=== PATIENT | female | born 1950 | race Caucasian/White ===

== ENCOUNTER → 2016-06-19 | Outpatient (CLI) | payer OTHER ==
[~2016-06-19] MED LIST: ATV5 PO; CIPR-255 PO; DXY100 PO; FLUT0.15 NAE; GLIP1TAB61 PO; INSU1INJ33 SC; LVMI SC; LXP10 PO; NITR-5 PO; OMEP40CA41 PO; PARO30TA PO; REPA2TAB13 PO; SITA50TA PO; SULF800T23 PO
--- NOTE | 2016-06-19 14:17 | MAMMOGRAPHY REPORT ---
BILATERAL DIGITAL SCREENING MAMMOGRAM WITH CAD: 06/19/2016 CLINICAL HISTORY: Routine screening. Patient has no complaints. TECHNIQUE: Current study was also evaluated with a Computer Aided Detection (CAD) system. Bilatera l CC and MLO views were obtained. COMPARISON: Comparison is made to exams dated: 03/16/2008 and 03/16/2008. BREAST COMPOSITION: The tissue of both breasts is almost entirely fatty. FINDINGS: No suspicious masses, calcifications, or areas of architectural distortion are noted in e ither breast. There has been no significant interval change compared to prior exams. A few scattere d bilateral benign-appearing calcifications are again noted. IMPRESSION: ACR BI-RADS CATEGORY 2: BENIGN There is no mammographic evidence of malignancy. A 1 year screening mammogram is recommended. The p atient will receive written notification of the results. Approximately 10% of breast cancers are not detected with mammography. A negative mammographic repor t should not delay biopsy if a clinically suggestive mass is present. Iman Chen M.D. ah/:06/19/2016 12:06:43 Portable Router Operator: Erica GODINEZ(Jovan)(Adonis)(BD), [facility] letter sent: Normal 1/2 BI-RADS Code: ACR BI-RADS Category 2: Benign
== END | disposition home or self-care (01) ==
LOC: C.MAMM 11:00
PROVIDERS: ATTEND Nurse Practitioner Family
DX: Z12.31 Encounter for screening mammogram for malignant neoplasm of breast (principal); Z13.820 Encounter for screening for osteoporosis; Z78.0 Asymptomatic menopausal state; Z87.828 Personal history of other (healed) physical injury and trauma

== ENCOUNTER 2016-08-29 11:02 | Emergency (ER) | payer OTHER ==
[~2016-08-29] VITALS: Ht 172.7 cm; Wt 104.6 kg
[~2016-08-29 11:02] MED LIST changes: -CIPR-255 PO; -INSU1INJ33 SC; -NITR-5 PO; -OMEP40CA41 PO; -PARO30TA PO; +REPA2TAB12 PO; -REPA2TAB13 PO
[2016-08-29 11:06] VITALS: TEMP 37.1; Ht 172.7 cm; Wt 104.6 kg
[2016-08-29 12:05] LABS: HEMATOCRIT 45.6 % (37-47); MEAN CELL VOLUME 89.1 fL (80-100); MEAN CORPUSCULAR HEMOGLOBIN 31.6 pg (25-34); MEAN CORPUSCULAR HGB CONC 35.5 g/dl (32-36); MEAN PLATELET VOLUME 12.6 fL (7.4-10.4); PLATELET COUNT 120 K/uL (130-400); RED BLOOD COUNT 5.12 M/uL (4.2-5.4); WHITE BLOOD COUNT 7.94 K/uL (4.8-10.8)
--- NOTE | 2016-08-29 12:06 | EMERGENCY ROOM VISIT NOTE ---
History Report prepared by Kaci: Milly Brown Under the Supervision of: Dr. Andrew Ho D.O. First contact with patient: 11:12 Chief Complaint: MENTAL HEALTH EVALUATION Stated Complaint: MENTAL HEALTH EVALUATION History of Present Illness The patient is a 66 year old female who presents to the Emergency Room with complaints of worsening depression starting a few days ago. She was evaluated by Dr. Cadena, recharger, today who referred her to the Emergency Room for concerns about depression. She has a history of depression. For the past few days, she has been increasingly concerned about her medical problems. She has a history of diabetes. Her diabetes has been out of control for the past few weeks. Her blood sugar level has been ranging from 200 to 500. She started taking Invokana about a month ago. Since she started taking Invokana, she has been having a headache and trouble sleeping. She has been trying to seek emotional support from her family but has been unsuccessful. She normally talks to one of her sisters about her depression but has been unable to do so lately due to some personal problems that her sister is having. She states that her other siblings have been unhelpful in this matter. The patient currently reports a headache. She currently denies any suicidal ideation. She states that she sometimes thinks that she would be better off if she was not here, because then she would not have to worry about her commitments or her medical problems. She denies any suicide plan. She denies any specific homicidal ideation but states that "there are a lot of people she would like to kill right now." She has been trying to be evaluated by a therapist for the past month but has been unable to obtain an appointment. The patient wants to be tested for Hepatitis. She currently denies any chest pain, abdominal pain, or any other complaints. She denies any drug or alcohol use. Source of History: patient Onset: a few days ago Position: other (global) Quality: other (depression) Timing: worsening Associated Symptoms: + headache, No abdominal pain, No chest pain Review of Systems See HPI for pertinent positives & negatives. A total of 10 systems reviewed and were otherwise negative. Past Medical & Surgical Medical Problems: (1) Asthma, Unspecified (2) COPD (chronic obstructive pulmonary disease) (3) Depression (4) Diab Sondra Wo Compl, Type Ii Or Unspec Type, Uncontrolled (5) Diabetes (6) Headache (7) Mixed Hyperlipidemia Surgical Problems: (1) History of hysterectomy Family History Cancer Gallbladder disease Kidney disease Kidney stones Rosacea Viral meningitis Social History Smoking Status: Former Smoker Alcohol Use: none Drug Use: none Marital Status: Housing Status: lives alone Occupation Status: employed Current/Historical Medications Scheduled Doxycycline Hyclate (Doxycycline Hyclate), 200 MG PO BID Escitalopram Oxalate (Escitalopram Oxalate), 10 MG PO QAM Fluticasone Propionate (Nasal) (Flonase Allergy Relief), 1 SPRAY GRANT DAILY Glipizide Xl (Glucotrol Xl), 10 MG PO BID Insulin Detemir (Levemir), 18 UNITS SC BID Nitrofurantoin Monohyd Macrocr (Macrobid), 100 MG PO BID Repaglinide (Prandin), 2 MG PO AC Sitagliptin Phosphate (Januvia), 50 MG PO DAILY Sulfa/Trimethoprim (Bactrim Ds 800MG/160MG), 1 TAB PO BID Scheduled PRN Lorazepam (Lorazepam), 0.5 MG PO BID PRN for Anxiety Allergies Coded Allergies: Penicillins (Verified Allergy, Intermediate, RASH, 08/10/15) Metformin (Verified Allergy, Unknown, Unknown, 08/10/15) Uncoded Allergies: NICKELSULFATE (Allergy, Unknown, ALLERGIC TO "METAL"??, 07/06/09) Physical Exam Vital Signs Date Time Temp Pulse Resp B/P Pulse Ox O2 Delivery O2 Flow Rate FiO2 08/29/16 13:14 75 20 131/59 95 Room Air 08/29/16 11:06 37.1 81 20 127/85 95 Physical Exam GENERAL: Patient is awake, alert, somewhat anxious appearing and guarded. EYES: The conjunctivae are clear. The pupils are round and reactive. EARS, NOSE, MOUTH AND THROAT: The nose is without any evidence of any deformity. Mucous membranes are moist tongue is midline NECK: The neck is nontender and supple. RESPIRATORY: Normal respiratory effort is noted there is no evidence of wheezing rhonchi or rales CARDIOVASCULAR: Regular rate and rhythm noted there no murmurs rubs or gallops normal S1 normal S2 GASTROINTESTINAL: The abdomen is soft. Bowel sounds are present in all quadrants. Abdomen is nontender MUSCULOSKELETAL/EXTREMITIES: There is no evidence of gross deformity full range of motion is noted in the hips and shoulders SKIN: There is no obvious evidence of any rash. There are no petechiae, pallor or cyanosis noted. NEUROLOGIC: Patient is awake alert and oriented x3 strength is symmetric patellar reflexes are 2+ bilaterally PSYCHIATRIC: Patient is very guarded and aggressive appearing, currently admits to depression symptoms, currently admits to vague suicidal ideation but no plan. Medical Decision & Procedures ER Provider Diagnostic Interpretation: CT results as stated below per my review and radiologist interpretation. CT SCAN OF THE BRAIN WITHOUT IV CONTRAST CLINICAL HISTORY: Headache. COMPARISON STUDY: CT of the brain dated 08/10/2015. TECHNIQUE: Unenhanced axial CT scan of the brain is performed from the vertex to the skull base. CT DOSE: 537.48 mGy.cm FINDINGS: Brain parenchyma: There are age-related involutional changes noting minimal subcortical and periventricular microangiopathic change. There is no hemorrhage, mass effect, or evidence of acute territorial ischemia by CT criteria. Cuevas-white matter is preserved. No extra-axial fluid collection is seen. Ventricles, sulci, cisterns: Prominent secondary to involutional change. Intracranial vasculature: There is atherosclerotic calcification of the cavernous carotid and vertebral arteries. Calvarium: Unremarkable. Sinuses and mastoids: Trace mucosal thickening is seen in the right maxillary antra. The remaining visualized paranasal sinuses are clear. The mastoid air cells are well pneumatized. Orbits: The bony orbits are grossly intact. IMPRESSION: There is no hemorrhage, mass effect, or evidence of acute territorial ischemia by CT criteria. Electronically signed by: Enio Ayala M.D. 08/29/2016 12:11 PM Dictated Date/Time: 08/29/2016 12:10 PM Laboratory Results 08/29/16 11:50 Red Blood Count 5.12, Mean Corpuscular Volume 89.1, Mean Corpuscular Hemoglobin 31.6, Mean Corpuscular Hemoglobin Concent 35.5, Mean Platelet Volume 12.6, Neutrophils (%) (Auto) 68.6, Lymphocytes (%) (Auto) 22.8, Monocytes (%) (Auto) 6.5, Eosinophils (%) (Auto) 1.3, Basophils (%) (Auto) 0.5, Neutrophils # (Auto) 5.45, Lymphocytes # (Auto) 1.81, Monocytes # (Auto) 0.52, Eosinophils # (Auto) 0.10, Basophils # (Auto) 0.04 08/29/16 11:50 Test 08/29/16 11:45 08/29/16 11:50 Urine Color DK YELLOW Urine Appearance CLOUDY (CLEAR) Urine pH 5.0 (4.5-7.5) Urine Specific [place] 1.022 (1.000-1.030) Urine Protein NEG (NEG) Urine Glucose (UA) TRACE (NEG) Urine Ketones NEG (NEG) Urine Occult Blood 1+ (NEG) Urine Nitrite NEG (NEG) Urine Bilirubin NEG (NEG) Urine Urobilinogen NEG (NEG) Urine Leukocyte Esterase LARGE (NEG) Urine WBC (Auto) >30 /hpf (0-5) Urine RBC (Auto) 0-4 /hpf (0-4) Urine Hyaline Casts (Auto) 1-5 /lpf (0-5) Urine Epithelial Cells (Auto) >30 /lpf (0-5) Urine Bacteria (Auto) 4+ (NEG) Urine Opiates Screen NEG (NEG) Urine Methadone, Qualitative NEG (NEG) Urine Barbiturates NEG (NEG) Urine Phencyclidine (PCP) Level NEG (NEG) Ur Amphetamine/Methamphetamine NEG (NEG) MDMA (Ecstasy) Screen NEG (NEG) Urine Benzodiazepines Screen NEG (NEG) Urine Cocaine Metabolite NEG (NEG) Urine Marijuana (THC) NEG (NEG) White Blood Count 7.94 K/uL (4.8-10.8) Red Blood Count 5.12 M/uL (4.2-5.4) Hemoglobin 16.2 g/dL (12.0-16.0) Hematocrit 45.6 % (37-47) Mean Corpuscular Volume 89.1 fL (80-100) Mean Corpuscular Hemoglobin 31.6 pg (25-34) Mean Corpuscular Hemoglobin Concent 35.5 g/dl (32-36) Platelet Count 120 K/uL (130-400) Mean Platelet Volume 12.6 fL (7.4-10.4) Neutrophils (%) (Auto) 68.6 % Lymphocytes (%) (Auto) 22.8 % Monocytes (%) (Auto) 6.5 % Eosinophils (%) (Auto) 1.3 % Basophils (%) (Auto) 0.5 % Neutrophils # (Auto) 5.45 K/uL (1.4-6.5) Lymphocytes # (Auto) 1.81 K/uL (1.2-3.4) Monocytes # (Auto) 0.52 K/uL (0.11-0.59) Eosinophils # (Auto) 0.10 K/uL (0-0.5) Basophils # (Auto) 0.04 K/uL (0-0.2) RDW Standard Deviation 39.1 fL (36.4-46.3) RDW Coefficient of Variation 12.3 % (11.5-14.5) Immature Granulocyte % (Auto) 0.3 % Immature Granulocyte # (Auto) 0.02 K/uL (0.00-0.02) Large Platelets 1+ Anion Gap 5.0 mmol/L (3-11) Est Creatinine Clear Calc Drug Dose 85.3 ml/min Estimated GFR () 87.1 Estimated GFR (Non- 75.2 BUN/Creatinine Ratio 16.6 (10-20) Calcium Level 9.5 mg/dl (8.5-10.1) Total Bilirubin 1.6 mg/dl (0.2-1) Direct Bilirubin 0.3 mg/dl (0-0.2) Aspartate Amino Transf (AST/SGOT) 26 U/L (15-37) Alanine Aminotransferase (ALT/SGPT) 45 U/L (12-78) Alkaline Phosphatase 127 U/L (45-117) Total Protein 7.8 gm/dl (6.4-8.2) Albumin 3.9 gm/dl (3.4-5.0) Thyroid Stimulating Hormone (TSH) 0.971 uIu/ml (0.300-4.500) Hepatitis A IgM Antibody NON-REACTIVE (NON-REACTIVE) Hepatitis B Surface Antigen NEG (NEG) Hepatitis B Core IgM Antibody NON-REACTIVE (NON-REACTIVE) Hepatitis C Antibody NEG (NEG) Laboratory results per my review. Medications Administered Medications (Trade) Dose Ordered Sig/Nakul Route Start Time Stop Time Status Last Admin Dose Admin Ondansetron HCl (Zofran Odt) 4 mg ONE ONCE PO 08/29/16 12:15 08/29/16 12:16 DC 08/29/16 12:22 4 MG Nitrofurantoin Macrocrystals (Macrobid Cap) 100 mg NOW STAT PO 08/29/16 12:43 08/29/16 12:44 DC 08/29/16 13:00 100 MG ED Course 1112: The patient was evaluated in room A07. A complete history and physical examination were performed. 1243: Macrobid Cap 100 mg PO 1310: Upon reevaluation, the patient is feeling better. I discussed the results and treatment plan with her. She verbalized agreement of the treatment plan. The patient was discharged home. Medical Decision Prior records/ancillary studies reviewed. Triage Nursing notes reviewed. The patient's history was concerning for possible psychiatric disturbance. Differential diagnosis: Etiologies such as mood disorder, infection, hypoglycemia, electrolyte abnormalities, cardiac sources, intracerebral event, toxicologic, neurologic, as well as others were entertained. The patient is a 66-year-old female who presented to the emergency department at the request of her recharger. The patient has had problems with ongoing depression symptoms for quite some time. She is very concerned over multiple things including family as well as financial issues. She has also been trying to get in with a paleobotanist but she is been unable to do this. The patient told her recharger that she was having suicidal ideation. He tried to get the patient in with her primary care physician but was unable to. He called here and talk to me and was concerned that the patient may be a threat to herself and he was advised to send her to the emergency department. The patient has ongoing depression and suicidal ideation. This does not appear to be in acute change from her previous suicidal ideation. It sounds as she has very significant depression. She has been admitted for this before and has had medications as well as a therapist but it sounds as though she stopped using her medications and stop seeing her therapist. The patient does not meet criteria to be involuntarily committed at this time. She was evaluated by the emergency Department mental health case fitter as well. I do feel the patient requires very prompt follow-up and if she was agreeable to inpatient management that would also be advisable but at this time she wishes to follow-up with her outpatient therapist. She was also found have signs of urinary tract infection on her medical workup. I discussed the patient's laboratory and radiographic studies with her. She was encouraged to continue all medications as prescribed. She was also encouraged to call crisis or return to the emergency department immediately if symptoms change worsen or the need arises. Otherwise she was encouraged to follow-up with her doctor as well since possible. Impression Primary Impression: Anxiety Additional Impressions: Depression Suicidal ideation UTI (urinary tract infection) Scribe Attestation The scribe's documentation has been prepared under my direction and personally reviewed by me in its entirety. I confirm that the note above accurately reflects all work, treatment, procedures, and medical decision making performed by me. Departure Information Dispostion Home / Self-Care Prescriptions Nitrofurantoin Monohyd Macrocr (Macrobid) 100 Mg Cap 100 MG PO BID, #14 CAP Prov: Andrew Ho, 08/29/16 Referrals Matilda Mitchell (PCP) Forms HOME CARE DOCUMENTATION FORM, IMPORTANT VISIT INFORMATION Patient Instructions Depression Counseling, [facility], Urinary Tract Infecs Women Additional Instructions Follow-up with your family doctor soon as possible. Return to the emergency department or call crisis if symptoms change worsen or the need arises. Follow- up with your therapist as soon as possible. Problem Qualifiers Additional Impressions: Depression Depression Type: unspecified Qualified Codes: F32.9 - Major depressive disorder, single episode, unspecified UTI (urinary tract infection) Urinary tract infection type: acute cystitis Hematuria presence: without hematuria Qualified Codes: N30.00 - Acute cystitis without hematuria
--- NOTE | 2016-08-29 12:12 | DIAGNOSTIC IMAGING REPORT ---
CT SCAN OF THE BRAIN WITHOUT IV CONTRAST CLINICAL HISTORY: Headache. COMPARISON STUDY: CT of the brain dated 08/10/2015. TECHNIQUE: Unenhanced axial CT scan of the brain is performed from the vertex to the skull base. CT DOSE: 537.48 mGy.cm FINDINGS: Brain parenchyma: There are age-related involutional changes noting minimal subcortical and periventricular microangiopathic change. There is no hemorrhage, mass effect, or evidence of acute territorial ischemia by CT criteria. Cuevas-white matter is preserved. No extra-axial fluid collection is seen. Ventricles, sulci, cisterns: Prominent secondary to involutional change. Intracranial vasculature: There is atherosclerotic calcification of the cavernous carotid and vertebral arteries. Calvarium: Unremarkable. Sinuses and mastoids: Trace mucosal thickening is seen in the right maxillary antra. The remaining visualized paranasal sinuses are clear. The mastoid air cells are well pneumatized. Orbits: The bony orbits are grossly intact. IMPRESSION: There is no hemorrhage, mass effect, or evidence of acute territorial ischemia by CT criteria. Electronically signed by: Enio Ayala M.D. 08/29/2016 12:11 PM Dictated Date/Time: 08/29/2016 12:10 PM
[2016-08-29] MEDS ORDERED: ONDANSETRON 4MG OD TAB PO ONE (12:15)
[2016-08-29 12:21] LABS: URINE APPEARANCE CLOUDY (CLEAR); URINE BILIRUBIN NEG (NEG); URINE COLOR DK YELLOW; URINE EPITHELIAL CELL AUTO >30 /lpf (0-5); URINE NITRITE NEG (NEG); URINE SPECIFIC GRAVITY 1.022 (1.000-1.030); UROBILINOGEN NEG (NEG)
[2016-08-29 12:24] LABS: BASO % 0.5 %; BASO ABS # 0.04 K/uL (0-0.2); BUN/CREATININE RATIO 16.6 (10-20); CALCIUM 9.5 mg/dl (8.5-10.1); COMPLETE YES; CREATININE 0.81 mg/dl (0.60-1.20); EOS % 1.3 %; IG% 0.3 %; LARGE PLATELETS 1+; LYMPH % 22.8 %; LYMPH ABS # 1.81 K/uL (1.2-3.4); MONO % 6.5 %; NEUT % 68.6 %
[2016-08-29 12:27] LABS: MANUAL MICROSCOPIC REQUIRED? NO; REVIEW REQ? NO
[2016-08-29 12:34] LABS: BENZODIAZEPINE, URINE NEG (NEG); COCAINE,URINE NEG (NEG); PHENCYCLIDINE, URINE NEG (NEG)
[2016-08-29 12:35] LABS: THYROID STIMULATING HORMONE 0.971 uIu/ml (0.300-4.500)
[2016-08-29] MEDS ORDERED: NITROFURANTOIN MONOHYDRATE 100 MG CAP PO STA (12:43)
[2016-08-29 13:14] VITALS: BP 131/59; PULSE 75; O2SAT 95
[2016-08-29] MEDS ORDERED: NITR-5 PO (13:59)
[2016-10-20] MEDS ORDERED: INSU1INJ33 SC (13:22)
[2016-10-20] MEDS ORDERED: CIPR-255 PO (13:22)
[2016-10-20] MEDS ORDERED: OMEP40CA41 PO (13:22)
[2016-10-20] MEDS ORDERED: PARO30TA PO (13:22)
== END 2016-08-29 14:12 | disposition home or self-care (01) ==
LOC: C.EDB 11:04 → C.EDA 14:12
DX: F41.9 Anxiety disorder, unspecified (principal); F32.9 Major depressive disorder, single episode, unspecified; R45.851 Suicidal ideations; N30.00 Acute cystitis without hematuria; J45.909 Unspecified asthma, uncomplicated; J44.9 Chronic obstructive pulmonary disease, unspecified; E11.9 Type 2 diabetes mellitus without complications; E78.2 Mixed hyperlipidemia; Z80.9 Family history of malignant neoplasm, unspecified; Z83.79 Family history of other diseases of the digestive system; Z84.1 Family history of disorders of kidney and ureter; Z87.891 Personal history of nicotine dependence; Z79.4 Long term (current) use of insulin; Z79.899 Other long term (current) drug therapy

== ENCOUNTER → 2016-10-29 | Day surgery (SDC) | payer OTHER ==
[2016-10-20 13:23] VITALS: Ht 172.7 cm; Wt 100.0 kg
[~2016-10-29] VITALS: Ht 172.7 cm; Wt 100.0 kg
[~2016-10-29] MED LIST changes: -ATV5 PO; +CIPR-255 PO; -DXY100 PO; -FLUT0.15 NAE; -GLIP1TAB61 PO; +INSU1INJ33 SC; +LIDOCAINE HCL 2% 2 ML VIAL (20MG/ML) ONE; -LVMI SC; -LXP10 PO; +OMEP40CA41 PO; +PARO30TA PO; +PROPOFOL IV EMULSION 10 MG/ML 20 ML VIAL IV ONE; -REPA2TAB12 PO; -SITA50TA PO; +SODIUM CHLORIDE 0.9% 500ML 500 ML IV ONE; -SULF800T23 PO
--- NOTE | 2016-10-29 14:13 | Endo History and Physical ---
History & Physical Date of Service: October 29, 2016. Chief Complaint: change in bowel habits Referring Physician: Matilda OTTO History of Present Illness cirrhosis; change in BM for EGD variceal screening and colon Past Medical History Diabetes, Asthma, Anxiety, Blood Dyscrasias, High Cholesterol, COPD, Depression Past Surgical History Hx Cardiac Surgery: No Hx Internal Defibrillator: No Hx Pacemaker: No Hx Abdominal Surgery: Yes (PANNICULECTOMY X 2, ALON, PARTIAL HYSETERECTOMY, OOPHERECTOMY) Hx of Implantable Prosthesis: No Hx Post-Op Nausea and Vomiting: No Hx Cancer Surgery: No Hx Thoracic Surgery: No Hx Orthopedic: Yes (RT/LEFT CATARACT, RT RCR) Hx Urinary Tract Surgery: Yes (BLADDER TACK X 3) Family History IBD Social History Smoking Status: Former Smoker Hx Substance Use: No Hx Alcohol Use: Yes (RARELY) Allergies Coded Allergies: Penicillins (Verified Allergy, Intermediate, RASH, 10/29/16) Metformin (Verified Allergy, Unknown, GI SICKNESS, 10/29/16) Nickel (Verified Allergy, Unknown, HIVES/RASH ON SKIN, 10/29/16) Oxycodone (Verified Allergy, Unknown, HEADACHE AND NAUSEA, 10/29/16) Current Medications Reported Home Medications Medications Dose Route/Sig Max Daily Dose Days Date Category Paxil (Paroxetine Hcl) 30 Mg Tab 30 Mg PO QAM 10/20/16 Reported Prilosec (Omeprazole) 40 Mg Cap 40 Mg PO QAM 10/20/16 Reported Tresiba Flextouch (Insulin Degludec) 100 Unit/Ml Inj 100 Units SC QAM 10/20/16 Reported Vital Signs Weight (Kilograms): 100 Height (Feet): 5 Height (Inches): 8 Date Time Temp Pulse Resp B/P Pulse Ox O2 Delivery O2 Flow Rate FiO2 10/29/16 12:39 37 63 96 163/67 96 Room Air Physical Exam AAO x3 Nl s1s2 Lungs CTA Abd soft NT/ND + BS - CCE Assessment and Plan EGD/Colon
--- NOTE | 2016-10-29 15:13 | GI REPORT ---
Procedure Date: 10/29/2016 1:55 PM Procedure: Upper GI endoscopy Indications: Epigastric abdominal pain, Dyspepsia Medicines: Propofol per Anesthesia Complications: No immediate complications. Estimated blood loss: Minimal. Estimated Blood Loss: Estimated blood loss was minimal. Procedure: Pre-Anesthesia Assessment: - Prior to the procedure, a History and Physical was performed, and patient medications and allergies were reviewed. The patient's tolerance of previous anesthesia was also reviewed. The risks and benefits of the procedure and the sedation options and risks were discussed with the patient. All questions were answered, and informed consent was obtained. Prior Anticoagulants: The patient has taken no previous anticoagulant or antiplatelet agents. ASA Grade Assessment: III - A patient with severe systemic disease. After reviewing the risks and benefits, the patient was deemed in satisfactory condition to undergo the procedure. After obtaining informed consent, the endoscope was passed under direct vision. Throughout the procedure, the patient's blood pressure, pulse, and oxygen saturations were monitored continuously. The scope was introduced through the mouth, and advanced to the second part of duodenum. The upper GI endoscopy was accomplished without difficulty. The patient tolerated the procedure well. Findings: The examined esophagus was normal. A small hiatus hernia was found. The proximal extent of the gastric folds (end of tubular esophagus) was 38 cm from the incisors. The hiatal narrowing was 40 cm from the incisors. The Z-line was 38 cm from the incisors. Patchy mildly erythematous mucosa without bleeding was found in the gastric body and in the gastric antrum. Biopsies were taken with a cold forceps for Helicobacter pylori testing. Verification of patient identification for the specimen was done by the physician and nurse using the patient's name and medical record number. The examined duodenum was normal. Retained gastric contents are not identified on this exam. The cardia and gastric fundus were normal on retroflexion. Impression: - Normal esophagus. - Small hiatus hernia. - Erythematous mucosa in the gastric body and antrum. Biopsied. - Normal examined duodenum. Recommendation: - Discharge patient to home (ambulatory). - Patient has a contact number available for emergencies. The signs and symptoms of potential delayed complications were discussed with the patient. Return to normal activities tomorrow. Written discharge instructions were provided to the patient. - Resume regular diet. - Await pathology results. - Perform a colonoscopy today. MD Clifford Mullins MD 10/29/2016 3:12:47 PM This report has been signed electronically. Note Initiated On: 10/29/2016 1:55 PM I attest to the content of the Intraoperative Record and orders documented therein, exceptions below
--- NOTE | 2016-10-29 15:24 | Discharge Instructions ---
Endoscopy Patient Instructions Date / Procedure(s) Performed October 29, 2016. Colonoscopy, EGD Allergy Information Coded Allergies: Penicillins (Verified Allergy, Intermediate, RASH, 10/29/16) Metformin (Verified Allergy, Unknown, GI SICKNESS, 10/29/16) Nickel (Verified Allergy, Unknown, HIVES/RASH ON SKIN, 10/29/16) Oxycodone (Verified Allergy, Unknown, HEADACHE AND NAUSEA, 10/29/16) Discharge Date / Findings October 29, 2016. gastritis; colon polyps; cecal AVM; diverticulosis Medication Instructions Restart Stopped Medication(s): Reported Home Medications Medications Dose Route/Sig Max Daily Dose Days Date Category Paxil (Paroxetine Hcl) 30 Mg Tab 30 Mg PO QAM 10/20/16 Reported Prilosec (Omeprazole) 40 Mg Cap 40 Mg PO QAM 10/20/16 Reported Tresiba Flextouch (Insulin Degludec) 100 Unit/Ml Inj 100 Units SC QAM 10/20/16 Reported Reported Home Medications Medications Dose Route/Sig Max Daily Dose Days Date Category Paxil (Paroxetine Hcl) 30 Mg Tab 30 Mg PO QAM 10/20/16 Reported Prilosec (Omeprazole) 40 Mg Cap 40 Mg PO QAM 10/20/16 Reported Tresiba Flextouch (Insulin Degludec) 100 Unit/Ml Inj 100 Units SC QAM 10/20/16 Reported Provider Instructions Activity Restrictions - No exercising or heavy lifting for 24 hours. - Do not drink alcohol the day of the procedure. - Do not drive a car or operate machinery until the day after the procedure. - Do not make any important decisions or sign important papers in 24 hours after the procedure. Following Day: - Return to full activity which may include returning to work/school. Diet Start your diet with liquids and light foods (jello, soup, juice, toast). Then eat your usual diet if not nauseated. Treatment For Common After Affects For mild abdominal pain, bloating, or excessive gas: - Rest - Eat lightly - Lie on right side Follow-Up Information Follow-up with Matilda OTTO as scheduled Anesthesia Information What You Should Know You have had a procedure that required some medicine to reduce anxiety and discomfort. This treatment is called moderate sedation. After receiving the treatment, you may be sleepy, but you will be able to breathe on your own. The effects of the treatment may last for several hours. Follow these instructions along with Activity/Diet recommendations noted above: * Do NOT do anything where dizziness or clumsiness would be dangerous. * Rest quietly at home today, then you can be up and about tomorrow. * Have a responsible person stay with you the rest of today. * You may have had an I.V. today. If so, you may take the dressing off later today. Recommendations Call your doctor if: * Trouble breathing * Continuous vomiting for more than 24 hours * Temperature above 101 degrees * Severe abdominal pain or bloating * Pain not relieved by pain medicine ordered * There is increased drainage or redness from any incision * A large amount of rectal bleeding greater than 2-3 tablespoons. (If you had a polyp/s removed or have hemorrhoids, a small amount of blood - from the rectum is to be expected.) * You have any unanswered questions or concerns. IN THE EVENT OF A SERIOUS EMERGENCY, GO TO THE NEAREST EMERGENCY ROOM Your discharge instructions were prepared by provider Clifford Moscoso. Patient Instructions Signature Page Jing Dela Cruz Patient (or Guardian) Signature/Date: I have read and understand the instructions given to me by my caregivers. Caregiver/RN/Doctor Signature/Date: The above-named patient and/or guardian has received patient instructions on this date. + Original Patient Signature Page (only) stays with chart. Please make copy for patient.
--- NOTE | 2016-10-29 15:26 | Anesthesiology Progress Note ---
Anesthesia Post Op Note Date & Time October 29, 2016 at 15:26 Vital Signs Pain Intensity: 0 Vital Signs Past 12 Hours Date Time Temp Pulse Resp B/P Pulse Ox O2 Delivery O2 Flow Rate FiO2 10/29/16 15:17 73 18 121/87 96 Room Air 10/29/16 12:39 37 63 96 163/67 96 Room Air Notes Mental Status: alert / awake / arousable, participated in evaluation Pt Amnestic to Procedure: Yes Nausea / Vomiting: adequately controlled Pain: adequately controlled Airway Patency, RR, SpO2: stable & adequate BP & HR: stable & adequate Hydration State: stable & adequate Anesthetic Complications: no major complications apparent
--- NOTE | 2016-10-29 15:29 | GI REPORT ---
Procedure Date: 10/29/2016 1:55 PM Procedure: Colonoscopy Indications: Change in bowel habits Medicines: Propofol per Anesthesia Complications: No immediate complications. Estimated blood loss: Minimal. Estimated Blood Loss: Estimated blood loss was minimal. Procedure: Pre-Anesthesia Assessment: - Prior to the procedure, a History and Physical was performed, and patient medications and allergies were reviewed. The patient's tolerance of previous anesthesia was also reviewed. The risks and benefits of the procedure and the sedation options and risks were discussed with the patient. All questions were answered, and informed consent was obtained. Prior Anticoagulants: The patient has taken no previous anticoagulant or antiplatelet agents. ASA Grade Assessment: III - A patient with severe systemic disease. After reviewing the risks and benefits, the patient was deemed in satisfactory condition to undergo the procedure. After I obtained informed consent, the scope was passed under direct vision. Throughout the procedure, the patient's blood pressure, pulse, and oxygen saturations were monitored continuously. The scope was introduced through the anus and advanced to the cecum, identified by appendiceal orifice and ileocecal valve. The colonoscopy was performed without difficulty. The patient tolerated the procedure well. The quality of the bowel preparation was good. Findings: The perianal and digital rectal examinations were normal. Pertinent negatives include normal sphincter tone, no palpable rectal lesions and no anal lesion or abnormality was detected. A single small localized angiodysplastic lesion without bleeding was found in the cecum. Fulguration to ablate the lesion to prevent bleeding by bipolar probe was successful. A 7 mm polyp was found in the ascending colon. The polyp was sessile. The polyp was removed with a cold snare. Resection and retrieval were complete. Estimated blood loss was minimal. Verification of patient identification for the specimen was done by the physician and computer systems technician using the patient's name and medical record number. A 5 mm polyp was found at 20 cm proximal to the anus. The polyp was sessile. The polyp was removed with a cold snare. Resection and retrieval were complete. Estimated blood loss was minimal. Verification of patient identification for the specimen was done by the physician and computer systems technician using the patient's name and medical record number. Many small-mouthed diverticula were found in the sigmoid colon. The descending colon and ascending colon appeared normal. Biopsies were taken with a cold forceps for histology. Estimated blood loss was minimal. Verification of patient identification for the specimen was done by the physician and computer systems technician using the patient's name and medical record number. The exam was otherwise without abnormality. The retroflexed view of the distal rectum and anal verge was normal and showed no anal or rectal abnormalities. Impression: - A single non-bleeding colonic angiodysplastic lesion. Treated with bipolar cautery. - One 7 mm polyp in the ascending colon, removed with a cold snare. Resected and retrieved. - One 5 mm polyp at 20 cm proximal to the anus, removed with a cold snare. Resected and retrieved. - Diverticulosis in the sigmoid colon. - The descending colon and ascending colon are normal. Biopsied. - The examination was otherwise normal. - The distal rectum and anal verge are normal on retroflexion view. Recommendation: - Discharge patient to home (ambulatory). - Resume regular diet. - Continue present medications. - Await pathology results. - Repeat colonoscopy for surveillance based on pathology results. - Return to referring physician as previously scheduled. MD Clifford Mullins MD 10/29/2016 3:28:49 PM This report has been signed electronically. Note Initiated On: 10/29/2016 1:55 PM I attest to the content of the Intraoperative Record and orders documented therein, exceptions below
[2016-10-29 15:47] VITALS: BP 139/71; PULSE 83; O2SAT 96
== END | disposition home or self-care (01) ==
LOC: C.GI 12:02
PROVIDERS: ATTEND Internal Medicine Gastroenterology
DX: K55.20 Angiodysplasia of colon without hemorrhage (principal); D12.2 Benign neoplasm of ascending colon; K62.0 Anal polyp; K57.30 Diverticulosis of large intestine without perforation or abscess without bleeding; R19.4 Change in bowel habit; K29.50 Unspecified chronic gastritis without bleeding; K44.9 Diaphragmatic hernia without obstruction or gangrene; E11.9 Type 2 diabetes mellitus without complications; E78.00 Pure hypercholesterolemia, unspecified; J44.9 Chronic obstructive pulmonary disease, unspecified; D75.9 Disease of blood and blood-forming organs, unspecified; F32.9 Major depressive disorder, single episode, unspecified; F41.9 Anxiety disorder, unspecified; Z87.891 Personal history of nicotine dependence; Z83.79 Family history of other diseases of the digestive system; Z79.4 Long term (current) use of insulin; Z79.899 Other long term (current) drug therapy

== ENCOUNTER → 2016-11-10 | Outpatient (CLI) | payer OTHER ==
[~2016-11-10] MED LIST changes: -CIPR-255 PO; -LIDOCAINE HCL 2% 2 ML VIAL (20MG/ML) ONE; -PROPOFOL IV EMULSION 10 MG/ML 20 ML VIAL IV ONE; -SODIUM CHLORIDE 0.9% 500ML 500 ML IV ONE
== END ==
LOC: C.LABSPEC 11:27
PROVIDERS: ATTEND Nurse Practitioner Family
DX: N39.0 Urinary tract infection, site not specified (principal)

== ENCOUNTER → 2016-12-16 | Outpatient (CLI) | payer OTHER | END | disposition home or self-care (01) | LOC: C.LABSPEC 11:05 | PROVIDERS: ATTEND Nurse Practitioner Family | DX: N39.0 Urinary tract infection, site not specified (principal); N76.0 Acute vaginitis; N94.9 Unspecified condition associated with female genital organs and menstrual cycle ==

== ENCOUNTER → 2017-01-05 | Outpatient (CLI) | payer OTHER | END | disposition home or self-care (01) | LOC: C.PATHSPEC 17:13 → C.LABSPEC 17:50 | PROVIDERS: ATTEND Urology | DX: R31.29 Other microscopic hematuria (principal) ==

== ENCOUNTER → 2017-01-05 | Outpatient (CLI) | payer OTHER ==
[~2017-01-05] MED LIST changes: +OPTIRAY 320 IV PRN
--- NOTE | 2017-01-05 14:47 | DIAGNOSTIC IMAGING REPORT ---
ABD/PELVIS COMBO HISTORY: 66 years-old Female N39.0 UTI (urinary tract infection)R31.29 Microscopic hematuriad COMPARISON: CT abdomen and pelvis 11/20/2013 TECHNIQUE: Multiple axial CT images of the abdomen and pelvis were obtained both with and without the use of 118 mL Optiray 320. A dose lowering technique was used consistent with the principals of RODRIGO. FINDINGS: There is mild bibasilar atelectasis and/or pleural parenchymal scarring. There is no pneumoperitoneum. Coronary arterial calcifications are seen within a three-vessel distribution. Prior cholecystectomy. Marginal nodularity of the liver is again seen compatible with cirrhotic liver disease. Spleen is again enlarged, 15 cm in length. There is recanalization of the umbilical vein. No significant upper abdominal varices or ascites identified. There is mild pancreatic atrophy. There is nodularity of the left adrenal gland. The right adrenal gland appears normal. There are several nonobstructing renal calculi on the right with areas of parenchymal scarring of the superior pole right kidney. Calculi are seen measuring up to 4 mm. No ureteral calculi or hydronephrosis. No filling defects are seen within either ureter or renal collecting system. Probable cyst of the superior pole left kidney is seen, 8 mm. Urinary bladder is unremarkable. Prior hysterectomy. 2.7 x 2.5 cm cystic lesion of the right adnexum is again seen, previously 3.5 x 2.6 cm. There is moderate atherosclerosis of the abdominal aorta. No pathologic adenopathy identified. Mildly prominent loops of small bowel are seen within the mid abdomen measuring up to 2.7 cm without evidence of bowel obstruction. Scattered colonic and jejunal diverticuli are again seen. Noted subacute diverticulitis. The appendix appears normal. Fat filled periumbilical hernia is noted with diastases of 1.7 cm. Spinal stimulator pack is seen over the left buttock region with electrode in the region of the left mid sacrum. Moderate to severe degenerative changes involve the pubic symphysis. The bones appear intact. IMPRESSION: 1. Multiple nonobstructing renal calculi are seen on the right with areas of parenchymal scarring of the superior pole right kidney. No ureteral calculi or hydronephrosis. 2. Prior hysterectomy and cholecystectomy. 3. Cirrhotic liver disease with splenomegaly. 4. Colonic diverticulosis without diverticulitis. 5. Small fat filled periumbilical hernia. 6. Small cystic lesion of the right adnexum has slightly decreased in size from comparison study, none measuring 2.7 cm. The above report was generated using voice recognition software. It may contain grammatical, syntax or spelling errors. Electronically signed by: Curtis Ramirez M.D. 01/05/2017 2:46 PM Dictated Date/Time: 01/05/2017 2:36 PM
== END | disposition home or self-care (01) ==
LOC: C.CTS 13:41
PROVIDERS: ATTEND Nurse Practitioner Adult Health
DX: N39.0 Urinary tract infection, site not specified (principal); R31.29 Other microscopic hematuria; N20.0 Calculus of kidney; K74.60 Unspecified cirrhosis of liver; R16.1 Splenomegaly, not elsewhere classified; K57.30 Diverticulosis of large intestine without perforation or abscess without bleeding; Z90.710 Acquired absence of both cervix and uterus; Z90.49 Acquired absence of other specified parts of digestive tract

== ENCOUNTER 2017-06-01 12:55 | Emergency (ER) | payer OTHER ==
[~2017-06-01] VITALS: Ht 172.7 cm; Wt 97.2 kg
[~2017-06-01 12:55] MED LIST changes: -OPTIRAY 320 IV PRN
[2017-06-01 12:58] VITALS: TEMP 37.2; Ht 172.7 cm; Wt 97.2 kg
[2017-06-01] MEDS ORDERED: IBUPROFEN 600 MG TAB PO STA (13:17)
[2017-06-01] MEDS ORDERED: ACETAMINOPHEN 500 MG TAB PO STA (13:17)
--- NOTE | 2017-06-01 13:36 | EMERGENCY ROOM VISIT NOTE ---
History Report prepared by Kaci: Trinity Brantley Under the Supervision of: Dr. Enio Oliva M.D. First contact with patient: 13:09 Chief Complaint: CHEST PAIN Stated Complaint: PAIN IN LEFT CHEST Nursing Triage Summary: pt reports she fell 1 week ago has pain under left breast when sits cannot get up hurts to breath, cannot take deep breath, or cough History of Present Illness The patient is a 67 year old female who presents to the Emergency Room with complaints of persistent left sided chest pain starting 1 week ago. The pain is located under her left breast and started after she fell 1 week ago. She thought that she might have just bruised a rib and did not go to see a doctor. The pain worsens with breathing, coughing, and lifting her left arm. The pain is going up into the back of her neck. She denies any head injury or any other injury with the fall. She denies any abdominal pain. Source of History: patient Onset: 1 week ago Position: chest (left) Quality: other (pain) Timing: other (persistent) Modifying Factors (Worsening): breathing, movement, other (coughing) Associated Symptoms: + neck pain, No abdominal pain Review of Systems See HPI for pertinent positives & negatives. A total of 10 systems reviewed and were otherwise negative. Past Medical & Surgical Medical Problems: (1) Asthma, Unspecified (2) COPD (chronic obstructive pulmonary disease) (3) Depression (4) Diab Sondra Wo Compl, Type Ii Or Unspec Type, Uncontrolled (5) Diabetes (6) Headache (7) Mixed Hyperlipidemia Surgical Problems: (1) History of hysterectomy Family History Cancer Gallbladder disease Kidney disease Kidney stones Rosacea Viral meningitis Social History Smoking Status: Never Smoker Alcohol Use: none Drug Use: none Marital Status: Housing Status: lives alone Occupation Status: employed Current/Historical Medications Scheduled Insulin Degludec (Tresiba Flextouch), 100 UNITS SC QAM Loperamide Hcl (Imodium), 2 MG PO 1-2XD Omeprazole (Prilosec), 40 MG PO QAM Paroxetine Hcl (Paxil), 30 MG PO QAM Solifenacin (Vesicare), 10 MG PO DAILY Allergies Coded Allergies: Penicillins (Verified Allergy, Intermediate, RASH, 06/01/17) Metformin (Verified Allergy, Unknown, GI SICKNESS, 06/01/17) Nickel (Verified Allergy, Unknown, HIVES/RASH ON SKIN, 06/01/17) Oxycodone (Verified Allergy, Unknown, HEADACHE AND NAUSEA, 06/01/17) Physical Exam Vital Signs Date Time Temp Pulse Resp B/P (MAP) Pulse Ox O2 Delivery O2 Flow Rate FiO2 06/01/17 13:16 79 06/01/17 12:58 37.2 79 18 145/85 94 Room Air Physical Exam GENERAL: Patient is in no acute distress. HEENT: No acute trauma, normocephalic atraumatic, mucous membranes moist, no nasal congestion, no scleral icterus. NECK: No stridor, no adenopathy, no meningismus, trachea is midline. CHEST: Tender along the left lateral and anterior chest wall. No contusion. LUNGS: Clear to auscultation bilaterally, no wheeze, no rhonchi, breath sounds equal. HEART: Without murmurs gallops or rubs, regular rate and rhythm. ABDOMEN: Soft, nontender, bowel sounds positive, no hernias, no peritonitis. EXTREMITIES: No cyanosis or edema, full range of motion of all the joints without pain or difficulty, no signs for acute trauma. NEUROLOGIC: Oriented x 3, no acute motor or sensory deficits, no focal weakness. SKIN: No rash, no jaundice, no diaphoresis. Medical Decision & Procedures ER Provider Diagnostic Interpretation: X-ray results as stated below per interpretation by me and the radiologist: SINGLE VIEW CHEST WITH LEFT-SIDED RIB SERIES CLINICAL HISTORY: Fall with left-sided chest wall pain. FINDINGS: A supine frontal chest radiograph with 4 additional views from a left-sided rib series are compared to study dated 07/03/15. The heart is top normal for projection and there is atherosclerotic calcification of the thoracic aorta. There is elevation of right hemidiaphragm and bibasilar atelectasis. Chronic interstitial thickening is similar to previous. No airspace consolidation or large pleural effusion is identified. No pneumothorax is seen. The skeletal structures are osteopenic. There is no radiographic evidence of acute/distracted left-sided rib fracture. There is a chronic/healed right clavicular fracture. The remainder the bony thorax appears intact. Cholecystectomy clips are noted. IMPRESSION: 1. No acute cardiopulmonary abnormality. 2. There is no radiographic evidence of acute/distracted left-sided rib fracture on the rib series. Electronically signed by: Enio Ayala M.D. 06/01/2017 2:05 PM Dictated Date/Time: 06/01/2017 2:02 PM Medications Administered Medications (Trade) Dose Ordered Sig/Nakul Route Start Time Stop Time Status Last Admin Dose Admin Acetaminophen (Tylenol Tab) 1,000 mg NOW STAT PO 06/01/17 13:17 06/01/17 13:19 DC 06/01/17 13:31 1,000 MG Ibuprofen (Motrin Tab) 600 mg NOW STAT PO 06/01/17 13:17 06/01/17 13:19 DC 06/01/17 13:31 600 MG ECG Indication: chest pain Rate (beats per minute): 72 Rhythm: sinus rhythm Findings: PAC, no acute ischemic change, other (no dysrhythmia) ED Course 1313: The patient was evaluated in room A10. A complete history and physical exam was performed. 1317: Ibuprofen 600 mg PO, Acetaminophen 1000 mg PO. 1418: I reevaluated the patient. I discussed results and discharge instructions : she verbalized understanding and agreement. The patient is ready for discharge. 1430: [place] 5/325 mg 1 homepack PO. Medical Decision Differential diagnoses considered include rib fracture, chest wall contusion, pneumothorax, pulmonary contusion, CA, abdominal trauma, PE, aortic dissection. The patient presents with left chest pain since falling a week ago. On exam, the left chest wall was tender. No contusion. There was no evidence for injury to the head or neck or abdomen. She was neurovascularly intact distally in the left upper extremity. Films of the left ribs show a healthy left lung. No pneumothorax. No rib fracture seen. The patient was given oral Motrin and oral Tylenol. She was reassured by her films. She is being discharged with heat, Motrin, Tylenol. She received a [place] home pack to use for severe pain. Medication Reconcilliation Current Medication List: was personally reviewed by me Blood Pressure Screening Patient's blood pressure: Elevated blood pressure Blood pressure disposition: Elevated BP felt to be situational Impression Primary Impression: Contusion of left chest wall Additional Impression: Fall Scribe Attestation The scribe's documentation has been prepared under my direction and personally reviewed by me in its entirety. I confirm that the note above accurately reflects all work, treatment, procedures, and medical decision making performed by me. Departure Information Dispostion Home / Self-Care Referrals Matilda Mitchell (PCP) Forms Call Back Authorization, HOME CARE DOCUMENTATION FORM, IMPORTANT VISIT INFORMATION Patient Instructions My [facility] Additional Instructions motrin and or tylenol for pain heat to the chest wall may help rest no heavy lifting use norco 1 tab every 6 hours for the severe pain return if worsening no rib fracture seen today on chest film Problem Qualifiers
--- NOTE | 2017-06-01 14:06 | DIAGNOSTIC IMAGING REPORT ---
SINGLE VIEW CHEST WITH LEFT-SIDED RIB SERIES CLINICAL HISTORY: Fall with left-sided chest wall pain. FINDINGS: A supine frontal chest radiograph with 4 additional views from a left-sided rib series are compared to study dated 07/03/15. The heart is top normal for projection and there is atherosclerotic calcification of the thoracic aorta. There is elevation of right hemidiaphragm and bibasilar atelectasis. Chronic interstitial thickening is similar to previous. No airspace consolidation or large pleural effusion is identified. No pneumothorax is seen. The skeletal structures are osteopenic. There is no radiographic evidence of acute/distracted left-sided rib fracture. There is a chronic/healed right clavicular fracture. The remainder the bony thorax appears intact. Cholecystectomy clips are noted. IMPRESSION: 1. No acute cardiopulmonary abnormality. 2. There is no radiographic evidence of acute/distracted left-sided rib fracture on the rib series. Electronically signed by: Enio Ayala M.D. 06/01/2017 2:05 PM Dictated Date/Time: 06/01/2017 2:02 PM
[2017-06-01] MEDS ORDERED: IMD/2 PO (14:24)
[2017-06-01] MEDS ORDERED: SOLI10TA2 PO (14:24)
[2017-06-01] MEDS ORDERED: NORCO 5/325MG HOME PACK PO ONE (14:30)
[2017-06-01 14:33] VITALS: BP 133/84; PULSE 74; O2SAT 99
== END 2017-06-01 14:33 | disposition home or self-care (01) ==
LOC: C.EDB 12:57 → C.EDA 14:33
DX: S20.20XA Contusion of thorax, unspecified, initial encounter (principal); W19.XXXA Unspecified fall, initial encounter; J44.9 Chronic obstructive pulmonary disease, unspecified; J45.909 Unspecified asthma, uncomplicated; E11.9 Type 2 diabetes mellitus without complications; E78.5 Hyperlipidemia, unspecified; R03.0 Elevated blood-pressure reading, without diagnosis of hypertension; Z79.4 Long term (current) use of insulin; Z84.1 Family history of disorders of kidney and ureter; Z83.79 Family history of other diseases of the digestive system; Z84.0 Family history of diseases of the skin and subcutaneous tissue; Z83.1 Family history of other infectious and parasitic diseases

== ENCOUNTER → 2017-10-20 | Outpatient (CLI) | payer OTHER ==
[~2017-10-20] MED LIST changes: +IMD/2 PO; +SOLI10TA2 PO
--- NOTE | 2017-10-20 19:30 | DIAGNOSTIC IMAGING REPORT ---
CHEST 2 VIEWS ROUTINE CLINICAL HISTORY: 67 years-old Female presenting with J44.1 COPD exacerbation, chest pain. TECHNIQUE: PA and lateral views of the chest were obtained. COMPARISON: 07/03/2015. FINDINGS: Atherosclerosis of the aortic arch. Cardiac silhouette normal in size. Elevation of the hemidiaphragms, chronic. Minimal basilar opacities. No pleural effusion or pneumothorax. Degenerative changes of the thoracic spine. Cholecystectomy clips noted. IMPRESSION: 1. Minimal basilar opacities likely atelectasis or scarring. No convincing evidence of acute cardiopulmonary disease. Electronically signed by: Renard Vyas M.D. 10/20/2017 7:29 PM Dictated Date/Time: 10/20/2017 7:27 PM
== END | disposition home or self-care (01) ==
LOC: C.RAD 18:58
PROVIDERS: ATTEND Family Medicine
DX: J44.1 Chronic obstructive pulmonary disease with (acute) exacerbation (principal)

== ENCOUNTER 2018-12-27 19:45 | Inpatient (IN) ==
[2018-12-27] MEDS ORDERED: SODIUM CHLORIDE 0.9% 1000ML 1,000 ML IV ONE (20:22)
[2018-12-27] MEDS ORDERED: KETOROLAC TROMETHAMINE 15 MG/ML VIAL IV STA (20:22)
[2018-12-27] MEDS ORDERED: ONDANSETRON INJ 2 MG/ML 2 ML VIAL IV STA (20:22)
[2018-12-27] MEDS ORDERED: MECLIZINE HCL 25 MG TAB PO STA (20:23)
[2018-12-27 20:49] LABS: Hematocrit (blood only) 42.3 % (37-47); Hemoglobin 14.6 g/dL (12.0-16.0); Mean Corpuscular Hgb Conc 34.5 g/dL (32-36); Mean Corpuscular Volume 92.2 fL (80-100); RDW Coefficient of Variation 12.5 % (11.5-14.5); RDW Standard Deviation 42.1 fL (36.4-46.3); Red Blood Count 4.59 M/uL (4.2-5.4); White Blood Count 6.72 K/uL (4.8-10.8)
--- NOTE | 2018-12-27 20:49 | XRay Report ---
XR chest 1V portable CLINICAL HISTORY: Sepsis COMPARISON STUDY: 06/01/2017 FINDINGS: The heart is normal in size. There are low lung volumes with interstitial thickening possib ly hypoventilatory basis. There is no lobar consolidation. There are no pleural effusions.[ IMPRESSION: Low lung volumes with interstitial thickening possibly on a hypoventilatory basis. No yamini dence of lobar consolidation Electronically signed by: Rony Whatley M.D. 12/27/2018 8:48 PM
[2018-12-27 20:52] LABS: iSTAT Creatinine 0.7 mg/dl (0.6-1.3); iSTAT Hemoglobin 14.3 g/dl (12.0-16.0); iSTAT Ionized Calcium 1.19 mmol/l (1.12-1.32); iSTAT Potassium 3.8 mEq/L (3.3-5.0)
[2018-12-27 21:00] LABS: INR 1.1 (0.9-1.1); Partial Thromboplastin Time 26.5 Seconds (21.0-31.0); Prothrombin Time 11.1 Seconds (9.0-12.0)
[2018-12-27 21:07] LABS: Basophils # (auto) 0.02 K/uL (0-0.2); Basophils % (auto) 0.3 %; Eosinophils # (auto) 0.02 K/uL (0-0.5); Eosinophils % (auto) 0.3 %; Immature Granulocytes # (auto) 0.03 K/uL (0.00-0.02); Immature Granulocytes % (auto) 0.4 %; Lymphocytes # (auto) 0.53 K/uL (1.2-3.4); Lymphocytes % (auto) 7.9 %; Mean Platelet Volume 11.9 fL (7.4-10.4); Monocytes # (auto) 0.65 K/uL (0.11-0.59); Monocytes % (auto) 9.7 %; Neutrophils # (auto) 5.47 K/uL (1.4-6.5); Neutrophils % (auto) 81.4 %; Platelet Count 72 K/uL (130-400); Platelet Estimate Decreased (Normal)
[2018-12-27 21:10] LABS: Alanine Aminotransferase 45 U/L (12-78); Albumin Level 3.7 gm/dl (3.4-5.0); Aspartate Aminotransferase 36 U/L (15-37); BUN Creatinine Ratio 20.8 (10-20); Blood Urea Nitrogen 18 mg/dl (7-18); Calcium 9.3 mg/dl (8.5-10.1); Carbon Dioxide 24 mmol/L (21-32); Chloride 104 mmol/L (98-107); Creatinine Clr Calc Pharmacy 77.8 ml/min; Est GFR (African American) 79.9; Est GFR (Non-African American) 68.9; Glucose 176 mg/dl (70-99); Potassium 3.8 mmol/L (3.5-5.1); Sodium 137 mmol/L (136-145)
[2018-12-27 21:13] LABS: Alkaline Phosphatase 135 U/L (45-117); Bilirubin,Total 1.8 mg/dl (0.2-1); Globulin 3.9 gm/dl (2.5-4.0); Total Protein 7.6 gm/dl (6.4-8.2)
[2018-12-27] MEDS ORDERED: cefTRIAXone SODIUM 2,000 MG/70 ML BAG IV STA (21:18)
[2018-12-27] MEDS ORDERED: DOXYCYCLINE HYCLATE 100 MG CAP PO STA (21:19)
[2018-12-27] MEDS ORDERED: ACETAMINOPHEN 500 MG TAB PO STA (21:20)
[2018-12-27 21:35] LABS: Creatine Kinase 63 U/L (26-192)
[2018-12-27 21:39] LABS: Creatine Kinase MB < 1.0 ng/ml (0.5-3.6); Lyme Ab IgG w/WB Rflx Negative (Negative); Troponin I < 0.015 ng/ml (0-0.045)
[2018-12-27 21:48] LABS: Lyme Ab IgM w/WB Rflx Equivocal (Negative)
[2018-12-27] MEDS ORDERED: IOVERSOL 100ml IV PRN (21:50)
[2018-12-27 21:52] LABS: Influenza A virus by PCR Neg for Influ A (Neg); Influenza B virus by PCR Neg for Influ B (Neg)
--- NOTE | 2018-12-27 21:55 | CT Scan Report ---
CT head/brain wo con CLINICAL HISTORY: Vomiting. EVALUATE FOR INTRACRANIAL ETIOLOGY. COMPARISON STUDY: October 02, 2018 TECHNIQUE: Axial CT of the brain is performed from the vertex to the skull base. IV contrast was not administered for this examination. A dose lowering technique was utilized adhering to the principles of ALARA. CT DOSE: 773.57 mGy.cm FINDINGS: No intra or extra-axial mass lesions are visualized. There is no CT evidence of acute cortical infarc tion. There is no evidence of midline shift. There is no acute hemorrhage. No calvarial fractures ar e visualized. There is no evidence of pathologic ventricular dilatation. There is no evidence of acute sinusitis IMPRESSION: No acute intracranial findings Electronically signed by: Rony Whatley M.D. 12/27/2018 9:54 PM
--- NOTE | 2018-12-27 22:07 | CT Scan Report ---
CT abd pelvis IV con only CLINICAL HISTORY: Right upper quadrant abdominal pain and vomiting COMPARISON STUDY: August 31, 2018 TECHNIQUE: The patient was scanned in a dynamic helical fashion during intravenous administration of 93 cc of Optiray 320. A dose lowering technique was utilized adhering to the principles of ALARA. CT DOSE: 1542.21 mGy.cm FINDINGS: Lower chest: There are basilar atelectatic changes. There are no significant pleural effusions. Liver: There is mild hepatic steatosis. The liver has a cirrhotic morphology. Gallbladder: Surgically absent Spleen: The spleen is enlarged measuring 18 cm. There is a nonspecific 12 mm splenic hypodensity not significantly changed from the preceding study Pancreas: Unremarkable. Adrenal glands: There is mild adrenal gland thickening, likely secondary to adenomatous hyperplasia. Kidneys: There is right-sided nephrolithiasis. There is no hydroureter necrosis. No ureteral or bladd er calculi are visualized. Subcentimeter renal hypodensities likely represent cysts Bowel: There are no transition zones indicate bowel obstruction. There is no acute diverticulitis. Th e appendix appears normal Peritoneum: There is no intraperitoneal free air or abdominal ascites. There is a small fat-containin g umbilical hernia. There is a small fat-containing supraumbilical ventral hernia. Vasculature: The abdominal aorta is normal in course and caliber. Adenopathy: None. Pelvic viscera: The patient is status post a prior hysterectomy. There is a 42 mm cystic right adnexa l lesion, likely ovarian this measured 35 mm in October 2013. There is air within the bladder presumably iatrogenic. Skeletal structures: No destructive osseous lesions are seen. There is a presacral stimulator. IMPRESSION: 1. Hepatic cirrhosis and splenomegaly 2. No evidence of bowel obstruction. No evidence of free air 3. Normal appendix. No evidence of acute diverticulitis 4. Right-sided nephrolithiasis. No ureteral calculi identified 5. Fat-containing umbilical hernia fat-containing supraumbilical ventral hernia 6. Air within the bladder, likely iatrogenic 7. Slowly enlarging 42 mm cystic right adnexal lesion, likely ovarian. This measured 35 mm in November 18 14. Electronically signed by: Rony Whatley M.D. 12/27/2018 10:05 PM
[2018-12-27 22:38] LABS: Appearance Urine Clear (Clear); Bacteria Urine Automated 4+ (Negative); Bilirubin Urine Negative (Negative); Blood Urine Trace (Negative); Color Urine Yellow; Epithelial Cell Urine Auto >30 /lpf (0-5); Glucose Urine UA Negative (Negative); Ketones Urine Negative (Negative); Leukocyte Esterase Urine 1+ (Negative); Nitrite Urine Positive (Negative); Protein Urine Trace (Negative); RBC Urine Automated 0-4 /hpf (0-4); Specific Gravity Urine > 1.045 (1.000-1.030); Urobilinogen Urine Negative (Negative); WBC Urine Automated >30 /hpf (0-5); pH Urine 5.5 (4.5-7.5)
[2018-12-27 22:54] LABS: Cast Urine Automated 0 /lpf (0-5)
--- NOTE | 2018-12-27 23:53 | Emergency Department Note ---
Entered by Reena Jin acting as a scribe for History of Present Illness General Chief complaint: Illness Stated complaint: FEVER 102, VOMITING Time Seen by Provider: 12/27/18 20:11 Source: patient Limitations: no limitations History of Present Illness Onset (ago): hour(s) (a few) Location: head Pain Consistency: + constant Maximum Pain Intensity: 8 Quality: + constant and + other (fever) Relieved By: + other (sitting up) Associated symptoms: + denies other symptoms (abdominal pain), + nausea/vomiting and + other (body aches and dizziness) Treatments prior to arrival: other (Tylenol and antihistamine) The patient is a 68 year old female who presents to the Emergency Room with complaints of a constant fever that began a few hours ago. 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 The patient complains of nausea/vomiting, body aches, and dizziness. She denies any abdominal pain. The patient's sister notes that the patient had Tylenol at 18:30, but she vomited 5 minutes after. 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 The patient notes that sitting up provides some relief. The patient denies wearing oxygen at home, having breathing treatments at home, and smoking cigarettes. She notes that she was diagnosed with Lyme disease about 3 months ago. Home Medications Home Medications Medication Instructions Recorded Confirmed Type cranberry-B.bkzjuieg-M-Mh phos 1 tab PO BID 10/02/18 12/27/18 History [Cranberry-Probiotic] insulin degludec [Tresiba 106 units SUBCUT QAM 10/02/18 12/27/18 History FlexTouch U-200] liraglutide [Victoza 3-Júnior] 1.8 units SUBCUT QAM 10/02/18 12/27/18 History loperamide [Imodium A-D] 2 mg PO Q3H PRN 10/02/18 12/27/18 History omeprazole 40 mg PO QAM 10/02/18 12/27/18 History paroxetine HCl [Paxil] 30 mg PO QAM 10/02/18 12/27/18 History solifenacin [Vesicare] 10 mg PO QAM 10/02/18 12/27/18 History conjugated estrogens [Premarin] 1 applic VAGINAL UD 12/27/18 12/27/18 History mirabegron [Myrbetriq] 50 mg PO DAILY 12/27/18 12/27/18 History Allergies Allergy/AdvReac Type Severity Reaction Status Date / Time Penicillins Allergy Intermediate RASH Verified 12/27/18 21:20 metformin Allergy Unknown GI SICKNESS Verified 12/27/18 21:20 nickel Allergy Unknown HIVES/RASH Verified 12/27/18 21:20 ON SKIN oxycodone Allergy Unknown HEADACHE Verified 12/27/18 21:20 AND NAUSEA Past Med/Surg History Medical History COPD (chronic obstructive pulmonary disease) (Acute) Diabetes mellitus (Acute) Depression (Chronic) Diabetes (Chronic) UTI (urinary tract infection) (Acute) COPD (chronic obstructive pulmonary disease) (Chronic) Febrile illness, acute (Acute 11/20/13) Headache Muscle pain (Acute) Surgical History History of hysterectomy (Chronic) Social History Preferred Language: Tajik Communication Ability: Effective Beliefs That Will Affect Care: None Current Living Situation: Alone Feels Safe at Home: Yes Smoking Status: Former smoker Hx Alcohol Use: Yes Hx Substance Use: No Review of Systems See HPI for pertinent positives & negatives. and A total of 10 systems reviewed and were otherwise negative Physical Exam Vital Signs Vital Signs - 24 hr 12/27/18 19:47 12/27/18 20:13 12/27/18 20:16 Temperature 39.3 C H Temperature Source Oral Sepsis Recent Fever Within 48 Hours No Sepsis Action Taken by Nursing No Action Required Pulse Rate 101 H 94 H 97 H Pulse Rate [Right Finger] Pulse Rate from SpO2 Sensor 95 H 96 H Pulse Rhythm [Right Finger] Pulse Strength [Right Finger] Respiratory Rate 18 26 H 22 Respiratory Effort / Characteristics Non-Labored Respiratory Depth Normal Respiratory Pattern Blood Pressure 135/77 140/72 Blood Pressure [Right Arm] Blood Pressure Mean 96 94 Blood Pressure Mean [Right Arm] Blood Pressure Position [Right Arm] Pulse Oximetry 93 90 91 Oxygen Delivery Method Room Air Room Air Room Air 12/27/18 20:18 12/27/18 20:30 12/27/18 21:00 Temperature Temperature Source Sepsis Recent Fever Within 48 Hours Sepsis Action Taken by Nursing Pulse Rate 96 H Pulse Rate [Right Finger] Pulse Rate from SpO2 Sensor Pulse Rhythm [Right Finger] Pulse Strength [Right Finger] Respiratory Rate 17 Respiratory Effort / Characteristics Respiratory Depth Respiratory Pattern Blood Pressure 135/67 105/72 Blood Pressure [Right Arm] Blood Pressure Mean 89 83 Blood Pressure Mean [Right Arm] Blood Pressure Position [Right Arm] Pulse Oximetry 91 94 93 Oxygen Delivery Method Room Air Room Air Room Air 12/27/18 21:30 12/27/18 22:32 12/27/18 22:33 Temperature Temperature Source Sepsis Recent Fever Within 48 Hours Sepsis Action Taken by Nursing Pulse Rate 81 82 Pulse Rate [Right Finger] Pulse Rate from SpO2 Sensor 82 Pulse Rhythm [Right Finger] Pulse Strength [Right Finger] Respiratory Rate 17 19 Respiratory Effort / Characteristics Respiratory Depth Respiratory Pattern Blood Pressure 120/66 126/73 Blood Pressure [Right Arm] Blood Pressure Mean 84 90 Blood Pressure Mean [Right Arm] Blood Pressure Position [Right Arm] Pulse Oximetry 92 93 Oxygen Delivery Method Room Air 12/27/18 23:58 Temperature 37.0 C Temperature Source Oral Sepsis Recent Fever Within 48 Hours Sepsis Action Taken by Nursing Pulse Rate Pulse Rate [Right Finger] 75 Pulse Rate from SpO2 Sensor Pulse Rhythm [Right Finger] Regular Pulse Strength [Right Finger] Normal Respiratory Rate 16 Respiratory Effort / Characteristics Non-Labored Respiratory Depth Normal Respiratory Pattern Regular Blood Pressure Blood Pressure [Right Arm] 109/58 L Blood Pressure Mean Blood Pressure Mean [Right Arm] 75 Blood Pressure Position [Right Arm] Lying Pulse Oximetry 94 Oxygen Delivery Method Room Air GENERAL: Awake, alert, well-appearing, in no acute distress. Diaphoretic on exam. HENT: Normocephalic, atraumatic. Oropharynx unremarkable. EYES: Normal conjunctiva. Sclera non-icteric. NECK: Supple. No nuchal rigidity. FROM. No JVD. RESPIRATORY: Clear to auscultation. CARDIAC: Regular rate, normal rhythm. Extremities warm and well perfused. Pulses equal. ABDOMEN: Soft, non-distended. No tenderness to palpation. No rebound or guarding. No masses. RECTAL: Deferred. MUSCULOSKELETAL: Chest examination reveals no tenderness. The back is symmetrical on inspection without obvious abnormality. There is no CVA tenderness to palpation. No joint edema. LOWER EXTREMITIES: Calves are equal size bilaterally and non-tender. No edema. No discoloration. NEURO: Normal sensorium. No sensory or motor deficits noted. SKIN: No rash or jaundice noted. Course 2013: The patient was evaluated in room A12B. A complete history and physical exam was performed. 2136: I reassessed the patient. 2302: I reevaluated the patient. She thinks she needs to be admitted and complained of diaphoresis. 2343: I spoke with Dr. Ye, [facility] hospitalist, about the patients case. He will further evaluate the patient. Consultations Consultation #1: I spoke with Dr. Ye, [facility] hospitalist, about the patients case. He will further evaluate the patient. Time: 23:43 Administered Medications Ioversol (Optiray 320 100ml) 93 ml IV ONCE PRN PRN Reason: Interaction Checking Stop: 12/31/18 21:49 Last Admin: 12/27/18 21:50 Dose: 93 ml Documented by: [id number] Discontinued Medications Acetaminophen (Tylenol) 1,000 mg PO NOW STA Stop: 12/27/18 21:21 Last Admin: 12/27/18 21:43 Dose: Not Given Documented by: [id number] Doxycycline Hyclate (Vibramycin) 100 mg PO NOW STA Stop: 12/27/18 21:20 Last Admin: 12/27/18 22:08 Dose: 100 mg Documented by: [id number] Sodium Chloride (Nss 1000ml) 1,000 mls @ 999 mls/hr IV .Q1H1M ONE Stop: 12/27/18 21:22 Last Infusion: 12/27/18 22:09 Dose: 0 mls/hr Documented by: [id number] Admin: 12/27/18 20:59 Dose: 999 mls/hr Documented by: [id number] Ceftriaxone Sodium (Rocephin) 2,000 mg in 70 mls @ 140 mls/hr IV NOW STA Stop: 12/27/18 21:47 Last Infusion: 12/27/18 22:38 Dose: 0 mls/hr Documented by: [id number] Admin: 12/27/18 22:08 Dose: 140 mls/hr Documented by: [id number] Ketorolac Tromethamine (Toradol) 15 mg IV NOW STA Stop: 12/27/18 20:23 Last Admin: 12/27/18 21:00 Dose: 15 mg Documented by: [id number] Meclizine HCl (Antivert) 25 mg PO NOW STA Stop: 12/27/18 20:24 Last Admin: 12/27/18 21:00 Dose: 25 mg Documented by: [id number] Ondansetron HCl (Zofran) 4 mg IV NOW STA Stop: 12/27/18 20:23 Last Admin: 12/27/18 21:00 Dose: 4 mg Documented by: [id number] Medical Decision Making Differential Diagnosis Etiologies such as viral syndrome, otitis, pharyngitis, pneumonia, influenza, meningitis, urinary tract infection, septic arthritis, soft tissue infectious process, intra-abdominal process, sepsis, bacteremia, as well as others were entertained. Medical Records Attestation: I reviewed the patient's medical records. Home Medications Current Medication List: was personally reviewed by me Laboratory Data Attestation: I reviewed the patient's lab results. Result diagrams: 12/27/18 20:27 12/27/18 20:27 Lab Results 12/27/18 12/27/18 12/27/18 Range/Units 20:27 20:27 20:27 WBC 6.72 (4.8-10.8) K/uL RBC 4.59 (4.2-5.4) M/uL Hgb 14.6 (12.0-16.0) g/dL POC Hgb (12.0-16.0) g/dl Hct 42.3 (37-47) % POC Hct (37-47) % MCV 92.2 (80-100) fL MCH 31.8 (25-34) pg MCHC 34.5 (32-36) g/dL RDW Std Deviation 42.1 (36.4-46.3) fL RDW Coeff of Chana 12.5 (11.5-14.5) % Plt Count 72 L (130-400) K/uL MPV 11.9 H (7.4-10.4) fL Immature Gran % (Auto) 0.4 % Neut % (Auto) 81.4 % Lymph % (Auto) 7.9 % [place] % (Auto) 9.7 % Eos % (Auto) 0.3 % Baso % (Auto) 0.3 % Immature Gran # (Auto) 0.03 H (0.00-0.02) K/uL Neut # (Auto) 5.47 (1.4-6.5) K/uL Lymph # (Auto) 0.53 L (1.2-3.4) K/uL [place] # (Auto) 0.65 H (0.11-0.59) K/uL Eos # (Auto) 0.02 (0-0.5) K/uL Baso # (Auto) 0.02 (0-0.2) K/uL Platelet Estimate Decreased L (Normal) PT 11.1 (9.0-12.0) Seconds INR 1.1 (0.9-1.1) APTT 26.5 (21.0-31.0) Seconds PTT Ratio 1.0 POC Sodium (135-144) mEq/L Sodium 137 (136-145) mmol/L POC Potassium (3.3-5.0) mEq/L Potassium 3.8 (3.5-5.1) mmol/L POC Chloride (101-112) mEq/L Chloride 104 (98-107) mmol/L Carbon Dioxide 24 (21-32) mmol/L POC Total CO2 (24-31) mEq/l Anion Gap 9.0 (3-11) POC Anion Gap (16-25) mmol/L POC BUN (7-18) mg/dl BUN 18 (7-18) mg/dl Creatinine 0.86 (0.6-1.2) mg/dl POC Creatinine (0.6-1.3) mg/dl Est Cr Clr Drug Dosing 77.8 ml/min Est GFR ( Amer) 79.9 Est GFR (Non-Af Amer) 68.9 BUN/Creatinine Ratio 20.8 H (10-20) Glucose 176 H (70-99) mg/dl POC Glucose (other) (70-99) mg/dl Lactate (0.4-2.0) mmol/L Calcium 9.3 (8.5-10.1) mg/dl POC Ioniz Calcium Natacha (1.12-1.32) mmol/l Total Bilirubin 1.8 H (0.2-1) mg/dl AST 36 (15-37) U/L ALT 45 (12-78) U/L Alkaline Phosphatase 135 H (45-117) U/L Total Creatine Kinase 63 (26-192) U/L CK-MB (CK-2) < 1.0 (0.5-3.6) ng/ml CK/CKMB % Calc TNP Troponin I < 0.015 (0-0.045) ng/ml Total Protein 7.6 (6.4-8.2) gm/dl Albumin 3.7 (3.4-5.0) gm/dl Globulin 3.9 (2.5-4.0) gm/dl Albumin/Globulin Ratio 1.0 (0.9-2) Urine Color Urine Appearance (Clear) Urine pH (4.5-7.5) Ur Specific [place] (1.000-1.030) Urine Protein (Negative) Urine Glucose (UA) (Negative) Urine Ketones (Negative) Urine Blood (Negative) Urine Nitrite (Negative) Urine Bilirubin (Negative) Urine Urobilinogen (Negative) Ur Leukocyte Esterase (Negative) Urine WBC (Auto) (0-5) /hpf Urine RBC (Auto) (0-4) /hpf U Hyaline Cast (Auto) (0-5) /lpf U Epithel Cells (Auto) (0-5) /lpf Urine Bacteria (Auto) (Negative) Lyme Disease IgG Ab (Negative) Lyme Disease IgM Ab (Negative) Influenza Type A (PCR) (Neg) Influenza Type B (PCR) (Neg) 12/27/18 12/27/18 12/27/18 Range/Units 20:27 20:27 20:38 WBC (4.8-10.8) K/uL RBC (4.2-5.4) M/uL Hgb (12.0-16.0) g/dL POC Hgb 14.3 (12.0-16.0) g/dl Hct (37-47) % POC Hct 42 (37-47) % MCV (80-100) fL MCH (25-34) pg MCHC (32-36) g/dL RDW Std Deviation (36.4-46.3) fL RDW Coeff of Chana (11.5-14.5) % Plt Count (130-400) K/uL MPV (7.4-10.4) fL Immature Gran % (Auto) % Neut % (Auto) % Lymph % (Auto) % [place] % (Auto) % Eos % (Auto) % Baso % (Auto) % Immature Gran # (Auto) (0.00-0.02) K/uL Neut # (Auto) (1.4-6.5) K/uL Lymph # (Auto) (1.2-3.4) K/uL [place] # (Auto) (0.11-0.59) K/uL Eos # (Auto) (0-0.5) K/uL Baso # (Auto) (0-0.2) K/uL Platelet Estimate (Normal) PT (9.0-12.0) Seconds INR (0.9-1.1) APTT (21.0-31.0) Seconds PTT Ratio POC Sodium 136 (135-144) mEq/L Sodium (136-145) mmol/L POC Potassium 3.8 (3.3-5.0) mEq/L Potassium (3.5-5.1) mmol/L POC Chloride 100 L (101-112) mEq/L Chloride (98-107) mmol/L Carbon Dioxide (21-32) mmol/L POC Total CO2 23 L (24-31) mEq/l Anion Gap (3-11) POC Anion Gap 18.0 (16-25) mmol/L POC BUN 18 (7-18) mg/dl BUN (7-18) mg/dl Creatinine (0.6-1.2) mg/dl POC Creatinine 0.7 (0.6-1.3) mg/dl Est Cr Clr Drug Dosing ml/min Est GFR ( Amer) Est GFR (Non-Af Amer) BUN/Creatinine Ratio (10-20) Glucose (70-99) mg/dl POC Glucose (other) 189 H (70-99) mg/dl Lactate 1.1 (0.4-2.0) mmol/L Calcium (8.5-10.1) mg/dl POC Ioniz Calcium Natacha 1.19 (1.12-1.32) mmol/l Total Bilirubin (0.2-1) mg/dl AST (15-37) U/L ALT (12-78) U/L Alkaline Phosphatase (45-117) U/L Total Creatine Kinase (26-192) U/L CK-MB (CK-2) (0.5-3.6) ng/ml CK/CKMB % Calc Troponin I (0-0.045) ng/ml Total Protein (6.4-8.2) gm/dl Albumin (3.4-5.0) gm/dl Globulin (2.5-4.0) gm/dl Albumin/Globulin Ratio (0.9-2) Urine Color Urine Appearance (Clear) Urine pH (4.5-7.5) Ur Specific [place] (1.000-1.030) Urine Protein (Negative) Urine Glucose (UA) (Negative) Urine Ketones (Negative) Urine Blood (Negative) Urine Nitrite (Negative) Urine Bilirubin (Negative) Urine Urobilinogen (Negative) Ur Leukocyte Esterase (Negative) Urine WBC (Auto) (0-5) /hpf Urine RBC (Auto) (0-4) /hpf U Hyaline Cast (Auto) (0-5) /lpf U Epithel Cells (Auto) (0-5) /lpf Urine Bacteria (Auto) (Negative) Lyme Disease IgG Ab Negative (Negative) Lyme Disease IgM Ab Equivocal A (Negative) Influenza Type A (PCR) (Neg) Influenza Type B (PCR) (Neg) 12/27/18 12/27/18 Range/Units 20:57 22:26 WBC (4.8-10.8) K/uL RBC (4.2-5.4) M/uL Hgb (12.0-16.0) g/dL POC Hgb (12.0-16.0) g/dl Hct (37-47) % POC Hct (37-47) % MCV (80-100) fL MCH (25-34) pg MCHC (32-36) g/dL RDW Std Deviation (36.4-46.3) fL RDW Coeff of Chana (11.5-14.5) % Plt Count (130-400) K/uL MPV (7.4-10.4) fL Immature Gran % (Auto) % Neut % (Auto) % Lymph % (Auto) % [place] % (Auto) % Eos % (Auto) % Baso % (Auto) % Immature Gran # (Auto) (0.00-0.02) K/uL Neut # (Auto) (1.4-6.5) K/uL Lymph # (Auto) (1.2-3.4) K/uL [place] # (Auto) (0.11-0.59) K/uL Eos # (Auto) (0-0.5) K/uL Baso # (Auto) (0-0.2) K/uL Platelet Estimate (Normal) PT (9.0-12.0) Seconds INR (0.9-1.1) APTT (21.0-31.0) Seconds PTT Ratio POC Sodium (135-144) mEq/L Sodium (136-145) mmol/L POC Potassium (3.3-5.0) mEq/L Potassium (3.5-5.1) mmol/L POC Chloride (101-112) mEq/L Chloride (98-107) mmol/L Carbon Dioxide (21-32) mmol/L POC Total CO2 (24-31) mEq/l Anion Gap (3-11) POC Anion Gap (16-25) mmol/L POC BUN (7-18) mg/dl BUN (7-18) mg/dl Creatinine (0.6-1.2) mg/dl POC Creatinine (0.6-1.3) mg/dl Est Cr Clr Drug Dosing ml/min Est GFR ( Amer) Est GFR (Non-Af Amer) BUN/Creatinine Ratio (10-20) Glucose (70-99) mg/dl POC Glucose (other) (70-99) mg/dl Lactate (0.4-2.0) mmol/L Calcium (8.5-10.1) mg/dl POC Ioniz Calcium Natacha (1.12-1.32) mmol/l Total Bilirubin (0.2-1) mg/dl AST (15-37) U/L ALT (12-78) U/L Alkaline Phosphatase (45-117) U/L Total Creatine Kinase (26-192) U/L CK-MB (CK-2) (0.5-3.6) ng/ml CK/CKMB % Calc Troponin I (0-0.045) ng/ml Total Protein (6.4-8.2) gm/dl Albumin (3.4-5.0) gm/dl Globulin (2.5-4.0) gm/dl Albumin/Globulin Ratio (0.9-2) Urine Color Yellow Urine Appearance Clear (Clear) Urine pH 5.5 (4.5-7.5) Ur Specific [place] > 1.045 H (1.000-1.030) Urine Protein Trace H (Negative) Urine Glucose (UA) Negative (Negative) Urine Ketones Negative (Negative) Urine Blood Trace H (Negative) Urine Nitrite Positive A (Negative) Urine Bilirubin Negative (Negative) Urine Urobilinogen Negative (Negative) Ur Leukocyte Esterase 1+ H (Negative) Urine WBC (Auto) >30 H (0-5) /hpf Urine RBC (Auto) 0-4 (0-4) /hpf U Hyaline Cast (Auto) 0 (0-5) /lpf U Epithel Cells (Auto) >30 H (0-5) /lpf Urine Bacteria (Auto) 4+ H (Negative) Lyme Disease IgG Ab (Negative) Lyme Disease IgM Ab (Negative) Influenza Type A (PCR) Neg for Influ A (Neg) Influenza Type B (PCR) Neg for Influ B (Neg) Imaging Data Radiologist's Impression: Radiology results as stated below per my review and the radiologist's interpretation: XR chest 1V portable CLINICAL HISTORY: Sepsis COMPARISON STUDY: 06/01/2017 FINDINGS: The heart is normal in size. There are low lung volumes with interstitial thickening possibly hypoventilatory basis. There is no lobar consolidation. There are no pleural effusions.[ IMPRESSION: Low lung volumes with interstitial thickening possibly on a hypoventilatory basis. No evidence of lobar consolidation Electronically signed by: Rnoy Whatley M.D. 12/27/2018 8:[address] head/brain wo con CLINICAL HISTORY: Vomiting. EVALUATE FOR INTRACRANIAL ETIOLOGY. COMPARISON STUDY: October 02, 2018 TECHNIQUE: Axial CT of the brain is performed from the vertex to the skull base. IV contrast was not administered for this examination. A dose lowering technique was utilized adhering to the principles of ALARA. CT DOSE: 773.57 mGy.cm FINDINGS: No intra or extra-axial mass lesions are visualized. There is no CT evidence of acute cortical infarction. There is no evidence of midline shift. There is no acute hemorrhage. No calvarial fractures are visualized. There is no evidence of pathologic ventricular dilatation. There is no evidence of acute sinusitis IMPRESSION: No acute intracranial findings Electronically signed by: Rony Whatley M.D. 12/27/2018 9:[address] abd pelvis IV con only CLINICAL HISTORY: Right upper quadrant abdominal pain and vomiting COMPARISON STUDY: August 31, 2018 TECHNIQUE: The patient was scanned in a dynamic helical fashion during intravenous administration of 93 cc of Optiray 320. A dose lowering technique was utilized adhering to the principles of ALARA. CT DOSE: 1542.21 mGy.cm FINDINGS: Lower chest: There are basilar atelectatic changes. There are no significant pleural effusions. Liver: There is mild hepatic steatosis. The liver has a cirrhotic morphology. Gallbladder: Surgically absent Spleen: The spleen is enlarged measuring 18 cm. There is a nonspecific 12 mm splenic hypodensity not significantly changed from the preceding study Pancreas: Unremarkable. Adrenal glands: There is mild adrenal gland thickening, likely secondary to adenomatous hyperplasia. Kidneys: There is right-sided nephrolithiasis. There is no hydroureter necrosis. No ureteral or bladder calculi are visualized. Subcentimeter renal hypodensities likely represent cysts Bowel: There are no transition zones indicate bowel obstruction. There is no acute diverticulitis. The appendix appears normal Peritoneum: There is no intraperitoneal free air or abdominal ascites. There is a small fat-containing umbilical hernia. There is a small fat-containing supraumbilical ventral hernia. Vasculature: The abdominal aorta is normal in course and caliber. Adenopathy: None. Pelvic viscera: The patient is status post a prior hysterectomy. There is a 42 mm cystic right adnexal lesion, likely ovarian this measured 35 mm in October 2013. There is air within the bladder presumably iatrogenic. Skeletal structures: No destructive osseous lesions are seen. There is a presacral stimulator. IMPRESSION: 1. Hepatic cirrhosis and splenomegaly 2. No evidence of bowel obstruction. No evidence of free air 3. Normal appendix. No evidence of acute diverticulitis 4. Right-sided nephrolithiasis. No ureteral calculi identified 5. Fat-containing umbilical hernia fat-containing supraumbilical ventral hernia 6. Air within the bladder, likely iatrogenic 7. Slowly enlarging 42 mm cystic right adnexal lesion, likely ovarian. This measured 35 mm in October 2013. Electronically signed by: Rony Whatley M.D. 12/27/2018 10:05 PM ECG Data Attestation: I personally reviewed and interpreted this ECG as follows: Indication: other (fever) Rate (beats per minute): 97 Rhythm: normal sinus Findings: + other (normal EKG); no ST depression and no ST elevation Blood Pressure Blood Pressure Findings: Normal blood pressure Blood Pressure Disposition: did not require urgent referral MDM Narrative This is a 68-year-old female who presents emergency department complaining of fever and altered mental status. The patient is also incredibly dizzy when she walks. She has a history of urinary tract infections and is incontinent of urine. Laboratory work was obtained patient appears to have evidence of urinary tract infection. She was sent for CAT scan of the abdomen pelvis which did not reveal any acute process. I did discuss her case with the hospitalist service who agreed to admit the patient. Patient and family were in agreement with the treatment plan. Impression & Plan Fever, Diabetes, UTI (urinary tract infection), COPD (chronic obstructive pulmonary disease) Discharge Plan Visit Data *Final* Discharge Date/Time: 12/28/18 01:20 Chief Complaint: Illness Stated Complaint: FEVER 102, VOMITING ED Provider: Aiden Mas Discharge Problem: Fever, Diabetes, UTI (urinary tract infection), COPD (chronic obstructive pulmonary disease) Patient Disposition: Admitted As Inpatient Discharge Instructions Interventions: ED Discharge Assessment Last Done: 12/28/18 01:20 The scribe's documentation has been prepared under my direction and personally reviewed by me in its entirety. I confirm that the note above accurately reflects all work, treatment, procedures, and medical decision making performed by me.
--- NOTE | 2018-12-28 00:22 | History & Physical Report ---
Date of Service December 28, 2018 Assessment & Plan (1) UTI (urinary tract infection): 68 y/o F Hx urinary retention, incontinence and chronic UTIs, DM II, thrombocytopenia, GERD, depression. Presents with fever, sweats and weakness. The pt states that she has had a UTI nearly continuously for 2-3 years. She is treated chronically with Bactrim and had been treated with Keflex as well. She has an implanted bladder stimulator which she does not currently make use of. She developed a high fever and profuse sweats over the past few days. She does not have abdominal pain or flank pain. 1) Fever/weakness, UTI - the pt is placed on Cefepime pending culture results. We have consulted ID as she may benefit from rotating antibiotics prophylactically 2) DM II - placed on a SS 3) Depression - cont Paroxetine 4) Thrombocytopenia - stable 5) Cirrhosis - did not seem aware of this - will require outpt f/u - likely CAVANAUGH-related Full code - SCDs pending repeat CBC as platelets are on lower end of baseline range Total time for this admit including review of labs, meds, imaging, records - discussion with pt and ER attending - 41 min Present on Admission?: Yes History of Present Illness Chief Complaint: fevers and weakness Primary Care Provider: FAM Cruz 68 y/o F Hx urinary retention, incontinence and chronic UTIs, DM II, thrombocytopenia, GERD, depression. Presents with fever, sweats and weakness. The pt states that she has had a UTI nearly continuously for 2-3 years. She is treated chronically with Bactrim and had been treated with Keflex as well. She has an implanted bladder stimulator which she does not currently make use of. She developed a high fever and profuse sweats over the past few days. She does not have abdominal pain or flank pain. PMH: 1) Chronic UTIs 2) Urinary incontinence and retention 3) DM II 4) Depression 5) GERD 6) Obese 7) COPD - not treated 8) Cirrhosis and splenomegaly reported on imaging 9) Chronic thrombocytopenia Surgical: 1) Implanted bladder stimulator 2) Bladder lift surgery Social: Quit smoking in 1999, drinks socially Family: Father due to colon CA Mother due to melanoma Allergies Allergy/AdvReac Type Severity Reaction Status Date / Time Penicillins Allergy Intermediate RASH Verified 12/27/18 21:20 metformin Allergy Unknown GI SICKNESS Verified 12/27/18 21:20 nickel Allergy Unknown HIVES/RASH Verified 12/27/18 21:20 ON SKIN oxycodone Allergy Unknown HEADACHE Verified 12/27/18 21:20 AND NAUSEA Home Medications Home Medications Medication Instructions Recorded Confirmed Type cranberry-[id number]-[id number] phos 1 tab PO BID 10/02/18 12/27/18 History [Cranberry-Probiotic] insulin degludec [Tresiba 106 units SUBCUT QAM 10/02/18 12/27/18 History FlexTouch U-200] liraglutide [Victoza 3-Júnior] 1.8 units SUBCUT QAM 10/02/18 12/27/18 History loperamide [Imodium A-D] 2 mg PO Q3H PRN 10/02/18 12/27/18 History omeprazole 40 mg PO QAM 10/02/18 12/27/18 History paroxetine HCl [Paxil] 30 mg PO QAM 10/02/18 12/27/18 History solifenacin [Vesicare] 10 mg PO QAM 10/02/18 12/27/18 History conjugated estrogens [Premarin] 1 applic VAGINAL UD 12/27/18 12/27/18 History mirabegron [Myrbetriq] 50 mg PO DAILY 12/27/18 12/27/18 History Past Med/Surg History Medical History COPD (chronic obstructive pulmonary disease) Diabetes mellitus Depression (Chronic) Diabetes (Chronic) UTI (urinary tract infection) (Acute) COPD (chronic obstructive pulmonary disease) (Chronic) Febrile illness, acute (Acute 11/20/13) Headache Muscle pain (Acute) Surgical History History of hysterectomy (Chronic) Social History Preferred Language: Romansh Feels Safe at Home: Yes Smoking Status: Former smoker Review of Systems Review of Systems: Gen: Fevers, sweats and weakness ENT: Denies congestion, throat pain, hearing loss Eyes: Denies acute visual changes CV: Denies CP, palpitations Pulmonary: Denies SOB, cough, wheezing GI: Denies N/V, diarrhea, constipation : Chronic retention, incontinence Neuro: Denies acute or unilateral weakness, acute gait impairment, headache or acute visual changes Musculoskeletal: Denies joint pain, inflammation Endocrine: Denies polydipsia, polyuria Skin: Denies acute rashes or ulcers Physical Exam Physical Exam: General: AAO x 3, no distress ENT: No erythema or exudates, no thrush Eyes: LLOYD, EOMI Head and neck: Normocephalic, atraumatic, No JVD, neck is supple. Chest/heart: Nontender, S1,2, RRR, no murmurs, no gallops Lungs: CTAB, no wheezing or crackles Abdomen: Mild distetnion - mild suprapubic tenderness - no flank/CVA tenderness Neuro: AAO x 3, speech is clear, no unilateral weakness or loss of sensation, coordination intact Musculoskeletal: No joint inflammation, muscle tenderness, FROM Skin: No acute rashes or ulcers Extremities: No clubbing, cyanosis, edema Results & Data Vital Signs (Past 12 Hours) Vital Signs Temp Pulse Pulse Resp BP BP Pulse Ox 12/27/18 23:58 98.6 F 75 16 109/58 L 94 12/27/18 22:33 82 19 126/73 93 12/27/18 22:32 81 17 12/27/18 21:30 120/66 92 12/27/18 21:00 105/72 93 12/27/18 20:30 96 H 17 135/67 94 12/27/18 20:18 91 12/27/18 20:16 97 H 22 91 12/27/18 20:13 94 H 26 H 140/72 90 12/27/18 19:47 102.7 F H 101 H 18 135/[address] abdomen: 1. Hepatic cirrhosis and splenomegaly 2. No evidence of bowel obstruction. No evidence of free air 3. Normal appendix. No evidence of acute diverticulitis 4. Right-sided nephrolithiasis. No ureteral calculi identified 5. Fat-containing umbilical hernia fat-containing supraumbilical ventral hernia 6. Air within the bladder, likely iatrogenic 7. Slowly enlarging 42 mm cystic right adnexal lesion, likely ovarian. This measured 35 mm in October 2013. PG Care Time/CCT Total # of Minutes Spent Total Time Spent with Patient: Total time spent is greater than 50% in coordination of care (as documented) at patient's floor/unit and/or counseling patient:
[2018-12-28] MEDS ORDERED: LOPERAMIDE HCL 2 MG CAP PO PRN (01:38)
[2018-12-28] MEDS ORDERED: GLUCAGON FOR INJ 1 MG VIAL IM PRN (02:00)
[2018-12-28] MEDS ORDERED: DEXTROSE 50% 50 ML SYRINGE IV PRN (02:00)
[2018-12-28] MEDS ORDERED: CARBOHYDRATES FOR HYPOGLYCEMIA PO PRN (02:00)
[2018-12-28] MEDS ORDERED: GLUCOSE 10 TABS/TUBE PO PRN (02:00)
[2018-12-28] MEDS ORDERED: GLUCOSE 40% GEL 15 GM TUBE PO PRN (02:00)
[2018-12-28] MEDS: INSULIN ASPART 100 UNITS/ML 3 ML PEN SC SCH ×5 (02:25→20:23)
[2018-12-28] MEDS: NSS + 20MEQ KCL 20 MEQ/1,000 ML BAG IV SCH ×2 (02:26→13:18)
[2018-12-28] MEDS: CEFEPIME 1,000 MG in SYRINGE 0 ML IV SCH ×3 (06:22→21:54)
[2018-12-28 07:33] LABS: Hematocrit (blood only) 37.5 % (37-47); Hemoglobin 12.6 g/dL (12.0-16.0); Mean Corpuscular Hgb Conc 33.6 g/dL (32-36); Mean Corpuscular Volume 92.8 fL (80-100); RDW Coefficient of Variation 12.5 % (11.5-14.5); RDW Standard Deviation 42.3 fL (36.4-46.3); Red Blood Count 4.04 M/uL (4.2-5.4); White Blood Count 4.19 K/uL (4.8-10.8)
[2018-12-28 07:52] LABS: Basophils # (auto) 0.01 K/uL (0-0.2); Basophils % (auto) 0.2 %; Eosinophils # (auto) 0.03 K/uL (0-0.5); Eosinophils % (auto) 0.7 %; Immature Granulocytes # (auto) 0.01 K/uL (0.00-0.02); Immature Granulocytes % (auto) 0.2 %; Lymphocytes # (auto) 0.68 K/uL (1.2-3.4); Lymphocytes % (auto) 16.2 %; Mean Platelet Volume 11.7 fL (7.4-10.4); Monocytes # (auto) 0.53 K/uL (0.11-0.59); Monocytes % (auto) 12.6 %; Neutrophils # (auto) 2.93 K/uL (1.4-6.5); Neutrophils % (auto) 70.1 %; Platelet Count 59 K/uL (130-400)
[2018-12-28 08:08] LABS: BUN Creatinine Ratio 22.7 (10-20); Calcium 8.6 mg/dl (8.5-10.1); Creatinine Clr Calc Pharmacy 91.8 ml/min; Est GFR (African American) 97.4; Magnesium 1.8 mg/dl (1.8-2.4); Potassium 3.8 mmol/L (3.5-5.1)
[2018-12-28] MEDS: VESICARE~ORDER AWAITING ACTION SCH ×2 (08:38→16:48)
[2018-12-28] MEDS: PARoxetine HCl 20 MG TAB PO SCH (08:39)
[2018-12-28] MEDS: MIRABEGRON ER 25 MG TAB PO SCH (08:41)
[2018-12-28] MEDS: PANTOprazole 40 MG TAB PO SCH (08:41)
--- NOTE | 2018-12-28 10:53 | Infectious Disease Consult ---
Date of Consultation December 28, 2018 Assessment & Plan (1) Febrile illness, acute: 68-year-old female with recurrent urinary tract infections now presents with acute febrile illness associated with vomiting, severe myalgias and arthralgias, dizziness. Given significant thrombocytopenia, would be worried about possibility of Anaplasma infection. Have ordered additional studies to include peripheral smear review. I have added doxycycline 100 mg every 12 hours pending above studies and culture results. Will follow. (2) UTI (urinary tract infection): History of Present Illness Reason for Consultation: Chronic, recurrent urinary tract infections Attending Physician: Krystal Pitts MD History of Present Illness 68-year-old female with history of COPD, diabetes mellitus, who is been troubled with recurrent urinary tract infections for many years. Has not responded well in the past to suppressive therapy. She was well until approximately 2 weeks ago when while traveling to [facility] became ill with fever, nausea and vomiting. This subsided after several days, but recurred again, and then over the last day or so has had severe nausea, vomiting, dizziness, severe myalgias and arthralgias, with fever as high as 103 degrees. Eventually came to the hospital, has been found to have mild decrease in white blood cell count but significant thrombocytopenia. Bilirubin mildly elevated. Has previous history of Lyme disease. Has not had any rash, no obvious recent tick bites. Allergies Allergy/AdvReac Type Severity Reaction Status Date / Time Penicillins Allergy Intermediate RASH Verified 12/27/18 21:20 metformin Allergy Unknown GI SICKNESS Verified 12/27/18 21:20 nickel Allergy Unknown HIVES/RASH Verified 12/27/18 21:20 ON SKIN oxycodone Allergy Unknown HEADACHE Verified 12/27/18 21:20 AND NAUSEA Home Medications Home Medications Medication Instructions Recorded Confirmed Type cranberry-B.guaijizm-J-Sw phos 1 tab PO BID 10/02/18 12/27/18 History [Cranberry-Probiotic] insulin degludec [Tresiba 106 units SUBCUT QAM 10/02/18 12/27/18 History FlexTouch U-200] liraglutide [Victoza 3-Júnior] 1.8 units SUBCUT QAM 10/02/18 12/27/18 History loperamide [Imodium A-D] 2 mg PO Q3H PRN 10/02/18 12/27/18 History omeprazole 40 mg PO QAM 10/02/18 12/27/18 History paroxetine HCl [Paxil] 30 mg PO QAM 10/02/18 12/27/18 History solifenacin [Vesicare] 10 mg PO QAM 10/02/18 12/27/18 History conjugated estrogens [Premarin] 1 applic VAGINAL UD 12/27/18 12/27/18 History mirabegron [Myrbetriq] 50 mg PO DAILY 12/27/18 12/27/18 History Patient History Medical History COPD (chronic obstructive pulmonary disease) (Acute) Diabetes mellitus (Acute) Depression (Chronic) Diabetes (Chronic) UTI (urinary tract infection) (Acute) COPD (chronic obstructive pulmonary disease) (Chronic) Febrile illness, acute (Acute 11/20/13) Headache Muscle pain (Acute) Surgical History History of hysterectomy (Chronic) Social History Preferred Language: Citizen Of [place] Communication Ability: Effective Beliefs That Will Affect Care: None Current Living Situation: Alone Feels Safe at Home: Yes Smoking Status: Former smoker Hx Alcohol Use: Yes Hx Substance Use: No Review of Systems Review of Systems: All systems reviewed & are unremarkable except as noted in HPI & below Physical Exam Constitutional: WD/WN, vitals as above + ill appearing and comfortable Eyes: PERRL, conjunctivae normal, anicteric sclerae ENMT: external ear and nose normal, oropharynx normal Neck: trachea midline, no thyromegaly neck nontender Respiratory: normal respiratory effort, lungs clear to auscultation normal percussion; does not use accessory muscles Cardiovascular: Rate/Rhythm: regular rate and regular rhythm Heart Sounds: normal S1 and normal S2; no gallop, no murmur and no cardiac rub Vessels: normal peripheral pulses; no JVD Gastrointestinal (Abdomen): Inspection/Auscultation: abdomen normal to inspection and normal bowel sounds Percussion/Palpation: + abdomen tender and abdomen soft; no hepatosplenomegaly and no abdominal mass Musculoskeletal: no cyanosis or clubbing, extremities motor strength 5/5 Spine: thoracic spine normal to inspection and lumbar spine normal to inspection; no cervical spinal tenderness Skin: no rashes, warm and dry normal turgor; no lesions Neurologic: patellar DTR's 2+ bilat, sensation intact no focal motor deficits Psychiatric: A+Ox3, euthymic affect Orientation: cooperative Lymphatic: no cervical or axillary lymphadenopathy no inguinal lymphadenopathy Results & Data Vital Signs (Past 12 Hours) Vital Signs Temp Pulse Pulse Resp BP BP Pulse Ox 12/28/18 07:26 36.6 C 74 16 109/64 95 12/28/18 01:30 36.7 C 78 16 124/72 93 12/28/18 01:20 72 18 110/72 94 12/27/18 23:58 37.0 C 75 16 109/58 L 94 (1) UTI (urinary tract infection) Hematuria presence: without hematuria Urinary tract infection type: site unspecified Qualified Code(s): N39.0 - Urinary tract infection, site not specified
[2018-12-28] MEDS ORDERED: DOXYCYCLINE HYCLATE 100 MG in DEXTROSE 5% 100 ML IV SCH ×2 (15:00→21:00)
--- NOTE | 2018-12-28 15:07 | Hospitalist Progress Note ---
Date of Service December 28, 2018 Assessment & Plan (1) UTI (urinary tract infection): This patient is a 68 y/o female with a long history of mixed stress and urge incontinence and chronic UTIs, DM II, thrombocytopenia, GERD, and depression. Presents with fever, sweats and weakness. The pt states that she has had a UTI nearly continuously for many years. She is treated almost chronically with Bactrim and had been treated with Keflex as well. She has an implanted bladder stimulator which she does not currently make use of as it does not work. She developed a high fever and profuse sweats over the past few days. No flank pain. Found to have abnormal urinalysis, growing gram-negative rods in her urine culture. With sepsis, POA CT abdomen/pelvis with right-sided kidney stones, but no findings of obstruction or pyelonephritis -Continue cefepime pending culture results. -consulted ID as she may benefit from rotating antibiotics prophylactically -Continue acetaminophen as needed for fevers we will now discontinue IV fluids -Already has close follow-up with urology (2) Sepsis: With fevers, tachycardia, source is UTI most likely Although with headaches and myalgias and worsening thrombocytopenia although this is chronic, ID added on doxycycline to cover for tickborne illness -Anaplasmosis and Lyme titers are pending and should be followed Sepsis is not severe and was POA -Follow blood and urine cultures -Continue cefepime, doxycycline (3) COPD (chronic obstructive pulmonary disease): Stable -Not on medication for this, consider bronchodilators as needed (4) Diabetes mellitus: With some mild hyperglycemia here -Add on Lantus 10 units in the morning and tighten down sliding scale insulin NovoLog -Holding home Victoza and usually takes Tresiba 106 units in the morning -ADA diet Check hemoglobin A1c in the morning (5) Depression: Stable -Continue home Paxil (6) Febrile illness, acute: As above (7) Ovarian mass, right: Noted on CT scan of the abdomen pelvis, is enlarging to 4.2 cm now on the right adnexa -Discussed with patient and her family at the bedside, 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-up with [facility] as an outpatient (8) Cirrhosis: Liver noted to have a cirrhotic appearance on imaging and also mild fatty liver -Likely secondary to Nazario -Encouraged patient to follow-up with her PCP and needs weight loss (9) Thrombocytopenia: Has had chronic thrombus cytopenia for many years and has seen hematology in the past-was told they did not know why she had low platelets Has splenomegaly on imaging of the abdomen on CT-this is likely contributing to her thrombocytopenia especially in the setting of acute illness Question of has ITP? Platelets down to 59 today, no evidence of bleeding -Follow CBC and transfuse platelets if less than 20 or has evidence of bleeding with platelets less than 50 -Consider return visit with hematology as an outpatient (10) Overactive bladder: Chronic for many years, has failed bladder sling 30 years ago, then failed stimulator placement, has had injections. Has followed with several different urologists over the years. -Continue follow-up with urology -Continue Vesicare and was just started on Myrbetriq on the day of admission (11) DVT prophylaxis: Hold chemical means due to low platelets SCDs only for now Disposition-remain hospitalized Subjective Patient still spiking fevers and having pains all over her body that "feel like machete stabbing me." Patient describes that she always has urinary urgency, incontinence both with stress and urge incontinence. However, she does usually feel lower abdominal pain and lower back pain when she gets a urinary tract infection. Reports "I always have a UTI." Denies chest pain shortness of breath, denies headache or lightheadedness. Review of Systems Review of Systems: All systems reviewed & are unremarkable except as noted in HPI & below Physical Exam Constitutional: WD/WN, vitals as above Eyes: PERRL, conjunctivae normal, anicteric sclerae ENMT: external ear and nose normal, oropharynx normal Neck: trachea midline, no thyromegaly Respiratory: normal respiratory effort, lungs clear to auscultation Cardiovascular: RRR, no murmur, no edema Gastrointestinal (Abdomen): Inspection/Auscultation: abdomen normal to inspection and normal bowel sounds; abdomen not distended Percussion/Palpation: + abdomen tender (Mild in the suprapubic area without guarding or rebound tenderness) and abdomen soft Musculoskeletal: Extremities: extremities normal to inspection; no cyanosis and no clubbing Skin: no rashes, warm and dry Neurologic: moves all extremities and awake; no focal motor deficits Psychiatric: A+Ox3, euthymic affect Results & Data Vital Signs (Past 12 Hours) Vital Signs Temp Pulse Resp BP Pulse Ox 12/28/18 07:26 36.6 C 74 16 109/64 95 Laboratory Results 12/28/18 12/28/18 12/28/18 Range/Units 20:09 16:32 11:41 WBC (4.8-10.8) K/uL RBC (4.2-5.4) M/uL Hgb (12.0-16.0) g/dL Hct (37-47) % MCV (80-100) fL MCH (25-34) pg MCHC (32-36) g/dL RDW Std Deviation (36.4-46.3) fL RDW Coeff of Chana (11.5-14.5) % Plt Count (130-400) K/uL MPV (7.4-10.4) fL Immature Gran % (Auto) % Neut % (Auto) % Lymph % (Auto) % Crockett % (Auto) % Eos % (Auto) % Baso % (Auto) % Immature Gran # (Auto) (0.00-0.02) K/uL Neut # (Auto) (1.4-6.5) K/uL Lymph # (Auto) (1.2-3.4) K/uL Crockett # (Auto) (0.11-0.59) K/uL Eos # (Auto) (0-0.5) K/uL Baso # (Auto) (0-0.2) K/uL Peripher Smr Path Cons Sodium (136-145) mmol/L Potassium (3.5-5.1) mmol/L Chloride (98-107) mmol/L Carbon Dioxide (21-32) mmol/L Anion Gap (3-11) BUN (7-18) mg/dl Creatinine (0.6-1.2) mg/dl Est Cr Clr Drug Dosing ml/min Est GFR ( Amer) Est GFR (Non-Af Amer) BUN/Creatinine Ratio (10-20) Glucose (70-99) mg/dl POC Glucose 221 H 173 H 155 H (70-99) Calcium (8.5-10.1) mg/dl Magnesium (1.8-2.4) mg/dl 12/28/18 12/28/18 Range/Units 07:09 07:09 WBC 4.19 L (4.8-10.8) K/uL RBC 4.04 L (4.2-5.4) M/uL Hgb 12.6 (12.0-16.0) g/dL Hct 37.5 (37-47) % MCV 92.8 (80-100) fL MCH 31.2 (25-34) pg MCHC 33.6 (32-36) g/dL RDW Std Deviation 42.3 (36.4-46.3) fL RDW Coeff of Chana 12.5 (11.5-14.5) % Plt Count 59 L (130-400) K/uL MPV 11.7 H (7.4-10.4) fL Immature Gran % (Auto) 0.2 % Neut % (Auto) 70.1 % Lymph % (Auto) 16.2 % Crockett % (Auto) 12.6 % Eos % (Auto) 0.7 % Baso % (Auto) 0.2 % Immature Gran # (Auto) 0.01 (0.00-0.02) K/uL Neut # (Auto) 2.93 (1.4-6.5) K/uL Lymph # (Auto) 0.68 L (1.2-3.4) K/uL Crockett # (Auto) 0.53 (0.11-0.59) K/uL Eos # (Auto) 0.03 (0-0.5) K/uL Baso # (Auto) 0.01 (0-0.2) K/uL Peripher Smr Path Cons Sodium 139 (136-145) mmol/L Potassium 3.8 (3.5-5.1) mmol/L Chloride 105 (98-107) mmol/L Carbon Dioxide 27 (21-32) mmol/L Anion Gap 6.0 (3-11) BUN 17 (7-18) mg/dl Creatinine 0.73 (0.6-1.2) mg/dl Est Cr Clr Drug Dosing 91.8 ml/min Est GFR ( Amer) 97.4 Est GFR (Non-Af Amer) 84.0 BUN/Creatinine Ratio 22.7 H (10-20) Glucose 129 H (70-99) mg/dl POC Glucose (70-99) Calcium 8.6 (8.5-10.1) mg/dl Magnesium 1.8 (1.8-2.4) mg/dl PG Care Time/CCT Total # of Minutes Spent Total Time Spent with Patient: Total time spent is greater than 50% in coordination of care (as documented) at patient's floor/unit and/or counseling patient: (1) UTI (urinary tract infection) Hematuria presence: without hematuria Urinary tract infection type: site unspecified Qualified Code(s): N39.0 - Urinary tract infection, site not specified (2) Diabetes mellitus Diabetes mellitus complication status: with other specified complication Diabetes mellitus superintendent container terminal insulin use: unspecified superintendent container terminal insulin use status Diabetes mellitus type: other specified (including TRINH) Qualified Code(s): E13.69 - Other specified diabetes mellitus with other specified complication (3) COPD (chronic obstructive pulmonary disease) COPD type: unspecified COPD Qualified Code(s): J44.9 - Chronic obstructive pulmonary disease, unspecified
[2018-12-28] MEDS: ACETAMINOPHEN 500 MG TAB PO PRN (15:25)
[2018-12-28] MEDS: DOXYCYCLINE HYCLATE 100 MG in DEXTROSE 5% 100 ML IV SCH (19:37)
[2018-12-29] MEDS: VESICARE~ORDER AWAITING ACTION SCH ×4 (00:18→23:18)
[2018-12-29] MEDS: ACETAMINOPHEN 500 MG TAB PO PRN ×2 (00:48→22:21)
[2018-12-29] MEDS: CEFEPIME 1,000 MG in SYRINGE 0 ML IV SCH (05:20)
[2018-12-29] MEDS: DOXYCYCLINE HYCLATE 100 MG in DEXTROSE 5% 100 ML IV SCH (05:20)
[2018-12-29 07:20] LABS: Calcium 8.7 mg/dl (8.5-10.1); Est GFR (African American) 79.9; Est GFR (Non-African American) 68.9; Potassium 4.3 mmol/L (3.5-5.1)
[2018-12-29 07:26] LABS: Albumin Globulin Ratio 0.8 (0.9-2); Bilirubin,Total 1.2 mg/dl (0.2-1); Globulin 3.7 gm/dl (2.5-4.0); Total Protein 6.7 gm/dl (6.4-8.2)
[2018-12-29] MEDS: PANTOprazole 40 MG TAB PO SCH (07:56)
[2018-12-29] MEDS: MIRABEGRON ER 25 MG TAB PO SCH (07:56)
[2018-12-29] MEDS: PARoxetine HCl 20 MG TAB PO SCH (07:57)
[2018-12-29] MEDS: INSULIN ASPART 100 UNITS/ML 3 ML PEN SC SCH ×4 (08:00→20:30)
[2018-12-29 08:19] LABS: Estimated Average Glucose 157 mg/dl; Hemoglobin A1C 7.1 % (4.5-5.6)
[2018-12-29] MEDS ORDERED: INSULIN GLARGINE SOLOSTAR 100 UNITS/ML 3 ML PEN SC SCH (09:00)
[2018-12-29 10:23] LABS: Hematocrit (blood only) 38.5 % (37-47); Hemoglobin 12.9 g/dL (12.0-16.0); Mean Corpuscular Hgb Conc 33.5 g/dL (32-36); Platelet Count 62 K/uL (130-400); RDW Coefficient of Variation 12.8 % (11.5-14.5); RDW Standard Deviation 43.1 fL (36.4-46.3); Red Blood Count 4.14 M/uL (4.2-5.4); White Blood Count 3.59 K/uL (4.8-10.8)
[2018-12-29 10:46] LABS: Basophils # (auto) 0.01 K/uL (0-0.2); Basophils % (auto) 0.3 %; Eosinophils # (auto) 0.06 K/uL (0-0.5); Eosinophils % (auto) 1.7 %; Immature Granulocytes # (auto) 0.01 K/uL (0.00-0.02); Immature Granulocytes % (auto) 0.3 %; Lymphocytes # (auto) 1.01 K/uL (1.2-3.4); Lymphocytes % (auto) 28.1 %; Monocytes # (auto) 0.55 K/uL (0.11-0.59); Monocytes % (auto) 15.3 %; Neutrophils # (auto) 1.95 K/uL (1.4-6.5); Neutrophils % (auto) 54.3 %; Platelet Estimate Decreased (Normal); RBC Morphology Unremarkable
[2018-12-29] MEDS: cephALEXin 500 MG CAP PO SCH ×2 (12:52→20:29)
--- NOTE | 2018-12-29 14:52 | Hospitalist Progress Note ---
Date of Service December 29, 2018 Assessment & Plan (1) UTI (urinary tract infection): This patient is a 68 y/o female with a long history of mixed stress and urge incontinence and chronic UTIs, DM II, thrombocytopenia, GERD, and depression. Presents with fever, sweats and weakness. The pt states that she has had a UTI nearly continuously for many years. She is treated almost chronically with Bactrim and had been treated with Keflex as well. She has an implanted bladder stimulator which she does not currently make use of as it does not work. 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 No flank pain. Found to have abnormal urinalysis, growing pansensiive E. coli in her urine culture. With sepsis, POA-now resolved CT abdomen/pelvis with right-sided kidney stones, but no findings of obstruction or pyelonephritis -received 2-3 days of Cefepime, now will convert to po Keflex and complete 7 day course -consulted ID as she may benefit from rotating antibiotics prophylactically-she will f/u as an outpt -Continue acetaminophen as needed for fevers -Already has close follow-up with urology (2) Sepsis: With fevers, tachycardia, source is UTI most likely Although with headaches and myalgias and worsening thrombocytopenia although this is chronic, ID added on doxycycline to cover for tickborne illness She did have a Bullseye rash a few months back and received 21 days of doxy at that time -Anaplasmosis titers are pending and should be followed Lyme IgM equivocal but was also equivocal a few months ago and Western Blot was negative--> likely still a false positive and IgM can remain positive for years on Lyme Titer even if had previous infection Sepsis is not severe and was POA -Follow blood cultures -Continue doxycycline and converted Cefepime to keflex as above (3) COPD (chronic obstructive pulmonary disease): Stable -Not on medication for this, consider bronchodilators as needed (4) Diabetes mellitus: With some mild hyperglycemia here which is now improved but still some higher glucose readings -increase Lantus to 10 units bid and tighten down sliding scale insulin NovoLog -Holding home Victoza and usually takes Tresiba 106 units in the morning -ADA diet Hemoglobin A1c with excellent control at 7.1% (5) Depression: Stable -Continue home Paxil (6) Febrile illness, acute: As above (7) Ovarian mass, right: Noted on CT scan of the abdomen pelvis, is enlarging to 4.2 cm now on the right adnexa -Discussed with patient and her family at the bedside, 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-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 as an outpatient -perhaps this is contributing to her abd bloating and hot flashes she complains of (8) Cirrhosis: Liver noted to have a cirrhotic appearance on imaging and also mild fatty liver -Likely secondary to [place] -Encouraged patient to follow-up with her PCP and needs weight loss (9) Thrombocytopenia: Has had chronic thrombocytopenia for many years and has seen hematology in the past-was told they did not know why she had low platelets Has splenomegaly on imaging of the abdomen on CT-this is likely contributing to her thrombocytopenia especially in the setting of acute illness Question if has ITP? Platelets down to 59 but now up to 62k, no evidence of bleeding -Follow CBC and transfuse platelets if less than 20 or has evidence of bleeding with platelets less than 50 -Consider return visit with hematology as an outpatient (10) Overactive bladder: Chronic for many years, has failed bladder sling 30 years ago, then failed stimulator placement, has had injections. Has followed with several different urologists over the years. -Continue follow-up with urology -Continue Vesicare and was just started on Myrbetriq on the day of admission (11) DVT prophylaxis: Hold chemical means due to low platelets SCDs only for now Disposition-remain hospitalized but if remains afebrile and BCxs no growth, could dc to home tomorrow Subjective Pt still feels "the same as I always do" and says she feels like knives are starting to come back into her joints again. Says she has been having night sweats that are drenching for so many years she can't remember. Also complains of dizziness daily fo rmany years and asks what I'm going to do about that. Also c/o abd bloating and clothes not fitting for several years but has not had weight gain. Always has incontinence and burning. Asks me about all the studies she has had so far this admission even though we reviewed everything in detail for 35 minutes yesterday. She doesn't remeber talking to me about it yesterday. She is moving her bowels, eating, no further N/V. Review of Systems Review of Systems: All systems reviewed & are unremarkable except as noted in HPI & below Physical Exam Constitutional: WD/WN, vitals as above (talkative) Eyes: PERRL, conjunctivae normal, anicteric sclerae Neck: trachea midline, no thyromegaly Respiratory: normal respiratory effort, lungs clear to auscultation Cardiovascular: RRR, no murmur, no edema Gastrointestinal (Abdomen): Inspection/Auscultation: abdomen normal to inspection and normal bowel sounds; abdomen not distended Percussion/Palpat ion: + abdomen tender (Mild in the suprapubic area without guarding or rebound tenderness) and abdomen soft Musculoskeletal: Extremities: extremities normal to inspection; no cyanosis and no clubbing Skin: no rashes, warm and dry Neurologic: moves all extremities and awake; no focal motor deficits Psychiatric: Orientation: alert and cooperative Results & Data Vital Signs (Past 12 Hours) Vital Signs Temp Pulse Resp BP Pulse Ox 12/29/18 08:16 36.8 C 57 L 18 119/71 93 Laboratory Results 12/29/18 12/29/18 12/29/18 Range/Units 11:25 07:50 06:41 WBC 3.59 L (4.8-10.8) K/uL RBC 4.14 L (4.2-5.4) M/uL Hgb 12.9 (12.0-16.0) g/dL Hct 38.5 (37-47) % MCV 93.0 (80-100) fL MCH 31.2 (25-34) pg MCHC 33.5 (32-36) g/dL RDW Std Deviation 43.1 (36.4-46.3) fL RDW Coeff of Chana 12.8 (11.5-14.5) % Plt Count 62 L (130-400) K/uL MPV 13.0 H (7.4-10.4) fL Immature Gran % (Auto) 0.3 % Neut % (Auto) 54.3 % Lymph % (Auto) 28.1 % Louisa % (Auto) 15.3 % Eos % (Auto) 1.7 % Baso % (Auto) 0.3 % Immature Gran # (Auto) 0.01 (0.00-0.02) K/uL Neut # (Auto) 1.95 (1.4-6.5) K/uL Lymph # (Auto) 1.01 L (1.2-3.4) K/uL Louisa # (Auto) 0.55 (0.11-0.59) K/uL Eos # (Auto) 0.06 (0-0.5) K/uL Baso # (Auto) 0.01 (0-0.2) K/uL Platelet Estimate Decreased L (Normal) RBC Morphology Unremarkable Sodium (136-145) mmol/L Potassium (3.5-5.1) mmol/L Chloride (98-107) mmol/L Carbon Dioxide (21-32) mmol/L Anion Gap (3-11) BUN (7-18) mg/dl Creatinine (0.6-1.2) mg/dl Est Cr Clr Drug Dosing ml/min Est GFR ( Amer) Est GFR (Non-Af Amer) BUN/Creatinine Ratio (10-20) Glucose (70-99) mg/dl POC Glucose 178 H 166 H (70-99) Estimat Average Glucose mg/dl Hemoglobin A1c (4.5-5.6) % Calcium (8.5-10.1) mg/dl Total Bilirubin (0.2-1) mg/dl AST (15-37) U/L ALT (12-78) U/L Alkaline Phosphatase (45-117) U/L Total Protein (6.4-8.2) gm/dl Albumin (3.4-5.0) gm/dl Globulin (2.5-4.0) gm/dl Albumin/Globulin Ratio (0.9-2) 12/29/18 12/29/18 12/28/18 Range/Units 06:41 06:34 20:09 WBC (4.8-10.8) K/uL RBC (4.2-5.4) M/uL Hgb (12.0-16.0) g/dL Hct (37-47) % MCV (80-100) fL MCH (25-34) pg MCHC (32-36) g/dL RDW Std Deviation (36.4-46.3) fL RDW Coeff of Chana (11.5-14.5) % Plt Count (130-400) K/uL MPV (7.4-10.4) fL Immature Gran % (Auto) % Neut % (Auto) % Lymph % (Auto) % Louisa % (Auto) % Eos % (Auto) % Baso % (Auto) % Immature Gran # (Auto) (0.00-0.02) K/uL Neut # (Auto) (1.4-6.5) K/uL Lymph # (Auto) (1.2-3.4) K/uL Louisa # (Auto) (0.11-0.59) K/uL Eos # (Auto) (0-0.5) K/uL Baso # (Auto) (0-0.2) K/uL Platelet Estimate (Normal) RBC Morphology Sodium 139 (136-145) mmol/L Potassium 4.3 (3.5-5.1) mmol/L Chloride 106 (98-107) mmol/L Carbon Dioxide 28 (21-32) mmol/L Anion Gap 5.0 (3-11) BUN 13 (7-18) mg/dl Creatinine 0.86 (0.6-1.2) mg/dl Est Cr Clr Drug Dosing 78.0 ml/min Est GFR ( Amer) 79.9 Est GFR (Non-Af Amer) 68.9 BUN/Creatinine Ratio 15.0 (10-20) Glucose 175 H (70-99) mg/dl POC Glucose 221 H (70-99) Estimat Average Glucose 157 mg/dl Hemoglobin A1c 7.1 H (4.5-5.6) % Calcium 8.7 (8.5-10.1) mg/dl Total Bilirubin 1.2 H (0.2-1) mg/dl AST 35 (15-37) U/L ALT 40 (12-78) U/L Alkaline Phosphatase 117 (45-117) U/L Total Protein 6.7 (6.4-8.2) gm/dl Albumin 3.0 L (3.4-5.0) gm/dl Globulin 3.7 (2.5-4.0) gm/dl Albumin/Globulin Ratio 0.8 L (0.9-2) 12/28/ Range/Units 16:32 WBC (4.8-10.8) K/uL RBC (4.2-5.4) M/uL Hgb (12.0-16.0) g/dL Hct (37-47) % MCV (80-100) fL MCH (25-34) pg MCHC (32-36) g/dL RDW Std Deviation (36.4-46.3) fL RDW Coeff of Chana (11.5-14.5) % Plt Count (130-400) K/uL MPV (7.4-10.4) fL Immature Gran % (Auto) % Neut % (Auto) % Lymph % (Auto) % Louisa % (Auto) % Eos % (Auto) % Baso % (Auto) % Immature Gran # (Auto) (0.00-0.02) K/uL Neut # (Auto) (1.4-6.5) K/uL Lymph # (Auto) (1.2-3.4) K/uL Louisa # (Auto) (0.11-0.59) K/uL Eos # (Auto) (0-0.5) K/uL Baso # (Auto) (0-0.2) K/uL Platelet Estimate (Normal) RBC Morphology Sodium (136-145) mmol/L Potassium (3.5-5.1) mmol/L Chloride (98-107) mmol/L Carbon Dioxide (21-32) mmol/L Anion Gap (3-11) BUN (7-18) mg/dl Creatinine (0.6-1.2) mg/dl Est Cr Clr Drug Dosing ml/min Est GFR ( Amer) Est GFR (Non-Af Amer) BUN/Creatinine Ratio (10-20) Glucose (70-99) mg/dl POC Glucose 173 H (70-99) Estimat Average Glucose mg/dl Hemoglobin A1c (4.5-5.6) % Calcium (8.5-10.1) mg/dl Total Bilirubin (0.2-1) mg/dl AST (15-37) U/L ALT (12-78) U/L Alkaline Phosphatase (45-117) U/L Total Protein (6.4-8.2) gm/dl Albumin (3.4-5.0) gm/dl Globulin (2.5-4.0) gm/dl Albumin/Globulin Ratio (0.9-2) PG Care Time/CCT Total # of Minutes Spent Total Time Spent with Patient: Total time spent is greater than 50% in coordination of care (as documented) at patient's floor/unit and/or counseling patient: (1) UTI (urinary tract infection) Hematuria presence: without hematuria Urinary tract infection type: site unspecified Qualified Code(s): N39.0 - Urinary tract infection, site not specified (2) COPD (chronic obstructive pulmonary disease) COPD type: unspecified COPD Qualified Code(s): J44.9 - Chronic obstructive pulmonary disease, unspecified (3) Diabetes mellitus Diabetes mellitus complication status: with other specified complication Diabetes mellitus 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
[2018-12-29] MEDS: DOXYCYCLINE HYCLATE 100 MG CAP PO SCH (17:27)
--- NOTE | 2018-12-29 19:33 | Infectious Disease Progress Nt ---
Date of Service December 29, 2018 Assessment & Plan (1) Febrile illness, acute: 68-year-old female with recurrent urinary tract infections now presents with acute febrile illness associated with vomiting, severe myalgias and arthralgias, thrombocytopenia, with symptoms of recurrent urinary tract infection, smear for Anaplasma negative, DNA studies are pending. Would continue on antibiotics for now pending final sensitivity results and identification. Consider work-up for autoimmune disease given prolonged symptoms. Will follow. (2) UTI (urinary tract infection): Subjective Patient seen in follow-up for fever and recurrent urinary tract infection. Feels about the same today. Still having symptoms of recurrent urine infection. Platelet count lower today. Urine growing gram-negative bacilli. Remains afebrile. Review of Systems Review of Systems: All systems reviewed & are unremarkable except as noted in HPI & below Physical Exam Constitutional: WD/WN, vitals as above + ill appearing and comfortable Eyes: PERRL, conjunctivae normal, anicteric sclerae ENMT: external ear and nose normal, oropharynx normal Neck: trachea midline, no thyromegaly neck nontender Respiratory: normal respiratory effort, lungs clear to auscultation normal percussion; does not use accessory muscles Cardiovascular: Rate/Rhythm: regular rate and regular rhythm Heart Sounds: normal S1 and normal S2; no gallop, no murmur and no cardiac rub Vessels: normal peripheral pulses; no JVD Gastrointestinal (Abdomen): Inspection/Auscultation: abdomen normal to inspection and normal bowel sounds Percussion/Palpation: + abdomen tender and abdomen soft; no hepatosplenomegaly and no abdominal mass Musculoskeletal: no cyanosis or clubbing, extremities motor strength 5/5 Spine: thoracic spine normal to inspection and lumbar spine normal to inspection; no cervical spinal tenderness Skin: no rashes, warm and dry normal turgor; no lesions Neurologic: patellar DTR's 2+ bilat, sensation intact no focal motor deficits Psychiatric: A+Ox3, euthymic affect Orientation: cooperative Lymphatic: no cervical or axillary lymphadenopathy no inguinal lymphadenop athy Results & Data Vital Signs (Past 12 Hours) Vital Signs Temp Pulse Resp BP BP Pulse Ox 12/29/18 15:00 37.3 C 71 21 130/72 97/51 L 92 12/29/18 08:16 36.8 C 57 L 18 119/71 93 Laboratory Results Short CBC 12/29/18 Range/Units 06:41 WBC 3.59 L (4.8-10.8) K/uL Hgb 12.9 (12.0-16.0) g/dL Hct 38.5 (37-47) % Plt Count 62 L (130-400) K/uL BMP 12/29/18 06:34 Sodium 139 Potassium 4.3 Chloride 106 Carbon Dioxide 28 BUN 13 Creatinine 0.86 Glucose 175 H Calcium 8.7 Liver Function 12/29/18 Range/Units 06:34 Total Bilirubin 1.2 H (0.2-1) mg/dl AST 35 (15-37) U/L ALT 40 (12-78) U/L Alkaline Phosphatase 117 (45-117) U/L Albumin 3.0 L (3.4-5.0) gm/dl Diagnostic Findings Microbiology 12/27/18 22:26 Urine,Clean Catch Urine Culture - Final Escherichia coli 12/27/18 20:27 Blood Aerobic Blood Culture - Preliminary No growth in Aerobic bottle after 24 hours. 12/27/18 20:27 Blood Anaerobic Blood Culture - Preliminary No growth in Anaerobic bottle after 24 hours. 12/27/18 20:10 Blood Aerobic Blood Culture - Preliminary No growth in Aerobic bottle after 24 hours. 12/27/18 20:10 Blood Anaerobic Blood Culture - Preliminary No growth in Anaerobic bottle after 24 hours. (1) UTI (urinary tract infection) Hematuria presence: without hematuria Urinary tract infection type: site unspecified Qualified Code(s): N39.0 - Urinary tract infection, site not specified
[2018-12-29] MEDS: INSULIN GLARGINE SOLOSTAR 100 UNITS/ML 3 ML PEN SC SCH (20:29)
[2018-12-30] MEDS: DOXYCYCLINE HYCLATE 100 MG CAP PO SCH (05:40)
[2018-12-30] MEDS: PANTOprazole 40 MG TAB PO SCH (08:13)
[2018-12-30] MEDS: PARoxetine HCl 20 MG TAB PO SCH (08:13)
[2018-12-30] MEDS: MIRABEGRON ER 25 MG TAB PO SCH (08:13)
[2018-12-30] MEDS: VESICARE~ORDER AWAITING ACTION SCH (08:14)
[2018-12-30] MEDS: cephALEXin 500 MG CAP PO SCH (08:14)
[2018-12-30] MEDS: INSULIN GLARGINE SOLOSTAR 100 UNITS/ML 3 ML PEN SC SCH (08:15)
[2018-12-30] MEDS: INSULIN ASPART 100 UNITS/ML 3 ML PEN SC SCH ×2 (08:18→12:22)
[2018-12-30] MEDS ORDERED: INSULIN GLARGINE SOLOSTAR 100 UNITS/ML 3 ML PEN SC SCH (09:00)
[2018-12-30 09:28] LABS: Hematocrit (blood only) 41.3 % (37-47); Mean Corpuscular Hgb Conc 33.9 g/dL (32-36); Mean Platelet Volume 12.9 fL (7.4-10.4); Platelet Count 75 K/uL (130-400); RDW Coefficient of Variation 12.7 % (11.5-14.5); RDW Standard Deviation 43.1 fL (36.4-46.3); Red Blood Count 4.44 M/uL (4.2-5.4); White Blood Count 3.52 K/uL (4.8-10.8)
[2018-12-30 09:53] LABS: BUN Creatinine Ratio 16.6 (10-20); Calcium 8.9 mg/dl (8.5-10.1); Creatinine Clr Calc Pharmacy 85.9 ml/min; Est GFR (African American) 89.9; Est GFR (Non-African American) 77.6; Potassium 4.1 mmol/L (3.5-5.1)
[2018-12-30 09:59] LABS: Basophils # (auto) 0.02 K/uL (0-0.2); Basophils % (auto) 0.6 %; Eosinophils # (auto) 0.09 K/uL (0-0.5); Eosinophils % (auto) 2.6 %; Giant Platelets 1+; Immature Granulocytes # (auto) 0.01 K/uL (0.00-0.02); Immature Granulocytes % (auto) 0.3 %; Lymphocytes # (auto) 1.06 K/uL (1.2-3.4); Lymphocytes % (auto) 30.1 %; Monocytes # (auto) 0.32 K/uL (0.11-0.59); Monocytes % (auto) 9.1 %; Neutrophils # (auto) 2.02 K/uL (1.4-6.5); Neutrophils % (auto) 57.3 %
--- NOTE | 2018-12-30 16:29 | Discharge Summary ---
Date of Service December 30, 2018 Admission HPI Per Admitting Provider 68 y/o F Hx urinary retention, incontinence and chronic UTIs, DM II, thrombocytopenia, GERD, depression. Presents with fever, sweats and weakness. The pt states that she has had a UTI nearly continuously for 2-3 years. She is treated chronically with Bactrim and had been treated with Keflex as well. She has an implanted bladder stimulator which she does not currently make use of. She developed a high fever and profuse sweats over the past few days. She does not have abdominal pain or flank pain. PMH: 1) Chronic UTIs 2) Urinary incontinence and retention 3) DM II 4) Depression 5) GERD 6) Obese 7) COPD - not treated 8) Cirrhosis and splenomegaly reported on imaging 9) Chronic thrombocytopenia Surgical: 1) Implanted bladder stimulator 2) Bladder lift surgery Social: Quit smoking in 1999, drinks socially Family: Father due to colon CA Mother due to melanoma Principal Diagnosis UTI, Sepsis Discharge Exam Constitutional WD/WN, vitals as above (talkative) Eyes PERRL, conjunctivae normal, anicteric sclerae ENMT external ear and nose normal, oropharynx normal Neck trachea midline, no thyromegaly Respiratory normal respiratory effort, lungs clear to auscultation Cardiovascular RRR, no murmur, no edema Gastrointestinal (Abdomen) Inspection/Auscultation: abdomen normal to inspection and normal bowel sounds; abdomen not distended Percussion/Palpation: + abdomen tender (Mild in the suprapubic area without guarding or rebound tenderness) and abdomen soft Musculoskeletal Extremities: extremities normal to inspection; no cyanosis and no clubbing Skin no rashes, warm and dry Neurologic moves all extremities and awake; no focal motor deficits Psychiatric Orientation: alert and oriented x 3 Speech: + loud speech Affect: + labile affect and + irritable affect Discharge Data Allergies Allergy/AdvReac Type Severity Reaction Status Date / Time Penicillins Allergy Intermediate RASH Verified 12/27/18 21:20 metformin Allergy Unknown GI SICKNESS Verified 12/27/18 21:20 nickel Allergy Unknown HIVES/RASH Verified 12/27/18 21:20 ON SKIN oxycodone Allergy Unknown HEADACHE Verified 12/27/18 21:20 AND NAUSEA Consultations Infectious Diseases Ordered Studies 12/27/18 20:22 CT abd pelvis IV con only Stat CT head/brain wo con Stat CXR Hospital Course (1) UTI (urinary tract infection): This patient is a 68 y/o female with a long history of mixed stress and urge incontinence and chronic UTIs, DM II, thrombocytopenia, GERD, and depression. Presents with fever, sweats and weakness. The pt states that she has had a UTI nearly continuously for many years. She is treated almost chroni chrissie with Bactrim and had been treated with Keflex as well. She has an implanted bladder stimulator which she does not currently make use of as it does not work. 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 No flank pain. Found to have abnormal urinalysis, growing pansensitive E. coli in her urine culture. With sepsis, POA-now resolved CT abdomen/pelvis with right-sided kidney stones, but no findings of obstruction or pyelonephritis No further fevers in many days although pt states she has daily profuse sweating for over 10-15 years, wants to know what she should do about it--> she thinks they are fevers but no fever documented here during a sweating episode--> recommend f/u with PCP and/or DIGITAL COMPUTER SYSTEMS ANALYST for hormonal workup as outpt -received 2-3 days of Cefepime, and then was converted to po Keflex and will complete 7 day course -consulted ID as she may benefit from rotating antibiotics prophylactically-she will f/u as an outpt -Already has close follow-up with urology for recurrent infections and OAB (2) Sepsis: With fevers, tachycardia, source is UTI most likely--> all resolved Although with headaches and myalgias and worsening thrombocytopenia although this is chronic, ID added on doxycycline to cover for tickborne illness She did have a Bullseye rash a few months back and received 21 days of doxy at t hat time -Anaplasmosis titers are pending and should be followed as outpt Lyme IgM equivocal but was also equivocal a few months ago and Western Blot was negative--> likely still a false positive and IgM can remain positive for years on Lyme Titer even if had previous infection Sepsis is not severe and was POA -Follow blood cultures after discharge-NGTD -Continue doxycycline and converted Cefepime to keflex as above (3) COPD (chronic obstructive pulmonary disease): Stable -Not on medication for this, consider bronchodilators as needed (4) Diabetes mellitus: With some mild hyperglycemia here which is now improved but still some higher glucose readings -received Lantus 10 units bid and sliding scale insulin NovoLog -Held home Victoza and Tresiba but can restart on dc Hemoglobin A1c with excellent control at 7.1% (5) Depression: Stable -Continue home Paxil (6) Febrile illness, acute: As above (7) Ovarian mass, right: Noted on CT scan of the abdomen pelvis, is enlarging to 4.2 cm now on the right adnexa -Discussed with patient and her family at the bedside, 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-up with DIGITAL COMPUTER SYSTEMS ANALYST as an outpatient -perhaps this is contributing to her abd bloating and hot flashes she complains of (8) Cirrhosis: Liver noted to have a cirrhotic appearance on imaging and also mild fatty liver -Likely secondary to CAVA[place]UGH -Encouraged patient to follow-up with her PCP and needs weight loss (9) Thrombocytopenia: Has had chronic thrombocytopenia for many years and has seen hematology in the past-was told they did not know why she had low platelets Has splenomegaly on imaging of the abdomen on CT-this is likely contributing to her thrombocytopenia especially in the setting of acute illness Question if has ITP? Platelets down to 59 but now up to 75k, no evidence of bleeding -Follow CBC and transfuse platelets if less than 20 or has evidence of bleeding with platelets less than 50 -Consider return visit with hematology as an outpatient (10) Overactive bladder: Chronic for many years, has failed bladder sling 30 years ago, then failed stimulator placement, has had injections. Has followed with several different urologists over the years. -Continue follow-up with urology -Continue Vesicare and was just started on Myrbetriq on the day of admission (11) DVT prophylaxis: Held chemical means due to low platelets SCDs were provided Disposition-stable for dc to home Total Time Total Time Spent Total Time Spent (In Minutes): >30 min Total Time Includes: Examination of the Patient, Discharge Planning and Medication Reconciliation Discharge Plan Discharge Items Patient Disposition: Home - Self-Care Reason For Visit: UTI Discharge Diagnosis: UTI,Sepsis Condition: Fair Discharge Goals: Decrease discomfort, Diagnostic testing and Therapeutic interve ntion Activity: Resume your previous activity Bathing: No limitations Exercise/Sports: Gradually increase as tolerated Non-emergency contact: Primary Care Provider and Specialist Call non-emergency contact if: you have any medication questions, your symptoms worsen, your pain is not controlled, your pain is worsening, your pain is unusual for you, your pain is concerning for you and your temperature is above 101 Follow-up/Referrals: Az Cheney MD [Physician] - 02/01/19 1:15 pm (Please, follow up with Dr. Az Cheney (infectious disease specialist) on ThursdayFebruary 01 at 1:15 pm. *The office is located in [address] of [facility]. This is the big building next to this [facility]. *If you need to change this appointment, call the office at [phone].) Jovan Delcid MD [Physician] - 02/08/19 10:30 am (Please, follow up at [facility] Office with Dr. Delcid with his associate, Nazanin OTTO, on ThursdayFebruary 08 at 10:30 am. If you have any questions, call the office at [phone].) Matilda Mitchell CRNP [Primary Care Provider] - 01/04/19 1:50 pm (Please, follow up at FAM Mitchell's office with her associate, Dr. Odonnell, on ThursdayJanuary 04 at 1:50 pm. *The office is located in [address] of [facility]. This is the big building next to [facility]. If you need to change this appointment, call the office at [phone].) Diet: Carb Consistent or DM2 Addtl Provider Instructions: Please finish out the course of antibiotics: Keflex for your urinary tract infection and doxycycline in case of tick-borne illness. You had no further fevers while you were here. As far your frequent sweats, please talk to your primary care provider about this-perhaps you should have your hormone levels checked. You had an ovarian mass that is getting bigger on CT scan--> please have Matilda Mitchell refer you to a Studio Hand for further evaluation of this. As faor your chronic dizziness, intermittent headaches with nausea, please address this also with Ms. Mitchell at your follow up visit. We scheduled you an appointment with Dr. Cheney of Infectious Disease for your chronic UTIs. If the appointment time is not convenient for you given your work schedule, you can call and change it. Prescriptions: New doxycycline hyclate 100 mg Capsule 100 mg PO Q12H Qty: 24 RF: 0 acetaminophen [Tylenol Extra Strength] 500 mg Tablet 1,000 mg PO Q8H PRN (Reason: pain or fever) Qty: 30 RF: 0 cephalexin 500 mg Capsule 500 mg PO BID Qty: 16 RF: 0 Continued loperamide [Imodium A-D] 2 mg Tablet 2 mg PO Q3H PRN (Reason: Diarrhea) RF: 0 omeprazole 40 mg capsule,delayed release(DR/EC) 40 mg PO QAM RF: 0 paroxetine HCl [Paxil] 30 mg tablet 30 mg PO QAM RF: 0 solifenacin [Vesicare] 10 mg tablet 10 mg PO QAM RF: 0 Victoza 3-Júnior 0.6 mg/0.1 mL (18 mg/3 mL) pen injector 1.8 units subcut QAM RF: 0 Cranberry-Probiotic 480 mg-20 mg- 100million cell Tablet 1 tab PO BID RF: 0 Tresiba FlexTouch U-200 200 unit/mL (3 mL) insulin pen 106 units subcut QAM RF: 0 Premarin 0.625 mg/gram cream 1 applic vaginal UD RF: 0 Myrbetriq 50 mg Tablet Extended Release 24 Hr 50 mg PO DAILY RF: 0 Stand-Alone Forms: [facility] Discharge Orders: Discharge Order (Routine); Ordered 12/30/18 Ordered By: Krystal Pitts Admission Data Admit Date/Time: 12/28/18 00:18 Attending Provider: Krystal Pitts Admit Provider: Bruce Ye Primary Care Provider: Matilda Mitchell Other Providers: Az Cheney Service: Medical Other Interventions: Discharge Summary Assessment (RN) Last Done: 12/30/18 16:29 Pending Studies at Discharge: Yes (Final Lyme Western Blot) DC Date/Time DO NOT enter until pt leaves facility: 12/30/18 16:50
[2018-12-30 19:57] LABS: Ehrlichia chaff DNA Bld Not Detected (Not Detected); Ehrlichia chaff IgG Ab <1:64 (<1:64); Ehrlichia chaff IgM Ab <1:20 (<1:20)
[2019-01-03 10:25] LABS: 18KDIGG Band REACTIVE (NONREACTIVE); 23KDIGG Band NONREACTIVE (NONREACTIVE); 23KDIGM Band REACTIVE (NONREACTIVE); 28KDIGG Band NONREACTIVE (NONREACTIVE); 30KDIGG Band NONREACTIVE (NONREACTIVE); 39KDIGG Band NONREACTIVE (NONREACTIVE); 39KDIGM Band NONREACTIVE (NONREACTIVE); 41KDIGG Band REACTIVE (NONREACTIVE); 41KDIGM Band NONREACTIVE (NONREACTIVE); 45KDIGG Band REACTIVE (NONREACTIVE); 58KDIGG Band NONREACTIVE (NONREACTIVE); 66KDIGG Band REACTIVE (NONREACTIVE); 93KDIGG Band NONREACTIVE (NONREACTIVE); Lyme Antibodies, WB IgG NEGATIVE (NEGATIVE); Lyme Antibodies, WB IgM NEGATIVE (NEGATIVE)
== END 2018-12-30 16:50 | disposition home or self-care (01) | DRG 872 ==
LOC: ED 19:45 → 2N 12-28 00:18 → SUATTDRO 12-28 00:18 → 2N 12-28 01:20
DX: R32 Unspecified urinary incontinence; N39.0 Urinary tract infection, site not specified; K74.60 Unspecified cirrhosis of liver; N32.81 Overactive bladder; Z79.899 Other long term (current) drug therapy; J44.9 Chronic obstructive pulmonary disease, unspecified; F32.9 Major depressive disorder, single episode, unspecified; A41.9 Sepsis, unspecified organism; K21.9 Gastro-esophageal reflux disease without esophagitis; Z79.4 Long term (current) use of insulin; E11.65 Type 2 diabetes mellitus with hyperglycemia; D69.6 Thrombocytopenia, unspecified

== ENCOUNTER 2021-01-21 22:31 | Inpatient (IN) ==
[2021-01-22] MEDS ORDERED: ONDANSETRON INJ 2 MG/ML 2 ML VIAL IV STA (00:02)
[2021-01-22] MEDS ORDERED: KETOROLAC TROMETHAMINE 15 MG/ML VIAL IV ONE (00:02)
[2021-01-22] MEDS ORDERED: SODIUM CHLORIDE 0.9% 500 ML IV STA (00:02)
--- NOTE | 2021-01-22 00:11 | Emergency Department Note ---
History of Present Illness General Chief complaint: Illness Stated complaint: VOMITING, BODY ACHES ALL OVER Time Seen by Provider: 01/21/21 23:45 History of Present Illness Maximum Pain Intensity: 10 70-year-old female presents with a chief complaint of generalized weakness, body aches all over, nasal congestion and nausea vomiting. Her symptoms started around 2 PM but she states that she was not feeling well earlier in the day as well. She states she feels like [place] the [place]. Denies chest pains or shortness of breath. No headaches. No abdominal pains. She did take some extra strength Tylenol this morning. She reports some fevers today. Home Medications Medication Instructions Recorded Confirmed Type liraglutide 0.6 mg/0.1 mL (18 mg/3 1.8 units SUBCUT QAM 10/02/18 11/26/20 History mL) subcutaneous pen injector (Victoza 3-Júnior) loperamide 2 mg tablet (Imodium 2 mg PO Q3H PRN 10/02/18 11/26/20 History A-D) nystatin-triamcinolone 100,000 1 applic EXT BID #45 g 06/03/19 11/26/20 Rx unit/g-0.1 % topical cream mirabegron 50 mg tablet,extended 50 mg PO DAILY #90 tab 09/19/19 11/26/20 Rx release 24 hr (Myrbetriq) trimethoprim 100 mg tablet 100 mg PO DAILY 30 Days #30 tab 09/19/19 11/26/20 Rx mupirocin 2 % topical ointment See Rx Instructions TOP BID #22 gm 10/10/19 11/26/20 Rx solifenacin 5 mg tablet (Vesicare) 5 mg PO DAILY 09/27/20 11/26/20 History fosfomycin tromethamine 3 gram 1 packet PO .weekly 90 Days #12 ea 11/26/20 11/26/20 Rx oral packet fluoxetine 10 mg capsule (Prozac) 10 mg PO DAILY 12/13/20 12/13/20 History glimepiride 1 mg tablet (Amaryl) 1 mg PO DAILY 12/13/20 12/13/20 History insulin degludec 100 unit/mL (3 100 unit SUBCUT DAILY 12/13/20 12/13/20 History mL) subcutaneous pen (Tresiba FlexTouch U-100 insulin) omega 3-dha 500 mg-epa 100 mg-fish cap PO DAILY cap 12/13/20 12/13/20 History oil capsule (Nuretin) venlafaxine 37.5 mg 37.5 mg PO DAILY 12/13/20 12/13/20 History capsule,extended release 24 hr (Effexor XR) Allergies Allergy/AdvReac Type Severity Reaction Status Date / Time Penicillins Allergy Intermediate RASH Verified 12/13/20 09:25 metformin Allergy Unknown GI SICKNESS Verified 12/13/20 09:25 nickel Allergy Unknown HIVES/RASH Verified 12/13/20 09:25 ON SKIN oxycodone Allergy Unknown HEADACHE Verified 12/13/20 09:25 AND NAUSEA Past Med/Surg History Medical History Abdominal pain, generalized Bloating COPD (chronic obstructive pulmonary disease) Depression Diabetes mellitus Diastasis recti GERD (gastroesophageal reflux disease) Has 1 child Sensorineural hearing loss of both ears Tinnitus, bilateral UTI (urinary tract infection) Surgical History H/O abdominal surgery panniculectomy x 2 per pt History of carpal tunnel surgery x2 History of hysterectomy History of laparoscopic cholecystectomy open surgery Family History Father Prostate cancer Diabetes Mother Cancer Other No family history of adverse response to anesthesia No family history of bleeding disorder Social History Smoking Status: Former smoker Second Hand Exposure: No; Hx Alcohol Use: Yes Alcohol type: beer Alcohol Intake Frequency Comment: 1-2 per month Hx Substance Use: No Preferred Language: Montserratian Communication Ability: Effective Gasket Notcher Required: No Beliefs That Will Affect Care: None marital status: Current Living Situation: Alone current occupational status: retired How many Children do You have: 1 Feels Safe at Home: Yes Assistive Devices: None Review of Systems A total of 10 systems reviewed and were otherwise negative Physical Exam Vital Signs Vital Signs - 24 hr 01/21/21 22:40 01/22/21 00:07 01/22/21 00:30 Temperature 36.7 C 36.8 C Temperature Source Temporal Artery Scan Pulse Rate 100 H 93 H 95 H Pulse Rate from SpO2 Sensor Respiratory Rate 16 20 16 Respiratory Effort / Characteristics Non-Labored Spontaneous Respiratory Depth Normal Blood Pressure 130/68 Blood Pressure Mean 88 Pulse Oximetry 91 Oxygen Delivery Method Room Air Sepsis Recent Fever Within 48 Hours No Sepsis New/Unexplained Change in Mental Status No Sepsis Action Taken by Nursing No Action Required 01/22/21 01:00 Temperature Temperature Source Pulse Rate 93 H Pulse Rate from SpO2 Sensor 94 H Respiratory Rate 20 Respiratory Effort / Characteristics Respiratory Depth Blood Pressure 142/78 H Blood Pressure Mean 99 Pulse Oximetry 92 Oxygen Delivery Method Sepsis Recent Fever Within 48 Hours Sepsis New/Unexplained Change in Mental Status Sepsis Action Taken by Nursing CONSTITUTIONAL/VITAL SIGNS: Reviewed / noted above. GENERAL: Non-toxic in appearance. INTEGUMENTARY: Warm, dry, and [place]. HEAD: Normocephalic. EYES: without scleral icterus or trauma. ENT/OROPHARYNX: clear and moist. Nasal congestion. LYMPHADENOPATHY/NECK: Is supple without lymphadenopathy or meningismus. RESPIRATORY: Clear to auscultation bilaterally. No increased work of breathing. CARDIOVASCULAR: Regular rate and rhythm. GI/ABDOMEN: Soft and nontender. No organomegaly or pulsatile mass. EXTREMITIES: Warm and well perfused. BACK: No CVA tenderness. NEUROLOGICAL: Intact without focal deficits. PSYCHIATRIC: normal affect. MUSCULOSKELETAL: Normally developed with good muscle tone. TRIAGE NURSING DOCUMENTATION REVIEWED. Course Administered Medications Discontinued Medications Sodium Chloride (Nss) 500 mls @ 999 mls/hr IV .Q31M STA Stop: 01/22/21 00:32 Last Infusion: 01/22/21 01:07 Dose: 0 mls/hr Documented by: [id number] Admin: 01/22/21 00:36 Dose: 999 mls/hr Documented by: [id number] Ceftriaxone Sodium (Rocephin) 1,000 mg in 50 mls @ 100 mls/hr IV NOW STA Stop: 01/22/21 01:50 Last Admin: 01/22/21 01:53 Dose: 100 mls/hr Documented by: [id number] Ketorolac Tromethamine (Ketorolac Tromethamine 15 Mg/Ml Vial) 10 mg IV NOW ONE Stop: 01/22/21 00:03 Last Admin: 01/22/21 00:36 Dose: 10 mg Documented by: [id number] Ondansetron HCl (Ondansetron Inj 2 Mg/Ml 2 Ml Vial) 4 mg IV NOW STA Stop: 01/22/21 00:03 Last Admin: 01/22/21 00:36 Dose: 4 mg Documented by: [id number] Medical Decision Making Differential Diagnosis Differential includes viral illness, influenza, streptococcal pharyngitis, men ingitis, pneumonia, sinusitis, UTI, pyelonephritis, otitis media, gastroenteritis, GI illness. Medical Records Attestation: I reviewed the patient's medical records. Home Medications Current Medication List: was personally reviewed by me Laboratory Data Attestation: I reviewed the patient's lab results. Result diagrams: 01/22/21 00:02 01/22/21 00:02 Lab Results 01/22/21 01/22/21 01/22/21 Range/Units 00:02 00:02 00:02 WBC 6.54 (4.8-10.8) K/uL RBC 4.34 (4.2-5.4) M/uL Hgb 14.1 (12.0-16.0) g/dL Hct 41.0 (37-47) % MCV 94.5 (80-100) fL MCH 32.5 (25-34) pg MCHC 34.4 (32-36) g/dL RDW Std Deviation 44.4 (36.4-46.3) fL RDW Coeff of Chana 12.8 (11.5-14.5) % Plt Count 70 L (130-400) K/uL MPV 12.3 H (7.4-10.4) fL Immature Gran % (Auto) 0.2 % Neut % (Auto) 83.7 % Lymph % (Auto) 6.7 % Ralls % (Auto) 8.9 % Eos % (Auto) 0.3 % Baso % (Auto) 0.2 % Neut # (Auto) 5.48 (1.4-6.5) K/uL Lymph # (Auto) 0.44 L (1.2-3.4) K/uL Ralls # (Auto) 0.58 (0.11-0.59) K/uL Eos # (Auto) 0.02 (0-0.5) K/uL Baso # (Auto) 0.01 (0-0.2) K/uL Immature Gran # (Auto) 0.01 (0.00-0.02) K/uL Platelet Estimate Decreased L (Normal) Sodium 137 (136-145) mmol/L Potassium 4.2 (3.5-5.1) mmol/L Chloride 105 (98-107) mmol/L Carbon Dioxide 24 (21-32) mmol/L Anion Gap 8.0 (3-11) BUN 17 (7-18) mg/dl Creatinine 0.96 (0.6-1.2) mg/dl Est Cr Clr Drug Dosing Not Reportable Est GFR ( Amer) 69.0 ml/min Est GFR (Non-Af Amer) 59.5 ml/min BUN/Creatinine Ratio 17.1 (10-20) Glucose 201 H (70-99) mg/dl Calcium 9.6 (8.5-10.1) mg/dl Total Bilirubin 4.1 H (0.2-1) mg/dl AST 60 H (15-37) U/L ALT 64 (12-78) U/L Alkaline Phosphatase 116 (45-117) U/L Total Protein 7.9 (6.4-8.2) gm/dl Albumin 3.6 (3.4-5.0) gm/dl Globulin 4.3 H (2.5-4.0) gm/dl Albumin/Globulin Ratio 0.8 L (0.9-2) Lyme Disease IgG Ab Negative (Negative) Lyme Disease IgM Ab Equivocal A (Negative) COVID-19 Eval Order SARS-CoV-2 (PCR) (Negative) 01/22/21 01/22/21 Range/Units 00:17 00:17 WBC (4.8-10.8) K/uL RBC (4.2-5.4) M/uL Hgb (12.0-16.0) g/dL Hct (37-47) % MCV (80-100) fL MCH (25-34) pg MCHC (32-36) g/dL RDW Std Deviation (36.4-46.3) fL RDW Coeff of Chana (11.5-14.5) % Plt Count (130-400) K/uL MPV (7.4-10.4) fL Immature Gran % (Auto) % Neut % (Auto) % Lymph % (Auto) % Ralls % (Auto) % Eos % (Auto) % Baso % (Auto) % Neut # (Auto) (1.4-6.5) K/uL Lymph # (Auto) (1.2-3.4) K/uL Ralls # (Auto) (0.11-0.59) K/uL Eos # (Auto) (0-0.5) K/uL Baso # (Auto) (0-0.2) K/uL Immature Gran # (Auto) (0.00-0.02) K/uL Platelet Estimate (Normal) Sodium (136-145) mmol/L Potassium (3.5-5.1) mmol/L Chloride (98-107) mmol/L Carbon Dioxide (21-32) mmol/L Anion Gap (3-11) BUN (7-18) mg/dl Creatinine (0.6-1.2) mg/dl Est Cr Clr Drug Dosing Est GFR ( Amer) ml/min Est GFR (Non-Af Amer) ml/min BUN/Creatinine Ratio (10-20) Glucose (70-99) mg/dl Calcium (8.5-10.1) mg/dl Total Bilirubin (0.2-1) mg/dl AST (15-37) U/L ALT (12-78) U/L Alkaline Phosphatase (45-117) U/L Total Protein (6.4-8.2) gm/dl Albumin (3.4-5.0) gm/dl Globulin (2.5-4.0) gm/dl Albumin/Globulin Ratio (0.9-2) Lyme Disease IgG Ab (Negative) Lyme Disease IgM Ab (Negative) COVID-19 Eval Order Covid19 at [facility] SARS-CoV-2 (PCR) NEGATIVE (Negative) Imaging Data My Impression: Chest x-ray: Per my interpretation there is a elevated right hemidiaphragm. No pneumonia or pneumothorax. MDM Narrative Patient presents with the above complaint. Congestion, fever, body aches, nausea and vomiting. Exam does reveal nasal congestion. She did have some vomitus in a bucket that she brought in with her. Exam was relatively unremarkable. She does seem fairly weak. She is in no distress. Test results show normal CBC. There is a decreased platelet count. Chemistry panel was unremarkable. Glucose is 201. AST is 60.Lyme test is equivocal. It appears that she has had at least 2 other test that have been equivocal in the past. She also appears to have a chronically low platelet count. Total bilirubin is 4.1. This is higher than previous. AST is 60.Covid test is negative. I talked the patient about the results of the test. She states that she lives alone. She is quite weak. She has difficulty sitting up in bed by herself. For this reason I think it might benefit the patient to stay overnight in the hospital. I will talk to the hospitalist. Impression & Plan Myalgia, Fever, Vomiting Discharge Plan Visit Data Chief Complaint: Illness Stated Complaint: VOMITING, BODY ACHES ALL OVER ED Provider: Aiden Acharya Discharge Problem: Myalgia, Fever, Vomiting Patient Disposition: Being Evaluated by Hospitalist Forms Stand Alone Forms: [facility], Virtual Emergency Department, Important Visit Information Prescriptions Prescriptions: No Action venlafaxine [Effexor XR] 37.5 mg capsule,extended release 24hr 37.5 mg PO DAILY RF: 0 fluoxetine [Prozac] 10 mg capsule 10 mg PO DAILY RF: 0 glimepiride [Amaryl] 1 mg tablet 1 mg PO DAILY RF: 0 Nuretin 500-100 mg capsule PO DAILY RF: 0 Tresiba FlexTouch U-100 100 unit/mL (3 mL) insulin pen 100 unit subcut DAILY RF: 0 trimethoprim 100 mg tablet 100 mg PO DAILY 30 Days Qty: 30 RF: 11 Myrbetriq 50 mg tablet extended release 24 hr 50 mg PO DAILY Qty: 90 RF: 3 mupirocin 2 % ointment See Rx Instructions TOP BID Qty: 22 RF: 3 fosfomycin tromethamine 3 gram packet 1 packet PO .weekly 90 Days Qty: 12 RF: 3 solifenacin [Vesicare] 5 mg tablet 5 mg PO DAILY RF: 0 nystatin-triamcinolone 100,000-0.1 unit/g-% Cream 1 applic EXT BID Qty: 45 RF: 0 loperamide [Imodium A-D] 2 mg Tablet 2 mg PO Q3H PRN (Reason: Diarrhea) RF: 0 Victoza 3-Júnior 0.6 mg/0.1 mL (18 mg/3 mL) pen injector 1.8 units subcut QAM RF: 0 Referrals Referrals: Matilda Mitchell CRNP [Primary Care Provider] -
[2021-01-22 00:37] LABS: Alanine Aminotransferase 64 U/L (12-78); Albumin Level 3.6 gm/dl (3.4-5.0); Aspartate Aminotransferase 60 U/L (15-37); BUN Creatinine Ratio 17.1 (10-20); Blood Urea Nitrogen 17 mg/dl (7-18); Calcium 9.6 mg/dl (8.5-10.1); Carbon Dioxide 24 mmol/L (21-32); Chloride 105 mmol/L (98-107); Est GFR (Non-African American) 59.5 ml/min; Glucose 201 mg/dl (70-99); Potassium 4.2 mmol/L (3.5-5.1); Sodium 137 mmol/L (136-145)
[2021-01-22 00:40] LABS: Albumin Globulin Ratio 0.8 (0.9-2); Alkaline Phosphatase 116 U/L (45-117); Bilirubin,Total 4.1 mg/dl (0.2-1); Globulin 4.3 gm/dl (2.5-4.0); Total Protein 7.9 gm/dl (6.4-8.2)
[2021-01-22 00:41] LABS: Hemoglobin 14.1 g/dL (12.0-16.0); Mean Corpuscular Hemoglobin 32.5 pg (25-34); Mean Corpuscular Hgb Conc 34.4 g/dL (32-36); Mean Corpuscular Volume 94.5 fL (80-100); Mean Platelet Volume 12.3 fL (7.4-10.4); Platelet Count 70 K/uL (130-400); RDW Coefficient of Variation 12.8 % (11.5-14.5); RDW Standard Deviation 44.4 fL (36.4-46.3); Red Blood Count 4.34 M/uL (4.2-5.4); White Blood Count 6.54 K/uL (4.8-10.8)
[2021-01-22 00:42] LABS: Basophils # (auto) 0.01 K/uL (0-0.2); Basophils % (auto) 0.2 %; Eosinophils # (auto) 0.02 K/uL (0-0.5); Eosinophils % (auto) 0.3 %; Immature Granulocytes # (auto) 0.01 K/uL (0.00-0.02); Immature Granulocytes % (auto) 0.2 %; Lymphocytes # (auto) 0.44 K/uL (1.2-3.4); Lymphocytes % (auto) 6.7 %; Monocytes # (auto) 0.58 K/uL (0.11-0.59); Monocytes % (auto) 8.9 %; Neutrophils # (auto) 5.48 K/uL (1.4-6.5); Neutrophils % (auto) 83.7 %; Platelet Estimate Decreased (Normal)
[2021-01-22 01:08] LABS: Lyme Ab IgG w/WB Rflx Negative (Negative)
[2021-01-22 01:10] LABS: Lyme Ab IgM w/WB Rflx Equivocal (Negative)
[2021-01-22] MEDS ORDERED: cefTRIAXone SODIUM 1,000 MG/50 ML BAG IV STA (01:21)
--- NOTE | 2021-01-22 02:56 | History & Physical Report ---
Date of Service January 22, 2021 Assessment & Plan (1) Myalgia: Plan: 70-year-old female presenting with acute onset nausea/vomiting/myalgias and fever. Patient complaining of significant weakness and inability to walk. While in the ER. She was able to ambulate from the bathroom to the bed although appeared to be somewhat unsteady on her feet. She did have a very small amount of dark urine output. States that she feels dehydrated. Observation to medical IV fluid and electrolyte repletion as needed. Will provide LR at 125 mL/h x 2 L and monitor urine output Check urinalysis Tylenol as needed for pain or fever (2) Fever: Plan: Patient denies cough, shortness of breath, dysuria, abdominal pain, diarrhea. She does have an equivocal Lyme test which she has had on several occasions prior. Patient [place] and has had many ticks on her as well as history of bull's-eye rash. She has never been treated for Lyme disease. Do not strongly suspect active infection, however, with complaints of weakness/myalgias, fever will start empiric treatment Await confirmatory Western blot test Doxycycline 100 mg twice daily (3) Lyme disease: Plan: Uncertain of patient's preliminary lab results indicate active Lyme disease. He does present with complaints of weakness, myalgias, fever with known tick exposure and rash in the past. Her thrombocytopenia is chronic and was likely secondary to underlying cirrhosis Await confirmatory testing Empiric doxycycline 100 mg p.o. twice daily (4) Diabetes mellitus: Plan: Blood sugar elevated today at 201. Last hemoglobin A1c from June 2019 = 8.5 Hold oral agents Provide Lantus insulin sliding scale Goal blood sugar 100-1 40 Consistent carb diet as tolerated (5) Depression: Plan: Chronic. Stable. Continue venlafaxine 37.5 mg p.o. daily (6) Overactive bladder: Plan: Patient with incontinence at baseline. She has a failed bladder stimulator in place. Currently follows with urology, Dr. Delcid Continue Damienbetriq (7) COPD (chronic obstructive pulmonary disease): Plan: Chronic. Stable. Patient currently not on inhalers History of Present Illness Chief Complaint: weakness Primary Care Provider: FAM Cruz Jing Dela Cruz is a 70-year-old female with history of diabetes, depression, COPD, GERD presenting with nausea/vomiting/myalgias/fever. Patient has been working at the [employer] this week. 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 She has not been drinking. This afternoon around 1400 patient developed nausea with several episodes of nonbloody emesis as well as myalgias and fever to 101.1. She states that she feels incredibly weak and is unable to stand. Patient lives alone. ER course: Ceftriaxone, Toradol, Zofran, normal saline Allergies Allergy/AdvReac Type Severity Reaction Status Date / Time Penicillins Allergy Intermediate RASH Verified 12/13/20 09:25 metformin Allergy Unknown GI SICKNESS Verified 12/13/20 09:25 nickel Allergy Unknown HIVES/RASH Verified 12/13/20 09:25 ON SKIN oxycodone Allergy Unknown HEADACHE Verified 12/13/20 09:25 AND NAUSEA Home Medications Medication Instructions Recorded Confirmed Type liraglutide 0.6 mg/0.1 mL (18 mg/3 1.8 units SUBCUT QAM 10/02/18 11/26/20 History mL) subcutaneous pen injector (Xambalaza 3-Júnior) loperamide 2 mg tablet (Imodium 2 mg PO Q3H PRN 10/02/18 11/26/20 History A-D) nystatin-triamcinolone 100,000 1 applic EXT BID #45 g 06/03/19 11/26/20 Rx unit/g-0.1 % topical cream mirabegron 50 mg tablet,extended 50 mg PO DAILY #90 tab 09/19/19 11/26/20 Rx release 24 hr (Myrbetriq) trimethoprim 100 mg tablet 100 mg PO DAILY 30 Days #30 tab 09/19/19 11/26/20 Rx mupirocin 2 % topical ointment See Rx Instructions TOP BID #22 gm 10/10/19 11/26/20 Rx solifenacin 5 mg tablet (Vesicare) 5 mg PO DAILY 09/27/20 11/26/20 History fosfomycin tromethamine 3 gram 1 packet PO .weekly 90 Days #12 ea 11/26/20 11/26/20 Rx oral packet fluoxetine 10 mg capsule (Prozac) 10 mg PO DAILY 12/13/20 12/13/20 History glimepiride 1 mg tablet (Amaryl) 1 mg PO DAILY 12/13/20 12/13/20 History insulin degludec 100 unit/mL (3 100 unit SUBCUT DAILY 12/13/20 12/13/20 History mL) subcutaneous pen (Tresiba FlexTouch U-100 insulin) omega 3-dha 500 mg-epa 100 mg-fish cap PO DAILY cap 12/13/20 12/13/20 History oil capsule (Nuretin) venlafaxine 37.5 mg 37.5 mg PO DAILY 12/13/20 12/13/20 History capsule,extended release 24 hr (Effexor XR) Past Med/Surg History Medical History Abdominal pain, generalized Bloating COPD (chronic obstructive pulmonary disease) Depression Diabetes mellitus Diastasis recti GERD (gastroesophageal reflux disease) Has 1 child Sensorineural hearing loss of both ears Tinnitus, bilateral UTI (urinary tract infection) Surgical History H/O abdominal surgery panniculectomy x 2 per pt History of carpal tunnel surgery x2 History of hysterectomy History of laparoscopic cholecystectomy open surgery Family History Father Prostate cancer Diabetes Mother Cancer Other No family history of adverse response to anesthesia No family history of bleeding disorder Social History Smoking Status: Former smoker Second Hand Exposure: No; Do You Dip or Chew Tobacco: No; Hx Alcohol Use: Yes Alcohol type: beer Alcohol Intake Frequency Comment: 1-2 per month Hx Substance Use: No Preferred Language: Mohawk Communication Ability: Effective 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 Beliefs That Will Affect Care: None marital status: Current Living Situation: Alone current occupational status: retired How many Children do You have: 1 Other Information That Helps Us Care for You: No Feels Safe at Home: Yes Safety Concerns: Feels Safe At This Time Assistive Devices: Glasses Review of Systems Review of Systems: All systems reviewed & are unremarkable except as noted in HPI & below + Urinary incontinence + Dizziness + Fever + Nausea/vomiting + Myalgias Physical Exam Physical Exam: General: patient resting comfortably, NAD, non-toxic in appearance, AA&O x 4 Skin: warm, dry, intact, no rashes or lesions HEENT: NC/AT, PERRL, EOMI, anicteric sclera, conjunctiva without injection, external ear normal to inspection and nontender, nares patent, dry mucus membranes, dentition intact, no oropharyngeal lesions, neck supple, trachea midline, no LAD, no thyromegaly, no JVD Heart: +S1/S2, regular, no m/r/g Lungs: equal air entry bilaterally, no rales/rhonchi/wheezes Abd: +BS, soft, NT/ND, no masses/organomegaly/ascites Ext: warm, 2+ pulses in UE/LE bilaterally, no clubbing/cyanosis or edema Neuro: nonfocal, patient AA&O x 4, speech intact, no facial droop, moving all extremities on command with equal strength 5/5 Results & Data Results & Data ([facility]) Vital Signs (Past 12 Hours) Vital Signs Temp Pulse Resp BP Pulse Ox 01/22/21 01:00 93 H 20 142/78 H 92 01/22/21 00:30 36.8 C 95 H 16 01/22/21 00:07 93 H 20 01/21/21 22:40 36.7 C 100 H 16 130/68 91 Laboratory Results Laboratory Results WBC 6.54 K/uL (4.8-10.8) 01/22/21 00:02 RBC 4.34 M/uL (4.2-5.4) 01/22/21 00:02 Hgb 14.1 g/dL (12.0-16.0) 01/22/21 00:02 Hct 41.0 % (37-47) 01/22/21 00:02 MCV 94.5 fL (80-100) 01/22/21 00:02 MCH 32.5 pg (25-34) 01/22/21 00:02 MCHC 34.4 g/dL (32-36) 01/22/21 00:02 RDW Std Deviation 44.4 fL (36.4-46.3) 01/22/21 00:02 RDW Coeff of Chana 12.8 % (11.5-14.5) 01/22/21 00:02 Plt Count 70 K/uL (130-400) L 01/22/21 00:02 MPV 12.3 fL (7.4-10.4) H 01/22/21 00:02 Immature Gran % (Auto) 0.2 % 01/22/21 00:02 Neut % (Auto) 83.7 % 01/22/21 00:02 Lymph % (Auto) 6.7 % 01/22/21 00:02 Callaway % (Auto) 8.9 % 01/22/21 00:02 Eos % (Auto) 0.3 % 01/22/21 00:02 Baso % (Auto) 0.2 % 01/22/21 00:02 Neut # (Auto) 5.48 K/uL (1.4-6.5) 01/22/21 00:02 Lymph # (Auto) 0.44 K/uL (1.2-3.4) L 01/22/21 00:02 Callaway # (Auto) 0.58 K/uL (0.11-0.59) 01/22/21 00:02 Eos # (Auto) 0.02 K/uL (0-0.5) 01/22/21 00:02 Baso # (Auto) 0.01 K/uL (0-0.2) 01/22/21 00:02 Immature Gran # (Auto) 0.01 K/uL (0.00-0.02) 01/22/21 00:02 Platelet Estimate Decreased (Normal) L 01/22/21 00:02 Sodium 137 mmol/L (136-145) 01/22/21 00:02 Potassium 4.2 mmol/L (3.5-5.1) 01/22/21 00:02 Chloride 105 mmol/L (98-107) 01/22/21 00:02 Carbon Dioxide 24 mmol/L (21-32) 01/22/21 00:02 Anion Gap 8.0 (3-11) 01/22/21 00:02 BUN 17 mg/dl (7-18) 01/22/21 00:02 Creatinine 0.96 mg/dl (0.6-1.2) 01/22/21 00:02 Est Cr Clr Drug Dosing Not Reportable 01/22/21 00:02 Est GFR ( Amer) 69.0 ml/min 01/22/21 00:02 Est GFR (Non-Af Amer) 59.5 ml/min 01/22/21 00:02 BUN/Creatinine Ratio 17.1 (10-20) 01/22/21 00:02 Glucose 201 mg/dl (70-99) H 01/22/21 00:02 Calcium 9.6 mg/dl (8.5-10.1) 01/22/21 00:02 Total Bilirubin 4.1 mg/dl (0.2-1) H 01/22/21 00:02 AST 60 U/L (15-37) H 01/22/21 00:02 ALT 64 U/L (12-78) 01/22/21 00:02 Alkaline Phosphatase 116 U/L (45-117) 01/22/21 00:02 Total Protein 7.9 gm/dl (6.4-8.2) 01/22/21 00:02 Albumin 3.6 gm/dl (3.4-5.0) 01/22/21 00:02 Globulin 4.3 gm/dl (2.5-4.0) H 01/22/21 00:02 Albumin/Globulin Ratio 0.8 (0.9-2) L 01/22/21 00:02 Lyme Disease IgG Ab Negative (Negative) 01/22/21 00:02 Lyme Disease IgM Ab Equivocal (Negative) A 01/22/21 00:02 COVID-19 Eval Order Covid19 at [facility] 01/22/21 00:17 SARS-CoV-2 (PCR) NEGATIVE (Negative) 01/22/21 00:17 Code Status & VTE Plan VTE Prophylaxis Plan VTE Prophylaxis will be ordered: Yes PG Care Time/CCT Total # of Minutes Spent Total Time Spent with Patient: Total time spent is greater than 50% in coordination of care (as documented) at patient's floor/unit and/or counseling patient: Coding Level of Care Code INT OBSERVATION CARE 50M LVL 2 Diagnoses Myalgia M79.10 Fever R50.9 Depression F32.9 COPD (chronic obstructive pulmonary disease) J44.9 COPD type: unspecified COPD Diabetes mellitus E13.69 Diabetes mellitus complication status: with other specified complication Diabetes mellitus 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 insulin use: unspecified nursing home insulin use status Diabetes mellitus type: other specified (including TRINH) Lyme disease A69.20 Overactive bladder N32.81 (1) Diabetes mellitus Diabetes mellitus complication status: with other specified complication Diabetes mellitus nursing home insulin use: unspecified nursing home insulin use status Diabetes mellitus type: other specified (including TRINH) Qualified Code(s): E13.69 - Other specified diabetes mellitus with other specified complication (2) COPD (chronic obstructive pulmonary disease) COPD type: unspecified COPD Qualified Code(s): J44.9 - Chronic obstructive pulmonary disease, unspecified
[2021-01-22] MEDS ORDERED: DEXTROSE 50% 50 ML SYRINGE IV PRN (05:36)
[2021-01-22] MEDS ORDERED: GLUCOSE 40% GEL 15 GM TUBE PO PRN (05:36)
[2021-01-22] MEDS ORDERED: CARBOHYDRATES FOR HYPOGLYCEMIA PO PRN (05:36)
[2021-01-22] MEDS ORDERED: GLUCAGON FOR INJ 1 MG VIAL SQ PRN (05:36)
[2021-01-22] MEDS ORDERED: ACETAMINOPHEN 325 MG TAB PO PRN (05:36)
[2021-01-22] MEDS ORDERED: ONDANSETRON INJ 2 MG/ML 2 ML VIAL IV PRN (05:36)
[2021-01-22] MEDS ORDERED: GLUCOSE 10 TABS/TUBE PO PRN (05:36)
[2021-01-22] MEDS: LACTATED RINGER'S 1,000 ML IV SCH ×3 (06:40→23:36)
[2021-01-22] MEDS: DOXYCYCLINE HYCLATE 100 MG in DEXTROSE 5% 100 ML IV SCH ×2 (06:41→17:59)
[2021-01-22 06:47] LABS: Magnesium 2.4 mg/dl (1.8-2.4); Phosphorus 2.4 mg/dl (2.5-4.9)
[2021-01-22 07:00] LABS: Appearance Urine Cloudy (Clear); Bacteria Urine Automated 4+ (Negative); Bilirubin Urine Negative (Negative); Blood Urine 2+ (Negative); Color Urine Dark Yellow; Epithelial Cell Urine Auto >30 /lpf (0-5); Glucose Urine UA 3+ (Negative); Ketones Urine Trace (Negative); Leukocyte Esterase Urine 2+ (Negative); Nitrite Urine Positive (Negative); Protein Urine 1+ (Negative); Specific Gravity Urine 1.025 (1.000-1.030); Urobilinogen Urine Negative (Negative); WBC Urine Automated >30 /hpf (0-5); pH Urine 5.5 (4.5-7.5)
--- NOTE | 2021-01-22 07:11 | XRay Report ---
XR chest 1V portable HISTORY: 70 years-old Female uri sx acute upper respiratory infection COMPARISON: Chest radiograph 12/27/2018 TECHNIQUE: Portable AP view of the chest FINDINGS: Cardiac silhouette is enlarged. Unchanged appearance of the mediastinal contours. Mild interstitial c oarsening is similar to comparison. Moderate hemidiaphragmatic elevation. No pneumothorax, pleural ef fusion or lobar airspace consolidation. Minimal linear bibasilar atelectasis. Degenerative changes of the shoulders and spine. IMPRESSION: 1. No acute process. 2. Cardiomegaly with chronic interstitial coarsening. ACT 112: Negative or not required by law. The above report was generated using voice recognition software. It may contain grammatical, syntax o r spelling errors. Electronically signed by: Vikram Ramirez M.D. 01/22/2021 7:10 AM
[2021-01-22 07:15] LABS: Amphetamines+Metham, Urine Neg (Neg); Barbiturates, Urine Neg (Neg); Benzodiazepine, Urine Neg (Neg); Cocaine, Urine Neg (Neg); MDMA (Ecstacy), Urine Neg (Neg); Methadone, Urine Neg (Neg); Opiate, Urine Neg (Neg); Phencyclidine, Urine Neg (Neg)
[2021-01-22 07:39] LABS: Calcium Oxalate Crystals Urine Present (None Prsent)
[2021-01-22] MEDS: ENOXAPARIN INJ 40 MG/0.4 ML SYR SQ SCH (08:31)
[2021-01-22] MEDS ORDERED: INSULIN GLARGINE SOLOSTAR 100 UNITS/ML 3 ML PEN SC SCH (09:00)
[2021-01-22] MEDS: MIRABEGRON ER 25 MG TAB PO SCH (09:29)
[2021-01-22] MEDS: FLUoxetine HCL 10 MG CAP PO SCH (09:29)
[2021-01-22] MEDS: VENLAFAXINE HCL XR 37.5 MG CAPXR PO SCH (09:30)
[2021-01-22] MEDS ORDERED: PHARMACY GLYCEMIC MGMT CONSULT PRN (10:00)
[2021-01-22] MEDS ORDERED: INSULIN DEGLUDEC 200 UNITS/ML PEN SQ SCH (11:00)
[2021-01-22] MEDS: INSULIN ASPART 100 UNITS/ML 3 ML PEN SC SCH ×4 (11:14→20:48)
--- NOTE | 2021-01-22 11:22 | Hospitalist Progress Note ---
Date of Service January 22, 2021 Assessment & Plan (1) UTI (urinary tract infection), bacterial: Plan: 70-year-old female presenting with acute onset nausea/vomiting/myalgias and fever. Patient complaining of significant weakness and inability to walk. While in the ER, she was able to ambulate from the bathroom to the bed although appeared to be somewhat unsteady on her feet. She did have a very small amount of dark urine output (on Bactrim for proph ylaxis and reports occasional dark urine outpatient as well, however Tbili 4.1/ast 60) Continue LR @ 125cc/hr for dehydration Possibly due to UTI - UA appears infected as well as calcium oxalate --> Monitor urine cx Added Ceftriaxone Renal US with small R renal calculi, non-visualization of 2cm lesion midpole R kidney stone shown on prior CT, remains indeterminate (unable to get MRI due to stimulator) Tylenol prn, oxycodone for breakthrough pain Antiemetics prn Also on Doxy for equivocal Lyme -- hx of positives but no tx. --> monitor confirmatory test Continue to monitor (2) Myalgia: Plan: CK 158, wnl Tx as above reports improving pain control as needed (3) Overactive bladder: Plan: Patient with incontinence at baseline. She has a failed bladder stimulator in place. Currently follows with urology, Dr. Delcid -- consult if needed Continue Myrbetriq -- will hold given retention issues currently (4) Fever: Plan: Patient denies cough, shortness of breath, dysuria, abdominal pain, diarrhea. She does have an equivocal Lyme test which she has had on several occasions prior. [place] and has had many ticks on her as well as history of bull's-eye rash. She has never been treated for Lyme disease. Do not strongly suspect active infection, however, with complaints of weakness/myalgias, fever will start empiric treatment Await confirmatory Western blot test Doxycycline 100 mg twice daily (5) Lyme disease: Plan: Uncertain of patient's preliminary lab results indicate active Lyme disease. He does present with complaints of weakness, myalgias, fever with known tick exposure and rash in the past. Her thrombocytopenia is chronic and was likely secondary to underlying cirrhosis Await confirmatory testing Empiric doxycycline 100 mg p.o. twice daily (6) Diabetes mellitus: Plan: Blood sugar elevated today at 201. Last hemoglobin A1c from June 2019 = 8.5 Hold oral agents Provide Lantus insulin sliding scale Goal blood sugar 100-1 40 Consistent carb diet as tolerated (7) Depression: Plan: Chronic. Stable. Continue venlafaxine 37.5 mg p.o. daily (8) COPD (chronic obstructive pulmonary disease): Plan: Chronic. Stable. Patient currently not on inhalers 95% on RA (9) Diarrhea: Plan: chronic, felt 2nd to radiation however, given multiple abx for UTI, will check cdiff as reports 7-8x/daily liquid stool Admission and Anticipated Discharge Date Admission Date: January 22, 2021 Subjective BRIDGE NOTE: ADMITTED AFTER MIDNIGHT Eval afternoon. Feeling 50% her self. On bactrim for prophylaxis, 100mg daily (noted dark urine at times per urology note). Also to be on fosfomycin tromethamine 1x/week to prevent UTIs per most recent office visit note from Urology. Dark urine requiring st cath today. 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 Will provide with results if they would accept. Seen by general surgery recently for hernias, but not able to fix until stim device by urology (Dr Saxena) removed. Done 15 years ago, [place], and had phone interview but never heard any follow up. Will ask CM to see if able to arrange/follow-up. This is why she is unable to have MRI as well. Hx Lyme with rashes but no treatment -- 2 to the neck and one to R thigh, over past several months. Treatment for lyme and UTI -- abx switched given hx and ESBL and hematuria during that time. Repeating questions/story frequently but answers questions appropriately. Review of Systems Review of Systems: All systems reviewed & are unremarkable except as noted in HPI & below Physical Exam Physical Exam: General: patient resting comfortably, NAD, non-toxic in appearance, AA&O x 4 Skin: warm, dry, intact, no rashes or lesions HEENT: NC/AT, PERRL, EOMI, anicteric sclera, conjunctiva without injection, external ear normal to inspection and nontender, nares patent, dry mucus membranes, dentition intact, no oropharyngeal lesions, neck supple, trachea midline, no LAD, no thyromegaly, no JVD Heart: +S1/S2, regular, no m/r/g Lungs: equal air entry bilaterally, no rales/rhonchi/wheezes Abd: +BS, soft, NT/ND, no masses/organomegaly/ascites Ext: warm, 2+ pulses in UE/LE bilaterally, no clubbing/cyanosis or edema : R CVA tenderness Neuro: nonfocal, patient AA&O x 4, speech intact, no facial droop, moving all extremities on command with equal strength 5/5 Results & Data Results & Data ([facility]) Vital Signs (Past 12 Hours) Vital Signs Temp Pulse Pulse Resp BP BP Pulse Ox 01/22/21 07:37 36.8 C 74 20 114/82 95 01/22/21 06:16 37.2 C 78 18 94 01/22/21 04:31 74 145/53 H 01/22/21 04:00 78 125/65 01/22/21 03:30 78 23 132/60 01/22/21 03:00 82 19 119/46 L 01/22/21 02:30 91 H 28 H 123/71 91 01/22/21 01:00 93 H 20 142/78 H 92 01/22/21 00:30 36.8 C 95 H 16 01/22/21 00:07 93 H 20 Laboratory Results 01/22/21 01/22/21 01/22/21 Range/Units 09:01 05:49 05:49 WBC (4.8-10.8) K/uL RBC (4.2-5.4) M/uL Hgb (12.0-16.0) g/dL Hct (37-47) % MCV (80-100) fL MCH (25-34) pg MCHC (32-36) g/dL RDW Std Deviation (36.4-46.3) fL RDW Coeff of Chana (11.5-14.5) % Plt Count (130-400) K/uL MPV (7.4-10.4) fL Immature Gran % (Auto) % Neut % (Auto) % Lymph % (Auto) % [place] % (Auto) % Eos % (Auto) % Baso % (Auto) % Neut # (Auto) (1.4-6.5) K/uL Lymph # (Auto) (1.2-3.4) K/uL [place] # (Auto) (0.11-0.59) K/uL Eos # (Auto) (0-0.5) K/uL Baso # (Auto) (0-0.2) K/uL Immature Gran # (Auto) (0.00-0.02) K/uL Platelet Estimate (Normal) Sodium (136-145) mmol/L Potassium (3.5-5.1) mmol/L Chloride (98-107) mmol/L Carbon Dioxide (21-32) mmol/L Anion Gap (3-11) BUN (7-18) mg/dl Creatinine (0.6-1.2) mg/dl Est Cr Clr Drug Dosing Est GFR ( Amer) ml/min Est GFR (Non-Af Amer) ml/min BUN/Creatinine Ratio (10-20) Glucose (70-99) mg/dl POC Glucose 123 H (70-99) mg/dl Calcium (8.5-10.1) mg/dl Phosphorus 2.4 L (2.5-4.9) mg/dl Magnesium 2.4 (1.8-2.4) mg/dl Total Bilirubin (0.2-1) mg/dl AST (15-37) U/L ALT (12-78) U/L Alkaline Phosphatase (45-117) U/L Total Creatine Kinase 158 (26-192) U/L Total Protein (6.4-8.2) gm/dl Albumin (3.4-5.0) gm/dl Globulin (2.5-4.0) gm/dl Albumin/Globulin Ratio (0.9-2) Urine Color Urine Appearance (Clear) Urine pH (4.5-7.5) Ur Specific [place] (1.000-1.030) Urine Protein (Negative) Urine Glucose (UA) (Negative) Urine Ketones (Negative) Urine Blood (Negative) Urine Nitrite (Negative) Urine Bilirubin (Negative) Urine Urobilinogen (Negative) Ur Leukocyte Esterase (Negative) Urine WBC (Auto) (0-5) /hpf Urine RBC (Auto) (0-4) /hpf U Hyaline Cast (Auto) (0-5) /lpf U Epithel Cells (Auto) (0-5) /lpf Urine Bacteria (Auto) (Negative) Urine Crystals Calcium Oxalate Crystal (None Prsent) Urine Opiates Screen (Neg) Ur Methadone, Qual (Neg) Urine Barbiturates (Neg) Ur Phencyclidine (PCP) (Neg) U Amphetamin/Meth Scrn (Neg) MDMA (Ecstasy) Screen (Neg) U Benzodiazepines Scrn (Neg) Ur Cocaine Metabolite (Neg) U Marijuana (THC) Screen (Neg) A. phagocytophilum DNA Lyme Disease IgG Ab (Negative) Lyme IgG (Western Blot) Lyme IgG 18 kDa Band Lyme IgG 23 kDa Band Lyme IgG 28 kDa Band Lyme IgG 30 kDa Band Lyme IgG 39 kDa Band Lyme IgG 41 kDa Band Lyme IgG 45 kDa Band Lyme IgG 58 kDa Band Lyme IgG 66 kDa Band Lyme IgG 93 kDa Band Lyme IgM Ab (WB) Lyme Disease IgM Ab (Negative) Lyme IgM 23 kDa Band Lyme IgM 39 kDa Band Lyme IgM 41 kDa Band COVID-19 Eval Order SARS-CoV-2 (PCR) (Negative) 01/22/21 01/22/21 01/22/21 Range/Units 03:00 03:00 00:17 WBC (4.8-10.8) K/uL RBC (4.2-5.4) M/uL Hgb (12.0-16.0) g/dL Hct (37-47) % MCV (80-100) fL MCH (25-34) pg MCHC (32-36) g/dL RDW Std Deviation (36.4-46.3) fL RDW Coeff of Chana (11.5-14.5) % Plt Count (130-400) K/uL MPV (7.4-10.4) fL Immature Gran % (Auto) % Neut % (Auto) % Lymph % (Auto) % [place] % (Auto) % Eos % (Auto) % Baso % (Auto) % Neut # (Auto) (1.4-6.5) K/uL Lymph # (Auto) (1.2-3.4) K/uL [place] # (Auto) (0.11-0.59) K/uL Eos # (Auto) (0-0.5) K/uL Baso # (Auto) (0-0.2) K/uL Immature Gran # (Auto) (0.00-0.02) K/uL Platelet Estimate (Normal) Sodium (136-145) mmol/L Potassium (3.5-5.1) mmol/L Chloride (98-107) mmol/L Carbon Dioxide (21-32) mmol/L Anion Gap (3-11) BUN (7-18) mg/dl Creatinine (0.6-1.2) mg/dl Est Cr Clr Drug Dosing Est GFR ( Amer) ml/min Est GFR (Non-Af Amer) ml/min BUN/Creatinine Ratio (10-20) Glucose (70-99) mg/dl POC Glucose (70-99) mg/dl Calcium (8.5-10.1) mg/dl Phosphorus (2.5-4.9) mg/dl Magnesium (1.8-2.4) mg/dl Total Bilirubin (0.2-1) mg/dl AST (15-37) U/L ALT (12-78) U/L Alkaline Phosphatase (45-117) U/L Total Creatine Kinase (26-192) U/L Total Protein (6.4-8.2) gm/dl Albumin (3.4-5.0) gm/dl Globulin (2.5-4.0) gm/dl Albumin/Globulin Ratio (0.9-2) Urine Color Dark Yellow Urine Appearance Cloudy A (Clear) Urine pH 5.5 (4.5-7.5) Ur Specific [place] 1.025 (1.000-1.030) Urine Protein 1+ H (Negative) Urine Glucose (UA) 3+ H (Negative) Urine Ketones Trace H (Negative) Urine Blood 2+ H (Negative) Urine Nitrite Positive A (Negative) Urine Bilirubin Negative (Negative) Urine Urobilinogen Negative (Negative) Ur Leukocyte Esterase 2+ H (Negative) Urine WBC (Auto) >30 H (0-5) /hpf Urine RBC (Auto) 5-10 H (0-4) /hpf U Hyaline Cast (Auto) 1-5 (0-5) /lpf U Epithel Cells (Auto) >30 H (0-5) /lpf Urine Bacteria (Auto) 4+ H (Negative) Urine Crystals Not Reportable Calcium Oxalate Crystal Present A (None Prsent) Urine Opiates Screen Neg (Neg) Ur Methadone, Qual Neg (Neg) Urine Barbiturates Neg (Neg) Ur Phencyclidine (PCP) Neg (Neg) U Amphetamin/Meth Scrn Neg (Neg) MDMA (Ecstasy) Screen Neg (Neg) U Benzodiazepines Scrn Neg (Neg) Ur Cocaine Metabolite Neg (Neg) U Marijuana (THC) Screen Neg (Neg) A. phagocytophilum DNA Lyme Disease IgG Ab (Negative) Lyme IgG (Western Blot) Lyme IgG 18 kDa Band Lyme IgG 23 kDa Band Lyme IgG 28 kDa Band Lyme IgG 30 kDa Band Lyme IgG 39 kDa Band Lyme IgG 41 kDa Band Lyme IgG 45 kDa Band Lyme IgG 58 kDa Band Lyme IgG 66 kDa Band Lyme IgG 93 kDa Band Lyme IgM Ab (WB) Lyme Disease IgM Ab (Negative) Lyme IgM 23 kDa Band Lyme IgM 39 kDa Band Lyme IgM 41 kDa Band COVID-19 Eval Order SARS-CoV-2 (PCR) NEGATIVE (Negative) 01/22/21 01/22/21 01/22/21 Range/Units 00:17 00:02 00:02 WBC (4.8-10.8) K/uL RBC (4.2-5.4) M/uL Hgb (12.0-16.0) g/dL Hct (37-47) % MCV (80-100) fL MCH (25-34) pg MCHC (32-36) g/dL RDW Std Deviation (36.4-46.3) fL RDW Coeff of Chana (11.5-14.5) % Plt Count (130-400) K/uL MPV (7.4-10.4) fL Immature Gran % (Auto) % Neut % (Auto) % Lymph % (Auto) % [place] % (Auto) % Eos % (Auto) % Baso % (Auto) % Neut # (Auto) (1.4-6.5) K/uL Lymph # (Auto) (1.2-3.4) K/uL [place] # (Auto) (0.11-0.59) K/uL Eos # (Auto) (0-0.5) K/uL Baso # (Auto) (0-0.2) K/uL Immature Gran # (Auto) (0.00-0.02) K/uL Platelet Estimate (Normal) Sodium (136-145) mmol/L Potassium (3.5-5.1) mmol/L Chloride (98-107) mmol/L Carbon Dioxide (21-32) mmol/L Anion Gap (3-11) BUN (7-18) mg/dl Creatinine (0.6-1.2) mg/dl Est Cr Clr Drug Dosing Est GFR ( Amer) ml/min Est GFR (Non-Af Amer) ml/min BUN/Creatinine Ratio (10-20) Glucose (70-99) mg/dl POC Glucose (70-99) mg/dl Calcium (8.5-10.1) mg/dl Phosphorus (2.5-4.9) mg/dl Magnesium (1.8-2.4) mg/dl Total Bilirubin (0.2-1) mg/dl AST (15-37) U/L ALT (12-78) U/L Alkaline Phosphatase (45-117) U/L Total Creatine Kinase (26-192) U/L Total Protein (6.4-8.2) gm/dl Albumin (3.4-5.0) gm/dl Globulin (2.5-4.0) gm/dl Albumin/Globulin Ratio (0.9-2) Urine Color Urine Appearance (Clear) Urine pH (4.5-7.5) Ur Specific [place] (1.000-1.030) Urine Protein (Negative) Urine Glucose (UA) (Negative) Urine Ketones (Negative) Urine Blood (Negative) Urine Nitrite (Negative) Urine Bilirubin (Negative) Urine Urobilinogen (Negative) Ur Leukocyte Esterase (Negative) Urine WBC (Auto) (0-5) /hpf Urine RBC (Auto) (0-4) /hpf U Hyaline Cast (Auto) (0-5) /lpf U Epithel Cells (Auto) (0-5) /lpf Urine Bacteria (Auto) (Negative) Urine Crystals Calcium Oxalate Crystal (None Prsent) Urine Opiates Screen (Neg) Ur Methadone, Qual (Neg) Urine Barbiturates (Neg) Ur Phencyclidine (PCP) (Neg) U Amphetamin/Meth Scrn (Neg) MDMA (Ecstasy) Screen (Neg) U Benzodiazepines Scrn (Neg) Ur Cocaine Metabolite (Neg) U Marijuana (THC) Screen (Neg) A. phagocytophilum DNA Pending Lyme Disease IgG Ab (Negative) Lyme IgG (Western Blot) Pending Lyme IgG 18 kDa Band Pending Lyme IgG 23 kDa Band Pending Lyme IgG 28 kDa Band Pending Lyme IgG 30 kDa Band Pending Lyme IgG 39 kDa Band Pending Lyme IgG 41 kDa Band Pending Lyme IgG 45 kDa Band Pending Lyme IgG 58 kDa Band Pending Lyme IgG 66 kDa Band Pending Lyme IgG 93 kDa Band Pending Lyme IgM Ab (WB) Pending Lyme Disease IgM Ab (Negative) Lyme IgM 23 kDa Band Pending Lyme IgM 39 kDa Band Pending Lyme IgM 41 kDa Band Pending COVID-19 Eval Order Covid19 at [facility] SARS-CoV-2 (PCR) (Negative) 01/22/21 01/22/21 01/22/21 Range/Units 00:02 00:02 00:02 WBC 6.54 (4.8-10.8) K/uL RBC 4.34 (4.2-5.4) M/uL Hgb 14.1 (12.0-16.0) g/dL Hct 41.0 (37-47) % MCV 94.5 (80-100) fL MCH 32.5 (25-34) pg MCHC 34.4 (32-36) g/dL RDW Std Deviation 44.4 (36.4-46.3) fL RDW Coeff of Chana 12.8 (11.5-14.5) % Plt Count 70 L (130-400) K/uL MPV 12.3 H (7.4-10.4) fL Immature Gran % (Auto) 0.2 % Neut % (Auto) 83.7 % Lymph % (Auto) 6.7 % [place] % (Auto) 8.9 % Eos % (Auto) 0.3 % Baso % (Auto) 0.2 % Neut # (Auto) 5.48 (1.4-6.5) K/uL Lymph # (Auto) 0.44 L (1.2-3.4) K/uL [place] # (Auto) 0.58 (0.11-0.59) K/uL Eos # (Auto) 0.02 (0-0.5) K/uL Baso # (Auto) 0.01 (0-0.2) K/uL Immature Gran # (Auto) 0.01 (0.00-0.02) K/uL Platelet Estimate Decreased L (Normal) Sodium 137 (136-145) mmol/L Potassium 4.2 (3.5-5.1) mmol/L Chloride 105 (98-107) mmol/L Carbon Dioxide 24 (21-32) mmol/L Anion Gap 8.0 (3-11) BUN 17 (7-18) mg/dl Creatinine 0.96 (0.6-1.2) mg/dl Est Cr Clr Drug Dosing Not Reportable Est GFR ( Amer) 69.0 ml/min Est GFR (Non-Af Amer) 59.5 ml/min BUN/Creatinine Ratio 17.1 (10-20) Glucose 201 H (70-99) mg/dl POC Glucose (70-99) mg/dl Calcium 9.6 (8.5-10.1) mg/dl Phosphorus (2.5-4.9) mg/dl Magnesium (1.8-2.4) mg/dl Total Bilirubin 4.1 H (0.2-1) mg/dl AST 60 H (15-37) U/L ALT 64 (12-78) U/L Alkaline Phosphatase 116 (45-117) U/L Total Creatine Kinase (26-192) U/L Total Protein 7.9 (6.4-8.2) gm/dl Albumin 3.6 (3.4-5.0) gm/dl Globulin 4.3 H (2.5-4.0) gm/dl Albumin/Globulin Ratio 0.8 L (0.9-2) Urine Color Urine Appearance (Clear) Urine pH (4.5-7.5) Ur Specific [place] (1.000-1.030) Urine Protein (Negative) Urine Glucose (UA) (Negative) Urine Ketones (Negative) Urine Blood (Negative) Urine Nitrite (Negative) Urine Bilirubin (Negative) Urine Urobilinogen (Negative) Ur Leukocyte Esterase (Negative) Urine WBC (Auto) (0-5) /hpf Urine RBC (Auto) (0-4) /hpf U Hyaline Cast (Auto) (0-5) /lpf U Epithel Cells (Auto) (0-5) /lpf Urine Bacteria (Auto) (Negative) Urine Crystals Calcium Oxalate Crystal (None Prsent) Urine Opiates Screen (Neg) Ur Methadone, Qual (Neg) Urine Barbiturates (Neg) Ur Phencyclidine (PCP) (Neg) U Amphetamin/Meth Scrn (Neg) MDMA (Ecstasy) Screen (Neg) U Benzodiazepines Scrn (Neg) Ur Cocaine Metabolite (Neg) U Marijuana (THC) Screen (Neg) A. phagocytophilum DNA Lyme Disease IgG Ab Negative (Negative) Lyme IgG (Western Blot) Lyme IgG 18 kDa Band Lyme IgG 23 kDa Band Lyme IgG 28 kDa Band Lyme IgG 30 kDa Band Lyme IgG 39 kDa Band Lyme IgG 41 kDa Band Lyme IgG 45 kDa Band Lyme IgG 58 kDa Band Lyme IgG 66 kDa Band Lyme IgG 93 kDa Band Lyme IgM Ab (WB) Lyme Disease IgM Ab Equivocal A (Negative) Lyme IgM 23 kDa Band Lyme IgM 39 kDa Band Lyme IgM 41 kDa Band COVID-19 Eval Order SARS-CoV-2 (PCR) (Negative) Diagnostic Findings Chest X-Ray 01/22/21 00:04 XR chest 1V portable HISTORY: 70 years-old Female uri sx acute upper respiratory infection COMPARISON: Chest radiograph 12/27/2018 TECHNIQUE: Portable AP view of the chest FINDINGS: Cardiac silhouette is enlarged. Unchanged appearance of the mediastinal contours. Mild interstitial coarsening is similar to comparison. Moderate hemidiaphragmatic elevation. No pneumothorax, pleural effusion or lobar airspace consolidation. Minimal linear bibasilar atelectasis. Degenerative changes of the shoulders and spine. IMPRESSION: 1. No acute process. 2. Cardiomegaly with chronic interstitial coarsening. ACT 112: Negative or not required by law. The above report was generated using voice recognition software. It may contain grammatical, syntax or spelling errors. Electronically signed by: Vikram Ramirez M.D. 01/22/2021 7:10 AM PG Care Time/CCT Total # of Minutes Spent Total Time Spent with Patient: Total time spent is greater than 50% in coordination of care (as documented) at patient's floor/unit and/or counseling patient: Coding Level of Care Code None Diagnoses Myalgia M79.10 Fever R50.9 Lyme disease A69.20 Diabetes mellitus E13.69 Diabetes mellitus complication status: with other specified complication Diabetes mellitus watermelon inspector insulin use: unspecified chcf insulin use status Diabetes mellitus type: other specified (including TRINH) Depression F32.9 Overactive bladder N32.81 COPD (chronic obstructive pulmonary disease) J44.9 COPD type: unspecified COPD UTI (urinary tract infection), bacterial N39.0; A49.9 Diarrhea R19.7 (1) Diabetes mellitus Diabetes mellitus complication status: with other specified complication Diabetes mellitus chcf insulin use: unspecified watermelon inspector insulin use status Diabetes mellitus type: other specified (including TRINH) Qualified Code(s): E13.69 - Other specified diabetes mellitus with other specified complication (2) COPD (chronic obstructive pulmonary disease) COPD type: unspecified COPD Qualified Code(s): J44.9 - Chronic obstructive pulmonary disease, unspecified
[2021-01-22] MEDS: INSULIN GLARGINE SOLOSTAR 100 UNITS/ML 3 ML PEN SC SCH (12:09)
[2021-01-22] MEDS: LIRAGLUTIDE PEN SQ SCH (12:11)
[2021-01-22] MEDS: SOLIFENACIN SUCCINATE 5 MG PO SCH (12:12)
--- NOTE | 2021-01-22 14:06 | Pharmacy Report ---
Pharmacy Glycemic Short Note 2 - Date of Service January 22, 2021 - Glycemic Short BSG Results (Last 24 hours): 01/22/21 01/22/21 01/22/21 00:02 09:01 12:05 Glucose 201 H POC Glucose 123 H 155 H OUTPATIENT ANTIDIABETIC REGIMEN: * Tresiba 100 units SC AM * Victoza 1.8 mg SC AM * Amaryl 1 mg PO AM * HbA1c pending ASSESSMENT: * 70 yo F admitted secondary to weakness. Pharmacy was consulted to assist with inpatient glycemic management today. * Fasting BSG was 123 mg/dL this AM - well controlled. Patient refused AM Lantus and Novolog and wanted to use her own insulin. Primary team was okay with her starting on home Victoza this AM. Unfortunately, her Tresiba pen only had 20 units left in it and she had no other pens with her. Therefore, she was agreeable to using our Lantus pens. * With uncovered breakfast, lunch BSG was 155 mg/dL. * Started on Victoza, Lantus (with 30% dose reduction) and Novolog based on weight and stress of two started at lunch. * Will order a single overnight check given large basal dose. PLAN FOR INPATIENT GLYCEMIC CONTROL: * Hold outpatient oral diabetes medications * Basal insulin * Lantus 70 units SC AM * Bolus insulin * NovoLog per scale ACHS or Q6hrs while NPO * Goal Range: Low 110 mg/dL - High 140 mg/dL * Correction Factor: 20 mg/dL/unit * Nutritional / Prandial insulin per carb ratio of 1 unit per 7 grams CHO consumed PLAN FOR DISCHARGE: * To be determined pending HbA1c.
--- NOTE | 2021-01-22 14:11 | Ultrasound Report ---
RENAL ULTRASOUND CLINICAL HISTORY: n/v/abd pain, eval stones/pyelo COMPARISON STUDY: Renal ultrasound May 30, 2019. CT of the abdomen and pelvis December 21, 2020. TECHNIQUE: Sonography of the kidneys and the urinary bladder was performed. FINDINGS: The volume of the bladder is 340 cc on this exam. There is no hydronephrosis. The right veronika sierra measures 13.1 cm in maximal dimension and the left measures 12.8 cm. Note is made of a 1.3 cm cys t within the upper pole of the right kidney. There is a 1.3 cm echogenic focus within the upper pole pf the right kidney which likely corresponds to the focus of clustered calcifications pm prior CT. Th is is probably benign. The indeterminate 2 cm focus within the midpole of the right kidney on prior C T is not visualized on this examination. There is a 1.3 cm left renal cyst. Renal echogenicity, size and cortical thickness are normal. IMPRESSION: 1. No hydronephrosis. 2. Suspected small right renal calculi. 3. Nonvisualization of the 2 cm lesion within the midpole of the right kidney shown on prior CT. This remains indeterminate. 4. Bladder volume of 340 cc. Per the patient, the bladder was just drained via catheter. ACT 112: Negative or not required by law. Electronically signed by: Spenser Daniels M.D. 01/22/2021 2:10 PM
[2021-01-22] MEDS: oxyCODONE/ACETAMINOPHEN 5mg/325mg TAB PO PRN ×2 (16:55→22:53)
--- NOTE | 2021-01-22 18:37 | XRay Report ---
XR chest 1V portable CLINICAL HISTORY: hypoxia COMPARISON STUDY: Chest radiograph January 21, 2021. FINDINGS: Lung volumes are mildly diminished. This is unchanged. Linear right basilar opacity favors atelectasis or scarring. There is no consolidation to suggest pneumonia. Cardiomegaly is unchanged. S light interstitial prominence is unchanged. IMPRESSION: No acute cardiopulmonary findings. No change in appearance of the chest. ACT 112: Negative or not required by law. Electronically signed by: Spenser Daniels M.D. 01/22/2021 6:35 PM
[2021-01-22] MEDS ORDERED: Nursing to Pharmacy Communication SCH (18:45)
[2021-01-22] MEDS ORDERED: COUGH DROP (SUGAR FREE) LOZ 24 LOZ/1 BOX BUCCAL ONE (22:37)
[2021-01-22] MEDS: cefTRIAXone SODIUM 2,000 MG in DEXTROSE 5% 50 ML IV SCH (23:37)
[2021-01-23] MEDS ORDERED: INSULIN ASPART 100 UNITS/ML 3 ML PEN SC SCH (02:00)
[2021-01-23] MEDS ORDERED: HYDROmorphone INJ 0.5 MG/0.5 ML SYR IV STA ×2 (02:04→02:39)
[2021-01-23] MEDS ORDERED: HYDROmorphone INJ 1 MG/ML SYRINGE IV STA (03:27)
[2021-01-23] MEDS ORDERED: ACETAMINOPHEN 1000 MG/100 ML IV IV SCH (03:30)
[2021-01-23] MEDS: HYDROmorphone INJ 0.5 MG/0.5 ML SYR IV PRN ×6 (03:47→23:02)
[2021-01-23] MEDS: ACETAMINOPHEN 1,000 MG/100 ML VIAL IV SCH ×3 (03:48→21:45)
[2021-01-23] MEDS: DOXYCYCLINE HYCLATE 100 MG in DEXTROSE 5% 100 ML IV SCH ×2 (05:17→18:47)
[2021-01-23] MEDS: ENOXAPARIN INJ 40 MG/0.4 ML SYR SQ SCH (05:20)
--- NOTE | 2021-01-23 05:23 | Communication Note ---
Date of Service: January 23, 2021 Notified by nursing that patient had a fall while returning from the bathroom. In speaking to patient at bedside, she was trying to push her IV tower in front of her, it got caught on some tubing and then suddenly jerked, causing her to lose balance and fall backward. On exam, right hand is visibly deformed, swollen, with small bruise starting over lateral dorsal side of wrist, neurovascularly intact. 0.25 mg dilaudid ordered, xrays of wrist ordered. Upon viewing xrays, appears to be medially and dorsally displaced distal radius fracture (crawford's) with greater than 2mm displacement. Given the degree of displacement, I attempted to reach the sleeping car conductor orthopedist Dr. Pritchard and left a message and number to be reached at with the [facility] answering service. Patient's hand was iced and placed in a sugar tong splint with orthoglass and shoulder sling placed to help with support of arm. Q2H neurovascular checks ordered. Pain control with Q2h prn 0.25 mg dilaudid IV and Q8H IV tylenol. Continue IV Fluids Routine consult for orthopedics. NPO as likely to need surgical fixation.
[2021-01-23] MEDS: LACTATED RINGER'S 1,000 ML IV SCH ×2 (06:08→16:56)
[2021-01-23 06:28] LABS: INR 1.1 (0.9-1.1); Prothrombin Time 11.4 Seconds (9.0-12.0)
[2021-01-23 06:41] LABS: Basophils # (auto) 0.01 K/uL (0-0.2); Basophils % (auto) 0.3 %; Hematocrit (blood only) 36.4 % (37-47); Hemoglobin 12.2 g/dL (12.0-16.0); Immature Granulocytes # (auto) 0.01 K/uL (0.00-0.02); Immature Granulocytes % (auto) 0.3 %; Lymphocytes # (auto) 0.57 K/uL (1.2-3.4); Lymphocytes % (auto) 16.5 %; Mean Corpuscular Hemoglobin 31.9 pg (25-34); Mean Corpuscular Hgb Conc 33.5 g/dL (32-36); Mean Corpuscular Volume 95.3 fL (80-100); Mean Platelet Volume 12.1 fL (7.4-10.4); Monocytes # (auto) 0.33 K/uL (0.11-0.59); Monocytes % (auto) 9.6 %; Neutrophils # (auto) 2.53 K/uL (1.4-6.5); Neutrophils % (auto) 73.3 %; Platelet Count 54 K/uL (130-400); RBC Morphology Unremarkable; RDW Standard Deviation 45.1 fL (36.4-46.3); Red Blood Count 3.82 M/uL (4.2-5.4); White Blood Count 3.45 K/uL (4.8-10.8)
[2021-01-23 07:10] LABS: Albumin Level 2.9 gm/dl (3.4-5.0); BUN Creatinine Ratio 20.7 (10-20); Bilirubin Direct 0.6 mg/dl (0-0.2); Bilirubin,Total 1.4 mg/dl (0.2-1); Calcium 8.4 mg/dl (8.5-10.1); Creatinine Clr Calc Pharmacy 107.1 ml/min; Est GFR (African American) 105.1 ml/min; Est GFR (Non-African American) 90.7 ml/min; Potassium 4.1 mmol/L (3.5-5.1); Total Protein 6.6 gm/dl (6.4-8.2)
[2021-01-23] MEDS ORDERED: ETHYL CHLORIDE AER SPR 100 ML CAN EXT ONE (07:33)
[2021-01-23 07:34] LABS: Estimated Average Glucose 154 mg/dl
[2021-01-23] MEDS ORDERED: LIDOCAINE 2%/EPINEPHRINE 1:200,000 20 ML SDV INFIL ONE (07:35)
--- NOTE | 2021-01-23 08:00 | XRay Report ---
RIGHT WRIST 2 VIEWS CLINICAL HISTORY: Fall with right wrist injury. FINDINGS: AP and crosstable lateral views of the right wrist are compared to study dated 05/05/2012. T he skeletal structures are osteopenic. There is an impacted and comminuted fracture of the distal rad ial metaphysis with intra-articular extension. There is dorsal displacement of the distal fragment by one shaft length with mild overriding of fragments with apex volar angulation. There are numerous ti ny dorsally displaced bony fragments. There is also a displaced avulsion fracture of the ulnar styloi d. Overlying soft tissue edema is noted. The radiocarpal articulation appears maintained. Degenerativ e change is seen throughout the wrist. IMPRESSION: Distal radial and ulnar fractures as above. Electronically signed by: Enio Ayala M.D. 01/23/2021 7:58 AM
[2021-01-23] MEDS: cefTRIAXone SODIUM 2,000 MG in DEXTROSE 5% 50 ML IV SCH (08:29)
--- NOTE | 2021-01-23 08:43 | Hospitalist Progress Note ---
Date of Service January 23, 2021 Assessment & Plan (1) Right wrist fracture: Plan: fell last evening -- tripped over IV poll Xray with impacted and comminuted fracture of the distal radial metaphysis with intra-articular extension. dorsal displacement of the distal fragment by one shaft length with mild overriding of fragments with apex volar angulation. numerous tiny dorsally displaced bony fragments. also a displaced avulsion fracture of the ulnar styloid. Overlying soft tissue edema is noted. The radiocarpal articulation appears maintained. Degenerative change is seen throughout the wrist. NPO Ortho consulted Got dose of dilaudid last evening Lidocaine injection and reduction by ortho this morning with casting -- repeat xray pending --> Ok to feed. To have f/u with Dr. Anthony regarding possible need for surgery PT/OT consulted, CM aware of possible need for rehab at d/c continue to monitor (2) UTI (urinary tract infection), bacterial: Plan: 70-year-old female presenting with acute onset nausea/vomiting/myalgias and fever. Patient complaining of significant weakness and inability to walk. While in the ER, she was able to ambulate from the bathroom to the bed although appeared to be somewhat unsteady on her feet. She did have a very small amount of dark urine output (on Bactrim for prophylaxis and reports occasional dark urine outpatient as well, however Tbili 4.1/ast 60)--> improvement of output and no need for further st cath. --> Patient with hx cirrhosis and likely worsened by Bactrim use. --> Consider f/u Dr Antoine from [place] outpt for cycling abx for prevention however was to be on fosfomycin by Urology but does not appear ever picked up. CM verifying rx sent/picked up but if not could be option moving forward Continue LR for dehydration, but decrease rate to 75cc/hr Possibly due to UTI - UA appears infected as well as calcium oxalate --> Monitor urine cx, currently gram negative bacilli on prelim, on ceftriaxone Renal US with small R renal calculi, non-visualization of 2cm lesion midpole R kidney stone shown on prior CT, remains indeterminate (unable to get MRI due to stimulator) Tylenol prn, oxycodone for breakthrough pain (also got diluadid as above) Antiemetics prn Also on Doxy for equivocal Lyme -- hx of positives and bullseye rashes, but never tx. --> monitor confirmatory test Continue to monitor (3) Myalgia: Plan: CK 158, wnl Tx as above reports improving pain control as needed (4) Overactive bladder: Plan: Patient with incontinence at baseline. She has a failed bladder stimulator in place. Currently follows with urology, Dr. Delcid -- consult if needed On myrbetriq -- continue to hold given retention issues currently (5) Fever: Plan: Patient denies cough, shortness of breath, dysuria, abdominal pain, diarrhea. She does have an equivocal Lyme test which she has had on several occasions prior. Patient [place] and has had many ticks on her as well as history of bull's-eye rash. She has never been treated for Lyme disease. Do not strongly suspect active infection, however, with complaints of weakness/myalgias, fever will start empiric treatment Await confirmatory Western blot test Doxycycline 100 mg twice daily (6) Lyme disease: Plan: Uncertain of patient's preliminary lab results indicate active Lyme disease. He does present with complaints of weakness, myalgias, fever with known tick exposure and rash in the past. Her thrombocytopenia is chronic and was likely secondary to underlying cirrhosis Await confirmatory testing Empiric doxycycline 100 mg p.o. twice daily (7) Diabetes mellitus: Plan: Blood sugar elevated today at 201. Last hemoglobin A1c from June 2019 = 8.5 Hold oral agents Provide Lantus insulin sliding scale Goal blood sugar 100-1 40 Consistent carb diet as tolerated (8) Depression: Plan: Chronic. Stable. Continue venlafaxine 37.5 mg p.o. daily (9) COPD (chronic obstructive pulmonary disease): Plan: Chronic. Stable. Patient currently not on inhalers 92% on RA (10) Diarrhea: Plan: chronic, felt 2nd to radiation however, given multiple abx for UTI, will check cdiff as reports 7-8x/daily liquid stool Admission and Anticipated Discharge Date Admission Date: January 22, 2021 Subjective Patient evaluated this morning. Fell last night tripping over walker with her IV poll. Got Dilaudid and felt a little out of it this morning, but improving. Sustained extensive fracture to right wrist (right hand dominant). Numbness to 5th digit, now with numbness to 4th digit but improved slightly and can feel light touch to volar aspect and is able to flex/extend fingers but notes no feeling to her 5th digit. Nerve block by Dr. Chávez this morning and cast placed. Stated she is to see "hand domenic" and confirmed Dr. Anthony for follow up. Repeat imaging pending post-reduction. Will have PT/OT evals and CM see for possible rehab. Urinating without need for st cath and notes some lightening No fever, chills, chest pain, shortness of breath, abdominal pain, nausea or vomiting. Review of Systems Review of Systems: All systems reviewed & are unremarkable except as noted in HPI & below Physical Exam Physical Exam: General: patient resting comfortably, NAD, non-toxic in appearance, AA&O x 3 Skin: warm, dry HEENT: NC/AT, PERRL, EOMI, anicteric sclera, conjunctiva without injection, external ear normal to inspection and nontender, nares patent, dry mucus membranes, dentition intact, no oropharyngeal lesions, neck supple, trachea midline, no LAD, no thyromegaly, no JVD Heart: +S1/S2, regular, no m/r/g Lungs: equal air entry bilaterally, no rales/rhonchi/wheezes Abd: +BS, soft, NT/ND, no masses/organomegaly/ascites Ext: cast to RUE. decreased sensation to 5th digit right hand. fingers mobile. sensation to pressure 4th digit. fingers swollen to R hand. ecchymosis proximal to cast noted. non-tender currently. 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 Results & Data Results & Data ([facility]) Vital Signs (Past 12 Hours) Vital Signs Temp Pulse Pulse Resp BP BP Pulse Ox 01/23/21 07:51 36.8 C 76 16 166/82 H 92 01/23/21 01:35 42 L 124/73 93 01/23/21 01:30 42 L 73/42 L 01/22/21 22:56 37.4 C 77 18 127/65 92 Laboratory Results 01/23/21 01/23/21 01/23/21 Range/Units 05:50 05:50 05:50 WBC (4.8-10.8) K/uL RBC (4.2-5.4) M/uL Hgb (12.0-16.0) g/dL Hct (37-47) % MCV (80-100) fL MCH (25-34) pg MCHC (32-36) g/dL RDW Std Deviation (36.4-46.3) fL RDW Coeff of Chana (11.5-14.5) % Plt Count (130-400) K/uL MPV (7.4-10.4) fL Immature Gran % (Auto) % Neut % (Auto) % Lymph % (Auto) % Caroline % (Auto) % Eos % (Auto) % Baso % (Auto) % Neut # (Auto) (1.4-6.5) K/uL Lymph # (Auto) (1.2-3.4) K/uL Caroline # (Auto) (0.11-0.59) K/uL Eos # (Auto) (0-0.5) K/uL Baso # (Auto) (0-0.2) K/uL Immature Gran # (Auto) (0.00-0.02) K/uL RBC Morphology PT 11.4 (9.0-12.0) Seconds INR 1.1 (0.9-1.1) Sodium 136 (136-145) mmol/L Potassium 4.1 (3.5-5.1) mmol/L Chloride 106 (98-107) mmol/L Carbon Dioxide 25 (21-32) mmol/L Anion Gap 5.0 (3-11) BUN 13 (7-18) mg/dl Creatinine 0.62 D (0.6-1.2) mg/dl Est Cr Clr Drug Dosing 107.1 ml/min Est GFR ( Amer) 105.1 ml/min Est GFR (Non-Af Amer) 90.7 ml/min BUN/Creatinine Ratio 20.7 H (10-20) Glucose 137 H (70-99) mg/dl POC Glucose (70-99) mg/dl Estimat Average Glucose 154 mg/dl Hemoglobin A1c 7.0 H (4.5-5.6) % Calcium 8.4 L (8.5-10.1) mg/dl Total Bilirubin 1.4 H D (0.2-1) mg/dl Direct Bilirubin 0.6 H (0-0.2) mg/dl AST 42 H (15-37) U/L ALT 46 (12-78) U/L Alkaline Phosphatase 90 (45-117) U/L Total Creatine Kinase (26-192) U/L Total Protein 6.6 (6.4-8.2) gm/dl Albumin 2.9 L (3.4-5.0) gm/dl 01/23/21 01/23/21 01/22/21 Range/Units 05:50 01:49 20:38 WBC 3.45 L (4.8-10.8) K/uL RBC 3.82 L (4.2-5.4) M/uL Hgb 12.2 (12.0-16.0) g/dL Hct 36.4 L (37-47) % MCV 95.3 (80-100) fL MCH 31.9 (25-34) pg MCHC 33.5 (32-36) g/dL RDW Std Deviation 45.1 (36.4-46.3) fL RDW Coeff of Chana 13.0 (11.5-14.5) % Plt Count 54 L (130-400) K/uL MPV 12.1 H (7.4-10.4) fL Immature Gran % (Auto) 0.3 % Neut % (Auto) 73.3 % Lymph % (Auto) 16.5 % Caroline % (Auto) 9.6 % Eos % (Auto) 0.0 % Baso % (Auto) 0.3 % Neut # (Auto) 2.53 (1.4-6.5) K/uL Lymph # (Auto) 0.57 L (1.2-3.4) K/uL Caroline # (Auto) 0.33 (0.11-0.59) K/uL Eos # (Auto) 0.00 (0-0.5) K/uL Baso # (Auto) 0.01 (0-0.2) K/uL Immature Gran # (Auto) 0.01 (0.00-0.02) K/uL RBC Morphology Unremarkable PT (9.0-12.0) Seconds INR (0.9-1.1) Sodium (136-145) mmol/L Potassium (3.5-5.1) mmol/L Chloride (98-107) mmol/L Carbon Dioxide (21-32) mmol/L Anion Gap (3-11) BUN (7-18) mg/dl Creatinine (0.6-1.2) mg/dl Est Cr Clr Drug Dosing ml/min Est GFR ( Amer) ml/min Est GFR (Non-Af Amer) ml/min BUN/Creatinine Ratio (10-20) Glucose (70-99) mg/dl POC Glucose 101 H 137 H (70-99) mg/dl Estimat Average Glucose mg/dl Hemoglobin A1c (4.5-5.6) % Calcium (8.5-10.1) mg/dl Total Bilirubin (0.2-1) mg/dl Direct Bilirubin (0-0.2) mg/dl AST (15-37) U/L ALT (12-78) U/L Alkaline Phosphatase (45-117) U/L Total Creatine Kinase (26-192) U/L Total Protein (6.4-8.2) gm/dl Albumin (3.4-5.0) gm/dl 01/22/21 01/22/21 01/22/21 Range/Units 17:19 12:05 09:01 WBC (4.8-10.8) K/uL RBC (4.2-5.4) M/uL Hgb (12.0-16.0) g/dL Hct (37-47) % MCV (80-100) fL MCH (25-34) pg MCHC (32-36) g/dL RDW Std Deviation (36.4-46.3) fL RDW Coeff of Chana (11.5-14.5) % Plt Count (130-400) K/uL MPV (7.4-10.4) fL Immature Gran % (Auto) % Neut % (Auto) % Lymph % (Auto) % Caroline % (Auto) % Eos % (Auto) % Baso % (Auto) % Neut # (Auto) (1.4-6.5) K/uL Lymph # (Auto) (1.2-3.4) K/uL Caroline # (Auto) (0.11-0.59) K/uL Eos # (Auto) (0-0.5) K/uL Baso # (Auto) (0-0.2) K/uL Immature Gran # (Auto) (0.00-0.02) K/uL RBC Morphology PT (9.0-12.0) Seconds INR (0.9-1.1) Sodium (136-145) mmol/L Potassium (3.5-5.1) mmol/L Chloride (98-107) mmol/L Carbon Dioxide (21-32) mmol/L Anion Gap (3-11) BUN (7-18) mg/dl Creatinine (0.6-1.2) mg/dl Est Cr Clr Drug Dosing ml/min Est GFR ( Amer) ml/min Est GFR (Non-Af Amer) ml/min BUN/Creatinine Ratio (10-20) Glucose (70-99) mg/dl POC Glucose 89 155 H 123 H (70-99) mg/dl Estimat Average Glucose mg/dl Hemoglobin A1c (4.5-5.6) % Calcium (8.5-10.1) mg/dl Total Bilirubin (0.2-1) mg/dl Direct Bilirubin (0-0.2) mg/dl AST (15-37) U/L ALT (12-78) U/L Alkaline Phosphatase (45-117) U/L Total Creatine Kinase (26-192) U/L Total Protein (6.4-8.2) gm/dl Albumin (3.4-5.0) gm/dl 01/22/21 Range/Units 05:49 WBC (4.8-10.8) K/uL RBC (4.2-5.4) M/uL Hgb (12.0-16.0) g/dL Hct (37-47) % MCV (80-100) fL MCH (25-34) pg MCHC (32-36) g/dL RDW Std Deviation (36.4-46.3) fL RDW Coeff of Chana (11.5-14.5) % Plt Count (130-400) K/uL MPV (7.4-10.4) fL Immature Gran % (Auto) % Neut % (Auto) % Lymph % (Auto) % Caroline % (Auto) % Eos % (Auto) % Baso % (Auto) % Neut # (Auto) (1.4-6.5) K/uL Lymph # (Auto) (1.2-3.4) K/uL Caroline # (Auto) (0.11-0.59) K/uL Eos # (Auto) (0-0.5) K/uL Baso # (Auto) (0-0.2) K/uL Immature Gran # (Auto) (0.00-0.02) K/uL RBC Morphology PT (9.0-12.0) Seconds INR (0.9-1.1) Sodium (136-145) mmol/L Potassium (3.5-5.1) mmol/L Chloride (98-107) mmol/L Carbon Dioxide (21-32) mmol/L Anion Gap (3-11) BUN (7-18) mg/dl Creatinine (0.6-1.2) mg/dl Est Cr Clr Drug Dosing ml/min Est GFR ( Amer) ml/min Est GFR (Non-Af Amer) ml/min BUN/Creatinine Ratio (10-20) Glucose (70-99) mg/dl POC Glucose (70-99) mg/dl Estimat Average Glucose mg/dl Hemoglobin A1c (4.5-5.6) % Calcium (8.5-10.1) mg/dl Total Bilirubin (0.2-1) mg/dl Direct Bilirubin (0-0.2) mg/dl AST (15-37) U/L ALT (12-78) U/L Alkaline Phosphatase (45-117) U/L Total Creatine Kinase 158 (26-192) U/L Total Protein (6.4-8.2) gm/dl Albumin (3.4-5.0) gm/dl Diagnostic Findings Renal Ultrasound 01/22/21 12:35 RENAL ULTRASOUND CLINICAL HISTORY: n/v/abd pain, eval stones/pyelo COMPARISON STUDY: Renal ultrasound May 30, 2019. CT of the abdomen and pelvis December 21, 2020. TECHNIQUE: Sonography of the kidneys and the urinary bladder was performed. FINDINGS: The volume of the bladder is 340 cc on this exam. There is no hydronephrosis. The right kidney measures 13.1 cm in maximal dimension and the left measures 12.8 cm. Note is made of a 1.3 cm cyst within the upper pole of the right kidney. There is a 1.3 cm echogenic focus within the upper pole pf the right kidney which likely corresponds to the focus of clustered calcifications pm prior CT. This is probably benign. The indeterminate 2 cm focus within the midpole of the right kidney on prior CT is not visualized on this examination. There is a 1.3 cm left renal cyst. Renal echogenicity, size and cortical thickness are normal. IMPRESSION: 1. No hydronephrosis. 2. Suspected small right renal calculi. 3. Nonvisualization of the 2 cm lesion within the midpole of the right kidney shown on prior CT. This remains indeterminate. 4. Bladder volume of 340 cc. Per the patient, the bladder was just drained via catheter. ACT 112: Negative or not required by law. Electronically signed by: Spenser Daniels M.D. 01/22/2021 2:10 PM Chest X-Ray 01/22/21 17:56 XR chest 1V portable CLINICAL HISTORY: hypoxia COMPARISON STUDY: Chest radiograph January 21, 2021. FINDINGS: Lung volumes are mildly diminished. This is unchanged. Linear right basilar opacity favors atelectasis or scarring. There is no consolidation to suggest pneumonia. Cardiomegaly is unchanged. Slight interstitial prominence is unchanged. IMPRESSION: No acute cardiopulmonary findings. No change in appearance of the chest. ACT 112: Negative or not required by law. Electronically signed by: Spenser Daniels M.D. 01/22/2021 6:35 PM Wrist X-Ray 01/23/21 02:04 RIGHT WRIST 2 VIEWS CLINICAL HISTORY: Fall with right wrist injury. FINDINGS: AP and crosstable lateral views of the right wrist are compared to study dated 05/05/2012. The skeletal structures are osteopenic. There is an impacted and comminuted fracture of the distal radial metaphysis with intra- articular extension. There is dorsal displacement of the distal fragment by one shaft length with mild overriding of fragments with apex volar angulation. There are numerous tiny dorsally displaced bony fragments. There is also a displaced avulsion fracture of the ulnar styloid. Overlying soft tissue edema is noted. The radiocarpal articulation appears maintained. Degenerative change is seen throughout the wrist. IMPRESSION: Distal radial and ulnar fractures as above. Electronically signed by: Enio Ayala M.D. 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 terminal operations supervisor insulin use status Diabetes mellitus type: other specified (including TRINH) Depression F32.9 COPD (chronic obstructive pulmonary disease) J44.9 COPD type: unspecified COPD Diarrhea R19.7 Right wrist fracture S62.101A (1) Diabetes mellitus Diabetes mellitus complication status: with other specified complication Diabetes mellitus skilled nursing insulin use: unspecified skilled nursing insulin use status Diabetes mellitus type: other specified (including TRINH) Qualified Code(s): E13.69 - Other specified diabetes mellitus with other specified complication (2) COPD (chronic obstructive pulmonary disease) COPD type: unspecified COPD Qualified Code(s): J44.9 - Chronic obstructive pulmonary disease, unspecified
[2021-01-23] MEDS ORDERED: INSULIN GLARGINE SOLOSTAR 100 UNITS/ML 3 ML PEN SC SCH (09:05)
[2021-01-23] MEDS: INSULIN ASPART 100 UNITS/ML 3 ML PEN SC SCH ×4 (09:08→20:48)
[2021-01-23] MEDS: LIRAGLUTIDE PEN SQ SCH (09:09)
[2021-01-23] MEDS: SOLIFENACIN SUCCINATE 5 MG PO SCH (09:23)
[2021-01-23] MEDS: FLUoxetine HCL 10 MG CAP PO SCH (09:23)
[2021-01-23] MEDS: VENLAFAXINE HCL XR 37.5 MG CAPXR PO SCH (09:23)
--- NOTE | 2021-01-23 09:24 | Pharmacy Report ---
Pharmacy Glycemic Short Note 2 - Date of Service January 23, 2021 - Glycemic Short BSG Results (Last 24 hours): 01/22/21 01/22/21 01/22/21 12:05 17:19 20:38 Glucose POC Glucose 155 H 89 137 H 01/23/21 01/23/21 01/23/21 01:49 05:50 08:47 Glucose 137 H POC Glucose 101 H 143 H OUTPATIENT ANTIDIABETIC REGIMEN: * Tresiba 100 units SC AM * Victoza 1.8 mg SC AM * Amaryl 1 mg PO AM * HbA1c = 7.0% (01/23/21) ASSESSMENT: 01/23: * Jing received a total of 79 units of insulin yesterday * 70 units basal + 9 units bolus + 1.8 mg Victoza * BSGs were well controlled: [id number] mg/dL * Fasting BSG was 143 mg/dL this AM - acceptable * Patient had unwitnessed fall last evening resulting in a right wrist facture that may require surgical fixation so she is NPO as of this morning. * Will empirically decrease basal dose this AM to account for NPO status. 01/22: * 70 yo F admitted secondary to weakness. Pharmacy was consulted to assist with inpatient glycemic management today. * Fasting BSG was 123 mg/dL this AM - well controlled. Patient refused AM Lantus and Novolog and wanted to use her own insulin. Primary team was okay with her starting on home Victoza this AM. Unfortunately, her Tresiba pen only had 20 units left in it and she had no other pens with her. Therefore, she was agreeable to using our Lantus pens. * With uncovered breakfast, lunch BSG was 155 mg/dL. * Started on Victoza, Lantus (with 30% dose reduction) and Novolog based on weight and stress of two started at lunch. * Will order a single overnight check given large basal dose. PLAN FOR INPATIENT GLYCEMIC CONTROL: * Hold outpatient oral diabetes medications * Basal insulin - decreased * Lantus 60 units SC AM * Bolus insulin - no change * NovoLog per scale ACHS or Q6hrs while NPO * Goal Range: Low 110 mg/dL - High 140 mg/dL * Correction Factor: 20 mg/dL/unit * Nutritional / Prandial insulin per carb ratio of 1 unit per 7 grams CHO consumed PLAN FOR DISCHARGE: * HbA1c is at goal for this patient. Continue with current anti-diabetic regimen upon discharge as long as patient is not experiencing any hypoglycemia.
--- NOTE | 2021-01-23 10:20 | Orthopedic Consultation ---
Date of Consultation January 23, 2021 Assessment & Plan (1) Right wrist fracture: Patient with a significantly displaced and angulated fracture distal radius with intraarticular comminution. X-rays reviewed with Dr. Chávez as well as Dr. Cee of [facility]. Due to the amount of comminution and displacement patient will likely require ORIF. Will plan on hematoma block with closed reduction and splinting at her bedside today. Will have her follow up with Dr. Soto of [facility] once discharged from the hospital to discuss possible surgical fixation. Can call [phone] for an appointment Supervising Physician Co-Signing Physician Notes Reviewed exam and radiographs and concur with plan. Comminuted intra-articular radius fracture with displacement and ulnar styloid fracture. This is an unstable fracture pattern. Likely require open external fixation with plate fixation. This point close reduction is indicated due to the major displacement. Patient agreed to go ahead with closed reduction. Right wrist was sterilely prepped with Betadine dorsally over the fracture site. Hematoma block was performed using 10 cc of lidocaine. We waited 10 minutes for lido dee take effect and fashioned into a posterior and sugar tong plaster splints. Then a close reduction was performed by stabilizing the forearm placing longitudinal traction on the wrist with the wrist in dorsiflexion to disengage the fragments and then palmar flexion ulnar deviation and this was held in this position while the plaster splints were placed on wrap with gauze wrap and a mold was placed with the wrist and palmar functional deviation and some wrist flexion. On the AP splint was hardened we put a sugar tong around the elbow and wrapped Isaiah wrap from the hand to the lower humerus. Postreduction x-rays demonstrate anatomic alignment. Patient tolerated the procedure well. Plan is to follow x-rays closely and have hand surgical team on board to consider ORIF with plate fixation. History of Present Illness Reason for Consultation: Right wrist fracture Attending Physician: Ifeanyi Petersen MD History of Present Illness 70 year old female with PMHx significant for COPD, DM2, GERD and UTI presented to the emergency room and subsquently admitted to the hospitalist service on 01/22/21 for weakness, fever, myalgias, nausea and vomiting. She has been diagnosed with a UTI as well as she is being treated for likely Lyme disease. She is feeling better. Overnight was walking the bathroom and tripped with her IV pole and fell onto her outstretched arm. She had notable deformity and x-rays demonstrated a significantly displaced and comminuted fracture distal radius. We were consulted for management. Allergies Allergy/AdvReac Type Severity Reaction Status Date / Time nickel Allergy Intermediate HIVES/RASH Verified 01/23/21 06:43 ON SKIN Penicillins Allergy Intermediate RASH Verified 12/13/20 09:25 oxycodone Allergy Mild HEADACHE Verified 01/23/21 06:43 AND NAUSEA metformin AdvReac Mild GI SICKNESS Verified 01/23/21 06:43 Home Medications Medication Instructions Recorded Confirmed Type liraglutide 0.6 mg/0.1 mL (18 mg/3 1.8 units SUBCUT QAM 10/02/18 01/22/21 History mL) subcutaneous pen injector (Victoza 3-Júnior) loperamide 2 mg tablet (Imodium 2 mg PO Q3H PRN 10/02/18 11/26/20 History A-D) nystatin-triamcinolone 100,000 1 applic EXT BID #45 g 06/03/19 11/26/20 Rx unit/g-0.1 % topical cream mirabegron 50 mg tablet,extended 50 mg PO DAILY #90 tab 09/19/19 11/26/20 Rx release 24 hr (Myrbetriq) trimethoprim 100 mg tablet 100 mg PO DAILY 30 Days #30 tab 09/19/19 11/26/20 Rx mupirocin 2 % topical ointment See Rx Instructions TOP BID #22 gm 10/10/19 11/26/20 Rx solifenacin 5 mg tablet (Vesicare) 5 mg PO DAILY 09/27/20 11/26/20 History fosfomycin tromethamine 3 gram 1 packet PO .weekly 90 Days #12 ea 11/26/20 11/26/20 Rx oral packet fluoxetine 10 mg capsule (Prozac) 10 mg PO DAILY 12/13/20 12/13/20 History glimepiride 1 mg tablet (Amaryl) 1 mg PO DAILY 12/13/20 01/22/21 History omega 3-dha 500 mg-epa 100 mg-fish cap PO DAILY cap 12/13/20 12/13/20 History oil capsule (Nuretin) venlafaxine 37.5 mg 37.5 mg PO DAILY 12/13/20 12/13/20 History capsule,extended release 24 hr (Effexor XR) insulin degludec 200 unit/mL (3 100 unit SUBCUT QAM 01/22/21 01/22/21 History mL) subcutaneous pen (Tresiba FlexTouch U-200 insulin) Patient History Medical History Abdominal pain, generalized Bloating COPD (chronic obstructive pulmonary disease) Depression Diabetes mellitus Diastasis recti GERD (gastroesophageal reflux disease) Has 1 child Sensorineural hearing loss of both ears Tinnitus, bilateral UTI (urinary tract infection) Surgical History H/O abdominal surgery panniculectomy x 2 per pt History of carpal tunnel surgery x2 History of hysterectomy History of laparoscopic cholecystectomy open surgery Family History Father Prostate cancer Diabetes Mother Cancer Other No family history of adverse response to anesthesia No family history of bleeding disorder Social History Smoking Status: Former smoker Second Hand Exposure: No; Do You Dip or Chew Tobacco: No; Hx Alcohol Use: Yes Alcohol type: beer Alcohol Intake Frequency Comment: 1-2 per month Hx Substance Use: No Preferred Language: Pashto Communication Ability: Effective 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 Floor Installer Required: No Beliefs That Will Affect Care: None marital status: Current Living Situation: Alone current occupational status: retired How many Children do You have: 1 Other Information That Helps Us Care for You: No Feels Safe at Home: Yes Safety Concerns: Feels Safe At This Time Assistive Devices: None Review of Systems Review of Systems: All systems reviewed & are unremarkable except as noted in HPI & below Physical Exam Constitutional: well developed and well nourished; no acute distress Eyes: PERRL, conjunctivae normal, anicteric sclerae ENMT: external ear and nose normal, oropharynx normal Neck: normal visual inspection Respiratory: normal respiratory effort; no respiratory distress Cardiovascular: Rate/Rhythm: regular rate and regular rhythm Musculoskeletal: Right wrist with significant deformity and angulation on inspection. Small abrasion ulnar aspect of wrist does not appear to be an open fracture. Patient is able to move her fingers and has full sensation in all of her fingers. Distally n/v status and sensation are intact. Tenderness diffusely about the distal radius and ulna. Skin: no rashes, warm and dry Results & Data ([facility]) Vital Signs (Past 12 Hours) Vital Signs Temp Pulse Pulse Resp BP BP Pulse Ox 01/23/21 07:51 36.8 C 76 16 166/82 H 92 01/23/21 01:35 42 L 124/73 93 01/23/21 01:30 42 L 73/42 L 01/22/21 22:56 37.4 C 77 18 127/65 92 Diagnostic Findings CLINICAL HISTORY: Fall with right wrist injury. FINDINGS: AP and crosstable lateral views of the right wrist are compared to study dated 05/05/2012. The skeletal structures are osteopenic. There is an impacted and comminuted fracture of the distal radial metaphysis with intra- articular extension. There is dorsal displacement of the distal fragment by one shaft length with mild overriding of fragments with apex volar angulation. There are numerous tiny dorsally displaced bony fragments. There is also a displaced avulsion fracture of the ulnar styloid. Overlying soft tissue edema is noted. The radiocarpal articulation appears maintained. Degenerative change is seen throughout the wrist. IMPRESSION: Distal radial and ulnar fractures as above.
--- NOTE | 2021-01-23 13:29 | XRay Report ---
RIGHT WRIST 2 VIEWS CLINICAL HISTORY: Postreduction examination. FINDINGS: AP and lateral views of the right wrist are compared to study performed earlier the same da y 01/23/2021. The examination is performed through a cast, obscuring fine bony detail. The skeletal st ructures are osteopenic. Again seen is an impacted and comminuted intra-articular fracture of the dis isabella radial metaphysis and an avulsion fracture of the ulnar styloid. There is significantly improved alignment of the radial fracture status post closed reduction. There is mild persistent offset of fra gments. The radiocarpal articulation is maintained. Overlying soft tissue edema is noted. IMPRESSION: Distal radial ulnar fractures with improved alignment of the radius status post closed re duction as above. Electronically signed by: Enio Ayala M.D. 01/23/2021 1:27 PM
[2021-01-23] MEDS: INSULIN GLARGINE SOLOSTAR 100 UNITS/ML 3 ML PEN SC SCH (13:36)
[2021-01-23] MEDS ORDERED: ERGOCALCIFEROL 50,000 UNITS 1250 MCG CAP PO SCH (16:00)
[2021-01-23] MEDS: oxyCODONE/ACETAMINOPHEN 5mg/325mg TAB PO PRN (18:47)
[2021-01-24] MEDS: oxyCODONE/ACETAMINOPHEN 5mg/325mg TAB PO PRN ×3 (00:33→08:28)
[2021-01-24] MEDS: LACTATED RINGER'S 1,000 ML IV SCH ×3 (04:30→11:06)
[2021-01-24] MEDS: ACETAMINOPHEN 1,000 MG/100 ML VIAL IV SCH ×2 (05:41→14:53)
[2021-01-24] MEDS: DOXYCYCLINE HYCLATE 100 MG in DEXTROSE 5% 100 ML IV SCH ×2 (06:04→17:25)
--- NOTE | 2021-01-24 07:15 | Orthopedic Progress Note ---
Date of Service January 24, 2021 Assessment & Plan (1) Right wrist fracture: Plan: Patient with significantly displaced and comminuted distal radius fracture with closed reduction and splinting at bedside by Dr. Chávez yesterday. Post reduction films show good reduction of patient's fracture. Will continue with splint. Discussed outpatient follow up with Dr. Soto of [facility] hand team for. Will discuss with him. Likely will need ORIF right distal radius fracture. Continue ice to right wrist, elevation, NWB right UE. Admission and Anticipated Discharge Date Admission Date: January 23, 2021 Subjective Recheck on patient today after closed reduction. Having increased pain since the hematoma block has worn off but is tolerable. Was having numbness 4th and 5th fingers this has improved. Some tingling 4th and 5th fingers. Was having a lot of swelling into fingers and some discoloration, iraida was loosened by nursing and this improved. Denies other complaints. Denies chest pain, sob, fever, chills, n/v/d. Review of Systems Review of Systems: All systems reviewed & are unremarkable except as noted in Subjective Physical Exam Physical Exam: Right wrist splint is c/d/i. No erythema. Mild swelling into fingers. Sensation intact, decreased motion but fingers mobile. cap refill <3s. Constitutional: well developed and well nourished; no acute distress Results & Data ([facility]) Vital Signs (Past 12 Hours) Vital Signs Temp Pulse Resp BP Pulse Ox 01/24/21 01:05 36.9 C 01/23/21 22:15 93 01/23/21 22:10 37.6 C H 86 22 136/72 86 L 01/23/21 21:15 37.9 C H 01/23/21 20:20 37.4 C
[2021-01-24 07:40] LABS: Hematocrit (blood only) 34.8 % (37-47); Hemoglobin 11.9 g/dL (12.0-16.0); Mean Corpuscular Hemoglobin 32.2 pg (25-34); Mean Corpuscular Hgb Conc 34.2 g/dL (32-36); Mean Corpuscular Volume 94.3 fL (80-100); RDW Coefficient of Variation 12.9 % (11.5-14.5); RDW Standard Deviation 44.7 fL (36.4-46.3); Red Blood Count 3.69 M/uL (4.2-5.4); White Blood Count 2.59 K/uL (4.8-10.8)
[2021-01-24 07:52] LABS: Mean Platelet Volume 11.8 fL (7.4-10.4); Platelet Count 53 K/uL (130-400)
[2021-01-24 08:00] LABS: BUN Creatinine Ratio 19.8 (10-20); Calcium 8.8 mg/dl (8.5-10.1); Creatinine Clr Calc Pharmacy 125.3 ml/min; Est GFR (African American) 110.7 ml/min; Est GFR (Non-African American) 95.5 ml/min; Potassium 3.7 mmol/L (3.5-5.1)
[2021-01-24 08:11] LABS: Thyroid Stimulating Hormone 1.27 uIu/ml (0.300-4.500)
[2021-01-24] MEDS: cefTRIAXone SODIUM 2,000 MG in DEXTROSE 5% 50 ML IV SCH (08:33)
[2021-01-24] MEDS: SOLIFENACIN SUCCINATE 5 MG PO SCH (08:38)
[2021-01-24] MEDS: FLUoxetine HCL 10 MG CAP PO SCH (08:38)
[2021-01-24] MEDS: VENLAFAXINE HCL XR 37.5 MG CAPXR PO SCH (08:38)
[2021-01-24] MEDS: INSULIN ASPART 100 UNITS/ML 3 ML PEN SC SCH ×4 (08:48→21:13)
[2021-01-24] MEDS: LIRAGLUTIDE PEN SQ SCH (08:51)
[2021-01-24] MEDS ORDERED: INSULIN GLARGINE SOLOSTAR 100 UNITS/ML 3 ML PEN SC SCH (09:00)
--- NOTE | 2021-01-24 09:19 | XRay Report ---
XR chest 1V portable CLINICAL HISTORY: hypoxia COMPARISON STUDY: Chest radiograph January 22, 2021. FINDINGS: Lung volumes are diminished. This is unchanged. There are mild bibasilar opacities. Cardiom ediastinal silhouette is stable. There is no evidence for overt pulmonary edema. IMPRESSION: Low lung volumes with bibasilar opacities which favor atelectasis. An infectious process could appear similar. ACT 112: Negative or not required by law. Electronically signed by: Spenser Daniels M.D. 01/24/2021 9:18 AM
[2021-01-24] MEDS ORDERED: bisacodyL 5 MG TABEC PO ONE (09:59)
--- NOTE | 2021-01-24 09:59 | Hospitalist Progress Note ---
Date of Service January 24, 2021 Assessment & Plan (1) Right wrist fracture: Plan: fell last evening -- tripped over IV poll Xray with impacted and comminuted fracture of the distal radial metaphysis with intra-articular extension. dorsal displacement of the distal fragment by one shaft length with mild overriding of fragments with apex volar angulation. numerous tiny dorsally displaced bony fragments. also a displaced avulsion fracture of the ulnar styloid. Overlying soft tissue edema is noted. The radiocarpal articulation appears maintained. Degenerative change is seen throughout the wrist. Ortho consulted Lidocaine injection and reduction by ortho morning 01/23 with casting -- repeat x-ray with reported good alignment --> TO have f/u outpt with [facility] for likely ORIF Improvement of numbness/tingling with loosening of dressing distal to cast, less edema today PT/OT consulted, CM aware of possible need for rehab at d/c --> PT ok'd to go home, OT home w family support or therapy. CM to send ref but likely to be denied --> Patient lives at home alone w animals alone, right hand dominant and does not feel safe going home at this time Vit D level checked --> low at 8.1 --> started ergocalciferol and would continue weekly at d/c PTH appropriately elevated (Ca wnl but low normal w her albumin, low phos) Check Vit D level outpatient in follow up continue to monitor (2) UTI (urinary tract infection), bacterial: Plan: 70-year-old female presenting with acute onset nausea/vomiting/myalgias and fever. Patient complaining of significant weakness and inability to walk. While in the ER, she was able to ambulate from the bathroom to the bed although appeared to be somewhat unsteady on her feet. She did have a very small amount of dark urine output (on Bactrim for prophylaxis and reports occasional dark urine outpatient as well, however Tbili 4.1/ast 60)--> improvement of output and no need for further st cath. --> Patient with hx cirrhosis and likely worsened by Bactrim use. --> Consider f/u Dr Antoine from ID outpt for cycling abx for prevention however was to be on fosfomycin by Urology but does not appear ever picked up. CM verifying rx sent/picked up but if not could be option moving forward Continue LR for dehydration, but decrease rate to 75cc/hr --> eating/drinking and will discontinue Possibly due to UTI - UA appears infected as well as calcium oxalate -->URINE CX WITH KLEBSIELLA, RESISTANT TO BACTRIM --> Discussed w ID and would not have patient cont on proph abx, but treat current infxn On Ceftriaxone --> de-escalate to nitrofurantoin tomorrow? Renal US with small R renal calculi, non-visualization of 2cm lesion midpole R kidney stone shown on prior CT, remains indeterminate (unable to get MRI due to stimulator and hoping to arrange f/u intake visit w Dr Saxena at d/c) Tylenol prn, oxycodone for breakthrough pain (also got diluadid prn) Antiemetics prn Also on Doxy for equivocal Lyme -- hx of positives and bullseye rashes, but never tx. --> monitor confirmatory test however expect need for 14 day course (ortho would also like continued for small abrasion to volar aspect of wrist before casting) De-escalate abx to nitrofurantoin tomorrow --> hopefully will arrange f/u with Dr. Antoine at d/c as well to help monitor given recurrent infections, however up until recent resistant to bactrim had been pansensitive Placement of allen if requires additional st catheterization Continue to monitor (3) Myalgia: Plan: CK 158, wnl Tx as above reports improving however now pain control as needed (4) Overactive bladder: Plan: Patient with incontinence at baseline. She has a failed bladder stimulator in place. Currently follows with urology, Dr. 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 She does have an equivocal Lyme test which she has had on several occasions prior. Patient [place] and has had many ticks on her as well as history of bull's-eye rash. She has never been treated for Lyme disease. Do not strongly suspect active infection, however, with complaints of weakness/myalgias, fever will start empiric treatment Await confirmatory Western blot test however treating for 14 days regardless given reported bullseye rashes and never having received treatment Doxycycline 100 mg twice daily (on day 3 tx) (6) Lyme disease: Plan: Uncertain of patient's preliminary lab results indicate active Lyme disease. He does present with complaints of weakness, myalgias, fever with known tick exposure and rash in the past. Her thrombocytopenia is chronic and was likely secondary to underlying cirrhosis Empiric doxycycline 100 mg p.o. twice daily (day 3) (7) Diabetes mellitus: Plan: Blood sugar elevated today at 201. Last hemoglobin A1c from June 2019 = 8.5 Hold oral agents Provide Lantus insulin sliding scale Goal blood sugar 100-1 40 Consistent carb diet as tolerated (8) Depression: Plan: Chronic. Stable. Continue venlafaxine 37.5 mg p.o. daily (9) COPD (chronic obstructive pulmonary disease): Plan: Chronic. Stable. Patient currently not on inhalers 94% on RA Overnight pulse ox study given lows while inpatient while sleeping (10) Diarrhea: Plan: chronic, felt 2nd to radiation however, given multiple abx for UTI, will check cdiff --> patient without BM since admission had been refusing senna-- discussed given pain medications and hernia/diastasis, should be on bowel regimen --> also scheduled miralax BID Given abdominal hernias (not warm, no guarding), if develops n/v/fever/white count would repeat CT (done 2 days prior to admission by general surgery who want her to f/u with Urology for removal of stimulator prior to undergoing surgery) Plan: continued inpatient stay working on rehab at d/c however therapy evals with some recs for return home family support, however patient at home alone with her dog Admission and Anticipated Discharge Date Admission Date: January 23, 2021 Subjective eval this morning "not much pep" nauseous but eating lunch try currently passing gas but no BM oxycodone making nauseous -- discussed trying tramadol instead despite her asking for this specifically even though on allergy list in days past discussed klebsiella in culture, resistant to Bactrim. will continue on IV abx and transition to orals tomorrow continues on doxy for lyme and will continue extended course --> also noted ortho would like on abx given abrasion to volar aspect of wrist less numbness/tingling and able to have sensation in all digits, slight tingling in pinky but getting better. cap refill acceptable urinary retention again this morning requiring st cath discussed placement of Allen if recurs -- patient agreeable patient believes she has a thyroid nodule but does appear to be more suggestive of fatty tissue vitamin d 8.1 and started on replacement. pth pending plans for rehab stated she walked halls with therapy down and back but did get some nausea on the walk back. no cp/sob reported - she does note smoking hx, quit 18 yrs ago. pfts in past but told "nothing as no one followed up". had overnight sleep study years ago but was told no ALEXIA. however, has had non-restful sleep, daytime somnolence, snoring. will check overnight study and outpt follow up recs based on report if needed Review of Systems Review of Systems: All systems reviewed & are unremarkable except as noted in HPI & below Physical Exam Physical Exam: General: patient resting comfortably, NAD, non-toxic in appearance, AA&O x 3, clammy Skin: warm, clammy HEENT: NC/AT, PERRL, EOMI, anicteric sclera, conjunctiva without injection, external ear normal to inspection and nontender, nares patent, moist mucus membranes, dentition intact, no oropharyngeal lesions, neck supple, trachea midline, no LAD, no thyromegaly (although small fatty tissue noted R of sternum), no JVD Heart: +S1/S2, regular, no m/r/g Lungs: equal air entry bilaterally, diminished in the bases, crackles (improved with cough), no wheezing Abd: +BS but slightly hypoactive, distended, diastasis with multiple hernias noted, non-tender, not erythematous Ext: cast to RUE. improved sensation to 4th digit, now full sensation, improved sensation to pressure 5th digit but slightly diminished to light touch. radial pulses strong, good cap refill. 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 (also improved) Results & Data Results & Data ([facility]) Vital Signs (Past 12 Hours) Vital Signs Temp Pulse Pulse Resp BP BP Pulse Ox 01/24/21 07:59 36.1 C L 64 63 22 130/98 95 01/24/21 01:05 36.9 C 01/23/21 22:15 93 01/23/21 22:10 37.6 C H 86 22 136/72 86 L Laboratory Results 01/24/21 01/24/21 01/24/21 Range/Units 08:24 07:11 07:11 WBC (4.8-10.8) K/uL RBC (4.2-5.4) M/uL Hgb (12.0-16.0) g/dL Hct (37-47) % MCV (80-100) fL MCH (25-34) pg MCHC (32-36) g/dL RDW Std Deviation (36.4-46.3) fL RDW Coeff of Chana (11.5-14.5) % Plt Count (130-400) K/uL MPV (7.4-10.4) fL Sodium (136-145) mmol/L Potassium (3.5-5.1) mmol/L Chloride (98-107) mmol/L Carbon Dioxide (21-32) mmol/L Anion Gap (3-11) BUN (7-18) mg/dl Creatinine (0.6-1.2) mg/dl Est Cr Clr Drug Dosing ml/min Est GFR ( Amer) ml/min Est GFR (Non-Af Amer) ml/min BUN/Creatinine Ratio (10-20) Glucose (70-99) mg/dl POC Glucose 93 (70-99) mg/dl Calcium (8.5-10.1) mg/dl Vitamin B12 402 (193-986) pg/ml 25-OH Vitamin D Total (30-100) ng/ml TSH (0.300-4.500) uIu/ml PTH Intact Pending 01/24/21 01/24/21 01/23/21 Range/Units 07:11 07:11 20:38 WBC 2.59 L (4.8-10.8) K/uL RBC 3.69 L (4.2-5.4) M/uL Hgb 11.9 L (12.0-16.0) g/dL Hct 34.8 L (37-47) % MCV 94.3 (80-100) fL MCH 32.2 (25-34) pg MCHC 34.2 (32-36) g/dL RDW Std Deviation 44.7 (36.4-46.3) fL RDW Coeff of Chana 12.9 (11.5-14.5) % Plt Count 53 L (130-400) K/uL MPV 11.8 H (7.4-10.4) fL Sodium 138 (136-145) mmol/L Potassium 3.7 (3.5-5.1) mmol/L Chloride 106 (98-107) mmol/L Carbon Dioxide 27 (21-32) mmol/L Anion Gap 5.0 (3-11) BUN 10 (7-18) mg/dl Creatinine 0.53 L (0.6-1.2) mg/dl Est Cr Clr Drug Dosing 125.3 ml/min Est GFR ( Amer) 110.7 ml/min Est GFR (Non-Af Amer) 95.5 ml/min BUN/Creatinine Ratio 19.8 (10-20) Glucose 99 (70-99) mg/dl POC Glucose 128 H (70-99) mg/dl Calcium 8.8 (8.5-10.1) mg/dl Vitamin B12 (193-986) pg/ml 25-OH Vitamin D Total (30-100) ng/ml TSH 1.270 (0.300-4.500) uIu/ml PTH Intact 01/23/21 01/23/21 01/23/21 Range/Units 17:12 11:59 09:43 WBC (4.8-10.8) K/uL RBC (4.2-5.4) M/uL Hgb (12.0-16.0) g/dL Hct (37-47) % MCV (80-100) fL MCH (25-34) pg MCHC (32-36) g/dL RDW Std Deviation (36.4-46.3) fL RDW Coeff of Chana (11.5-14.5) % Plt Count (130-400) K/uL MPV (7.4-10.4) fL Sodium (136-145) mmol/L Potassium (3.5-5.1) mmol/L Chloride (98-107) mmol/L Carbon Dioxide (21-32) mmol/L Anion Gap (3-11) BUN (7-18) mg/dl Creatinine (0.6-1.2) mg/dl Est Cr Clr Drug Dosing ml/min Est GFR ( Amer) ml/min Est GFR (Non-Af Amer) ml/min BUN/Creatinine Ratio (10-20) Glucose (70-99) mg/dl POC Glucose 156 H 144 H (70-99) mg/dl Calcium (8.5-10.1) mg/dl Vitamin B12 (193-986) pg/ml 25-OH Vitamin D Total 8.1 L (30-100) ng/ml TSH (0.300-4.500) uIu/ml PTH Intact Diagnostic Findings 01/24/21 01/24/21 01/24/21 Range/Units 17:03 12:10 08:24 WBC (4.8-10.8) K/uL RBC (4.2-5.4) M/uL Hgb (12.0-16.0) g/dL Hct (37-47) % MCV (80-100) fL MCH (25-34) pg MCHC (32-36) g/dL RDW Std Deviation (36.4-46.3) fL RDW Coeff of Chana (11.5-14.5) % Plt Count (130-400) K/uL MPV (7.4-10.4) fL Sodium (136-145) mmol/L Potassium (3.5-5.1) mmol/L Chloride (98-107) mmol/L Carbon Dioxide (21-32) mmol/L Anion Gap (3-11) BUN (7-18) mg/dl Creatinine (0.6-1.2) mg/dl Est Cr Clr Drug Dosing ml/min Est GFR ( Amer) ml/min Est GFR (Non-Af Amer) ml/min BUN/Creatinine Ratio (10-20) Glucose (70-99) mg/dl POC Glucose 113 H 107 H 93 (70-99) mg/dl Calcium (8.5-10.1) mg/dl Troponin I (0-0.045) ng/ml Vitamin B12 (193-986) pg/ml TSH (0.300-4.500) uIu/ml PTH Intact (18.4-80.1) pg/ml Lyme IgG (Western Blot) (NEGATIVE) Lyme IgG 18 kDa Band Lyme IgG 23 kDa Band Lyme IgG 28 kDa Band Lyme IgG 30 kDa Band Lyme IgG 39 kDa Band Lyme IgG 41 kDa Band Lyme IgG 45 kDa Band Lyme IgG 58 kDa Band Lyme IgG 66 kDa Band Lyme IgG 93 kDa Band Lyme IgM Ab (WB) (NEGATIVE) Lyme IgM 23 kDa Band Lyme IgM 39 kDa Band Lyme IgM 41 kDa Band 01/24/21 01/24/21 01/24/21 Range/Units 07:11 07:11 07:11 WBC (4.8-10.8) K/uL RBC (4.2-5.4) M/uL Hgb (12.0-16.0) g/dL Hct (37-47) % MCV (80-100) fL MCH (25-34) pg MCHC (32-36) g/dL RDW Std Deviation (36.4-46.3) fL RDW Coeff of Chana (11.5-14.5) % Plt Count (130-400) K/uL MPV (7.4-10.4) fL Sodium (136-145) mmol/L Potassium (3.5-5.1) mmol/L Chloride (98-107) mmol/L Carbon Dioxide (21-32) mmol/L Anion Gap (3-11) BUN (7-18) mg/dl Creatinine (0.6-1.2) mg/dl Est Cr Clr Drug Dosing ml/min Est GFR ( Amer) ml/min Est GFR (Non-Af Amer) ml/min BUN/Creatinine Ratio (10-20) Glucose (70-99) mg/dl POC Glucose (70-99) mg/dl Calcium (8.5-10.1) mg/dl Troponin I < 0.015 (0-0.045) ng/ml Vitamin B12 402 (193-986) pg/ml TSH (0.300-4.500) uIu/ml PTH Intact 100.7 H (18.4-80.1) pg/ml Lyme IgG (Western Blot) (NEGATIVE) Lyme IgG 18 kDa Band Lyme IgG 23 kDa Band Lyme IgG 28 kDa Band Lyme IgG 30 kDa Band Lyme IgG 39 kDa Band Lyme IgG 41 kDa Band Lyme IgG 45 kDa Band Lyme IgG 58 kDa Band Lyme IgG 66 kDa Band Lyme IgG 93 kDa Band Lyme IgM Ab (WB) (NEGATIVE) Lyme IgM 23 kDa Band Lyme IgM 39 kDa Band Lyme IgM 41 kDa Band 01/24/21 01/24/21 01/23/21 Range/Units 07:11 07:11 20:38 WBC 2.59 L (4.8-10.8) K/uL RBC 3.69 L (4.2-5.4) M/uL Hgb 11.9 L (12.0-16.0) g/dL Hct 34.8 L (37-47) % MCV 94.3 (80-100) fL MCH 32.2 (25-34) pg MCHC 34.2 (32-36) g/dL RDW Std Deviation 44.7 (36.4-46.3) fL RDW Coeff of Chana 12.9 (11.5-14.5) % Plt Count 53 L (130-400) K/uL MPV 11.8 H (7.4-10.4) fL Sodium 138 (136-145) mmol/L Potassium 3.7 (3.5-5.1) mmol/L Chloride 106 (98-107) mmol/L Carbon Dioxide 27 (21-32) mmol/L Anion Gap 5.0 (3-11) BUN 10 (7-18) mg/dl Creatinine 0.53 L (0.6-1.2) mg/dl Est Cr Clr Drug Dosing 125.3 ml/min Est GFR ( Amer) 110.7 ml/min Est GFR (Non-Af Amer) 95.5 ml/min BUN/Creatinine Ratio 19.8 (10-20) Glucose 99 (70-99) mg/dl POC Glucose 128 H (70-99) mg/dl Calcium 8.8 (8.5-10.1) mg/dl Troponin I (0-0.045) ng/ml Vitamin B12 (193-986) pg/ml TSH 1.270 (0.300-4.500) uIu/ml PTH Intact (18.4-80.1) pg/ml Lyme IgG (Western Blot) (NEGATIVE) Lyme IgG 18 kDa Band Lyme IgG 23 kDa Band Lyme IgG 28 kDa Band Lyme IgG 30 kDa Band Lyme IgG 39 kDa Band Lyme IgG 41 kDa Band Lyme IgG 45 kDa Band Lyme IgG 58 kDa Band Lyme IgG 66 kDa Band Lyme IgG 93 kDa Band Lyme IgM Ab (WB) (NEGATIVE) Lyme IgM 23 kDa Band Lyme IgM 39 kDa Band Lyme IgM 41 kDa Band 01/22/21 Range/Units 00:02 WBC (4.8-10.8) K/uL RBC (4.2-5.4) M/uL Hgb (12.0-16.0) g/dL Hct (37-47) % MCV (80-100) fL MCH (25-34) pg MCHC (32-36) g/dL RDW Std Deviation (36.4-46.3) fL RDW Coeff of Chana (11.5-14.5) % Plt Count (130-400) K/uL MPV (7.4-10.4) fL Sodium (136-145) mmol/L Potassium (3.5-5.1) mmol/L Chloride (98-107) mmol/L Carbon Dioxide (21-32) mmol/L Anion Gap (3-11) BUN (7-18) mg/dl Creatinine (0.6-1.2) mg/dl Est Cr Clr Drug Dosing ml/min Est GFR ( Amer) ml/min Est GFR (Non-Af Amer) ml/min BUN/Creatinine Ratio (10-20) Glucose (70-99) mg/dl POC Glucose (70-99) mg/dl Calcium (8.5-10.1) mg/dl Troponin I (0-0.045) ng/ml Vitamin B12 (193-986) pg/ml TSH (0.300-4.500) uIu/ml PTH Intact (18.4-80.1) pg/ml Lyme IgG (Western Blot) NEGATIVE (NEGATIVE) Lyme IgG 18 kDa Band NON-REACTIVE Lyme IgG 23 kDa Band NON-REACTIVE Lyme IgG 28 kDa Band REACTIVE A Lyme IgG 30 kDa Band NON-REACTIVE Lyme IgG 39 kDa Band NON-REACTIVE Lyme IgG 41 kDa Band REACTIVE A Lyme IgG 45 kDa Band NON-REACTIVE Lyme IgG 58 kDa Band REACTIVE A Lyme IgG 66 kDa Band NON-REACTIVE Lyme IgG 93 kDa Band NON-REACTIVE Lyme IgM Ab (WB) NEGATIVE (NEGATIVE) Lyme IgM 23 kDa Band REACTIVE A Lyme IgM 39 kDa Band NON-REACTIVE Lyme IgM 41 kDa Band NON-REACTIVE PG Care Time/CCT Total # of Minutes Spent Total Time Spent with Patient: Total time spent is greater than 50% in coordination of care (as documented) at patient's floor/unit and/or counseling patient: Coding Level of Care Code 16017 Subseq Hosp Care Lvl 3 Diagnoses Right wrist fracture S62.101A UTI (urinary tract infection), bacterial N39.0; A49.9 Myalgia M79.10 Overactive bladder N32.81 Fever R50.9 Lyme disease A69.20 Diabetes mellitus E13.69 Diabetes mellitus complication status: with other specified complication 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: unspecified usp insulin use status Diabetes mellitus type: other specified (including TRINH) Depression F32.9 COPD (chronic obstructive pulmonary disease) J44.9 COPD type: unspecified COPD Diarrhea R19.7 (1) Diabetes mellitus Diabetes mellitus complication status: with other specified complication Diabetes mellitus usp insulin use: unspecified usp insulin use status Diabetes mellitus type: other specified (including TRINH) Qualified Code(s): E13.69 - Other specified diabetes mellitus with other specified complication (2) COPD (chronic obstructive pulmonary disease) COPD type: unspecified COPD Qualified Code(s): J44.9 - Chronic obstructive pulmonary disease, unspecified
[2021-01-24] MEDS: DOCUSATE SODIUM/SENNA 50/8.6MG TAB PO SCH (11:39)
[2021-01-24] MEDS ORDERED: oxyCODONE HCL IR 5 MG TAB (IMMEDIATE RELEASE) PO PRN (12:48)
[2021-01-24] MEDS ORDERED: traMADol HCL 50 MG TABLET PO STA (12:50)
[2021-01-24 14:46] LABS: 18KDIGG Band NON-REACTIVE; 23KDIGG Band NON-REACTIVE; 23KDIGM Band REACTIVE; 28KDIGG Band REACTIVE; 30KDIGG Band NON-REACTIVE; 39KDIGG Band NON-REACTIVE; 39KDIGM Band NON-REACTIVE; 41KDIGG Band REACTIVE; 41KDIGM Band NON-REACTIVE; 45KDIGG Band NON-REACTIVE; 58KDIGG Band REACTIVE; 66KDIGG Band NON-REACTIVE; 93KDIGG Band NON-REACTIVE; Lyme Antibodies, WB IgG NEGATIVE (NEGATIVE); Lyme Antibodies, WB IgM NEGATIVE (NEGATIVE)
[2021-01-24] MEDS ORDERED: ACETAMINOPHEN 1,000 MG/100 ML VIAL IV PRN (15:05)
[2021-01-24] MEDS: oxyCODONE HCL IR 5 MG TAB (IMMEDIATE RELEASE) PO PRN ×2 (17:22→21:31)
[2021-01-24] MEDS: POLYETHYLENE (MIRALAX) 17 GM PACK PO SCH (20:20)
[2021-01-25] MEDS: oxyCODONE HCL IR 5 MG TAB (IMMEDIATE RELEASE) PO PRN ×3 (03:43→13:01)
[2021-01-25] MEDS: ENOXAPARIN INJ 40 MG/0.4 ML SYR SQ SCH (05:54)
[2021-01-25] MEDS: DOXYCYCLINE HYCLATE 100 MG in DEXTROSE 5% 100 ML IV SCH ×2 (05:55→18:00)
[2021-01-25 08:17] LABS: Hematocrit (blood only) 34.3 % (37-47); Hemoglobin 11.5 g/dL (12.0-16.0); Mean Corpuscular Hemoglobin 31.4 pg (25-34); Mean Corpuscular Hgb Conc 33.5 g/dL (32-36); Mean Corpuscular Volume 93.7 fL (80-100); Mean Platelet Volume 12.1 fL (7.4-10.4); Platelet Count 66 K/uL (130-400); RDW Coefficient of Variation 12.8 % (11.5-14.5); RDW Standard Deviation 44.1 fL (36.4-46.3); Red Blood Count 3.66 M/uL (4.2-5.4); White Blood Count 2.73 K/uL (4.8-10.8)
[2021-01-25 08:34] LABS: Albumin Level 2.7 gm/dl (3.4-5.0); BUN Creatinine Ratio 15.3 (10-20); Creatinine Clr Calc Pharmacy 116.5 ml/min; Est GFR (African American) 108.1 ml/min; Est GFR (Non-African American) 93.3 ml/min; Potassium 3.5 mmol/L (3.5-5.1)
[2021-01-25 08:36] LABS: Albumin Globulin Ratio 0.8 (0.9-2); Bilirubin,Total 0.9 mg/dl (0.2-1); Globulin 3.5 gm/dl (2.5-4.0); T4 Free Thyroxine 1.31 ng/dl (0.8-1.6); Total Protein 6.2 gm/dl (6.4-8.2)
[2021-01-25] MEDS: DICLOFENAC SOD 1% GEL 100 GM TUBE EXT SCH ×4 (08:39→19:46)
[2021-01-25] MEDS: DOCUSATE SODIUM/SENNA 50/8.6MG TAB PO SCH (08:47)
[2021-01-25] MEDS: FLUoxetine HCL 10 MG CAP PO SCH (08:48)
[2021-01-25 08:50] LABS: Basophils # (auto) 0.01 K/uL (0-0.2); Basophils % (auto) 0.4 %; Eosinophils # (auto) 0.04 K/uL (0-0.5); Eosinophils % (auto) 1.5 %; Immature Granulocytes # (auto) 0.01 K/uL (0.00-0.02); Immature Granulocytes % (auto) 0.4 %; Lymphocytes # (auto) 0.95 K/uL (1.2-3.4); Lymphocytes % (auto) 34.8 %; Monocytes % (auto) 14.7 %; Neutrophils # (auto) 1.32 K/uL (1.4-6.5); Neutrophils % (auto) 48.2 %
[2021-01-25] MEDS: NITROFURANTOIN MONOHYDRATE 100 MG CAP PO SCH ×2 (08:57→19:47)
[2021-01-25] MEDS: POLYETHYLENE (MIRALAX) 17 GM PACK PO SCH ×2 (08:59→19:47)
[2021-01-25] MEDS: SOLIFENACIN SUCCINATE 5 MG PO SCH (09:00)
[2021-01-25] MEDS: VENLAFAXINE HCL XR 37.5 MG CAPXR PO SCH (09:01)
[2021-01-25] MEDS: INSULIN GLARGINE SOLOSTAR 100 UNITS/ML 3 ML PEN SC SCH (09:24)
[2021-01-25] MEDS: LIRAGLUTIDE PEN SQ SCH (09:30)
[2021-01-25] MEDS: INSULIN ASPART 100 UNITS/ML 3 ML PEN SC SCH ×4 (09:35→21:26)
[2021-01-25] MEDS ORDERED: ALBUTEROL 0.083% NEBU SOLN 3 ML VIAL NEB PRN (09:40)
--- NOTE | 2021-01-25 09:43 | Hospitalist Progress Note ---
Date of Service January 25, 2021 Assessment & Plan (1) Right wrist fracture: Plan: fell last evening -- tripped over IV poll Xray with impacted and comminuted fracture of the distal radial metaphysis with intra-articular extension. dorsal displacement of the distal fragment by one shaft length with mild overriding of fragments with apex volar angulation. numerous tiny dorsally displaced bony fragments. also a displaced avulsion fracture of the ulnar styloid. Overlying soft tissue edema is noted. The radiocarpal articulation appears maintained. Degenerative change is seen throughout the wrist. Ortho consulted Lidocaine injection and reduction by ortho morning 01/23 with casting -- repeat x-ray with reported good alignment --> TO have f/u outpt with [facility] for likely ORIF Improvement of numbness/tingling with loosening of dressing distal to cast, less edema today-- CONTINUES TO IMPROVE PT/OT consulted, CM aware of possible need for rehab at d/c --> PT ok'd to go home, OT home w family support or therapy. CM to send ref but likely to be denied --> Patient lives at home alone w animals alone, right hand dominant and does not feel safe going home at this time --> Additional referrals to [facility], [facility], [address] [facility], etc -- cont to monitor Vit D level checked --> low at 8.1 --> started ergocalciferol and would continue weekly at d/c PTH appropriately elevated (Ca wnl but low normal w her albumin, low phos) Check Vit D level outpatient in follow up continue to monitor (2) UTI (urinary tract infection), bacterial: Plan: 70-year-old female presenting with acute onset nausea/vomiting/myalgias and fever. Patient complaining of significant weakness and inability to walk. While in the ER, she was able to ambulate from the bathroom to the bed although appeared to be somewhat unsteady on her feet.-- continues to be impulsive Renal US with small R renal calculi, non-visualization of 2cm lesion midpole R kidney stone shown on prior CT, remains indeterminate (unable to get MRI due to stimulator and hoping to arrange f/u intake visit w Dr Saxena at d/c --> patient notes she spoke with Dr Saxena on 01/25 on phone who was unaware she was in the hospital but plans for follow up) On admission, did have a very small amount of dark urine output (on Bactrim for prophylaxis and reports occasional dark urine outpatient as well, however Tbili 4.1/ast 60)--> improvement of output and no need for further st cath. Continue LR for dehydration, but decrease rate to 75cc/hr --> eating/drinking and will discontinue Possibly due to UTI - UA appears infected as well as calcium oxalate -->URINE CX WITH KLEBSIELLA, RESISTANT TO BACTRIM --> Discussed w ID and would not have patient cont on proph abx, but treat current infxn On Ceftriaxone (3 doses) --> de-escalated to Nitrofurantoin 01/25 (on day 4 of therapy). To arrange f/u with Dr. Antoine at d/c to additionally help with prophylaxis (however discussion with Zakiya LANCASTER ad operations specialist with recs not to have patient cont on proph at this time) Dr Delcid sent fosfomycin at most recent office visit however was denied by insurance as other options available and had not failed previous treatment -- likely neutropenia drug related from ceftriaxone, no further fevers, no cough/sputum production Increased frequency and no further st cath needing. voiding decent amount at a time and will resume her Myrbetriq at pt request. Monitor for retention issues Tylenol prn, oxycodone for breakthrough pain (reported tolerating and decreased pain) --> small BM this AM. Additional mag citrate for mod retention Antiemetics prn Also on Doxy for equivocal Lyme -- hx of positives and bullseye rashes, but never tx. --> monitor confirmatory test however expect need for 14 day course (ortho would also like continued for small abrasion to volar aspect of wrist before casting) Placement of allen if requires additional st catheterization Continue to monitor (3) Myalgia: Plan: CK 158, wnl Tx as above (4) Overactive bladder: Plan: Patient with incontinence at baseline. She has a failed bladder stimulator in place. Currently follows with urology, Dr. Delcid -- consult if needed --> discussed with APPLICATION SPECIALIST and recs for f/u Dr Saxena at d/c On Myrbetriq -- continue to hold given retention issues --> voiding frequently and acceptable amounts and will resume but continue to monitor for retention issues (5) Fever: Plan: Patient denies cough, shortness of breath, dysuria, abdominal pain, diarrhea. She does have an equivocal Lyme test which she has had on several occasions prior. Patient [place] and has had many ticks on her as well as history of bull's-eye rash. She has never been treated for Lyme disease. Do not strongly suspect active infection, however, with complaints of weakness/myalgias, fever will start empiric treatment Await confirmatory Western blot test however treating for 14 days regardless given reported bullseye rashes and never having received treatment Doxycycline 100 mg twice daily (on day 4 tx) (6) Lyme disease: Plan: Uncertain of patient's preliminary lab results indicate active Lyme disease. He does present with complaints of weakness, myalgias, fever with known tick exposure and rash in the past. Her thrombocytopenia is chronic and was likely secondary to underlying cirrhosis Empiric doxycycline 100 mg p.o. twice daily (day 4) (7) Diabetes mellitus: Plan: Blood sugar elevated today at 201. Last hemoglobin A1c from June 2019 = 8.5 Hold oral agents Provide Lantus insulin sliding scale Goal blood sugar 100-1 40 Consistent carb diet as tolerated (8) Depression: Plan: Chronic. Stable. Continue venlafaxine 37.5 mg p.o. daily (9) COPD (chronic obstructive pulmonary disease): Plan: Chronic. Stable. Patient currently not on inhalers 89% on RA -- no shortness of breath reported however was on continous IV fluid and appears slightly volume overloaded on exam. Will administer lasix 20mg IV x 1 with PO potassium and continue to monitor. Readings in upper 89% typically being taken while patient sleeping --> overnight pulse ox without need for supplemental oxygen at this time. Rec PFT testing per PCP at follow up. Consider empirically starting inhaler for likely underlying COPD? (10) Diarrhea: Plan: chronic, felt 2nd to radiation however, given multiple abx for UTI, will check cdiff --> patient without BM since admission had been refusing senna-- discussed given pain medications and hernia/diastasis, should be on bowel regimen --> also scheduled miralax BID Given abdominal hernias (not warm, no guarding), if develops n/v/fever/white count would repeat CT (done 2 days prior to admission by general surgery who want her to f/u with Urology for removal of stimulator prior to undergoing surgery) HAS NOT HAD LARGE BM SINCE ADMISSION. DID HAVE 2 SMALL FORMED PIECES OF STOOL 01/25 AM. KUB W MOD-LARGE AMT STOOL WITHIN COLON AND RECTUM MAG CITRATE 01/25 -- CONTINUE TO MONITOR Plan: continued inpatient stay working on rehab at d/c however therapy evals with some recs for return home family support, however patient at home alone with her dog CM sent additional referrals -- awaiting determination Admission and Anticipated Discharge Date Admission Date: January 23, 2021 Subjective Patient evaluated this morning. Pain to the wrist but improving from days past. Improvement in appetitie. Controlled with ordered medications. Tried sling but hangs too low. Discussed tightening to bring it up and she notes then she gets neck pain from pulling of heavy cast and would not like to wear that at this time. BM this morning, small, but patient states "that's my normal". Has been "urinating like crazy every 2 hours" and discussed we held Myrbetriq due to retention issues but will restart. Oral abx now for UTI and discussed arranging outpt follow up with ID. Patient talked with Dr. Saxena this morning and states she was unaware she broke her wrist despite "us telling her about being in the hospital". I discussed we had CM reach out to have another intake eval before follow up but that was prior to her fall and not related to the issue Dr Saxena would be handling. She is disappointed to hear about not being able to go to rehab and notes she has [employer] and "why would they lie" about it being a good plan if no one takes it. [facility] "[facility] Asked patient what hospital she was at and she said "the one in [place] that changes it's name like underwear". She is aware of being in [place] [facility] but states it was called [facility] and then [facility] and then before that in it was in [place]. No fevers but some sweating. 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 No chest pain, shortness of breath, abdominal pain, nausea or vomiting at this time. Review of Systems Review of Systems: All systems reviewed & are unremarkable except as noted in HPI & below Physical Exam Physical Exam: General: patient resting comfortably, NAD, non-toxic in appearance, AA&O x 3 Skin: warm, clammy HEENT: NC/AT, PERRL, EOMI, anicteric sclera, conjunctiva without injection, external ear normal to inspection and nontender, nares patent, moist mucus membranes, dentition intact, no oropharyngeal lesions, neck supple, trachea midline, no LAD, no thyromegaly (although small fatty tissue noted R of sternum), no JVD Heart: +S1/S2, regular, no m/r/g Lungs: equal air entry bilaterally, diminished in the bases, crackles (improved with cough), no wheezing Abd: +BS but slightly hypoactive, distended, diastasis with multiple hernias noted, non-tender, not erythematous Ext: cast to RUE. improved sensation to 4th digit, now full sensation, improved sensation to pressure 5th digit as well as increased sensation to touch. radial pulses strong, good cap refill. 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 impulsive. speech intact, no facial droop, moving all extremities on command with equal strength 5/5 with exception reduced woven blind loom tender strength to R hand (resolved) Results & Data Results & Data ([facility]) Vital Signs (Past 12 Hours) Vital Signs Temp Pulse Pulse Pulse Resp BP BP 01/25/21 07:28 37.4 C 71 18 120/70 01/25/21 01:36 74 01/24/21 22:30 81 01/24/21 22:19 36.9 C 75 22 151/77 H Pulse Ox Pulse Ox 01/25/21 07:28 89 L 01/25/21 01:36 92 01/24/21 22:30 94 01/24/21 22:19 93 Laboratory Results 01/25/21 01/25/21 01/25/21 Range/Units 08:09 06:48 06:48 WBC 2.73 L (4.8-10.8) K/uL RBC 3.66 L (4.2-5.4) M/uL Hgb 11.5 L (12.0-16.0) g/dL Hct 34.3 L (37-47) % MCV 93.7 (80-100) fL MCH 31.4 (25-34) pg MCHC 33.5 (32-36) g/dL RDW Std Deviation 44.1 (36.4-46.3) fL RDW Coeff of Chana 12.8 (11.5-14.5) % Plt Count 66 L (130-400) K/uL MPV 12.1 H (7.4-10.4) fL Immature Gran % (Auto) 0.4 % Neut % (Auto) 48.2 % Lymph % (Auto) 34.8 % Dane % (Auto) 14.7 % Eos % (Auto) 1.5 % Baso % (Auto) 0.4 % Neut # (Auto) 1.32 L (1.4-6.5) K/uL Lymph # (Auto) 0.95 L (1.2-3.4) K/uL Dane # (Auto) 0.40 (0.11-0.59) K/uL Eos # (Auto) 0.04 (0-0.5) K/uL Baso # (Auto) 0.01 (0-0.2) K/uL Immature Gran # (Auto) 0.01 (0.00-0.02) K/uL Sodium 137 (136-145) mmol/L Potassium 3.5 (3.5-5.1) mmol/L Chloride 105 (98-107) mmol/L Carbon Dioxide 26 (21-32) mmol/L Anion Gap 7.0 (3-11) BUN 9 (7-18) mg/dl Creatinine 0.57 L (0.6-1.2) mg/dl Est Cr Clr Drug Dosing 116.5 ml/min Est GFR ( Amer) 108.1 ml/min Est GFR (Non-Af Amer) 93.3 ml/min BUN/Creatinine Ratio 15.3 (10-20) Glucose 81 (70-99) mg/dl POC Glucose 85 (70-99) mg/dl Calcium 9.0 (8.5-10.1) mg/dl Total Bilirubin 0.9 (0.2-1) mg/dl AST 39 H (15-37) U/L ALT 39 (12-78) U/L Alkaline Phosphatase 89 (45-117) U/L Troponin I (0-0.045) ng/ml Total Protein 6.2 L (6.4-8.2) gm/dl Albumin 2.7 L (3.4-5.0) gm/dl Globulin 3.5 (2.5-4.0) gm/dl Albumin/Globulin Ratio 0.8 L (0.9-2) Free T4 1.31 (0.8-1.6) ng/dl PTH Intact (18.4-80.1) pg/ml Lyme IgG (Western Blot) (NEGATIVE) Lyme IgG 18 kDa Band Lyme IgG 23 kDa Band Lyme IgG 28 kDa Band Lyme IgG 30 kDa Band Lyme IgG 39 kDa Band Lyme IgG 41 kDa Band Lyme IgG 45 kDa Band Lyme IgG 58 kDa Band Lyme IgG 66 kDa Band Lyme IgG 93 kDa Band Lyme IgM Ab (WB) (NEGATIVE) Lyme IgM 23 kDa Band Lyme IgM 39 kDa Band Lyme IgM 41 kDa Band 01/24/21 01/24/21 01/24/21 Range/Units 20:59 17:03 12:10 WBC (4.8-10.8) K/uL RBC (4.2-5.4) M/uL Hgb (12.0-16.0) g/dL Hct (37-47) % MCV (80-100) fL MCH (25-34) pg MCHC (32-36) g/dL RDW Std Deviation (36.4-46.3) fL RDW Coeff of Chana (11.5-14.5) % Plt Count (130-400) K/uL MPV (7.4-10.4) fL Immature Gran % (Auto) % Neut % (Auto) % Lymph % (Auto) % Dane % (Auto) % Eos % (Auto) % Baso % (Auto) % Neut # (Auto) (1.4-6.5) K/uL Lymph # (Auto) (1.2-3.4) K/uL Dane # (Auto) (0.11-0.59) K/uL Eos # (Auto) (0-0.5) K/uL Baso # (Auto) (0-0.2) K/uL Immature Gran # (Auto) (0.00-0.02) K/uL Sodium (136-145) mmol/L Potassium (3.5-5.1) mmol/L Chloride (98-107) mmol/L Carbon Dioxide (21-32) mmol/L Anion Gap (3-11) BUN (7-18) mg/dl Creatinine (0.6-1.2) mg/dl Est Cr Clr Drug Dosing ml/min Est GFR ( Amer) ml/min Est GFR (Non-Af Amer) ml/min BUN/Creatinine Ratio (10-20) Glucose (70-99) mg/dl POC Glucose 188 H 113 H 107 H (70-99) mg/dl Calcium (8.5-10.1) mg/dl Total Bilirubin (0.2-1) mg/dl AST (15-37) U/L ALT (12-78) U/L Alkaline Phosphatase (45-117) U/L Troponin I (0-0.045) ng/ml Total Protein (6.4-8.2) gm/dl Albumin (3.4-5.0) gm/dl Globulin (2.5-4.0) gm/dl Albumin/Globulin Ratio (0.9-2) Free T4 (0.8-1.6) ng/dl PTH Intact (18.4-80.1) pg/ml Lyme IgG (Western Blot) (NEGATIVE) Lyme IgG 18 kDa Band Lyme IgG 23 kDa Band Lyme IgG 28 kDa Band Lyme IgG 30 kDa Band Lyme IgG 39 kDa Band Lyme IgG 41 kDa Band Lyme IgG 45 kDa Band Lyme IgG 58 kDa Band Lyme IgG 66 kDa Band Lyme IgG 93 kDa Band Lyme IgM Ab (WB) (NEGATIVE) Lyme IgM 23 kDa Band Lyme IgM 39 kDa Band Lyme IgM 41 kDa Band 01/24/21 01/24/21 01/22/21 Range/Units 07:11 07:11 00:02 WBC (4.8-10.8) K/uL RBC (4.2-5.4) M/uL Hgb (12.0-16.0) g/dL Hct (37-47) % MCV (80-100) fL MCH (25-34) pg MCHC (32-36) g/dL RDW Std Deviation (36.4-46.3) fL RDW Coeff of Chana (11.5-14.5) % Plt Count (130-400) K/uL MPV (7.4-10.4) fL Immature Gran % (Auto) % Neut % (Auto) % Lymph % (Auto) % Dane % (Auto) % Eos % (Auto) % Baso % (Auto) % Neut # (Auto) (1.4-6.5) K/uL Lymph # (Auto) (1.2-3.4) K/uL Dane # (Auto) (0.11-0.59) K/uL Eos # (Auto) (0-0.5) K/uL Baso # (Auto) (0-0.2) K/uL Immature Gran # (Auto) (0.00-0.02) K/uL Sodium (136-145) mmol/L Potassium (3.5-5.1) mmol/L Chloride (98-107) mmol/L Carbon Dioxide (21-32) mmol/L Anion Gap (3-11) BUN (7-18) mg/dl Creatinine (0.6-1.2) mg/dl Est Cr Clr Drug Dosing ml/min Est GFR ( Amer) ml/min Est GFR (Non-Af Amer) ml/min BUN/Creatinine Ratio (10-20) Glucose (70-99) mg/dl POC Glucose (70-99) mg/dl Calcium (8.5-10.1) mg/dl Total Bilirubin (0.2-1) mg/dl AST (15-37) U/L ALT (12-78) U/L Alkaline Phosphatase (45-117) U/L Troponin I < 0.015 (0-0.045) ng/ml Total Protein (6.4-8.2) gm/dl Albumin (3.4-5.0) gm/dl Globulin (2.5-4.0) gm/dl Albumin/Globulin Ratio (0.9-2) Free T4 (0.8-1.6) ng/dl PTH Intact 100.7 H (18.4-80.1) pg/ml Lyme IgG (Western Blot) NEGATIVE (NEGATIVE) Lyme IgG 18 kDa Band NON-REACTIVE Lyme IgG 23 kDa Band NON-REACTIVE Lyme IgG 28 kDa Band REACTIVE A Lyme IgG 30 kDa Band NON-REACTIVE Lyme IgG 39 kDa Band NON-REACTIVE Lyme IgG 41 kDa Band REACTIVE A Lyme IgG 45 kDa Band NON-REACTIVE Lyme IgG 58 kDa Band REACTIVE A Lyme IgG 66 kDa Band NON-REACTIVE Lyme IgG 93 kDa Band NON-REACTIVE Lyme IgM Ab (WB) NEGATIVE (NEGATIVE) Lyme IgM 23 kDa Band REACTIVE A Lyme IgM 39 kDa Band NON-REACTIVE Lyme IgM 41 kDa Band NON-REACTIVE PG Care Time/CCT Total # of Minutes Spent Total Time Spent with Patient: Total time spent is greater than 50% in coordination of care (as documented) at patient's floor/unit and/or counseling patient: Coding Level of Care Code 05098 Subseq Hosp Care Lvl 3 Diagnoses Right wrist fracture S62.101A UTI (urinary tract infection), bacterial N39.0; A49.9 Myalgia M79.10 Overactive bladder N32.81 Fever R50.9 Lyme disease A69.20 Diabetes mellitus E13.69 Diabetes mellitus complication status: with other specified complication 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: 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 prison insulin use status Diabetes mellitus type: other specified (including TRINH) Depression F32.9 COPD (chronic obstructive pulmonary disease) J44.9 COPD type: unspecified COPD Diarrhea R19.7 (1) Diabetes mellitus Diabetes mellitus complication status: with other specified complication Diabetes mellitus prison insulin use: unspecified prison insulin use status Diabetes mellitus type: other specified (including TRINH) Qualified Code(s): E13.69 - Other specified diabetes mellitus with other specified complication (2) COPD (chronic obstructive pulmonary disease) COPD type: unspecified COPD Qualified Code(s): J44.9 - Chronic obstructive pulmonary disease, unspecified
--- NOTE | 2021-01-25 10:23 | Pharmacy Report ---
Pharmacy Glycemic Short Note 2 - Date of Service January 25, 2021 - Glycemic Short BSG Results (Last 24 hours): 01/24/21 01/24/21 01/24/21 12:10 17:03 20:59 Glucose POC Glucose 107 H 113 H 188 H 01/25/21 01/25/21 06:48 08:09 Glucose 81 POC Glucose 85 OUTPATIENT ANTIDIABETIC REGIMEN: * Tresiba 100 units SC AM * Victoza 1.8 mg SC AM * Amaryl 1 mg PO AM * HbA1c = 7.0% (01/23/21) ASSESSMENT: 01/25: * Patient received a total of 76 units of insulin yesterday * 50 units basal + 26 units bolus * BSGs were controlled: 63-167-843-188 mg/dL * Fasting BSG continues to trend downward and was 85 mg/dL this AM * Will again reduce Lantus by 20% today to prevent hypoglycemia tomorrow morning * Noticeable trend of BSGs increasing after meals yesterday * Will tighten carb ratio slightly today 01/23: * Jing received a total of 79 units of insulin yesterday * 70 units basal + 9 units bolus + 1.8 mg Victoza * BSGs were well controlled: 253-227-69-137-101 mg/dL * Fasting BSG was 143 mg/dL this AM - acceptable * Patient had unwitnessed fall last evening resulting in a right wrist facture that may require surgical fixation so she is NPO as of this morning. * Will empirically decrease basal dose this AM to account for NPO status. PLAN FOR INPATIENT GLYCEMIC CONTROL: * Hold outpatient oral diabetes medications * Basal insulin - decreased * Lantus 40 units SC AM * Bolus insulin - tightened CR * NovoLog per scale ACHS or Q6hrs while NPO * Goal Range: Low 110 mg/dL - High 140 mg/dL * Correction Factor: 20 mg/dL/unit * Nutritional / Prandial insulin per carb ratio of 1 unit per 6 grams CHO consumed PLAN FOR DISCHARGE: * HbA1c is at goal for this patient. Continue with current anti-diabetic regimen upon discharge as long as patient is not experiencing any hypoglycemia.
[2021-01-25] MEDS: THIAMINE HCL 100 MG in SYRINGE 9 ML IV SCH (10:42)
--- NOTE | 2021-01-25 12:48 | XRay Report ---
CESAR CLINICAL HISTORY: Constipation COMPARISON STUDY: CT of the abdomen and pelvis December 21, 2020. FINDINGS: Sacral stimulator is incidentally noted. There is no evidence for a bowel obstruction. Ther e is a moderate amount of well-formed stool within the left colon and the rectum. There is a large am ount of stool within the ascending colon and transverse colon. IMPRESSION: 1. No evidence for a bowel obstruction. 2. Moderate to large amount of stool within the colon and rectum, as described above. ACT 112: Negative or not required by law. Electronically signed by: Spenser Daniels M.D. 01/25/2021 12:47 PM
[2021-01-25] MEDS ORDERED: MAGNESIUM CITRATE 296 ML/BTL PO STA (13:36)
[2021-01-25] MEDS ORDERED: POTASSIUM CHLORIDE CRTAB 20 MEQ TABCR PO STA (15:57)
[2021-01-25] MEDS ORDERED: FUROSEMIDE 20 MG in SYRINGE 0 ML IV ONE (16:15)
[2021-01-26] MEDS: DOXYCYCLINE HYCLATE 100 MG in DEXTROSE 5% 100 ML IV SCH ×2 (05:42→18:31)
[2021-01-26] MEDS: ENOXAPARIN INJ 40 MG/0.4 ML SYR SQ SCH (05:42)
[2021-01-26 06:56] LABS: Hematocrit (blood only) 34.7 % (37-47); Hemoglobin 11.7 g/dL (12.0-16.0); Mean Corpuscular Hgb Conc 33.7 g/dL (32-36); Mean Corpuscular Volume 94.8 fL (80-100); RDW Coefficient of Variation 12.7 % (11.5-14.5); Red Blood Count 3.66 M/uL (4.2-5.4); White Blood Count 2.67 K/uL (4.8-10.8)
[2021-01-26 06:57] LABS: Mean Platelet Volume 11.5 fL (7.4-10.4); Platelet Count 75 K/uL (130-400)
--- NOTE | 2021-01-26 07:04 | Electrocardiogram Report ---
Test Reason : Blood Pressure : / mmHG Vent. Rate : 065 BPM Atrial Rate : 065 BPM P-R Int : 150 ms QRS Dur : 092 ms QT Int : 416 ms P-R-T Axes : 054 004 028 degrees QTc Int : 432 ms Normal sinus rhythm Normal ECG When compared with ECG of 27-DEC-2018 20:11, Vent. rate has decreased BY 32 BPM Confirmed by Lj Vanessa ([id number]) on 01/26/2021 7:03:56 AM Referred By: REFERRED SELF Confirmed By:Lj Vansesa
[2021-01-26 07:22] LABS: Albumin Globulin Ratio 0.8 (0.9-2); Albumin Level 2.7 gm/dl (3.4-5.0); BUN Creatinine Ratio 16.9 (10-20); Calcium 8.9 mg/dl (8.5-10.1); Creatinine Clr Calc Pharmacy 112.6 ml/min; Est GFR (African American) 106.9 ml/min; Est GFR (Non-African American) 92.2 ml/min; Globulin 3.5 gm/dl (2.5-4.0); Potassium 4.2 mmol/L (3.5-5.1); Total Protein 6.2 gm/dl (6.4-8.2)
[2021-01-26 07:25] LABS: Basophils # (auto) 0.01 K/uL (0-0.2); Basophils % (auto) 0.4 %; Eosinophils # (auto) 0.07 K/uL (0-0.5); Eosinophils % (auto) 2.6 %; Lymphocytes # (auto) 0.85 K/uL (1.2-3.4); Lymphocytes % (auto) 31.8 %; Monocytes # (auto) 0.32 K/uL (0.11-0.59); Neutrophils # (auto) 1.42 K/uL (1.4-6.5); Neutrophils % (auto) 53.2 %
[2021-01-26] MEDS: oxyCODONE HCL IR 5 MG TAB (IMMEDIATE RELEASE) PO PRN (08:07)
[2021-01-26] MEDS: DOCUSATE SODIUM/SENNA 50/8.6MG TAB PO SCH (08:44)
[2021-01-26] MEDS: POLYETHYLENE (MIRALAX) 17 GM PACK PO SCH ×2 (08:48→20:46)
[2021-01-26] MEDS: NITROFURANTOIN MONOHYDRATE 100 MG CAP PO SCH ×2 (09:03→20:46)
[2021-01-26] MEDS: THIAMINE HCL 100 MG in SYRINGE 9 ML IV SCH (09:03)
[2021-01-26] MEDS: FLUoxetine HCL 10 MG CAP PO SCH (09:03)
[2021-01-26] MEDS: VENLAFAXINE HCL XR 37.5 MG CAPXR PO SCH (09:03)
[2021-01-26] MEDS: SOLIFENACIN SUCCINATE 5 MG PO SCH (09:03)
[2021-01-26] MEDS: INSULIN GLARGINE SOLOSTAR 100 UNITS/ML 3 ML PEN SC SCH (09:04)
[2021-01-26] MEDS: INSULIN ASPART 100 UNITS/ML 3 ML PEN SC SCH ×4 (09:05→20:49)
[2021-01-26] MEDS: LIRAGLUTIDE PEN SQ SCH (09:09)
[2021-01-26] MEDS: DICLOFENAC SOD 1% GEL 100 GM TUBE EXT SCH ×4 (09:11→20:46)
--- NOTE | 2021-01-26 09:24 | Hospitalist Progress Note ---
Date of Service January 26, 2021 Assessment & Plan (1) UTI (urinary tract infection), bacterial: Plan: 70-year-old female presenting with acute onset nausea/vomiting/myalgias and fever. Patient complaining of significant weakness and inability to walk. While in the ER, she was able to ambulate from the bathroom to the bed although appeared to be somewhat unsteady on her feet.-- continues to be impulsive Renal US with small R renal calculi, non-visualization of 2cm lesion midpole R kidney stone shown on prior CT, remains indeterminate (unable to get MRI due to stimulator and hoping to arrange f/u intake visit w Dr Saxena at d/c --> patient notes she spoke with Dr Saxena on 01/25 on phone who was unaware she was in the hospital but plans for follow up) On admission, did have a very small amount of dark urine output (on Bactrim for prophylaxis and reports occasional dark urine outpatient as well, however Tbili 4.1/ast 60)--> improvement of output and no need for further st cath. Continue LR for dehydration, but decrease rate to 75cc/hr --> eating/drinking and will discontinue Possibly due to UTI - UA appears infected as well as calcium oxalate -->URINE CX WITH KLEBSIELLA, RESISTANT TO BACTRIM --> Discussed w ID and would not have patient cont on proph abx, but treat current infxn Ceftriaxone (3 doses) --> de-escalated to Nitrofurantoin 01/25 (on day 5 of therapy) To arrange f/u with Dr. Antoine at d/c to additionally help with prophylaxis (however discussion with Zakiya LANCASTER integration lead with recs not to have patient cont on proph at this time) Dr Delcid sent fosfomycin at most recent office visit however was denied by insurance as other options available and had not failed previous treatment -- likely neutropenia drug related from ceftriaxone, no further fevers, no cough/sputum production Increased frequency and no further st cath needing. voiding decent amount at a time WITHOUT PVR 01/24-01/25 and requested we resume her Myrbetriq per pt request --> HELD AGAIN 01/26 DUE TO PVR AND RETENTION. DISCUSSED WOULD EITHER CUT IN HALF OR DISCONTINUE COMPLETELY THIS IS CAUSING RETENTION ISSUES. SHE NEEDS FOLLOW UP WITH DR. SAXENA (INTAKE CALL PLACED AND SHE WILL NEED F/U BUT ARRANGEMENTS CLOSER TO DISCHARGE) Placement of allen if requires additional st catheterization, CONSULT UROLOGY IF OCCURS WHILE INPATIENT HOPEFULLY LESS RETENTION NOW THAT SHE HAS HAD MULTIPLE BOWEL MOVEMENTS Continue to monitor (2) Right wrist fracture: Plan: fell last while walking to bathroom, tripped over IV poll Xray with impacted and comminuted fracture of the distal radial metaphysis with intra-articular extension. dorsal displacement of the distal fragment by one shaft length with mild overriding of fragments with apex volar angulation. numerous tiny dorsally displaced bony fragments. also a displaced avulsion fracture of the ulnar styloid. Overlying soft tissue edema is noted. The radiocarpal articulation appears maintained. Degenerative change is seen throughout the wrist. Ortho consulted Lidocaine injection and reduction by ortho morning 01/23 with casting -- repeat x-ray with reported good alignment --> TO have f/u outpt with [facility] for likely ORIF next 1-2 wks Improvement of numbness/tingling with loosening of dressing distal to cast, less edema today-- CONTINUES TO IMPROVE Vit D low 8.1 (started ergocalciferol, continue weekly at d/c), PTH appropriately elevated. PT/OT consulted, CM aware of possible need for rehab at d/c --> PT ok'd to go home, OT home w family support or therapy. CM to send ref but likely to be denied --> Patient lives at home alone w animals alone, right hand dominant and does not feel safe going home at this time --> Additional referrals to [facility], [facility], [facility], etc -- cont to monitor TYLENOL, OXYCODONE PRN PAIN (ON ALLERGY LIST BUT HAS BEEN TOLERATING) fall precautions, bed alarm in place (3) Myalgia: Plan: CK 158, wnl Tx as above DOXYCYCLINE FOR EQUIVOCAL LYME -- HX MULTIPLE BULLSEYE RASHES WITHOUT EVER HAVING RECEIVED TREATMENT --> COMPLETED 14 DAY COURSE (4) Overactive bladder: Plan: Patient with incontinence at baseline. She has a failed bladder stimulator in place. Currently follows with urology, Dr. Delcid -- consult if needed --> discussed with BOTTLE GAUGER and recs for f/u Dr Saxena at d/c Myrbetriq held for retention, improved --> resumed 01/25 at patient request as she had been up multiple times voiding acceptable amounts however now with retention issues and will continue to hold -- see above (5) Fever: Plan: 2nd lyme/uti as above treatment as such no further temps since 37.6C on 01/23 however suspect that was from some atelectasis. improvement with incentive spirometer and currently 97% on RA (6) Lyme disease: Plan: Uncertain of patient's preliminary lab results indicate active Lyme disease. He does present with complaints of weakness, myalgias, fever with known tick exposure and rash in the past. Her thrombocytopenia is chronic and was likely secondary to underlying cirrhosis doxycycline 100 mg p.o. twice daily (day 5) Switch to PO BID tomorrow to complete 14 day course --> continue through 02/05 (7) Diabetes mellitus: Plan: Blood sugar elevated today at 201. Last hemoglobin A1c from June 2019 = 8.5 Hold oral agents Provide Lantus insulin sliding scale Goal blood sugar 100-1 40 Consistent carb diet as tolerated (8) Depression: Plan: Chronic. Stable. Continue venlafaxine 37.5 mg p.o. daily (9) COPD (chronic obstructive pulmonary disease): Plan: Chronic. Stable. Patient currently not on inhalers lasix last evening as had been on continuous fluids, incentive spirometer 97% on RA currently Rec PFT testing per PCP at follow up. (10) Diarrhea: Plan: STATED HOWEVER NO BM SINCE ADMIT BUT DID HAVE SMALL ON 01/25. KUB W MOD-LARGE AMT STOOL WITHIN COLON AND RECTUM mag citrate with large BM Ammonia checked as above --> elevated and lactulose x 1 will monitor in am but did discuss with patient and may need to monitor Plan: continued inpatient stay working on rehab at d/c however therapy evals with some recs for return home family support, however patient at home alone with her dog CM sent additional referrals -- awaiting determination Admission and Anticipated Discharge Date Admission Date: January 23, 2021 Subjective patient evaluated this morning large bm last evening and additional bm after lactulose this morning discussed elevated lactulose given underlying liver disease/steatosis and could be contributing to some of her forgetfulness, as well as tremors to hands at times. discussed this would help to draw ammonia out and result in BM, given her significant constipation pain controlled to wrist at times...comes and goes per patient some bloating reported after eating but appetite good -- she admits to eating one large meal at home and "overdoing it". discussed smaller more frequent/spaced out meals would be better to prevent abdominal issues no fever, chills. no reported chest pain or shortness of breath. fairly agitated that she is needing to be "monitored" when up and walking like she is "a child" discussed given prior fall/fracture, would be better to ensure safety and prevent further issues -- she notes "ringing the gayle takes too long" and "if you want to get them hear fast just put your foot on the ground and they will all come running" unfortunately, ms cohn frustrated with waiting for abd surgery w dr osorio as she needs to have urology follow up first, but would also like to have her left should operated on in the future due to arthritis as well. recommended addressing more critical things first in a structured order based on symptoms/management would like me to update sister -- discussed I did call and spoke with brother in law last night who said she owuld be out until 9pm and only available until 8am and that she should have her call in whenever is more convenient for me to update. otherwise will attempt to update tomorrow as she remains inpatient while awaiting rehab determination. Review of Systems Review of Systems: All systems reviewed & are unremarkable except as noted in HPI & below Physical Exam Physical Exam: General: patient resting comfortably, NAD, non-toxic in appearance, AA&O x 3 Skin: warm, dry HEENT: NC/AT, PERRL, EOMI, anicteric sclera, conjunctiva without injection, external ear normal to inspection and nontender, nares patent, moist mucus membranes, dentition intact, no oropharyngeal lesions, neck supple, trachea midline, no LAD, no thyromegaly (although small fatty tissue noted R of sternum), no JVD Heart: +S1/S2, regular, no m/r/g Lungs: equal air entry bilaterally, diminished in the bases (improved), no wheezing Abd: +BS, less distended, diastasis with multiple hernias noted, non-tender, not erythematous, not warm Ext: cast to RUE. sensation intact to all fingers, now including sensation to light touch. radial pulse strong with good cap refill. 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 :no CVA tenderness Neuro: nonfocal, patient AA&O x 3 but continues to be loud, impulsive at times speech intact, no facial droop, moving all extremities on command with equal strength 5/5 with exception flexion of fingers to fist due to cast Results & Data Results & Data ([facility]) Vital Signs (Past 12 Hours) Vital Signs Temp Pulse Pulse Resp BP Pulse Ox Pulse Ox 01/26/21 07:00 36.8 C 61 20 105/61 95 01/26/21 02:23 67 93 01/25/21 22:30 74 93 Laboratory Results 01/26/21 01/26/21 01/26/21 Range/Units 08:18 06:24 06:24 WBC 2.67 L (4.8-10.8) K/uL RBC 3.66 L (4.2-5.4) M/uL Hgb 11.7 L (12.0-16.0) g/dL Hct 34.7 L (37-47) % MCV 94.8 (80-100) fL MCH 32.0 (25-34) pg MCHC 33.7 (32-36) g/dL RDW Std Deviation 44.0 (36.4-46.3) fL RDW Coeff of Chana 12.7 (11.5-14.5) % Plt Count 75 L (130-400) K/uL MPV 11.5 H (7.4-10.4) fL Immature Gran % (Auto) 0.0 % Neut % (Auto) 53.2 % Lymph % (Auto) 31.8 % [place] % (Auto) 12.0 % Eos % (Auto) 2.6 % Baso % (Auto) 0.4 % Neut # (Auto) 1.42 (1.4-6.5) K/uL Lymph # (Auto) 0.85 L (1.2-3.4) K/uL [place] # (Auto) 0.32 (0.11-0.59) K/uL Eos # (Auto) 0.07 (0-0.5) K/uL Baso # (Auto) 0.01 (0-0.2) K/uL Immature Gran # (Auto) 0.00 (0.00-0.02) K/uL Sodium (136-145) mmol/L Potassium (3.5-5.1) mmol/L Chloride (98-107) mmol/L Carbon Dioxide (21-32) mmol/L Anion Gap (3-11) BUN (7-18) mg/dl Creatinine (0.6-1.2) mg/dl Est Cr Clr Drug Dosing ml/min Est GFR ( Amer) ml/min Est GFR (Non-Af Amer) ml/min BUN/Creatinine Ratio (10-20) Glucose (70-99) mg/dl POC Glucose 115 H (70-99) mg/dl Calcium (8.5-10.1) mg/dl Total Bilirubin (0.2-1) mg/dl AST (15-37) U/L ALT (12-78) U/L Alkaline Phosphatase (45-117) U/L Ammonia 59.3 H (11-32) umol/L Total Protein (6.4-8.2) gm/dl Albumin (3.4-5.0) gm/dl Globulin (2.5-4.0) gm/dl Albumin/Globulin Ratio (0.9-2) A. phagocytophilum DNA (Negative) 01/26/21 01/25/21 01/25/21 Range/Units 06:18 21:01 17:17 WBC (4.8-10.8) K/uL RBC (4.2-5.4) M/uL Hgb (12.0-16.0) g/dL Hct (37-47) % MCV (80-100) fL MCH (25-34) pg MCHC (32-36) g/dL RDW Std Deviation (36.4-46.3) fL RDW Coeff of Chana (11.5-14.5) % Plt Count (130-400) K/uL MPV (7.4-10.4) fL Immature Gran % (Auto) % Neut % (Auto) % Lymph % (Auto) % [place] % (Auto) % Eos % (Auto) % Baso % (Auto) % Neut # (Auto) (1.4-6.5) K/uL Lymph # (Auto) (1.2-3.4) K/uL [place] # (Auto) (0.11-0.59) K/uL Eos # (Auto) (0-0.5) K/uL Baso # (Auto) (0-0.2) K/uL Immature Gran # (Auto) (0.00-0.02) K/uL Sodium 139 (136-145) mmol/L Potassium 4.2 D (3.5-5.1) mmol/L Chloride 107 (98-107) mmol/L Carbon Dioxide 28 (21-32) mmol/L Anion Gap 4.0 (3-11) BUN 10 (7-18) mg/dl Creatinine 0.59 L (0.6-1.2) mg/dl Est Cr Clr Drug Dosing 112.6 ml/min Est GFR ( Amer) 106.9 ml/min Est GFR (Non-Af Amer) 92.2 ml/min BUN/Creatinine Ratio 16.9 (10-20) Glucose 94 (70-99) mg/dl POC Glucose 162 H 109 H (70-99) mg/dl Calcium 8.9 (8.5-10.1) mg/dl Total Bilirubin 1.0 (0.2-1) mg/dl AST 47 H (15-37) U/L ALT 43 (12-78) U/L Alkaline Phosphatase 102 (45-117) U/L Ammonia (11-32) umol/L Total Protein 6.2 L (6.4-8.2) gm/dl Albumin 2.7 L (3.4-5.0) gm/dl Globulin 3.5 (2.5-4.0) gm/dl Albumin/Globulin Ratio 0.8 L (0.9-2) A. phagocytophilum DNA (Negative) 01/25/21 01/22/21 Range/Units 12:12 00:02 WBC (4.8-10.8) K/uL RBC (4.2-5.4) M/uL Hgb (12.0-16.0) g/dL Hct (37-47) % MCV (80-100) fL MCH (25-34) pg MCHC (32-36) g/dL RDW Std Deviation (36.4-46.3) fL RDW Coeff of Chana (11.5-14.5) % Plt Count (130-400) K/uL MPV (7.4-10.4) fL Immature Gran % (Auto) % Neut % (Auto) % Lymph % (Auto) % [place] % (Auto) % Eos % (Auto) % Baso % (Auto) % Neut # (Auto) (1.4-6.5) K/uL Lymph # (Auto) (1.2-3.4) K/uL [place] # (Auto) (0.11-0.59) K/uL Eos # (Auto) (0-0.5) K/uL Baso # (Auto) (0-0.2) K/uL Immature Gran # (Auto) (0.00-0.02) K/uL Sodium (136-145) mmol/L Potassium (3.5-5.1) mmol/L Chloride (98-107) mmol/L Carbon Dioxide (21-32) mmol/L Anion Gap (3-11) BUN (7-18) mg/dl Creatinine (0.6-1.2) mg/dl Est Cr Clr Drug Dosing ml/min Est GFR ( Amer) ml/min Est GFR (Non-Af Amer) ml/min BUN/Creatinine Ratio (10-20) Glucose (70-99) mg/dl POC Glucose 103 H (70-99) mg/dl Calcium (8.5-10.1) mg/dl Total Bilirubin (0.2-1) mg/dl AST (15-37) U/L ALT (12-78) U/L Alkaline Phosphatase (45-117) U/L Ammonia (11-32) umol/L Total Protein (6.4-8.2) gm/dl Albumin (3.4-5.0) gm/dl Globulin (2.5-4.0) gm/dl Albumin/Globulin Ratio (0.9-2) A. phagocytophilum DNA Negative (Negative) PG Care Time/CCT Total # of Minutes Spent Total Time Spent with Patient: Total time spent is greater than 50% in coordination of care (as documented) at patient's floor/unit and/or counseling patient: Coding Level of Care Code 70702 Subseq Hosp Care Lvl 3 Diagnoses Right wrist fracture S62.101A UTI (urinary tract infection), bacterial N39.0; A49.9 Myalgia M79.10 Overactive bladder N32.81 Fever R50.9 Lyme disease A69.20 Diabetes mellitus E13.69 Diabetes mellitus complication status: with other specified complication Diabetes mellitus door serviceman insulin use: unspecified care home insulin use status Diabetes mellitus type: other specified (including TRINH) Depression F32.9 COPD (chronic obstructive pulmonary disease) J44.9 COPD type: unspecified COPD Diarrhea R19.7 (1) Diabetes mellitus Diabetes mellitus complication status: with other specified complication Di abetes mellitus door serviceman insulin use: unspecified door serviceman insulin use status Diabetes mellitus type: other specified (including TRINH) Qualified Code(s): E13.69 - Other specified diabetes mellitus with other specified complication (2) COPD (chronic obstructive pulmonary disease) COPD type: unspecified COPD Qualified Code(s): J44.9 - Chronic obstructive pulmonary disease, unspecified
[2021-01-26] MEDS ORDERED: LACTULOSE SYRUP 20 GM/30 ML UDC PO SCH (09:30)
[2021-01-26] MEDS: MIRABEGRON ER 25 MG TAB PO SCH (11:53)
[2021-01-26] MEDS: PANTOprazole 40 MG TAB PO SCH (20:45)
[2021-01-27] MEDS: ENOXAPARIN INJ 40 MG/0.4 ML SYR SQ SCH (06:07)
[2021-01-27] MEDS: DOXYCYCLINE HYCLATE 100 MG CAP PO SCH ×2 (07:43→20:42)
[2021-01-27] MEDS: oxyCODONE HCL IR 5 MG TAB (IMMEDIATE RELEASE) PO PRN ×2 (07:44→12:51)
[2021-01-27 07:52] LABS: Hematocrit (blood only) 37.5 % (37-47); Hemoglobin 12.5 g/dL (12.0-16.0); Mean Corpuscular Hemoglobin 31.8 pg (25-34); Mean Corpuscular Hgb Conc 33.3 g/dL (32-36); Mean Corpuscular Volume 95.4 fL (80-100); RDW Coefficient of Variation 12.7 % (11.5-14.5); RDW Standard Deviation 44.4 fL (36.4-46.3); Red Blood Count 3.93 M/uL (4.2-5.4); White Blood Count 3.46 K/uL (4.8-10.8)
[2021-01-27 08:10] LABS: Mean Platelet Volume 11.4 fL (7.4-10.4); Platelet Count 90 K/uL (130-400)
[2021-01-27 08:20] LABS: BUN Creatinine Ratio 19.5 (10-20); Calcium 8.9 mg/dl (8.5-10.1); Creatinine Clr Calc Pharmacy 112.6 ml/min; Est GFR (African American) 106.9 ml/min; Est GFR (Non-African American) 92.2 ml/min; Potassium 4.1 mmol/L (3.5-5.1)
--- NOTE | 2021-01-27 08:41 | Hospitalist Progress Note ---
Date of Service January 27, 2021 Assessment & Plan (1) UTI (urinary tract infection), bacterial: Plan: 70-year-old female presenting with acute onset nausea/vomiting/myalgias and fever. Patient complaining of significant weakness and inability to walk. While in the ER, she was able to ambulate from the bathroom to the bed although appeared to be somewhat unsteady on her feet.-- continues to be impulsive Renal US with small R renal calculi, non-visualization of 2cm lesion midpole R kidney stone shown on prior CT, remains indeterminate (unable to get MRI due to stimulator and hoping to arrange f/u intake visit w Dr Saxena at d/c --> patient notes she spoke with Dr Saxena on 01/25 on phone who was unaware she was in the hospital but plans for follow up) -->URINE CX WITH KLEBSIELLA, RESISTANT TO BACTRIM --> Discussed w ID and would not have patient cont on proph abx, but treat current infxn Ceftriaxone --> de-escalated to Nitrofurantoin 01/25 (on day 6 of therapy) To arrange f/u with Dr. Antoine at d/c to additionally help with prophylaxis (however discussion with Zakiya LANCASTER crap game box person with recs not to have patient cont on proph at this time) Dr Delcid sent fosfomycin at most recent office visit however was denied by insurance as other options available and had not failed previous treatment -- likely neutropenia drug related from ceftriaxone, no further fevers, no cough/sputum production. improving with switch from IV abx Increased frequency and no further st cath needing. voiding decent amount at a time WITHOUT PVR 01/24-01/25 and requested we resume her Myrbetriq per pt request --> HELD AGAIN 01/26 DUE TO PVR AND RETENTION. DISCUSSED WOULD EITHER CUT IN HALF OR DISCONTINUE COMPLETELY THIS IS CAUSING RETENTION ISSUES. SHE NEEDS FOLLOW UP WITH DR. SAXENA (INTAKE CALL PLACED AND SHE WILL NEED F/U BUT ARRANGEMENTS CLOSER TO DISCHARGE) will continue to hold Placement of [facility] if requires additional st catheterization, CONSULT UROLOGY IF OCCURS WHILE INPATIENT. Continue to monitor (2) Right wrist fracture: Plan: fell last while walking to bathroom, tripped over IV poll Xray with impacted and comminuted fracture of the distal radial metaphysis with intra-articular extension. dorsal displacement of the distal fragment by one shaft length with mild overriding of fragments with apex volar angulation. numerous tiny dorsally displaced bony fragments. also a displaced avulsion fracture of the ulnar styloid. Overlying soft tissue edema is noted. The radiocarpal articulation appears maintained. Degenerative change is seen throughout the wrist. Ortho consulted Lidocaine injection and reduction by ortho morning 01/23 with casting -- repeat x-ray with reported good alignment --> TO have f/u outpt with [facility] for likely ORIF next week Improvement of numbness/tingling with loosening of dressing distal to cast, less edema today-- CONTINUES TO IMPROVE Vit D low 8.1 (started ergocalciferol, continue weekly at d/c), PTH appropriately elevated. PT/OT consulted, CM aware of possible need for rehab at d/c --> PT ok'd to go home, OT home w family support or therapy. CM to send ref but likely to be denied --> Patient lives at home alone w animals alone, right hand dominant and does not feel safe going home at this time --> Additional referrals to [facility], [facility], [facility], etc -- cont to monitor TYLENOL, OXYCODONE PRN PAIN (ON ALLERGY LIST BUT HAS BEEN TOLERATING but reporting nausea --> she states would like to continue this as it has been helping with pain and wanted to continue) fall precautions, bed alarm in place (3) Myalgia: Plan: CK 158, wnl Tx as above DOXYCYCLINE FOR EQUIVOCAL LYME -- HX MULTIPLE BULLSEYE RASHES WITHOUT EVER HAVING RECEIVED TREATMENT --> COMPLETED 14 DAY COURSE --> switched to PO yesterday and reported increased abd pain, likely from the PO doxy. no difficulty or pain with swallowing. Monitor for esophagitis (4) Overactive bladder: Plan: Patient with incontinence at baseline. She has a failed bladder stimulator in place. Currently follows with urology, Dr. Delcid -- consult if needed --> discussed with NUCLEAR MEDICINE TECHNICIAN and recs for f/u Dr Saxena at d/c Myrbetriq held for retention, improved and resumed but issue occured and will continue to hold (5) Fever: Plan: 2nd lyme/uti as above treatment as such Only 37.9C on 01/23 during admission BCx NGTD FINAL (6) Lyme disease: Plan: Uncertain of patient's preliminary lab results indicate active Lyme disease. He does present with complaints of weakness, myalgias, fever with known tick exposure and rash in the past. Her thrombocytopenia is chronic and was likely secondary to underlying cirrhosis doxycycline 100 mg p.o. twice daily (day 5) Switched to PO BID tomorrow to complete 14 day course --> continue through 02/05 -- has reported increased GI upset with PO, did discuss this is common. will continue for now as has been eating/drinking (7) Diabetes mellitus: Plan: Blood sugar elevated today at 201. Last hemoglobin A1c from June 2019 = 8.5 Repeat A1c down to 7.0 ISS BSGs acceptable (8) Depression: Plan: Chronic. Stable. Continue venlafaxine 37.5 mg p.o. daily (9) COPD (chronic obstructive pulmonary disease): Plan: Chronic. Stable. Patient currently not on inhalers stable on room air currently encouraged incentive spirometer Rec PFT testing per PCP at follow up. (10) Serum ammonia increased: Plan: hx steatosis no BMs on admission, getting opiates Given dose of lactulose x 1 with some improvement but still elevated and will given 40mg x 1 today Continue to monitor Plan: continued inpatient stay also reported inability to lay flat chronically, increased abd fullness, n/v and will check BNP for maybe some underlying diastolic HF? working on rehab at d/c however therapy evals with some recs for return home family support, however patient at home alone with her dog CM sent additional referrals -- awaiting determination Admission and Anticipated Discharge Date Admission Date: January 23, 2021 Subjective Evaluation this morning. "getting better" but "feeling worse". Abdominal discomfort -- chronic. Protonix last night w symptoms controlled. This morning states very full after eating. No change from chronic issues but states "feeling hot in my belly and going to burst" and "wanting someone to cut it open and let it breath". Nauseous after eating lunch, belching. Discussed multiple reasons for nausea --> Ammonia still high and given dose of lactulose. No fevr or chills but is sweaty laying in bed. Pain controlled reportedly with ordered medications. Sensation unchanged. Still refusing to utilize sling. Urination at baseline and no symptoms reported. Eating cheese/bologna/spaghetti on occasional at home. No changes made to attempt to see if change in symptoms. Denies hx of reflux and shouted "it's not reflux. know how I know it is? I have two sisters with reflux and I don't have it". Stated NEVER HAD, however did inquire about if she has never had, how does she know that isn't the current issue. Passing lots of gas, belching increased. Instructed to try and be up in bed while eating and not as low in bed to prevent worsening of symptoms. Will obtain KUB per patient with reported "increased abdominal pain compared to days prior" however abdomen appears about same as in days past. Review of Systems Review of Systems: All systems reviewed & are unremarkable except as noted in HPI & below Physical Exam Physical Exam: General: patient resting comfortably, NAD, non-toxic in appearance, AA&O x 3 but poor insight at what inpatient stay vs outpt work-up entails and need for removal of her stimulator and general surgery all at once while inpatient Skin is warm and clammy. Patient with multiple blankets on, denied need for fan ENT: mmm, EOMI, PERRLA CV: RRR, no m/r/g, no edema appreciated Resp: CTAB, slightly diminished in the bases. no wheezing appreciated, no distress. on room air GI: +BS throughout, distended, diastasis, no focal areas of tenderness but reported epigastric tenderness on palpation Ext: cast RUE, sensation to fingers intact, mobile, strong radial pulse, cap refill <3 seconds. 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 Results & Data Results & Data ([facility]) Vital Signs (Past 12 Hours) Vital Signs Temp Pulse Resp BP Pulse Ox 01/27/21 07:00 36.7 C 71 20 134/74 94 01/26/21 21:15 37.3 C 73 20 120/61 92 Laboratory Results 01/27/21 01/27/21 01/27/21 Range/Units 08:14 07:43 07:43 WBC 3.46 L (4.8-10.8) K/uL RBC 3.93 L (4.2-5.4) M/uL Hgb 12.5 (12.0-16.0) g/dL Hct 37.5 (37-47) % MCV 95.4 (80-100) fL MCH 31.8 (25-34) pg MCHC 33.3 (32-36) g/dL RDW Std Deviation 44.4 (36.4-46.3) fL RDW Coeff of Chana 12.7 (11.5-14.5) % Plt Count 90 L (130-400) K/uL MPV 11.4 H (7.4-10.4) fL Sodium (136-145) mmol/L Potassium (3.5-5.1) mmol/L Chloride (98-107) mmol/L Carbon Dioxide (21-32) mmol/L Anion Gap (3-11) BUN (7-18) mg/dl Creatinine (0.6-1.2) mg/dl Est Cr Clr Drug Dosing ml/min Est GFR ( Amer) ml/min Est GFR (Non-Af Amer) ml/min BUN/Creatinine Ratio (10-20) Glucose (70-99) mg/dl POC Glucose 100 H (70-99) mg/dl Calcium (8.5-10.1) mg/dl Ammonia 50.1 H (11-32) umol/L 01/27/21 01/26/21 01/26/21 Range/Units 07:40 20:48 16:50 WBC (4.8-10.8) K/uL RBC (4.2-5.4) M/uL Hgb (12.0-16.0) g/dL Hct (37-47) % MCV (80-100) fL MCH (25-34) pg MCHC (32-36) g/dL RDW Std Deviation (36.4-46.3) fL RDW Coeff of Chana (11.5-14.5) % Plt Count (130-400) K/uL MPV (7.4-10.4) fL Sodium 140 (136-145) mmol/L Potassium 4.1 (3.5-5.1) mmol/L Chloride 107 (98-107) mmol/L Carbon Dioxide 27 (21-32) mmol/L Anion Gap 6.0 (3-11) BUN 12 (7-18) mg/dl Creatinine 0.59 L (0.6-1.2) mg/dl Est Cr Clr Drug Dosing 112.6 ml/min Est GFR ( Amer) 106.9 ml/min Est GFR (Non-Af Amer) 92.2 ml/min BUN/Creatinine Ratio 19.5 (10-20) Glucose 91 (70-99) mg/dl POC Glucose 175 H 133 H (70-99) mg/dl Calcium 8.9 (8.5-10.1) mg/dl Ammonia (11-32) umol/L 01/26/21 01/26/21 01/25/21 Range/Units 11:43 08:18 21:01 WBC (4.8-10.8) K/uL RBC (4.2-5.4) M/uL Hgb (12.0-16.0) g/dL Hct (37-47) % MCV (80-100) fL MCH (25-34) pg MCHC (32-36) g/dL RDW Std Deviation (36.4-46.3) fL RDW Coeff of Chana (11.5-14.5) % Plt Count (130-400) K/uL MPV (7.4-10.4) fL Sodium (136-145) mmol/L Potassium (3.5-5.1) mmol/L Chloride (98-107) mmol/L Carbon Dioxide (21-32) mmol/L Anion Gap (3-11) BUN (7-18) mg/dl Creatinine (0.6-1.2) mg/dl Est Cr Clr Drug Dosing ml/min Est GFR ( Amer) ml/min Est GFR (Non-Af Amer) ml/min BUN/Creatinine Ratio (10-20) Glucose (70-99) mg/dl POC Glucose 112 H 115 H 162 H (70-99) mg/dl Calcium (8.5-10.1) mg/dl Ammonia (11-32) umol/L PG Care Time/CCT Total # of Minutes Spent Total Time Spent with Patient: Total time spent is greater than 50% in coordination of care (as documented) at patient's floor/unit and/or counseling patient: Coding Level of Care Code 77028 Subseq Hosp Care Lvl 3 Diagnoses UTI (urinary tract infection), bacterial N39.0; A49.9 Right wrist fracture S62.101A Myalgia M79.10 Overactive bladder N32.81 Fever R50.9 Lyme disease A69.20 Diabetes mellitus E13.69 Diabetes mellitus complication status: with other specified complication Diabetes mellitus half-way insulin use: unspecified intermediate designer insulin use status Diabetes mellitus type: other specified (including TRINH) Depression F32.9 COPD (chronic obstructive pulmonary disease) J44.9 COPD type: unspecified COPD Serum ammonia increased E72.20 (1) Diabetes mellitus Diabetes mellitus complication status: with other specified complication Diabetes mellitus half-way insulin use: unspecified half-way insulin use status Diabetes mellitus type: other specified (including TRINH) Qualified Code(s): E13.69 - Other specified diabetes mellitus with other specified complication (2) COPD (chronic obstructive pulmonary disease) COPD type: unspecified COPD Qualified Code(s): J44.9 - Chronic obstructive pulmonary disease, unspecified
[2021-01-27] MEDS: POLYETHYLENE (MIRALAX) 17 GM PACK PO SCH ×2 (09:15→20:42)
[2021-01-27] MEDS: DOCUSATE SODIUM/SENNA 50/8.6MG TAB PO SCH (09:15)
[2021-01-27] MEDS: NITROFURANTOIN MONOHYDRATE 100 MG CAP PO SCH ×2 (09:16→20:42)
[2021-01-27] MEDS: FLUoxetine HCL 10 MG CAP PO SCH (09:16)
[2021-01-27] MEDS: VENLAFAXINE HCL XR 37.5 MG CAPXR PO SCH (09:16)
[2021-01-27] MEDS: SOLIFENACIN SUCCINATE 5 MG PO SCH (09:16)
[2021-01-27] MEDS: PANTOprazole 40 MG TAB PO SCH (09:16)
[2021-01-27] MEDS: THIAMINE HCL 100 MG in SYRINGE 9 ML IV SCH (09:17)
[2021-01-27] MEDS: DICLOFENAC SOD 1% GEL 100 GM TUBE EXT SCH ×4 (09:17→20:42)
[2021-01-27] MEDS: LIRAGLUTIDE PEN SQ SCH (09:19)
[2021-01-27] MEDS: INSULIN ASPART 100 UNITS/ML 3 ML PEN SC SCH ×4 (09:21→20:40)
[2021-01-27] MEDS: LACTULOSE SYRUP 20 GM/30 ML UDC PO SCH (10:43)
[2021-01-27] MEDS: INSULIN GLARGINE SOLOSTAR 100 UNITS/ML 3 ML PEN SC SCH (10:43)
[2021-01-27 14:33] LABS: Lipase 242 U/L (73-393); NT Pro B Type Natriuretic Pept 89 pg/ml (0-900)
--- NOTE | 2021-01-27 14:52 | XRay Report ---
KUB HISTORY: Generalized abdominal pain COMPARISON: KUB 01/25/2021. FINDINGS: Prior cholecystectomy. No evidence for small bowel obstruction. No renal calculi. No urete ral calculi. Calcifications in the deep pelvis likely represent phleboliths. Left sacral stimulator d evice again noted. Large amount well-formed stool seen throughout the colon. No pneumoperitoneum or p neumatosis. IMPRESSION: Large amount of well-formed stool seen throughout the colon and rectum. ACT 112: Negative or not required by law. Electronically signed by: Cory Barnes M.D. 01/27/2021 2:51 PM
--- NOTE | 2021-01-27 15:12 | Ultrasound Report ---
ABDOMINAL ULTRASOUND, RIGHT UPPER QUADRANT HISTORY: elevated ammonia, eval cirrhosis. COMPARISON: Abdomen and pelvis CT 12/21/2020. FINDINGS: Pancreas: The pancreatic head and tail are obscured by overlying bowel gas. The remaining portions of the pancreas are within normal limits. Liver: Heterogeneous echotexture with a subtle nodular contour consistent with cirrhosis. This remain s unchanged. Gallbladder: The gallbladder is surgically absent. CBD: 4 mm. Right kidney: No hydronephrosis. IMPRESSION: 1. Cirrhotic liver. 2. Cholecystectomy. 3. Normal caliber common bile duct. ACT 112: Negative or not required by law. Electronically signed by: Cory Barnes M.D. 01/27/2021 3:10 PM
[2021-01-28] MEDS: ENOXAPARIN INJ 40 MG/0.4 ML SYR SQ SCH (06:19)
[2021-01-28 08:12] LABS: Hematocrit (blood only) 38.9 % (37-47); Hemoglobin 12.7 g/dL (12.0-16.0); Mean Corpuscular Hemoglobin 31.3 pg (25-34); Mean Corpuscular Hgb Conc 32.6 g/dL (32-36); Mean Corpuscular Volume 95.8 fL (80-100); Mean Platelet Volume 11.5 fL (7.4-10.4); Platelet Count 106 K/uL (130-400); RDW Coefficient of Variation 12.8 % (11.5-14.5); RDW Standard Deviation 44.4 fL (36.4-46.3); Red Blood Count 4.06 M/uL (4.2-5.4)
[2021-01-28] MEDS: PANTOprazole 40 MG TAB PO SCH (08:22)
[2021-01-28] MEDS: DOCUSATE SODIUM/SENNA 50/8.6MG TAB PO SCH (08:22)
[2021-01-28] MEDS: DOXYCYCLINE HYCLATE 100 MG CAP PO SCH ×2 (08:23→20:35)
[2021-01-28] MEDS: NITROFURANTOIN MONOHYDRATE 100 MG CAP PO SCH ×2 (08:23→20:35)
[2021-01-28] MEDS: VENLAFAXINE HCL XR 37.5 MG CAPXR PO SCH (08:23)
[2021-01-28] MEDS: FLUoxetine HCL 10 MG CAP PO SCH (08:23)
[2021-01-28] MEDS: LACTULOSE SYRUP 20 GM/30 ML UDC PO SCH (08:24)
[2021-01-28] MEDS: DICLOFENAC SOD 1% GEL 100 GM TUBE EXT SCH ×4 (08:24→20:35)
[2021-01-28] MEDS: THIAMINE HCL 100 MG in SYRINGE 9 ML IV SCH (08:25)
[2021-01-28] MEDS: POLYETHYLENE (MIRALAX) 17 GM PACK PO SCH ×2 (08:26→20:35)
[2021-01-28] MEDS: SOLIFENACIN SUCCINATE 5 MG PO SCH (08:26)
[2021-01-28] MEDS: INSULIN ASPART 100 UNITS/ML 3 ML PEN SC SCH ×4 (08:30→20:36)
[2021-01-28] MEDS: INSULIN GLARGINE SOLOSTAR 100 UNITS/ML 3 ML PEN SC SCH (08:34)
[2021-01-28 08:43] LABS: BUN Creatinine Ratio 21.9 (10-20); Creatinine Clr Calc Pharmacy 110.7 ml/min; Est GFR (African American) 106.3 ml/min; Est GFR (Non-African American) 91.7 ml/min; Potassium 4.2 mmol/L (3.5-5.1)
[2021-01-28] MEDS: LIRAGLUTIDE PEN SQ SCH (09:54)
[2021-01-28] MEDS: HYDROmorphone INJ 0.5 MG/0.5 ML SYR IV PRN (16:13)
--- NOTE | 2021-01-28 16:39 | Hospitalist Progress Note ---
Date of Service January 28, 2021 Assessment & Plan (1) UTI (urinary tract infection), bacterial: Plan: -Patient has completed a full 7 days of antibiotic therapy (most recently Macrobid). -Culture data reviewed and DEWAYNE on Macrobid is 32. Given her ongoing urinary symptoms, will repeat a urinalysis with culture and sensitivity. If urine grossly infected, will start Cipro based on previous culture data -Patient is on chronic prophylactic antibiotic therapy. Hold this for now while on active treatment. (2) Right wrist fracture: Plan: fell last while walking to bathroom, tripped over IV poll Xray with impacted and comminuted fracture of the distal radial metaphysis with intra-articular extension. dorsal displacement of the distal fragment by one shaft length with mild overriding of fragments with apex volar angulation. numerous tiny dorsally displaced bony fragments. also a displaced avulsion fracture of the ulnar styloid. Overlying soft tissue edema is noted. The radiocarpal articulation appears maintained. Degenerative change is seen throughout the wrist. Ortho consulted Lidocaine injection and reduction by ortho morning 01/23 with casting -- repeat x-ray with reported good alignment --> TO have f/u outpt with [facility] for likely ORIF next week Improvement of numbness/tingling with loosening of dressing distal to cast, less edema today-- CONTINUES TO IMPROVE Vit D low 8.1 (started ergocalciferol, continue weekly at d/c), PTH appropriately elevated. Patient able to ambulate without her walker; however, typically uses a wheeled walker. Given the recent fallwould advise walker for ambulatory support. Given her nonweightbearing status to her right upper extremity, walker use is challenging. Would advise temporary placement for inpatient rehabilitation. Case management on board. referrals to [facility], [facility], [facility], etc -- cont to monitor TYLENOL, OXYCODONE PRN PAIN (ON ALLERGY LIST BUT HAS BEEN TOLERATING but reporting nausea --> she states would like to continue this as it has been helping with pain and wanted to continue) fall precautions, bed alarm in place (3) Myalgia: Plan: CK 158, wnl Tx as above DOXYCYCLINE FOR EQUIVOCAL LYME -- HX MULTIPLE BULLSEYE RASHES WITHOUT EVER HAVING RECEIVED TREATMENT --> COMPLETE 14 DAY COURSE --> switched to PO yesterday and reported increased abd pain, likely from the PO doxy. no difficulty or pain with swallowing. Monitor for esophagitis (4) Overactive bladder: Plan: Patient with incontinence at baseline. She has a failed bladder stimulator in place. Currently follows with urology, Dr. Delcid -- consult if needed --> discussed with BABY SITTER and recs for f/u Dr Saxena at d/c Myrbetriq held for retention, improved and resumed but issue occured and will continue to hold (5) Fever: Plan: 2nd lyme/uti as above treatment as such Only 37.9C on 01/23 during admission BCx NGTD FINAL (6) Lyme disease: Plan: Uncertain of patient's preliminary lab results indicate active Lyme disease. He does present with complaints of weakness, myalgias, fever with known tick exposure and rash in the past. Her thrombocytopenia is chronic and was likely secondary to underlying cirrhosis doxycycline 100 mg p.o. twice daily (day 11/12) Switched to PO BID tomorrow to complete 14 day course --> continue through 02/05 -- has reported increased GI upset with PO, did discuss this is common. will continue for now as has been eating/drinking (7) Diabetes mellitus: Plan: Blood sugar elevatedacceptable today at 112 Last hemoglobin A1c from June 2019 = 8.5 Repeat A1c down to 7.0 ISS BSGs acceptable (8) Depression: Plan: Chronic. Stable. Continue venlafaxine 37.5 mg p.o. daily (9) COPD (chronic obstructive pulmonary disease): Plan: Chronic. Stable. Patient currently not on inhalers stable on room air currently encouraged incentive spirometer Rec PFT testing per PCP at follow up. (10) Serum ammonia increased: Plan: hx steatosis no BMs on admission, getting opiates Given dose of lactulose x 1. FU ammonia improved at 27.3 Continue to monitor Plan: -continued inpatient stay-- ? placement if insurance will auth. vs home with services -Plan of care to be discussed with Dr. Randhawa. Further orders as warranted. Admission and Anticipated Discharge Date Admission Date: January 23, 2021 Subjective Patient seen on daily rounds today. She is a 70-year-old white female with a past medical history of diabetes mellitus, cirrhosis, depression, and COPD. She was hospitalized on 01/22 due to myalgias, arthralgias, generalized weakness, and a fever. She was found to have a grossly infected urine and equivocal Lyme titer. She was hospitalized and placed on doxycycline for equivocal Lyme titer along with Rocephin for grossly infected urine. Urine culture has since come back showing growth of Klebsiella. She was transitioned to Macrobid and has since completed a full 7 days of treatment. Unfortunately, while in house she was attempting to stand and sustained a ground-level fall resulting in a complex and displaced right wrist fracture. Orthopedics have been involved and patient had a closed reduction with subsequent casting. Plan is for outpatient ORIF. Because patient typically uses a wheeled walker to ambulate and now she is nonweightbearing to the right upper extremity, she is hopeful for placement short-term for inpatient rehab. Overall, her generalized weakness and fevers have abated. She is still complaining of dysuria, or suprapubic discomfort, and frequency (but reports ongoing issues with the symptoms). Patient has multiple complaintsnone relevant to her hospital stay (complaining about her room, the food, the weather, her roommate, etc.). Pain in the right wrist adequately controlled with pain medication Review of Systems Review of Systems: All systems reviewed and are unremarkable except as noted in HPI and below Denies fevers, chills, headache, nasal congestion, sore throat, cough, chest pain, shortness of breath, abdominal pain, nausea, vomiting, skin lesions or rashes. Physical Exam Physical Exam: General: Resting comfortably in her hospital bed. NAD. Neck: No JVD. Negative hepatojugular reflex Cardiac:RRR Lungs: CTA without W/R/R Abdomen: Normoactive X4. Soft and nontender in all quadrants. Extremities: Right wrist in splint. Radial pulse intact. Capillary refill intact and symmetrical bilaterally. Fine motor and dexterity intact to the fingers Neuro: A&O X4 cranial nerves II through XII are grossly intact no focal neuro deficits Skin: No obvious skin lesions or rashes Results & Data Results & [facility] ([facility]) Vital Signs (Past 12 Hours) Vital Signs Temp Pulse Resp BP Pulse Ox 01/28/21 15:21 36.8 C 68 16 119/71 91 01/28/21 07:21 36.7 C 67 16 128/73 91 PG Care Time/CCT Total # of Minutes Spent Total Time Spent with Patient: Total time spent is greater than 50% in coordination of care (as documented) at patient's floor/unit and/or counseling patient: C[place] [address] Subseq Hosp Care Lvl 2 Patient Type Established History Expanded Problem Focused Exam Expanded Problem Focused Medical Decision Making Moderate Complexity Diagnoses UTI (urinary tract infection), bacterial N39.0; A49.9 Right wrist fracture S62.101A Myalgia M79.10 Overactive bladder N32.81 Fever R50.9 Lyme disease A69.20 Diabetes mellitus E13.69 Diabetes mellitus complication status: with other specified complication Diabetes mellitus regional intermodal truck driver insulin use: unspecified regional intermodal truck driver insulin use status Diabetes mellitus type: other specified (including TRINH) Depression F32.9 COPD (chronic obstructive pulmonary disease) J44.9 COPD type: unspecified COPD Serum ammonia increased E72.20 (1) Diabetes mellitus Diabetes mellitus complication status: with other specified complication Diabetes mellitus regional intermodal truck driver insulin use: unspecified skilled nursing insulin use status Diabetes mellitus type: other specified (including TRINH) Qualified Code(s): E13.69 - Other specified diabetes mellitus with other specified complication (2) COPD (chronic obstructive pulmonary disease) COPD type: unspecified COPD Qualified Code(s): J44.9 - Chronic obstructive pulmonary disease, unspecified
[2021-01-28 22:08] LABS: Appearance Urine Clear (Clear); Bacteria Urine Automated Negative (Negative); Bilirubin Urine Negative (Negative); Blood Urine Negative (Negative); Color Urine Dark Yellow; Epithelial Cell Urine Auto >30 /lpf (0-5); Glucose Urine UA Negative (Negative); Ketones Urine Trace (Negative); Leukocyte Esterase Urine 1+ (Negative); Nitrite Urine Negative (Negative); Protein Urine Negative (Negative); Urobilinogen Urine Negative (Negative); pH Urine 5.5 (4.5-7.5)
[2021-01-28 22:43] LABS: RBC Urine Automated 0-4 /hpf (0-4)
[2021-01-29] MEDS: ENOXAPARIN INJ 40 MG/0.4 ML SYR SQ SCH (06:08)
[2021-01-29] MEDS: oxyCODONE HCL IR 5 MG TAB (IMMEDIATE RELEASE) PO PRN (06:39)
[2021-01-29] MEDS: INSULIN ASPART 100 UNITS/ML 3 ML PEN SC SCH ×4 (08:45→20:35)
[2021-01-29] MEDS: INSULIN GLARGINE SOLOSTAR 100 UNITS/ML 3 ML PEN SC SCH (08:46)
[2021-01-29] MEDS: DICLOFENAC SOD 1% GEL 100 GM TUBE EXT SCH ×4 (08:46→20:35)
[2021-01-29] MEDS: LACTULOSE SYRUP 20 GM/30 ML UDC PO SCH (08:47)
[2021-01-29] MEDS: FLUoxetine HCL 10 MG CAP PO SCH (08:48)
[2021-01-29] MEDS: VENLAFAXINE HCL XR 37.5 MG CAPXR PO SCH (08:48)
[2021-01-29] MEDS: DOCUSATE SODIUM/SENNA 50/8.6MG TAB PO SCH (08:48)
[2021-01-29] MEDS: DOXYCYCLINE HYCLATE 100 MG CAP PO SCH ×2 (08:49→20:35)
[2021-01-29] MEDS: PANTOprazole 40 MG TAB PO SCH (08:49)
[2021-01-29] MEDS: SOLIFENACIN SUCCINATE 5 MG PO SCH (08:49)
[2021-01-29] MEDS: POLYETHYLENE (MIRALAX) 17 GM PACK PO SCH ×2 (08:49→20:36)
[2021-01-29] MEDS: NITROFURANTOIN MONOHYDRATE 100 MG CAP PO SCH ×2 (08:49→20:36)
[2021-01-29] MEDS: LIRAGLUTIDE PEN SQ SCH (08:56)
[2021-01-29] MEDS: THIAMINE HCL 100 MG in SYRINGE 9 ML IV SCH (09:04)
--- NOTE | 2021-01-29 17:13 | Hospitalist Progress Note ---
Date of Service January 29, 2021 Assessment & Plan (1) UTI (urinary tract infection), bacterial: Plan: -Patient has completed a full 7 days of antibiotic therapy (most recently Macrobid). -Culture data reviewed and DEWAYNE on Macrobid is 32. Given reported urinary symptoms, repeat urinalysis was obtained and does not appear to be grossly infected. Patient does have OAB and questionable interstitial cystitis. -Patient is on chronic prophylactic antibiotic therapy. Hold this for now while on active treatment. (2) Right wrist fracture: Plan: fell last while walking to bathroom, tripped over IV poll Xray with impacted and comminuted fracture of the distal radial metaphysis with intra-articular extension. dorsal displacement of the distal fragment by one shaft length with mild overriding of fragments with apex volar angulation. numerous tiny dorsally displaced bony fragments. also a displaced avulsion fracture of the ulnar styloid. Overlying soft tissue edema is noted. The radiocarpal articulation appears maintained. Degenerative change is seen throughout the wrist. Ortho consulted Lidocaine injection and reduction by ortho morning 01/23 with casting -- repeat x-ray with reported good alignment --> TO have f/u outpt with [facility] for likely ORIF next week Improvement of numbness/tingling with loosening of dressing distal to cast, less edema today-- CONTINUES TO IMPROVE Vit D low 8.1 (started ergocalciferol, continue weekly at d/c), PTH appropriately elevated. Patient able to ambulate without her walker; however, typically uses a wheeled walker. Given the recent fallwould advise walker for ambulatory support. Given her nonweightbearing status to her right upper extremity, walker use is challenging. Would advise temporary placement for inpatient rehabilitation. Case management on board. referrals to [facility], [facility], [facility], etc -- cont to monitor TYLENOL, OXYCODONE PRN PAIN (ON ALLERGY LIST BUT HAS BEEN TOLERATING but repor ting nausea --> she states would like to continue this as it has been helping with pain and wanted to continue) fall precautions, bed alarm in place (3) Myalgia: Plan: CK 158, wnl Tx as above DOXYCYCLINE FOR EQUIVOCAL LYME -- HX MULTIPLE BULLSEYE RASHES WITHOUT EVER HAVING RECEIVED TREATMENT --> COMPLETE 14 DAY COURSE --> switched to PO (4) Overactive bladder: Plan: Patient with incontinence at baseline. She has a failed bladder stimulator in place. Currently follows with urology, Dr. Delcid -- consult if needed --> discussed with [employer] and recs for f/u Dr Saxena at d/c Myrbetriq held for retention, improved and resumed but issue occured and will c ontinue to hold (5) Fever: Plan: 2nd lyme/uti as above treatment as such Only 37.9C on 01/23 during admission BCx NGTD FINAL (6) Lyme disease: Plan: Uncertain of patient's preliminary lab results indicate active Lyme disease. He does present with complaints of weakness, myalgias, fever with known tick exposure and rash in the past. Her thrombocytopenia is chronic and was likely secondary to underlying cirrhosis doxycycline 100 mg p.o. twice daily (day 12/12) Switched to PO BID tomorrow to complete 14 day course --> continue through 02/05 -- has reported increased GI upset with PO, did discuss this is common. will continue for now as has been eating/drinking (7) Diabetes mellitus: Plan: Blood sugar elevatedacceptable today at 112 Last hemoglobin A1c from June 2019 = 8.5 Repeat A1c down to 7.0 ISS BSGs acceptable (8) Depression: Plan: Chronic. Stable. Continue venlafaxine 37.5 mg p.o. daily (9) COPD (chronic obstructive pulmonary disease): Plan: Chronic. Stable. Patient currently not on inhalers stable on room air currently encouraged incentive spirometer Rec PFT testing per PCP at follow up. (10) Serum ammonia increased: Plan: hx steatosis no BMs on admission, getting opiates Given dose of lactulose x 1. FU ammonia improved at 27.3 Continue to monitor Plan: -At this time, patient has been relatively independent with PT/OT however, has significant concerns that she resides alone. She is right-hand dominant and struggling to perform ADLs. In addition, she intermittently uses a wheeled walker and is struggling with this given the nonweightbearing status to the right upper extremity. She has been seen by Ortho and it sounds as if surgical intervention may be performed at a later date. With that being said, she also has concerns with being able to follow-up with Ortho as an outpatient. She [facility] adamantly [facility]. And authorization has been submitted. Case management on board. From a medical standpoint, patient has been stable for discharge. Concern at this point is safety at home given living situation and right wrist fracture (as outlined above). Admission and Anticipated Discharge Date Admission Date: January 23, 2021 Subjective Patient seen on daily rounds today. She has been seen the PT/OT and seems to be rather independent; however, with right wrist fracture and her being right hand dominant- she reports that this is a struggle. In addition, she lives alone and intermittently uses a walker to ambulate. She is struggling with the walker use given her NWB status. Follow-up urinalysis was not grossly infected Patient currently denies fevers, chills, chest pain, shortness of breath, abdominal pain, nausea or vomiting. Review of Systems Review of Systems: All systems reviewed and are unremarkable except as noted in HPI and below Denies fevers, chills, headache, nasal congestion, sore throat, cough, chest pain, shortness of breath, abdominal pain, nausea, vomiting, dysuria, hematuria, frequency, skin lesions or rashes. Physical Exam Physical Exam: General: Resting comfortably in her hospital bed. NAD. Neck: No JVD. Negative hepatojugular reflex Cardiac:RRR Lungs: CTA without W/R/R Abdomen: Normoactive X4. Soft and nontender in all quadrants. Extremities: Right wrist in splint. Radial pulse intact. Capillary refill intact and symmetrical bilaterally. Fine motor and dexterity intact to the fingers Neuro: A&O X4 cranial nerves II through XII are grossly intact no focal neuro deficits Skin: No obvious skin lesions or rashes Results & Data Results & Data ([facility]) Vital Signs (Past 12 Hours) Vital Signs Temp Pulse Resp BP Pulse Ox 01/29/21 15:53 37.0 C 77 16 130/73 93 01/29/21 07:11 36.6 C 58 L 19 97/62 L 91 Laboratory Results 01/28/21 07:57 01/28/21 07:57 Urinalysis is clear. Nitrite negative. Leukocyte esterase +1. Final culture datapending. No growth to date. PG Care Time/CCT Total # of Minutes Spent Total Time Spent with Patient: Total time spent is greater than 50% in coordination of care (as documented) at patient's floor/unit and/or counseling patient: [place] [address] Subseq Hosp Care Lvl 1 Patient Type Established History Problem Focused Exam Problem Focused Medical Decision Making Low Complexity Diagnoses UTI (urinary tract infection), bacterial N39.0; A49.9 Right wrist fracture S62.101A Myalgia M79.10 Overactive bladder N32.81 Fever R50.9 Lyme disease A69.20 Diabetes mellitus E13.69 Diabetes mellitus complication status: with other specified complication Diabetes mellitus roasterman insulin use: unspecified prison insulin use status Diabetes mellitus type: other specified (including TRINH) Depression F32.9 COPD (chronic obstructive pulmonary disease) J44.9 COPD type: unspecified COPD Serum ammonia increased E72.20 (1) Diabetes mellitus Diabetes mellitus complication status: with other specified complication Huma betes mellitus prison insulin use: unspecified prison insulin use status Diabetes mellitus type: other specified (including TRINH) Qualified Code(s): E13.69 - Other specified diabetes mellitus with other specified complication (2) COPD (chronic obstructive pulmonary disease) COPD type: unspecified COPD Qualified Code(s): J44.9 - Chronic obstructive pulmonary disease, unspecified
[2021-01-30] MEDS: ENOXAPARIN INJ 40 MG/0.4 ML SYR SQ SCH (05:15)
[2021-01-30] MEDS: INSULIN ASPART 100 UNITS/ML 3 ML PEN SC SCH ×2 (10:01→14:12)
[2021-01-30] MEDS: DOCUSATE SODIUM/SENNA 50/8.6MG TAB PO SCH (10:02)
[2021-01-30] MEDS: FLUoxetine HCL 10 MG CAP PO SCH (10:02)
[2021-01-30] MEDS: DOXYCYCLINE HYCLATE 100 MG CAP PO SCH (10:02)
[2021-01-30] MEDS: DICLOFENAC SOD 1% GEL 100 GM TUBE EXT SCH ×2 (10:02→13:38)
[2021-01-30] MEDS: LACTULOSE SYRUP 20 GM/30 ML UDC PO SCH (10:03)
[2021-01-30] MEDS: INSULIN GLARGINE SOLOSTAR 100 UNITS/ML 3 ML PEN SC SCH (10:03)
[2021-01-30] MEDS: LIRAGLUTIDE PEN SQ SCH (10:03)
[2021-01-30] MEDS: POLYETHYLENE (MIRALAX) 17 GM PACK PO SCH (10:03)
[2021-01-30] MEDS: VENLAFAXINE HCL XR 37.5 MG CAPXR PO SCH (10:04)
[2021-01-30] MEDS: THIAMINE HCL 100 MG in SYRINGE 9 ML IV SCH (10:04)
[2021-01-30] MEDS: SOLIFENACIN SUCCINATE 5 MG PO SCH (10:04)
--- NOTE | 2021-01-30 10:24 | Communication Note ---
Date of Service: January 30, 2021 Updated x-rays obtained today 1 week after closed reduction. Appears to be maintaining acceptable alignment. Mild displacement of radial styloid fragment compared to immediate post reduction films. Plan for outpatient follow up at [facility] as previously discussed to discuss ORIF vs continued conservative management.
--- NOTE | 2021-01-30 13:25 | XRay Report ---
XR wrist RT 2V CLINICAL HISTORY: distal radius fracture COMPARISON: January 23, 2021 DISCUSSION: Redemonstration of displaced fracture of the distal radius. Previously described fractured right ulna r styloid is not well seen. Evaluation is limited due to overlying fiberglass cast. IMPRESSION: As above. ACT 112: Negative or not required by law. The above report was generated using voice recognition software. It may contain grammatical, syntax o r spelling errors. Electronically signed by: Anais Abdalla DO 01/30/2021 1:24 PM
--- NOTE | 2021-01-30 14:05 | Discharge Summary ---
Date of Service January 30, 2021 Admission HPI Per Admitting Provider Jing Dela Cruz is a 70-year-old female with history of diabetes, depression, COPD, GERD presenting with nausea/vomiting/myalgias/fever. Patient has been working at the [employer] this week. 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 She has not been drinking. This afternoon around 1400 patient developed nausea with several episodes of nonbloody emesis as well as myalgias and fever to 101.1. She states that she feels incredibly weak and is unable to stand. Patient lives alone. ER course: Ceftriaxone, Toradol, Zofran, normal saline Principal Diagnosis Working diagnoses: 1. Fever with weaknesslikely secondary to UTI and Lyme equivocal 2. Urinary tract infectionKlebsiella with reid sensitivity. Completed full course of antibiotic therapy 3. Equivocal Lymecomplete full course of doxycycline 4. Right wrist fracture (see below) s/p closed reduction 5. Debility/deconditioned state Discharge Exam General: Resting comfortably in her hospital bed. Very flat affect today. Easily agitated. NAD. Neck: No JVD. Negative hepatojugular reflex Cardiac:RRR Lungs: CTA without W/R/R Abdomen: Normoactive X4. Soft and nontender in all quadrants. Extremities: Right wrist in splint. Radial pulse intact. Capillary refill intact and symmetrical bilaterally. Fine motor and dexterity intact to the fingers Neuro: A&O X4 cranial nerves II through XII are grossly intact no focal neuro deficits Skin: No obvious skin lesions or rashes Discharge Data Allergies Allergy/AdvReac Type Severity Reaction Status Date / Time nickel Allergy Intermediate HIVES/RASH Verified 01/23/21 06:43 ON SKIN Penicillins Allergy Intermediate RASH Verified 12/13/20 09:25 oxycodone Allergy Mild HEADACHE Verified 01/23/21 06:43 AND NAUSEA metformin AdvReac Mild GI SICKNESS Verified 01/23/21 06:43 Consultations 01/22/21 02:01 ED Decision to Admit Stat 01/23/21 02:50 Consult Orthopedic Surgery Routine Assessment & Plan (1) Right wrist fracture: Plan: Patient with significantly displaced and comminuted distal radius fracture with closed reduction and splinting at bedside by Dr. Chávez yesterday. Post reduction films show good reduction of patient's fracture. Will continue with splint. Discussed outpatient follow up with Dr. Soto of [facility] hand team for. Will discuss with him. Likely will need ORIF right distal radius fracture. Continue ice to right wrist, elevation, NWB right UE. [id number] January 30, 2021 12:54 Patient will likely require ORIF of her distal radius fracture. Will get her on the schedule with José Antonio Duffy PA-C and myself on Thursday 02/01 at 2:00 at [facility] clinic. Addendum Signed By:<Electronically signed by Monty Soto M.D.>01/30/21 [id number] Cosigned By:Created: 01/30/2106/21/1256 Date of Service: January 30, 2021 Updated x-rays obtained today 1 week after closed reduction. Appears to be maintaining acceptable alignment. Mild displacement of radial styloid fragment compared to immediate post reduction films. Plan for outpatient follow up at [facility] as previously discussed to discuss ORIF vs continued conservative management. 01/30/21 05:27 Consult Patient Rep / Service Excellence [Consult Patient Services] Routine Ordered Studies 01/22/21 12:35 US renal/blad retro comp Routine IMPRESSION: 1. No hydronephrosis. 2. Suspected small right renal calculi. 3. Nonvisualization of the 2 cm lesion within the midpole of the right kidney shown on prior CT. This remains indeterminate. 4. Bladder volume of 340 cc. Per the patient, the bladder was just drained via catheter. CXR: IMPRESSION: 1. No acute process. 2. Cardiomegaly with chronic interstitial coarsening. 01/23/21: right wrist xray: FINDINGS: AP and crosstable lateral views of the right wrist are compared to study dated 05/05/2012. The skeletal structures are osteopenic. There is an impacted and comminuted fracture of the distal radial metaphysis with intra- articular extension. There is dorsal displacement of the distal fragment by one shaft length with mild overriding of fragments with apex volar angulation. There are numerous tiny dorsally displaced bony fragments. There is also a displaced avulsion fracture of the ulnar styloid. Overlying soft tissue edema is noted. The radiocarpal articulation appears maintained. Degenerative change is seen throughout the wrist. IMPRESSION: Distal radial and ulnar fractures as above. POST REDUCTION: FINDINGS: AP and lateral views of the right wrist are compared to study performed earlier the same day 01/23/2021. The examination is performed through a cast, obscuring fine bony detail. The skeletal structures are osteopenic. Again seen is an impacted and comminuted intra-articular fracture of the distal radial metaphysis and an avulsion fracture of the ulnar styloid. There is significantly improved alignment of the radial fracture status post closed reduction. There is mild persistent offset of fragments. The radiocarpal articulation is maintained. Overlying soft tissue edema is noted. IMPRESSION: Distal radial ulnar fractures with improved alignment of the radius status post closed reduction as above 01/27/21 13:56 US liver Routine IMPRESSION: 1. Cirrhotic liver. 2. Cholecystectomy. 3. Normal caliber common bile duct. Hospital Course (1) UTI (urinary tract infection), bacterial: -Patient hospitalized with and fever likely multifactorial (UTI and Lyme). -Was initially treated with Rocephin empirically -Blood cultures drawn showing no growth -Urine culture did show growth of Klebsiella with reid sensitivity for which patient was transitioned to Macrobid for which she has completed a full 7 days -Culture data reviewed and DEWAYNE on Macrobid is 32. Given reported urinary symptoms (which are chronic and from her OAB), repeat urinalysis was obtained and does not appear to be grossly infected. Repeat culture data showed contamination only. ? interstitial cystitis. [facility] urology -Patient is on chronic prophylactic antibiotic therapy. Hold this for now while on treatment antibiotic therapy (2) Right wrist fracture: Patient is right hand dominant fell last while walking to bathroom, tripped over IV poll Xray with impacted and comminuted fracture of the distal radial metaphysis with intra-articular extension. dorsal displacement of the distal fragment by one shaft length with mild overriding of fragments with apex volar angulation. numerous tiny dorsally displaced bony fragments. also a displaced avulsion fracture of the ulnar styloid. Overlying soft tissue edema is noted. The radiocarpal articulation appears maintained. Degenerative change is seen throughout the wrist. Ortho consulted Lidocaine injection and reduction by ortho morning 01/23 with casting -- repeat x-ray with reported good alignment -Seen on in follow-up on 01/30 with repeat x-ray showing stable alignment --> TO have f/u outpt with [facility] for likely ORIF Thursday 02/01 @ 2:00pm Improvement of numbness/tingling with loosening of dressing distal to cast, less edema today-- CONTINUES TO IMPROVE Vit D low 8.1 (started ergocalciferol-->continue this), PTH appropriately elevated. Patient able to ambulate without her walker; however, typically uses a wheeled walker. Given the recent fallwould advise walker for ambulatory support. Given her nonweightbearing status to her right upper extremity, walker use is challenging. Would advise temporary placement for inpatient rehabilitation. Case management on board. accepted to SNF for acute rehab. referrals to [facility], [facility], [facility], etc -- cont to monitor TYLENOL, OXYCODONE PRN PAIN (ON ALLERGY LIST BUT HAS BEEN TOLERATING but reporting nausea --> she states would like to continue this as it has been helping with pain and wanted to continue) fall precautions, bed alarm in place (3) Lyme disease: Uncertain of patient's preliminary lab results indicate active Lyme disease. He does present with complaints of weakness, myalgias, fever with known tick exposure and rash in the past. Her thrombocytopenia is chronic and was likely secondary to underlying cirrhosis doxycycline 100 mg p.o. twice daily (day 01/12) --> continue through 02/05 -- did initially have reported increased GI upset with PO, did discuss this is common. will continue for now as has been eating/drinking (4) Myalgia: CK 158, wnl Tx as above DOXYCYCLINE FOR EQUIVOCAL LYME -- HX MULTIPLE BULLSEYE RASHES WITHOUT EVER HAVING RECEIVED TREATMENT --> COMPLETE 14 DAY COURSE --> switched to PO (5) Overactive bladder: Patient with incontinence at baseline. She has a failed bladder stimulator in place. Currently follows with urology, Dr. 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 Stable. Continue venlafaxine 37.5 mg p.o. daily (9) COPD (chronic obstructive pulmonary disease): Chronic. Stable. Patient currently not on inhalers stable on room air currently encouraged incentive spirometer Rec PFT testing per PCP at follow up. (10) Serum ammonia increased: hx steatosis no BMs on admission, getting opiates Given dose of lactulose x 1. FU ammonia improved at 27.3 Continue to monitor -Discharge to SNf for continued IP rehab - FU with ortho regarding right wrist fracture. Total Time Total Time Spent Total Time Spent (In Minutes): 45 Discharge Plan Discharge Items Patient Disposition: Transfer Nursing Home Fac Reason For Visit: WEAKNESS Discharge Diagnosis: 1. UTI 2. Ground fall resulting in 3. Right wrist fracture. 4. Equivocal Lyme- complete abx therapy 5. Fever- likely result of UTI and possibly from lyme 6. Weakness/debility- likely result of UTI/lyme Activity: As commented below Activity Comment: NWB to RUE Non-emergency contact: Primary Care Provider and Specialist Call non-emergency contact if: you have any medication questions, your symptoms worsen and your pain is not controlled Follow-up/Referrals: Matilda Mitchell CRNP [Primary Care Provider] - Monty Soto M.D. [Physician] - (Call to schedule follow-up for next available after discharge from hospital.) Diet: Carb Consistent or DM2 Addtl Attending Provider Instructions: - Patient was hospitalized with fever/weakness and subsequently found to have a UTI and Equivocal Lyme. - Was treated with Rocephin upfront for UTI along with Doxy for Lyme. - Urine culture showed klebsiella and patient was transitioned to Oral Macrobid which she completed a full 7 days of. Repeat UA negative with culture showing only contamination. - Doxycycline has been continued for lyme (to complete on 02/05) - with adequate treatment for UTI/Lyme-- weakness improved and she had no subsequent fevers - unfortunately, while in house-- she sustained a GLF (tripped over IV poll when attempting to toilet independently). This resulted in a fracture of the Right wrist requiring closed reduction - Ortho on board and closed reduction with splinting performed. 1 week post reduction xray showing good alignment - placement to SNF for IP rehab to take place - patient should FU with house Provider within 24-48 hours - FU with Orthopedic (hand specialist) to determine if continued conservative mgmt is enough of it surgical intervention is required. - Vitamin D initiated given low D level - Willow for pain -- side note: patient with known cirrhosis and h/o elevated ammonia. On chronic lactulose but also take antidiarrheals. These have been stopped and goal (of 2-3 BM's) discussed with patient. Would avoid antidiarrheals and up/down titrate lactulose to hit target of 2-3 BM's/day - return to the ED for new or worsening symptoms Pending Studies at Discharge: No Stand-Alone Forms: [facility] Skilled Items Patient informed of condition?: Yes DNR: No Discharge Level of Care: Acute rehab Communicable Disease: No Discharge Prognosis: Stable Lines: None Urinary Catheter: No Medications and DC Order Prescriptions: New doxycycline hyclate 100 mg Capsule 100 mg PO BID Qty: 13 RF: 0 acetaminophen 325 mg Tablet 650 mg PO Q4H PRN (Reason: CHAUDHARI/fever/pain) Qty: 60 RF: 0 hydrocodone-acetaminophen 5-325 mg tablet 1 tab PO Q4H PRN (Reason: pain) Qty: 36 RF: 0 lactulose 20 gram/30 mL Solution 30 ml PO BID Qty: 2000 RF: 0 ergocalciferol (vitamin D2) 1,250 mcg (50,000 unit) Capsule 50,000 unit PO Q7D Qty: 7 RF: 0 Continued venlafaxine [Effexor XR] 37.5 mg capsule,extended release 24hr 37.5 mg PO DAILY RF: 0 fluoxetine [Prozac] 10 mg capsule 10 mg PO DAILY RF: 0 glimepiride [Amaryl] 1 mg tablet 1 mg PO DAILY RF: 0 Nuretin 500-100 mg capsule PO DAILY RF: 0 Myrbetriq 50 mg tablet extended release 24 hr 50 mg PO DAILY Qty: 90 RF: 3 fosfomycin tromethamine 3 gram packet 1 packet PO .weekly 90 Days Qty: 12 RF: 3 solifenacin [Vesicare] 5 mg tablet 5 mg PO DAILY RF: 0 nystatin-triamcinolone 100,000-0.1 unit/g-% Cream 1 applic EXT BID Qty: 45 RF: 0 Victoza 3-Júnior 0.6 mg/0.1 mL (18 mg/3 mL) pen injector 1.8 units subcut QAM RF: 0 Tresiba FlexTouch U-200 200 unit/mL (3 mL) Insulin Pen 100 unit SUBCUT QAM RF: 0 Discontinued trimethoprim 100 mg tablet 100 mg PO DAILY 30 Days Qty: 30 RF: 11 mupirocin 2 % ointment See Rx Instructions TOP BID Qty: 22 RF: 3 loperamide [Imodium A-D] 2 mg Tablet 2 mg PO Q3H PRN (Reason: Diarrhea) RF: 0 Discharge Orders: Discharge Order (Routine); Ordered 01/30/21 Ordered By: Niya Zavaleta/Other Patient Handouts: A1C, Managing Type 2 Diabetes, Treating Wrist Fractures, Understanding Urinary Tract ... Admission Data Admit Date/Time: 01/23/21 11:33 Attending Provider: Lane Randhawa Admit Provider: Jessica Bain Primary Care Provider: Matilda Mitchell Other Providers: Braulio Pritchard ; [facility] ; [facility], ; [facility] ; [facility] ; Lane Randhawa Other Interventions: Discharge Summary Assessment (RN) Last Done: 01/30/21 13:38 Supervising Physician Co-Signing Physician Notes I supervised Niya Leal PA-C on the care of this patient. I interviewed and examined the patient independently of her. The plan is as written in her note except for any following changes/exceptions: None Spent some time with Ms. Dela Cruz today. She is very disgruntled with her stay here and feels we are responsible for her broken wrist. She is upset that appointments have not already been made for her. I did apologize for her troubles. I expressed sympathy for her broken wrist and wished her speedy recovery. 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
== END 2021-01-30 16:12 | DRG 690 ==
LOC: ED 22:31 → 3W 22:31 → SUATTDRO 01-22 02:41 → 3W 01-22 05:15 → SUATTDRO 01-23 11:33 → 3W 01-30 11:29
DX: S52.611A Displaced fracture of right ulna styloid process, initial encounter for closed fracture; E86.0 Dehydration; T36.1X5A Adverse effect of cephalosporins and other beta-lactam antibiotics, initial encounter; Z79.899 Other long term (current) drug therapy; N30.10 Interstitial cystitis (chronic) without hematuria; E11.9 Type 2 diabetes mellitus without complications; Z87.891 Personal history of nicotine dependence; S52.571A Other intraarticular fracture of lower end of right radius, initial encounter for closed fracture; Y93.89 Activity, other specified; Z88.0 Allergy status to penicillin; D70.2 Other drug-induced agranulocytosis; K52.0 Gastroenteritis and colitis due to radiation; Z96.89 Presence of other specified functional implants; Z79.2 Long term (current) use of antibiotics; K74.60 Unspecified cirrhosis of liver; B96.1 Klebsiella pneumoniae [K. pneumoniae] as the cause of diseases classified elsewhere; Y92.230 Patient room in hospital as the place of occurrence of the external cause; N32.81 Overactive bladder; R33.9 Retention of urine, unspecified; K46.9 Unspecified abdominal hernia without obstruction or gangrene; J44.9 Chronic obstructive pulmonary disease, unspecified; T50.995A Adverse effect of other drugs, medicaments and biological substances, initial encounter; Z91.09 Other allergy status, other than to drugs and biological substances; F32.9 Major depressive disorder, single episode, unspecified; Z88.8 Allergy status to other drugs, medicaments and biological substances; W01.0XXA Fall on same level from slipping, tripping and stumbling without subsequent striking against object, initial encounter; Z88.5 Allergy status to narcotic agent; A69.20 Lyme disease, unspecified; Z16.29 Resistance to other single specified antibiotic; R79.89 Other specified abnormal findings of blood chemistry; Z79.4 Long term (current) use of insulin; Y99.8 Other external cause status

== ENCOUNTER 2024-01-27 19:23 | Observation (INO) ==
[2024-01-27 20:35] LABS: INR 1.1 (0.9-1.1); Partial Thromboplastin Time 28 Seconds (21-31)
[2024-01-27 20:51] LABS: Alanine Aminotransferase 43 U/L (7-52); Albumin Globulin Ratio 0.9 (0.9-2); Albumin Level 3.5 gm/dl (3.4-5.0); Alkaline Phosphatase 160 U/L (34-104); Anion Gap 7 (3-11); Aspartate Aminotransferase 63 U/L (13-39); BUN Creatinine Ratio 28.4 (10-20); Bilirubin,Total 2.9 mg/dl (0.2-1.0); Blood Urea Nitrogen 19 mg/dl (6-23); Carbon Dioxide 22 mmol/L (21-32); Chloride 105 mmol/L (98-107); Est GFR (African American) 100.4 ml/min; Est GFR (Non-African American) 86.6 ml/min; Globulin 3.9 gm/dl (2.5-4.0); Glucose 208 mg/dl (70-99(Fasting)); Magnesium 1.8 mg/dl (1.7-2.4); Potassium 4.1 mmol/L (3.5-5.1); Sodium 134 mmol/L (136-145); Total Protein 7.4 gm/dl (6.0-8.3)
[2024-01-27 20:56] LABS: Troponin I High Sensitivity 3.9 pg/ml (0-14)
[2024-01-27 21:09] LABS: Basophils # (auto) 0.02 K/uL (0.00-0.20); Basophils % (auto) 0.6 %; Eosinophils # (auto) 0.05 K/uL (0.00-0.50); Eosinophils % (auto) 1.5 %; Hematocrit (blood only) 37.2 % (37.0-47.0); Hemoglobin 12.7 g/dl (12.0-16.0); Lymphocytes # (auto) 0.47 K/uL (1.20-3.40); Mean Corpuscular Hemoglobin 31.4 pg (25.0-34.0); Mean Corpuscular Hgb Conc 34.1 g/dL (32.0-36.0); Mean Corpuscular Volume 92.1 fL (80.0-100.0); Mean Platelet Volume 12.1 fL (9.4-12.4); Monocytes # (auto) 0.32 K/uL (0.11-0.59); Monocytes % (auto) 9.6 %; Neutrophils # (auto) 2.49 K/uL (1.40-6.50); Neutrophils % (auto) 74.3 %; Platelet Count 60 K/uL (130-400); RDW Coefficient of Variation 13.5 % (11.5-14.5); RDW Standard Deviation 46.1 fL (36.4-46.3); Red Blood Count 4.04 M/uL (4.20-5.40); White Blood Count 3.35 K/ul (4.8-10.8)
[2024-01-27 21:40] LABS: Influenza A virus by PCR Negative (Neg); Influenza B virus by PCR Negative (Neg); RSV by PCR Negative (Neg); SARS CoV2 RNA(COVID-19) Ceph NEGATIVE (Negative)
--- NOTE | 2024-01-27 22:09 | Emergency Department Note ---
Impression & Plan Left-sided chest pain, Thrombocytopenia, Fall, Cellulitis, Acute Lyme disease, Weakness ED Provider Note NAME: NEREIDA WEAVER AGE: 73 SEX: F : 1950 ARRIVES VIA: Walk-In INFORMANT: [Patient] ED PROVIDER(S): [Enio Oliva MD] CHIEF COMPLAINT: Chest pain and fever HISTORY OF PRESENT ILLNESS: The patient is a 73-year-old female who presents to the ER after falling over an embankment while she was in her garden on the , 13 days ago. The patient did not lose consciousness. She states that she has had some left chest pain and left shoulder pain since she fell but things seem to be worsening. She now has a fever and there is erythema to her left upper bicep. There has been no increased cough but when she coughs, the left chest wall does seem sore. She has not had a sore throat or stuffy nose. No abdominal pain. She states that her whole body is achy and she feels weak and exhausted. She is having a hard time standing because of the weakness. No change in urination, no diarrhea. She does not think that she was bitten by a tick or any type of insect. She states that she was picking at an area on the left arm and things became red, she may have opened the skin and caused an infection PMHx/PSHx/Social Hx: See Below PHYSICAL EXAM: GENERAL: Patient is in no acute distress. HEENT: No acute trauma, normocephalic atraumatic, mucous membranes moist, no nasal congestion. NECK: No stridor, no adenopathy, no meningismus, trachea is midline. LUNGS: Clear to auscultation bilaterally, no wheeze, no rhonchi, breath sounds equal. HEART: Without murmurs gallops or rubs, regular rate and rhythm. Chest: Tender to the left anterior chest wall, no rash or contusion seen. No crepitus. ABDOMEN: Soft, nontender, no peritonitis. EXTREMITIES: No cyanosis, full range of motion of all the joints without pain or difficulty. Patient does have a 10 to 15 cm of erythema to the left lateral bicep near the shoulder. There is warmth in this area. NEUROLOGIC: Oriented x 3, no acute motor or sensory deficits, no focal weakness. SKIN: No jaundice, no diaphoresis. DIFFERENTIAL DIAGNOSIS: Cellulitis, viral illness, pneumonia, rib fracture, UTI, bacteremia or sepsis, among others. EMERGENCY DEPARTMENT PROCEDURES: MEDICAL DECISION MAKING: There is a lower white blood cell count, this has been documented before. There was a normal hemoglobin. Platelet count was low but that is a baseline finding for the patient. No coagulopathy. No renal failure. Lactic acid level was not elevated making sepsis less likely. There were some liver enzyme elevations, these have been seen before. ECG shows a normal sinus rhythm, no ST elevation. Cardiac enzyme testing x 1 is not consistent with acute cardiac injury. Anaplasmosis and Babesia smears were negative, the send out testing is pending. Lyme disease testing was positive. COVID, influenza and RSV test were negative. Chest film did not show rib fracture or pneumonia. On exam, the patient was febrile. She was tender across the left anterior chest wall. She had a large area of erythema to the left upper lateral bicep. The patient received IV saline, 2 L. She received IV Zofran for nausea. She was given IV Dilaudid for pain. She received IV ceftriaxone and oral doxycycline. She was given oral Tylenol. Patient appears to have acute Lyme disease. I think this has caused the flulike symptoms and is likely responsible for the erythema/cellulitis to the left upper arm. The left chest pain I suspect is musculoskeletal from her fall. Given the patient's findings, given her liver disease, given her weakness today and the difficulty standing, I do think a hospital stay would be warranted. I spoke with the patient and case management. The on-call hospitalist was consulted. Prior/Outside records/notes reviewed: None ECG per my interpretation: Indication was chest pain. The ECG shows a normal sinus rhythm with a rate of 86. LVH is present. There is no acute ST elevation, no PVCs. The QTc is 423. Continuous Cardiac Monitoring per my interpretation: An order was placed for continuous cardiac monitoring. The monitor shows a rate of 81 with normal sinus rhythm. Imaging/x-ray results per my interpretation: Chest x-ray does not show mediastinal widening, rib fracture or pneumonia. There is no CHF. There is no pneumothorax. Chronic Medical/Social conditions affecting care: Advanced age. Care/Management discussed with: Case management, the on-call hospitalist. Level of care consideration(s): After review of the information above and other included data: --I believe the patient requires escalation of care to admission DISPOSITION: Admission Past Med/Surg History Problem List (Updated 01/28/24 @ 01:05 by Enio Oliva MD) Weakness (Acute) Acute Lyme disease (Acute) Cellulitis (Acute) Fall (Acute) Thrombocytopenia (Acute) Left-sided chest pain (Acute) Gastritis Frequent urinary tract infections Urge and stress incontinence Type 2 diabetes mellitus Dyslipidemia Chronic liver disease and cirrhosis portal hypertension including ascites and marked splenomegaly. Fibrosis staging F4 Thrombocytopenia (Acute) Chronic- likely secondary to underlying cirrhosis per records COPD (chronic obstructive pulmonary disease) (Acute) Obstructive sleep apnea (Acute) Asthma (Acute) Obesity Depression with anxiety Sensorineural hearing loss of both ears History of hysterectomy (Chronic) Ovarian mass, right Genital HSV Anaplasmosis Admitted 04/21/22 to 04/27/22 Work up +anaplasma. DOxycycline rx. Medical History Serum ammonia increased Surgical History History of bladder repair surgery History of carpal tunnel surgery x2 H/O abdominal surgery panniculectomy x 2 per pt History of laparoscopic cholecystectomy open surgery History of hysterectomy Family History Father Prostate cancer Diabetes Mother Cancer Other No family history of adverse response to anesthesia No family history of bleeding disorder Denies family history of Ovarian cancer Myocardial infarction Breast cancer Colorectal cancer Social History Smoking Status: Former smoker Tobacco Type: Cigarettes Second Hand Exposure: No; Do You Dip or Chew Tobacco: No; Hx Alcohol Use: Yes Alcohol type: beer Alcohol Intake Frequency Comment: 1-2 per month Hx Substance Use: No Preferred Language: Gambian Communication Ability: Effective Visual Impairment: Limited Hearing Ability: Use of Hearing Aid District Manager Required: No Beliefs That Will Affect Care: None marital status: Current Living Situation: Alone current occupational status: retired How many Children do You have: 1 Feels Safe at Home: Yes Childhood Exposure to Second-Hand Smoke: No Diet: regular caffeine: No during the past year weight has: remained stable Dental Care, Regularly: Yes Physical Activity Frequency: Does not Exercise Seatbelt Use: always Sunscreen Use: No Do you think of yourself as: straight/heterosexual Gender Identity: Female Assistive Devices: Brace/Splint/Immobilizer and Glasses Allergies Allergies Allergy/AdvReac Type Severity Reaction Status Date / Time levofloxacin Allergy Intermediate RASH, Verified 01/27/24 23:05 MACULOPAPULAR RASH nickel Allergy Intermediate HIVES/RASH Verified 01/27/24 23:05 ON SKIN oxycodone [From OxyContin] Allergy Intermediate NAUSEA/VOMI Verified 01/27/24 23:05 TING Penicillins Allergy Intermediate RASH Verified 01/27/24 23:05 morphine AdvReac Severe Headache Verified 01/27/24 23:05 escitalopram [From Lexapro] AdvReac Intermediate Diarrhea Verified 01/27/24 23:05 metformin AdvReac Intermediate CHRONIC Verified 01/27/24 23:05 DIARRHEA, BLOATING, PAIN Home Meds Home Medications Medication Instructions Recorded Confirmed insulin degludec 200 unit/mL (3 100 unit subcut QPM 01/22/21 01/27/24 mL) subcutaneous pen (Tresiba FlexTouch U-200 insulin) cholecalciferol (vitamin D3) 125 125 mcg PO DAILY 07/07/21 01/27/24 mcg (5,000 unit) tablet (Vitamin D3) acetaminophen 500 mg tablet 500 mg PO Q4H PRN Pain 09/18/23 01/27/24 (Tylenol Extra Strength) semaglutide 2 mg/dose (8 mg/3 mL) 2 mg subcut WK 09/18/23 01/27/24 subcutaneous pen injector Previous Rx's Medication Instructions Recorded diaper,brief,adult,disposable #[id number] ea 10/29/22 (Depend Underwear For Women XL) Results & Data (ED) Vital Signs Vital Signs - 24 hr 01/27/24 19:37 01/27/24 20:40 01/27/24 20:40 Temperature 38.1 C H Temperature Source Oral Pulse Rate 86 84 Pulse Rate [Apical] 82 Pulse Rhythm Regular Pulse Rhythm [Apical] Regular Respiratory Rate 24 18 18 Respiratory Effort / Characteristics Non-Labored Non-Labored Spontaneous Respiratory Depth Normal Normal Respiratory Pattern Regular Regular Blood Pressure 129/66 Blood Pressure [Right Arm] 139/73 Blood Pressure Mean 87 Blood Pressure Mean [Right Arm] 95 Pulse Oximetry 95 96 96 Oxygen Delivery Method Room Air Room Air Room Air Sepsis Recent Fever Within 48 Hours Yes Sepsis New/Unexplained Change in Mental Status No Sepsis Action Taken by Nursing No Action Required 01/27/24 20:47 01/27/24 21:00 Temperature Temperature Source Pulse Rate 82 Pulse Rate [Apical] 81 Pulse Rhythm Pulse Rhythm [Apical] Regular Respiratory Rate 18 Respiratory Effort / Characteristics Non-Labored Spontaneous Respiratory Depth Normal Respiratory Pattern Regular Blood Pressure Blood Pressure [Right Arm] Blood Pressure Mean Blood Pressure Mean [Right Arm] Pulse Oximetry 96 Oxygen Delivery Method Room Air Sepsis Recent Fever Within 48 Hours Sepsis New/Unexplained Change in Mental Status Sepsis Action Taken by [facility] Medications Current Medication List: was personally reviewed by me Laboratory Data Attestation: I reviewed the patient's lab results. 01/27/24 19:55 01/27/24 19:55 Lab Results 01/27/24 01/27/24 Range/Units 19:55 19:59 WBC 3.35 L (4.8-10.8) K/ul RBC 4.04 L (4.20-5.40) M/uL Hgb 12.7 (12.0-16.0) g/dl Hct 37.2 (37.0-47.0) % MCV 92.1 (80.0-100.0) fL MCH 31.4 (25.0-34.0) pg MCHC 34.1 (32.0-36.0) g/dL RDW Std Deviation 46.1 (36.4-46.3) fL RDW Coeff of Chana 13.5 (11.5-14.5) % Plt Count 60 L (130-400) K/uL MPV 12.1 (9.4-12.4) fL Immature Gran % (Auto) 0.0 % Neut % (Auto) 74.3 % Lymph % (Auto) 14.0 % Sutter % (Auto) 9.6 % Eos % (Auto) 1.5 % Baso % (Auto) 0.6 % Neut # (Auto) 2.49 (1.40-6.50) K/uL Lymph # (Auto) 0.47 L (1.20-3.40) K/uL Sutter # (Auto) 0.32 (0.11-0.59) K/uL Eos # (Auto) 0.05 (0.00-0.50) K/uL Baso # (Auto) 0.02 (0.00-0.20) K/uL Immature Gran # (Auto) 0.00 L (0.01-0.20) K/uL PT 12.0 (9.0-12.0) Seconds INR 1.1 (0.9-1.1) APTT 28 (21-31) Seconds PTT Ratio 1.0 Sodium 134 L (136-145) mmol/L Potassium 4.1 (3.5-5.1) mmol/L Chloride 105 (98-107) mmol/L Carbon Dioxide 22 (21-32) mmol/L Anion Gap 7 (3-11) BUN 19 (6-23) mg/dl Creatinine 0.67 (0.6-1.2) mg/dl Est Cr Clr Drug Dosing Not Reportable Est GFR ( Amer) 100.4 ml/min Est GFR (Non-Af Amer) 86.6 ml/min BUN/Creatinine Ratio 28.4 H (10-20) Glucose 208 H (70-99(Fasting)) mg/dl Lactate 1.3 (0.4-2.0) mmol/L Calcium 10.0 (8.6-10.3) mg/dl Magnesium 1.8 (1.7-2.4) mg/dl Total Bilirubin 2.9 H (0.2-1.0) mg/dl AST 63 H (13-39) U/L ALT 43 (7-52) U/L Alkaline Phosphatase 160 H (34-104) U/L Troponin I High Sens 3.9 (0-14) pg/ml Total Protein 7.4 (6.0-8.3) gm/dl Albumin 3.5 (3.4-5.0) gm/dl Globulin 3.9 (2.5-4.0) gm/dl Albumin/Globulin Ratio 0.9 (0.9-2) Procalcitonin 0.05 (0-0.5) ng/ml Anaplasma Smear See Comment Babesia Smear See Comment Lyme Disease Screen Positive H (Negative) Lyme Tier 2 IgG Confirm Positive H (Negative) Lyme Tier 2 IgM Confirm Positive H (Negative) SARS-CoV-2 (PCR) NEGATIVE (Negative) Influenza Type A (PCR) Negative (Neg) Influenza Type B (PCR) Negative (Neg) RSV (RT-PCR) Negative (Neg) Administered Medications Discontinued Medications Acetaminophen (Acetaminophen 500 Mg Tab) 1,000 mg PO NOW STA Stop: 01/27/24 21:39 Last Admin: 01/27/24 22:10 Dose: 1,000 mg Documented By: HILARIO Doxycycline Hyclate (Doxycycline Hyclate 100 Mg Cap) 100 mg PO NOW STA Stop: 01/27/24 23:22 Last Admin: 01/28/24 00:23 Dose: 100 mg Documented By: HILARIO Hydromorphone HCl (Hydromorphone Inj 0.5 Mg/0.5 Ml Syr) 0.25 mg IV NOW STA Stop: 01/27/24 21:41 Last Admin: 01/27/24 22:10 Dose: 0.25 mg Documented By: HILARIO Sodium Chloride (Nss) 1,000 mls @ 999 mls/hr IV .Q1H1M ONE Stop: 01/27/24 22:38 Last Infusion: 01/27/24 23:22 Dose: Infused Documented By: Admin: 01/27/24 22:11 Dose: 999 mls/hr Documented By: HILARIO Ceftriaxone Sodium (Rocephin) 2,000 mg in 50 mls @ 100 mls/hr IV NOW STA Stop: 01/27/24 22:07 Last Infusion: 01/27/24 23:35 Dose: Infused Documented By: Admin: 01/27/24 22:59 Dose: 100 mls/hr Documented By: HILARIO Sodium Chloride (Nss) 1,000 mls @ 999 mls/hr IV .Q1H1M ONE Stop: 01/28/24 00:21 Last Admin: 01/28/24 00:25 Dose: 999 mls/hr Documented By: HILARIO Ondansetron HCl (Ondansetron Inj 2 Mg/Ml 2 Ml Vial) 4 mg IV NOW STA Stop: 01/27/24 21:41 Last Admin: 01/27/24 22:10 Dose: 4 mg Documented By: HILARIO Discharge Plan Visit Data Chief Complaint: Chest Pain Stated Complaint: FEVER, NAUSEA, ABD PAIN, CHEST PAIN, FELL ED Provider: Enio Oliva Discharge Problem: Left-sided chest pain, Thrombocytopenia, Fall, Cellulitis, Acute Lyme disease, Weakness Patient Disposition: Admitted As Inpatient Condition: Fair Forms Stand Alone Forms: [facility] Prescriptions Prescriptions: No Action (DME) Depend Underwear For Women XL Misc See Rx Instructions .Route Qty: 68 3RF Rx Instructions: Change brief daily as needed insulin degludec [Tresiba FlexTouch U-200] 200 unit/mL (3 mL) Insulin Pen 100 unit SUBCUT QPM Rx Instructions: PER PT "TAKES EVERY AFTERNOON" cholecalciferol (vitamin D3) [Vitamin D3] 125 mcg (5,000 unit) Tablet 125 mcg PO DAILY Rx Instructions: PER PT "NOT REGULARLY" acetaminophen [Tylenol Extra Strength] 500 mg Tablet 500 mg PO Q4H PRN (Reason: Pain) semaglutide 2 mg/dose (8 mg/3 mL) pen injector 2 mg subcut WK Rx Instructions: TUESDAYS Referrals Referrals: Scarlett Dudley PA-C [Primary Care Provider] - Discharge Problem: Fall Qualifiers: Encounter type: initial encounter Qualified Code(s): W19.XXXA - Unspecified fall, initial encounter Cellulitis Qualifiers: Site of cellulitis: extremity Site of cellulitis of extremity: upper extremity Laterality: left Qualified Code(s): L03.114 - Cellulitis of left upper limb
[2024-01-27] MEDS: ONDANSETRON INJ 2 MG/ML 2 ML VIAL IV STA (22:10)
[2024-01-27] MEDS: ACETAMINOPHEN 500 MG TAB PO STA (22:10)
[2024-01-27] MEDS: HYDROmorphone INJ 0.5 MG/0.5 ML SYR IV STA (22:10)
[2024-01-27] MEDS: SODIUM CHLORIDE 0.9% 1,000 ML IV ONE (22:11)
[2024-01-27 22:57] LABS: Lyme Screen Rflx Confirmation Positive (Negative)
[2024-01-27] MEDS: cefTRIAXone SODIUM 2,000 MG/50 ML BAG IV STA (22:59)
[2024-01-27 23:31] LABS: Lyme Ab IgG 2nd Tier Confirm Positive (Negative); Lyme Ab IgM 2nd Tier Confirm Positive (Negative)
--- NOTE | 2024-01-28 00:07 | History & Physical Report ---
Date of Service January 28, 2024 Assessment & Plan (1) Acute Lyme disease: Plan: 73yo female with 13 days of LUE rash, progressive body aches, fatigue, weakness and fever. POSITIVE for Lyme with + IgM and IgG as well. Patient does not recall any tick bites but has reportedly had tick borne illnesses before (Lyme screen negative in August 2023). Technically meets sepsis criteria - present on admission - with Tm of 38.1 and WBC of 3.35. Leukopenia with lymphopenia, thrombocytopenia as well as hyponatremia and abnormal liver findings - elevation of Tbili and AP likely chronic to some degree given patient's history of liver cirrhosis. Acute worsening in setting of Lyme disease. -Admit to medical -Continue Doxycycline 100mg IV BID -Monitor area of redness on LUE -?bite site - Ice to LUE provides relief -Additional tick-borne panel sent from the ER - Anaplasmosis, Babesiosis and Erlichiosis -Tylenol as needed with caution in liver disease (2) Rash: Plan: Possibly secondary to tick exposure? Possible cellulitis. Area marked and dated -Monitor daily for progression -Ice to affected area -Checking doppler for collection/hematoma (3) Chest wall pain: Plan: Reproducible, pleuritic chest wall pain following a tumble down an embankment. Suspect musculoskeletal pain, possible pleurisy developing -Tylenol PRN -Lidoderm patch Plan Diabetes -Continue home Tresiba 100u qPM -Goal blood sugar 110 - 140 Urinary incontinence -Straight cath as needed -UA has been ordered, not yet collected History of Present Illness Chief Complaint: LUE pain, redness and swelling Primary Care Provider: Scarlett Dudley Jing Dela Cruz is a 73yo female with history of DM, HLP, COPD and liver cirrhosis presenting with Lyme disease. Patient's problems began approximately 13 days ago when she was working in her garden. She lost her balance while pulling weeds and tumbled down and embankment. She did have some pain in her left chest wall. Shortly after she noted some redness and itching to her left upper arm. The area of redness has been steadily progressing - round, well circumscribed area of redness. She reports it is very itchy. She has had flu-like symptoms as well with fever, chills, body aches. She has had occasional nausea without vomiting. No diarrhea. Additionally, from her fall, she has had pleuritic chest pain as well as chest wall pain, stiffness and pain in her left neck and upper back. In the ER she is febrile, HD stable ER Course: Tylenol Ceftriaxone Doxycycline Dilaudid Zofran NSS Allergies Allergy/AdvReac Type Severity Reaction Status Date / Time levofloxacin Allergy Intermediate RASH, Verified 01/27/24 23:05 MACULOPAPULAR RASH nickel Allergy Intermediate HIVES/RASH Verified 01/27/24 23:05 ON SKIN oxycodone [From OxyContin] Allergy Intermediate NAUSEA/VOMI Verified 01/27/24 23:05 TING Penicillins Allergy Intermediate RASH Verified 01/27/24 23:05 morphine AdvReac Severe Headache Verified 01/27/24 23:05 escitalopram [From Lexapro] AdvReac Intermediate Diarrhea Verified 01/27/24 23:05 metformin AdvReac Intermediate CHRONIC Verified 01/27/24 23:05 DIARRHEA, BLOATING, PAIN Home Medications Medication Instructions Recorded Confirmed Type insulin degludec 200 unit/mL (3 100 unit subcut QPM 01/22/21 01/27/24 History mL) subcutaneous pen (Tresiba FlexTouch U-200 insulin) cholecalciferol (vitamin D3) 125 125 mcg PO DAILY 07/07/21 01/27/24 History mcg (5,000 unit) tablet (Vitamin D3) diaper,brief,adult,disposable #68 ea 10/29/22 08/04/23 Rx (Depend Underwear For Women XL) acetaminophen 500 mg tablet 500 mg PO Q4H PRN Pain 09/18/23 01/27/24 History (Tylenol Extra Strength) semaglutide 2 mg/dose (8 mg/3 mL) 2 mg subcut WK 09/18/23 01/27/24 History subcutaneous pen injector Past Med/Surg History Problem List (Updated 01/28/24 @ 01:28 by Jessica Bain DO) Chest wall pain Rash Weakness (Acute) Acute Lyme disease (Acute) Cellulitis (Acute) Fall (Acute) Thrombocytopenia (Acute) Left-sided chest pain (Acute) Gastritis Frequent urinary tract infections Urge and stress incontinence Type 2 diabetes mellitus Dyslipidemia Chronic liver disease and cirrhosis portal hypertension including ascites and marked splenomegaly. Fibrosis staging F4 Thrombocytopenia (Acute) Chronic- likely secondary to underlying cirrhosis per records COPD (chronic obstructive pulmonary disease) (Acute) Obstructive sleep apnea (Acute) Asthma (Acute) Obesity Depression with anxiety Sensorineural hearing loss of both ears History of hysterectomy (Chronic) Ovarian mass, right Genital HSV Anaplasmosis Admitted 04/21/22 to 04/27/22 Work up +anaplasma. DOxycycline rx. Medical History Serum ammonia increased Surgical History History of bladder repair surgery History of carpal tunnel surgery x2 H/O abdominal surgery panniculectomy x 2 per pt History of laparoscopic cholecystectomy open surgery Family History Father Prostate cancer Diabetes Mother Cancer Other No family history of adverse response to anesthesia No family history of bleeding disorder Denies family history of Ovarian cancer Myocardial infarction Breast cancer Colorectal cancer Social History Smoking Status: Former smoker Tobacco Type: Cigarettes Second Hand Exposure: No; Do You Dip or Chew Tobacco: No; Hx Alcohol Use: Yes Alcohol type: beer Alcohol Intake Frequency Comment: 1-2 per month Hx Substance Use: No Preferred Language: [place] Communication Ability: Effective Visual Impairment: Limited Hearing Ability: Use of Hearing Aid Greenhouse Specialist Required: No Beliefs That Will Affect Care: None marital status: Current Living Situation: Alone current occupational status: retired How many Children do You have: 1 Feels Safe at Home: Yes Childhood Exposure to Second-Hand Smoke: No Diet: regular caffeine: No during the past year weight has: remained stable Dental Care, Regularly: Yes Physical Activity Frequency: Does not Exercise Seatbelt Use: always Sunscreen Use: No Do you think of yourself as: straight/heterosexual Gender Identity: Female Assistive Devices: Brace/Splint/Immobilizer and Glasses Review of Systems Review of Systems: All systems reviewed & are unremarkable except as noted in HPI & below Physical Exam Physical Exam: General: patient resting comfortably, NAD, non-toxic in appearance, AA&O x 4 Skin: warm, dry, intact, erythematous well circumscribed rash on left upper arm, area of bruising in center, tender to palpation, no fluctuance, no drainage HEENT: NC/AT, PERRL, EOMI, anicteric sclera, conjunctiva without injection, external ear normal to inspection and nontender, nares patent, moist mucus membranes, dentition intact, no oropharyngeal lesions, neck supple, trachea midline, no LAD, no thyromegaly, no JVD Heart: +S1/S2, regular, no m/r/g, chest wall pain reproducible with palpation Lungs: equal air entry bilaterally, no rales/rhonchi/wheezes Abd: +BS, soft, NT/ND, no masses/organomegaly/ascites, +abdominal hernia nontender, soft Ext: warm, 2+ pulses in UE/LE bilaterally, no clubbing/cyanosis or edema Neuro: nonfocal, patient AA&O x 4, speech intact, no facial droop, moving all extremities on command with equal strength 5/5 Results & Data Results & Data Vital Signs (Past 12 Hours) Vital Signs Temp Pulse Pulse Resp BP BP Pulse Ox 01/27/24 21:00 81 18 96 01/27/24 20:47 82 01/27/24 20:40 84 18 96 01/27/24 20:40 82 18 139/73 96 01/27/24 19:37 38.1 C H 86 24 129/66 95 O2 Del Method 01/27/24 21:00 Room Air 01/27/24 20:47 01/27/24 20:40 Room Air 01/27/24 20:40 Room Air 01/27/24 19:37 Room Air Laboratory Results Laboratory Results WBC 3.35 K/ul (4.8-10.8) L 01/27/24 19:55 RBC 4.04 M/uL (4.20-5.40) L 01/27/24 19:55 Hgb 12.7 g/dl (12.0-16.0) 01/27/24 19:55 Hct 37.2 % (37.0-47.0) 01/27/24 19:55 MCV 92.1 fL (80.0-100.0) 01/27/24 19:55 MCH 31.4 pg (25.0-34.0) 01/27/24 19:55 MCHC 34.1 g/dL (32.0-36.0) 01/27/24 19:55 RDW Std Deviation 46.1 fL (36.4-46.3) 01/27/24 19:55 RDW Coeff of Chana 13.5 % (11.5-14.5) 01/27/24 19:55 Plt Count 60 K/uL (130-400) L 01/27/24 19:55 MPV 12.1 fL (9.4-12.4) 01/27/24 19:55 Immature Gran % (Auto) 0.0 % 01/27/24 19:55 Neut % (Auto) 74.3 % 01/27/24 19:55 Lymph % (Auto) 14.0 % 01/27/24 19:55 Rock % (Auto) 9.6 % 01/27/24 19:55 Eos % (Auto) 1.5 % 01/27/24 19:55 Baso % (Auto) 0.6 % 01/27/24 19:55 Neut # (Auto) 2.49 K/uL (1.40-6.50) 01/27/24 19:55 Lymph # (Auto) 0.47 K/uL (1.20-3.40) L 01/27/24 19:55 Rock # (Auto) 0.32 K/uL (0.11-0.59) 01/27/24 19:55 Eos # (Auto) 0.05 K/uL (0.00-0.50) 01/27/24 19:55 Baso # (Auto) 0.02 K/uL (0.00-0.20) 01/27/24 19:55 Immature Gran # (Auto) 0.00 K/uL (0.01-0.20) L 01/27/24 19:55 PT 12.0 Seconds (9.0-12.0) 01/27/24 19:55 INR 1.1 (0.9-1.1) 01/27/24 19:55 APTT 28 Seconds (21-31) 01/27/24 19:55 PTT Ratio 1.0 01/27/24 19:55 Sodium 134 mmol/L (136-145) L 01/27/24 19:55 Potassium 4.1 mmol/L (3.5-5.1) 01/27/24 19:55 Chloride 105 mmol/L (98-107) 01/27/24 19:55 Carbon Dioxide 22 mmol/L (21-32) 01/27/24 19:55 Anion Gap 7 (3-11) 01/27/24 19:55 BUN 19 mg/dl (6-23) 01/27/24 19:55 Creatinine 0.67 mg/dl (0.6-1.2) 01/27/24 19:55 Est Cr Clr Drug Dosing Not Reportable 01/27/24 19:55 Est GFR ( Amer) 100.4 ml/min 01/27/24 19:55 Est GFR (Non-Af Amer) 86.6 ml/min 01/27/24 19:55 BUN/Creatinine Ratio 28.4 (10-20) H 01/27/24 19:55 Glucose 208 mg/dl (70-99(Fasting)) H 01/27/24 19:55 Lactate 1.3 mmol/L (0.4-2.0) 01/27/24 19:55 Calcium 10.0 mg/dl (8.6-10.3) 01/27/24 19:55 Magnesium 1.8 mg/dl (1.7-2.4) 01/27/24 19:55 Total Bilirubin 2.9 mg/dl (0.2-1.0) H 01/27/24 19:55 AST 63 U/L (13-39) H 01/27/24 19:55 ALT 43 U/L (7-52) 01/27/24 19:55 Alkaline Phosphatase 160 U/L (34-104) H 01/27/24 19:55 Troponin I High Sens 3.9 pg/ml (0-14) 01/27/24 19:55 Total Protein 7.4 gm/dl (6.0-8.3) 01/27/24 19:55 Albumin 3.5 gm/dl (3.4-5.0) 01/27/24 19:55 Globulin 3.9 gm/dl (2.5-4.0) 01/27/24 19:55 Albumin/Globulin Ratio 0.9 (0.9-2) 01/27/24 19:55 Procalcitonin 0.05 ng/ml (0-0.5) 01/27/24 19:55 Anaplasma Smear See Comment 01/27/24 19:55 Babesia Smear See Comment 01/27/24 19:55 Lyme Disease Screen Positive (Negative) H 01/27/24 19:55 Lyme Tier 2 IgG Confirm Positive (Negative) H 01/27/24 19:55 Lyme Tier 2 IgM Confirm Positive (Negative) H 01/27/24 19:55 SARS-CoV-2 (PCR) NEGATIVE (Negative) 01/27/24 19:59 Influenza Type A (PCR) Negative (Neg) 01/27/24 19:59 Influenza Type B (PCR) Negative (Neg) 01/27/24 19:59 RSV (RT-PCR) Negative (Neg) 01/27/24 19:59 ECG Additional Comments: EKG with NSR at 86bpm, no acute ischemic changes PG Care Time/CCT Total # of Minutes Spent Total Time Spent with Patient: Total time spent is greater than 50% in coordination of care (as documented) at patient's floor/unit and/or counseling patient: Coding Level of Care Code 96194 INT INP/OBS CARE 3/75MIN Diagnoses Acute Lyme disease A69.20 Rash R21 Chest wall pain R07.89
[2024-01-28] MEDS: DOXYCYCLINE HYCLATE 100 MG CAP PO STA (00:23)
[2024-01-28] MEDS: SODIUM CHLORIDE 0.9% 1,000 ML IV ONE (00:25)
--- NOTE | 2024-01-28 03:53 | Ultrasound Report ---
Exam(s): US VENOUS LEFT UPPER EXTREMITY EXAM: US Duplex Left Upper Extremity Veins CLINICAL HISTORY: Reason for exam: cellulitis, tenderness. TECHNIQUE: Real-time duplex ultrasound scan of the left upper extremity veins integrating B-mode two-dimensional vascular structure, Doppler spectral analysis, color flow Doppler imaging and compression. COMPARISON: No relevant prior studies available. FINDINGS: Deep veins: No DVT in the internal jugular, subclavian, axillary, or brachial veins. The veins demonstrate normal color flow, are normally compressible, with normal phasic flow and/or augmentation response. Superficial veins: No thrombus in the visualized basilic and cephalic veins. Soft tissues: No mass or fluid collection is noted. IMPRESSION: No ultrasound evidence of deep venous thrombosis in the left upper extremity. Electronically signed by: Art Marie MD 01/28/24 03:52 AM
[2024-01-28] MEDS ORDERED: DEXTROSE 50% 50 ML SYRINGE IV PRN (04:29)
[2024-01-28] MEDS ORDERED: CARBOHYDRATES FOR HYPOGLYCEMIA PO PRN (04:29)
[2024-01-28] MEDS ORDERED: GLUCAGON FOR INJ 1 MG VIAL SQ PRN (04:29)
[2024-01-28] MEDS ORDERED: GLUCOSE 40% GEL 15 GM TUBE PO PRN (04:29)
[2024-01-28] MEDS ORDERED: ONDANSETRON INJ 2 MG/ML 2 ML VIAL IV PRN (04:29)
[2024-01-28] MEDS ORDERED: GLUCOSE 10 TAB/TUBE PO PRN (04:29)
[2024-01-28] MEDS: ACETAMINOPHEN 500 MG TAB PO PRN (04:43)
--- NOTE | 2024-01-28 04:44 | Ultrasound Report ---
Exam(s): US EXTREMITY EXAM: US Right Upper Extremity Non-Vascular, Limited CLINICAL HISTORY: Reason for exam: eval for soft tissue collection. TECHNIQUE: Real-time ultrasound scan of the right upper arm with image documentation. COMPARISON: No relevant prior studies available. FINDINGS: Soft tissues: No mass or fluid collection is seen.. IMPRESSION: No mass or fluid collection is noted in the region of interest. If further evaluation is clinically necessary, consider correlation with MRI Electronically signed by: Art Marie MD 01/28/24 04:43 AM
[2024-01-28] MEDS: LIDOCAINE 5% 1 PATCH TD STA (04:47)
[2024-01-28 06:15] LABS: Hematocrit (blood only) 33.3 % (37.0-47.0); Hemoglobin 11.1 g/dl (12.0-16.0); Mean Corpuscular Hgb Conc 33.3 g/dL (32.0-36.0); Mean Platelet Volume 12.2 fL (9.4-12.4); Platelet Count 44 K/uL (130-400); RDW Coefficient of Variation 13.4 % (11.5-14.5); RDW Standard Deviation 45.2 fL (36.4-46.3); Red Blood Count 3.58 M/uL (4.20-5.40); White Blood Count 1.98 K/ul (4.8-10.8)
[2024-01-28 06:28] LABS: BUN Creatinine Ratio 23.7 (10-20); Bilirubin Direct 0.7 mg/dl (0-0.2); Bilirubin,Total 2.4 mg/dl (0.2-1.0); Calcium 8.4 mg/dl (8.6-10.3); Creatinine Clr Calc Pharmacy 99.1 ml/min; Est GFR (African American) 104.6 ml/min; Est GFR (Non-African American) 90.3 ml/min; Total Protein 6.3 gm/dl (6.0-8.3)
--- NOTE | 2024-01-28 07:12 | XRay Report ---
SINGLE VIEW CHEST CLINICAL HISTORY: Sepsis. FINDINGS: A PA chest radiograph is compared to chest x-ray and chest CT dated 09/18/2023. The cardiome diastinal silhouette is unremarkable noting atherosclerotic calcification of the thoracic aorta. Ther e is mild elevation of the right hemidiaphragm and bibasilar atelectasis. The lungs and pleural space s are otherwise clear. No pneumothorax is seen. The skeletal structures are osteopenic. The bony thor ax is grossly intact. Arthritic change is seen in the left shoulder. Cholecystectomy clips are noted in the right upper quadrant. IMPRESSION: No active disease in the chest. ACT 112: Negative or not required by law. Electronically signed by: Enio Ayala M.D. 01/28/2024 7:10 AM
--- NOTE | 2024-01-28 07:13 | Hospitalist Progress Note ---
Date of Service January 28, 2024 Assessment & Plan (1) Acute Lyme disease: (2) Chest wall pain: (3) Rash: (4) Thrombocytopenia: (5) Leukopenia: (6) Anaplasmosis: Plan 1) Acute Lyme disease/Anaplasmosis 73yo female with 13 days of LUE rash, progressive body aches, fatigue, weakness and fever. - POSITIVE for Lyme with + IgM and IgG as well. - Patient does not recall any tick bites but has reportedly had tick borne illnesses before (Lyme screen negative in August 2023). - Met sepsis criteria (on admission: Tm, 38.1; WBC, 3.35) - Blood cultures pending Leukopenia with lymphopenia, thrombocytopenia as well as hyponatremia and abnormal liver findings - elevation of Tbili and AP likely chronic to some degree given patient's history of liver cirrhosis. Acute worsening in setting of Lyme disease. - WBC, 2.0 <-- 3.4; Hgb, 11.1 <-- 12.7; Plts, 44 <-- 60 - TBili, 2.4 <-- 2.9; (DBili 0.7); AST, 51; ALT, 35; AlkPhos, 131 -Continue Doxycycline 100mg IV BID -Monitor area of redness on LUE, Ice to LUE provides relief - Additional tick-borne panel sent from the ER - Anaplasmosis, Babesiosis and Erlichiosis - low WBC and low platelets, 44 (although baseline is 80-100) would be consistent with Anaplasmosis - Tylenol as needed with caution in liver disease (LFT's improving) 2) Rash Possibly secondary to tick exposure? Possible cellulitis. Area marked and dated -Monitor daily for progression, -Ice to affected area -Checking Doppler for collection/hematoma, negative for DVT 3) Chest wall pain Reproducible, pleuritic chest wall pain following a tumble down an embankment. Suspect musculoskeletal pain, possible pleurisy developing -Tylenol PRN, -Lidoderm patch, - Dilaudid, 0.5 mg, IV, q8hrs, PRN for pain during hospital stay 4) Diabetes -Continue home Tresiba 100u qPM -Goal blood sugar 110 - 140 5) Urinary incontinence -Straight cath as needed, - Grady catheter ordered -UA has been ordered, collected, UA pending Code status: Full code [facility] AMI: T2DM Carb Consistent Admission and Anticipated Discharge Date Admission Date: January 28, 2024 Supervising Physician Co-Signing Physician Notes I personally examined the patient and verified all yee points of history and exam, discussed case, and agree with decision making with Dr Melchor rash on left arm burning but not necessarily tender. Fevers. Aches all over. Also ache specifically where she fell. Vitals noted, in general she is awake and alert somewhat anxious. Breathing unlabored no accessory muscle use good effort. Skin she has a large area of redness on her left armit is mildly warm and is not at all tender with no crepitus, and looking at it from a slightly oblique angle it does appear to have central clearing as well as a bit of a ringed appearancealthough admittedly quite subtle. Lyme disease/anaplasmosisher rash given how nontender it is is quite inconsistent with cellulitis, and then when viewed from an oblique angle it appears to be a target rash. Further her worsening leukopenia thrombocytopenia and bodyaches seem consistent with anaplasmosis (obviously have to follow for any signs of Babesiabut with Anaplasma being more prevalent here, as well as with her not showing any signs of hemolysisI would favor Anaplasma over Babesia)continue doxycycline. Continue to follow. Otherwise as above. Subjective Jing Dela Cruz is a 73 yo F w/ a PMHx of DM, HLP, COPD and liver cirrhosis presenting with Lyme disease. Patient's problems began approximately 13 days ago when she was working in her garden. She lost her balance while pulling weeds and tumbled down an embankment. She did have some pain in her left chest wall. Shortly after she noted some redness and itching to her left upper arm. The area of redness has been steadily progressing - round, well circumscribed area of redness. She reports it is very itchy. She has had flu-like symptoms as well with fever, chills, body aches. She has had occasional nausea without vomiting. No diarrhea. Additionally, from her fall, she has had pleuritic chest pain as well as chest wall pain, stiffness and pain in her left neck and upper back. Review of Systems Constitutional: + fever, + fatigue, + weakness and + ins omnia Cardiovascular: + chest pain (possibly MSK from fall) an d + dyspnea; no radiating jaw, neck or arm pain Gastrointestinal: + nausea (intermittently nauseous); no a bdominal pain and no vomiting Genitourinary: + urinary urgency and + urinary incontin ence Integumentary: + rash and + pruritus Physical Exam Constitutional: WD/WN, vitals as above Respiratory: normal respiratory effort, lungs clear to auscultation Cardiovascular: RRR, no murmur, no edema Extremities: normal capillary refill; no calf tenderness and no pedal edema Chest (Breasts): Chest: normal inspection of chest Additional Comments: tenderness of chest Gastrointestinal (Abdomen): normal bowel sounds, soft, nontender, no hepatosplenomegaly Psychiatric: A+Ox3, euthymic affect Results & Data Results & Data Vital Signs (Past 12 Hours) Vital Signs Temp Pulse Pulse Pulse Resp BP BP 01/28/24 02:35 36.8 C 71 17 138/74 01/28/24 01:00 76 17 118/53 L 01/27/24 21:00 81 18 01/27/24 20:47 82 01/27/24 20:40 84 18 01/27/24 20:40 82 18 139/73 01/27/24 19:37 38.1 C H 86 24 129/66 Pulse Ox O2 Del Method 01/28/24 02:35 94 Room Air 01/28/24 01:00 96 Room Air 01/27/24 21:00 96 Room Air 01/27/24 20:47 01/27/24 20:40 96 Room Air 01/27/24 20:40 96 Room Air 01/27/24 19:37 95 Room Air Resident Activity Tracking Resident Involvement: Resident Care Provided Care Provided: Adult Hospital Medicine
--- OUTSIDE RECORDS SUMMARY | 2024-01-28 08:07 | External Medical Summary | Summary of Care ---
Author Name Unknown Organization [facility] Address [address] [facility] [place] [address] Phone [phone] Care Team Providers Care House Builder Name Role Phone Ryan Dimascarson Barrle FAM Primary Care Provider Reason for Visit * Reason Onset Date Comments Diabetes Management 07/22/2023 Non-ce dm TRIAGE 07/22/2023 Encounter Details Date Type Department Care Team (Late st Contact Info) Description 07/22/2023 Telephone Pharmacy Call Center [facility] DEPT CLOSED - 01/06/24 [phone] [place] [phone] Falguni Parsons, [facility] [phone] [place] [phone] Diabetes Management (Non-ce dm ); TRIAGE Allergies Active Allergy Reactions Criticality Noted Date Comments Escitalopram 04/21/2022 Other reaction(s): Loose stools Levofloxacin 04/21/2022 Other reaction(s): Maculopapular rash, rash Metformin Diarrhea 01/30/2021 Other reaction(s): GI Upset, Nausea, Vomiting severe GI symptoms with chronic diarrhea, bloating & pain severe GI symptoms with chronic diarrhea, bloating & pain Morphine Other (Please comment) 02/26/2023 Severe headache Nickel Rash 01/30/2021 Oxycodone 01/30/2021 Other reaction(s): Nausea, Vomiting documented as of this encounter (statuses as of 01/19/2024) Medications Medication Sig Dispensed Refills Start Date End Date Status Solifenacin Succinate 10 MG Oral Tablet Take 1 Tablet by mouth in the morning. Active Tresiba FlexTouch 200 UNIT/ML Subcutaneous Solution Pen-injector (Insulin Degludec) See Instructions, Disp# 18 mL, Refills: 5, INJECT 100 UNITS SUBCUTANEOUSLY DAILY., Pharmacy: [facility] 04/28/2020 Active Sertraline HCl 50 MG Oral Tablet (Zoloft) Start: 03/12/22 16:27:00 EDT, See Instructions, Disp# 30 tab, Refills: 11, TAKE 1 TABLET BY MOUTH ONCE DAILY, Pharmacy: [facility] 03/12/2022 Active Omeprazole 20 MG Oral Capsule Delayed Release (PriLOSEC)Indicati ons:Thrombocytopen ia (HCC),Melena Take 1 Capsule (20 mg) by mouth in the morning. 30 Capsule 05/12/2022 Active Additional Information Patient not taking.Reported on 03/16/2023 Ozempic (0.25 or 0.5 MG/DOSE) 2 MG/1.5ML Solution Pen-injector once a week. 05/13/2022 Active Cholecalciferol 125 MCG (5000 UT) Oral Tablet take 2 tablet by oral route every day 04/09/2021 6 Active Myrbetriq 50 MG Oral Tablet Extended Release 24 Hour 05/13/2022 Active Glimepiride 1 MG Oral Tablet (Amaryl) 04/15/2022 Active Zoledronic Acid 5 MG/100ML Intravenous Solution Administer intravenously . 06/11/2021 5 Active Mupirocin 2 % External Ointment (Bactroban) Apply topically to affected area . Active Multi-Day Vitamins Oral Tablet Take 1 Tablet by mouth in the morning. Active Acetaminophen 500 MG Oral Tablet (Tylenol Extra Strength) Take 1 Tablet by mouth every 4 hours while awake. 30 Tablet 03/02/2023 Active traMADol HCl 50 MG Oral Tablet (Ultram) Take 1 Tablet by mouth every 6 hours as needed for Pain, Moderate. May take another tablet 1/2 hour after the first for added relief 60 Tablet 03/02/2023 Active Additional Information Patient not taking.Reported on 03/16/2023 Cefdinir 300 MG Oral Capsule (Omnicef) Take 1 Capsule by mouth in the morning and 1 Capsule before bedtime. 20 Capsule 03/02/2023 Active Additional Information Patient not taking.Reported on 03/16/2023 Doxycycline Hyclate 100 MG Oral Capsule Take 1 Capsule by mouth in the morning and 1 Capsule before bedtime. 20 Capsule 03/02/2023 Active Additional Information Patient not taking.Reported on 03/16/2023 Ketorolac Tromethamine 10 MG Oral Tablet (Toradol) Take 1 Tablet by mouth every 6 hours as needed for Pain, Moderate or Pain, Severe. 20 Tablet 03/02/2023 Active Additional Information Patient not taking.Reported on 03/16/2023 Eylea 2 MG/0.05ML Intravitreal Solution Prefilled Syringe (Aflibercept) Inject 0.05 mL into right eye every 4 weeks. 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 CAVANAUGH (nonalcoholic steatohepatitis) 04/21/2022 Thrombocytopenia 04/21/2022 Type 2 diabetes mellitus wit h hemoglobin A1c goal of less than 7.0% 07/16/2011 Overview: ICD-10 update of inactive term Family history of melanoma 07/16/2011 History of tobacco use 12/10/2007 Organic sleep disorder 12/10/2007 Dyspnea and respiratory abnormality 12/10/2007 Overview: ICD-10 update of inactive term Chronic rhinitis 12/10/2007 Esophageal reflux 12/10/2007 Deviated nasal septum 12/10/2007 Otalgia 12/10/2007 Vertigo 12/10/2007 Temporomandibular joint disorders, unspecified 0 12/10/2007 Other specified forms of hearing loss 12/10/2007 ADVANCE DIRECTIVE INFORMATION 10/18/2007 Overview: No, Advance Directive brochure offered , patient declined. documented as of this encounter (statuses as of 01/19/2024) Resolved Problems Problem Noted Date Diagnosed Date Resolved Date Sepsis 04/21/2022 04/26/2022 documented as of this encounter (statuses as of 01/19/2024) Immunizations Name Administration Dates Next Due Seasonal Influenza, Quadrivalent Hd (Fluzone Hd) 02/25/2023,04/27/2022 TDAP (age 10 and older)(Boostrix) 02/25/2023 documented as of this encounter Social History Tobacco Use Types Packs/Day Years Used Date Smoking Tobacco: Former Cigarettes Q uit: 07/15/2004 Smokeless Tobacco: Never Alcohol Use Standard Drinks/Week Comments Not Currently 0 (1 standard drink = 0.6 oz pure alcohol) once or twice a month- maybe be a beer or bloody roma Sex and Gender Information Value Date Recorded Sex Assigned at Not on file Gender Identity Not on file Sexual Orientation Not on file Job Start Date Occupation Industry Not on file Not on file Not on file documented as of this encounter Functional Status Functional Status Response Date of Assess ment Are you deaf or do you have serious difficulty hearing? No 02/26/2023 Are you blind or do you have serious difficulty seeing, even when wearing glasses? No 02/26/2023 Do you have serious difficul ty walking or climbing stairs? (5 years old or older) No 02/27/2023 Do you have difficulty dress ing or bathing? (5 years old or older) No 02/26/2023 Because of a physical, menta l, or emotional condition, do you have difficulty doing errands alone such as visiting a doctor s office or shopping? (15 years old or older) Yes-daughter goes to dr appointments with her 02/26/2023 Cognitive Status Response Date of Assessm ent Because of a physical, menta l, or emotional condition, do you have serious difficulty concentrating, remembering, or making decisions? (5 years old or older) Yes-concentration not good 02/26/2023 documented as of this encounter Miscellaneous Notes * Telephone Encounter - Tito Rojas PHARM Tech - 01/19/2024 9:48 AM EDT Upon review patient does not qualify for non-CE diabetes initiative at this time. Will re-evaluate in the future if patient meets qualifying criteria. Closing encounter. KEO Rajput 01/19/24, 9:48 AM * Telephone Encounter - Ted Shin [facility] - 12/25/2023 12:03 PM EDT [facility] NonClinical [place] Diabetes Initiative THIS NOTE SERVES FOR TRIAGING PURPOSES ONLY AND IS NOT A PATIENT CONTACT. PATIENT MAY BE CONTACTED FOLLOWING MY ASSESSMENT. Re-Attempt Patient was identified to be a candidate for the Non-CE telephonic program based on the following criteria: Pharmacy AND/OR Medical High Cost / A1c < 9.0 / PDC >=80% Patient managed by [facility] provider? No; Is Pertinent Diabetes Info in Care Everywhere? Yes Last A1C: 7.1 (Result Date: 02/21/2023) Diabetes Diagnosis: Type 2 After chart review the following opportunities were identified: Mail Order Invite Action to be taken by prepress technician: Mail order invite Needs Language Line: No Medication Claims Data (To verify during call): Med: OZEMPIC 8 Fill date: 11/11/2023 Day Supply: 28Quantity: 3 || Med: TRESIBA FLEXTOUCH 200 Fill date: 10/13/2023 Day Supply: 36 Quantity: 18 Ted Shin [facility] Clinical Pharmacist 12/25/2023, 12:03 PM * Telephone Encounter - Falguni Parsons [facility] - 07/22/2023 9:50 AM EST [facility] NonClinical [facility] Diabetes Initiative THIS NOTE SERVES FOR TRIAGING PURPOSES ONLY AND IS NOT A PATIENT CONTACT. PATIENT MAY BE CONTACTED FOLLOWING MY ASSESSMENT. Patient was identified to be a candidate for the Non-CE telephonic program based on the following criteria: Not high cost / A1c >= 9.0/ PDC >= 80% Patient managed by [facility] provider? No; Pertinent Diabetes Info in Care Everywhere Yes Last A1C: 7.1 (Result Date: 02/27/23) Diabetes Diagnosis: Type 2 After chart review the following opportunities were identified: Mail Order Invite ( Call and invite) and Therapy Optimization (Services?) Action to be taken by prepress technician: Please contact and warm transfer to [facility] if patient is agreeable Needs Language Line: No Falguni Parsons [facility] Clinical Pharmacist 07/22/2023, 9:50 AM documented in this encounter Plan of Treatment Upcoming Encounters Date Type Department Care Team (Latest Contact Info) Description 02/16/2024 7:56 AM EDT Hospital Encounter OR [facility], Operating Room [facility] [address] [place] [phone] Vince Wright MD [address] [address] 02/16/2024 7:56 AM EDT - 02/16/2024 8:32 AM EDT Surgery OR [facility], Operating Room [facility] [address] [place] [phone] Vince Wright MD [address] [address] RIGHT EXTRACAPSULAR CATARACT REMOVAL WITH INTRAOCULAR LENS 03/01/2024 8:10 AM EDT Hospital Encounter OR [facility], Operating Room [facility] [address] [place] [phone] Vince Wright MD [address] [place] [id number] 03/01/2024 8:10 AM EDT - 03/01/2024 8:46 AM EDT Surgery OR [facility], Operating Room [facility] [address] [facility] [place] [phone] Vince Wright MD [address] [address] LEFT EXTRACAPSULAR CATARACT REMOVAL WITH INTRAOCULAR LENS Scheduled Procedures Name Priority Associated Diagnoses Date/Ti me EXTRACAPSULAR CATARACT REMOV AL WITH INTRAOCULAR LENS Combined forms of age-related cataract of right eye 02/16/2024 7:56 AM EDT EXTRACAPSULAR CATARACT REMOV AL WITH INTRAOCULAR LENS Combined forms of age-related cataract of left eye 03/01/2024 8:10 AM EDT ESOPHAGOGASTRODUODENOSCOPY ( EGD), FLEXIBLE, TRANSORAL, DIAGNOSTIC Recall Portal hypertensive gastropathy (HCC) COLONOSCOPY FLEXIBLE PROXIMA L DIAGNOSTIC Recall History of colonic polyps Health Maintenance Due Date Last Done Comments Lipid Panel 1949 Depression Screening 1961 Albumin/Creatinine Ratio 1967 Diabetic Foot Exam 1967 Mammogram 1989 Cologuard 1994 Fecal Occult Blood Test 1994 Sigmoidoscopy 1994 Zoster Vaccines (1 of 2) 1999 COVID-19 Vaccine ( season) 2023 DXA Scan 04/04/2023 04/04/2021 HbA1c 08/28/2023 02/27/2023, 09/2022, 04/22/2022 Influenza Vaccine (FLU shot) (#1) 2024 02/25/2023, 04/27/2022, 04/19/2019, Additional history exists GFR 03/09/2024 03/09/2023, 07/2022, 03/03/2023, Additional history exists Diabetic Eye Exam 11/17/2024 11/18/2023, , 08/18/2023, Additional history exists Colonoscopy 10/10/2027 10/09/2022, 10/09/2022 Colorectal Cancer Screening 10/10/2027 DTaP,Tdap,and Td Vaccines (2 - Td or Tdap) 02/25/2033 02/25/2023 Pneumococcal Vaccine: 65+ Years Completed 04/19/2019, 04/09/2015, 06/04/2012 VITAMIN D LEVEL ONCE IN A LIFETIME-USE SMARTSET# [id number] Completed 04/04/2021 RETIRED - COLONOSCOPY-EVERY 5 YRS AGES 18-100 Discontinued 10/09/2022, 10/09/2022 Hepatitis C Screening Completed 02/26/2023, 023 HPV (Gardasil) Vaccine Aged Out No lo nger eligible based on patient's age to complete this topic Hepatitis B Vaccine Aged Out No longe r eligible based on patient's age to complete this topic MENINGOCOCCAL (MENACTRA/MENVEO) Aged Out No longer eligible based on patient's age to complete this topic documented as of this encounter Medical Devices Not on filedocumented as of this encounter Advance Directives * Full Code (Latest Code Status on File) Date Activated Date Inactivated Comments 02/26/2023 7:55 PM 03/03/2023 9:59 PM This order r eflects the patients wishes and were consensually agreed upon. Question Answer Comments Discussion of Advance Directives occurred with: Patient Does the patient have a Living Will? No Does the patient have Health Care Power of Attor rigo? No * Full Code Date Activated Date Inactivated Comments 04/21/2022 8:48 PM 04/27/2022 6:01 PM This order reflects the patients wishes and were consensually agreed upon. Question Answer Comments Discussion of Advance Directives occurred with: Family Care Teams House Builder Relationship Specialty Start Date End Date Mar Dimas CRNP [address] [place] [address] PCP - General Nurse Practitioner 06/11/22 10/26/23 documented as of this encounter"
--- OUTSIDE RECORDS SUMMARY | 2024-01-28 08:07 | External Medical Summary | Continuity of Care Document ---
Author Name Unknown Organization [facility] [address] [place] [address] [id number] Care Team Providers Care Technical Services Librarian Name Role Phone Nettie Anderson Primary Care Physician [phone] Encounter [facility] FINNBR [id number] Date(s): 01/08/24 - 01/08/24 [facility] [address] [facility] [address] [address] [phone] Discharge Disposition: Home or Self Care Attending Physician: DO Sheppard Stephanie Marie Allergies, Adverse Reactions, Alerts Substance Criticality Severity Reaction Reaction Severity Status Glucophage 1 GI Upset Diarrhea Active levoFLOXacin rash Maculopapular rash Active escitalopram Loose stools Acti ve Nickel Active PCN (penicillin) Maculopapul ar rash Hives Active metFORMIN Vomiting Nausea Active OxyCONTIN Vomiting Nausea Active 1severe GI symptoms with chronic diarrhea, bloating & pain Immunizations Given and Recorded Vaccine Date Status Refusal Reason influenza virus vaccine, inactivated 06/18/21 Give n influenza virus vaccine, inactivated 04/11/20 Give n influenza virus vaccine, inactivated 04/19/19 Give n influenza virus vaccine, inactivated 05/13/18 Give n influenza virus vaccine, inactivated 03/20/17 Give n influenza virus vaccine, inactivated 04/09/15 Give n influenza virus vaccine, inactivated 03/25/13 Give n influenza virus vaccine, inactivated 03/02/12 Give n pneumococcal 23-valent vaccine 04/19/19 Given pneumococcal 23-valent vaccine 06/04/12 Given pneumococcal 13-valent vaccine 04/09/15 Given tetanus/diphtheria/pertuss, acel (Tdap) 05/05/12 G iven Medications acetaminophen Start: 03/06/23 3:57:00 PM EDT, 500mg 1 tab by mouth every 4 hours while awake Start Date: 03/06/23 Status: Ordered BD LEAH NEEDLE 32GX5/32" Start: 12/24/21 7:14:00 AM EDT, BD LEAH NEEDLE 32GX5/32", See Instructions, Disp# 100 unknown unit, Refills: 3, USE DAILY WITH VICTOZA., Pharmacy [facility] Start Date: 12/24/21 Status: Ordered BD needle Ultra-Fine Pen Leah 32G x 4mm Start: 10/25/20 11:02:00 AM EDT, See Instructions, Disp# 100 each, Refills: 5, Use daily with Victoza. E11.9, Pharmacy: [facility] Start Date: 10/25/20 Status: Ordered cefdinir Start: 09/29/23 4:03:00 PM EDT Start Date: 09/29/23 Status: Ordered cefdinir 300 mg oral capsule Start: 09/29/23 4:33:00 PM EDT, 1 cap, PO, q12h, Disp# 20 cap, Pharmacy: [facility] Start Date: 09/29/23 Stop Date: 10/09/23 Status: Ordered cholecalciferol 125 mcg (5000 intl units) oral tablet Start: 06/06/22 10:12:00 AM EST, take 2 tablet by oral route every day Start Date: 06/06/22 Status: Ordered FreeStyle Alpesh 10 day reader Start: 05/13/18 5:05:00 PM EST, See Instructions, Disp# 1 each, Refills: 0, home glucose testing qid & prn DM & on insulin E11.9, Pharmacy: [facility]/pharmacy #[id number] Start Date: 05/13/18 Status: Ordered FreeStyle Alpesh 10 day sensor Start: 05/13/18 5:05:00 PM EST, See Instructions, Disp# 3 each, Refills: 11, home glucose testing qid with DM on insulin E11.9, Pharmacy: [facility]/pharmacy #[id number] Start Date: 05/13/18 Status: Ordered Macrobid 100 mg oral capsule Start: 12/08/23 3:48:00 PM EDT, 1 cap, PO, bid, Disp# 14 cap, Pharmacy: [facility] Start Date: 12/08/23 Stop Date: 12/15/23 Status: Ordered One Touch Ultra 2 Glucose Monitor Start: 08/22/15 8:09:00 AM EDT, See Instructions, Disp# 1 unit, home testing for type 2 DM E11.69, Pharmacy: [facility] Start Date: 08/22/15 Status: Ordered One Touch Ultra Test Strips 100 ct Start: 03/23/23 4:29:00 PM EDT, See Instructions, Disp# 100 each, Refills: 3, home glucose testing test 3 times daily E11.69, Pharmacy: [facility] Start Date: 03/23/23 Status: Ordered ONE TOUCH ULTRA TEST STRIPS ONE TOUCH ULTRA TEST STRIPS, See Instructions, Disp# 100 strip, Refills: 43, TEST 3 TIMES DAILY,Pharmacy [facility] Start Date: 08/29/21 Status: Ordered One Touch Ultrasoft (28G) Lancets Start: 07/22/22 12:02:00 PM EST, See Instructions, Disp# 1 each, Refills: 5, home testing glucose daily & prn E11.69, Pharmacy: [facility] Start Date: 07/22/22 Status: Ordered Ozempic (2 mg dose) 8 mg/3 mL subQ pen Start: 08/10/23 9:45:00 AM EDT, 2 mg =, subQ, q7days, Disp# 3 mL, Refills: 2, Pharmacy: [facility] Start Date: 08/10/23 Status: Ordered Premarin 0.625 mg/g vaginal cream with applicator Start: 05/07/23 3:27:00 PM EST, See Instructions, Disp# 30 g, Refills: 1, use nightly 1/2 applicator, Pharmacy: [facility] Start Date: 05/07/23 Status: Ordered sertraline 100 mg oral tablet Start: 08/10/23 9:43:00 AM EDT, 1 tab, PO, Daily, Disp# 90 tab, Pharmacy: [facility] Start Date: 08/10/23 Status: Ordered Tresiba FlexTouch 200 units/mL subcutaneous solution Start: 07/15/23 2:48:00 PM EST, 100 unit =, subQ, Daily, Disp# 18 mL, Refills: 6, Pharmacy: [facility] Start Date: 07/15/23 Stop Date: 02/10/24 Status: Ordered Problem List Condition Confirmation Course Effective Dates Status H ealth Status Informant Senile solar keratosis Confirmed Active COPD Confirmed Active Adult-onset obesity Confirmed Active Borderline hyperlipidemia Confirmed Active Cataract Confirmed Active Cervical radiculopathy Confirmed Active Diabetes Confirmed Active Diverticulosis Confirmed Active Senile keratosis Confirmed Active Renal stones Confirmed Active Myopia with presbyopia of both eyes Confirmed Active CAVANAUGH (nonalcoholic steatohepatitis) Confirmed Active Osteoporosis Confirmed Active Retinopathy Confirmed Active MDD (major depressive disorder), severe Confirmed Active Urinary incontinence Confirmed Active UTI (urinary tract infection) Confirmed Active 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 Confirmed Active Vitamin D deficiency Confirmed Active Vulvar irritation Confirmed Active Weight disorder Confirmed Active Procedures Procedure Date Related Diagnosis Body Site Status Surgery 1 04/01/23 Completed Colonoscopy 2, 3 10/09/22 Complete d Upper GI (gastrointestinal) endoscopy 4, 5 10/09/22 Completed Plain X-ray of left shoulder 6 07/15/22 Completed Skeletal X-ray of pelvis and hip 7 07/15/22 Completed X-ray of left foot 8 07/15/22 Comp leted X-ray of left knee 9 07/15/22 Comp leted X-ray of right knee 10 07/15/22 Co mpleted Surgery 11 06/25/22 Completed Ultrasound 12 06/01/[address] of abdomen and pelvis 13 05/15/22 Completed Surgery 14 03/26/22 Completed Cystourethroscopy 01/22/22 Complet ed Surgery 15 01/22/22 Completed Diabetic retinal eye exam 16 10/09/[address] of abdomen and pelvis 17 07/07/21 Completed DEXA of hip and spine 18 04/16/21 Completed Chest X-ray 19 03/18/[address] of abdomen and pelvis 20 03/18/[address] of head 21 03/18/21 Completed Right wrist open reduction a nd internal fixation 22 02/06/21 Completed X-ray Right Wrist 23 01/22/21 Comp leted Ultrasound scan of pelvis 24 08/09/[address] of abdomen and pelvis 25 06/01/19 Completed Renal u/s 26 06/01/[address] ovary 01/24/19 Completed Chest x-ray 27 12/27/[address] of abdomen and pelvis wit h contrast 28 12/27/[address] of brain without contrast 29 12/27/[address] of head 30 10/02/[address] of abdomen 31 08/31/18 Complete d US EXAM OF HEAD AND NECK 32 07/20/18 Completed US scan of neck 33 01/13/18 Comple [place] Chest x-ray 34 10/20/17 Completed Chest X-ray 35 06/01/17 Completed Colonoscopy 36, 37 10/29/16 Comple [place] Upper GI endoscopy 38 10/29/16 Com pleted DEXA - Dual energy X-ray rajesh ton absorptiometry 39 06/19/16 Completed Mammogram 40 06/19/16 Completed X-ray of right foot 41 09/27/15 Co mpleted Cervical spine X-ray 42 08/11/[address] of head 43 08/10/15 Completed Ultrasound abdominal complete 44, 45 05/14/15 Completed Panniculectomy 11/21/[address] of abdomen and pelvis 46 11/21/13 Completed CXR - Chest X-ray 47 11/19/13 Comp leted Forearm X-ray 48 11/19/[address] Chest 49 11/15/11 Completed XR Chest 50 10/31/11 Completed XR Cervical Spine 51 06/30/11 Comp leted CTR - Carpal tunnel release, Bilateral 52 1999 Completed Left Thumb Surgery 1999 Comple [place] Shoulder surgery, Right Rotatr Cuff 1999 Completed Bladder suspension x2 1984 Com pleted Cholecystectomy 1981 Completed Hysterectomy 1981 Completed Abdomen and pelvis combo 53 Completed Ultrasound of abdomen 54 Completed 1Bulkamid urethral bulking 2Per [facility], repeat in 5 years. 3IMPRESSION: -The examined portion of the ileum was normal. -One 5 mm polypin the ascending colon, removed with a cold snare. Resected and retrieved. -Two 5 to 6 mm polyps in the transverse colon, removed with a cold snare. Resected and retrieved. -Moderate diverticulosis in the simoid colon and in the decending colon. -Multiple non-bleeding colonic angiodysplastic lesions. -Internal hemorrhoids. -The examination was otherwise normal. FINAL DIAGNOSIS: C. Colon, ascending, biopsy: -Tubular adenoma D. Colon, transverse, biopsy: -Tubular adenoma 4IMPRESSION: -Grade I esophageal varices with no bleeding and no stigmata of recent bleeding. -Diffuse gastritis (likely medication related). Biopsied. -Normal examined duodenum. Biopsied. FINAL DIAGNOSIS: A. Small bowel, duodenum, biopsy: -Duodenal mucosa with no significant histopathology. -Histologic features of celiac disease not identified. B. Stomach, biopsy: -Gastric mucosa with severe gastropathy. -Negative for Helicobacter-like organisms by routine histology. -Negative for intestial metaplasia. -See comment. Comment: In part B, given the clincal history of cirrhosis, the histopathology is compatible with portal gastropathy. 5Per [facility], repeat in 1 year 6Osteopenia and degenerative change as above with no acute bony abnormality identified. 7No acute bony abnormality is identified 8Degenerative changes without evidence of acute fracture 9Lateral patellar facet fracture with associated joint effusion and soft tissue swelling 10No acute fracture or dislocation 11Periurethral bulking injections 12Impression: No ultrasound appreciable abdominal ascitic fluid. Splenomegaly. 13Impression: 1. Interval development of small ascites. 2. Cirrhosis with findings of portal hypertension, including ascites, marked splenomegaly, and portal colopathy. 3. Nonspecific air-fluid levels in the small bowel. This can be seen with prominent secretions due to enteritis. 14PERIURETHRAL BULKING INJECTION, BULKAMID BULKING INJECTIONS 15Removal of sacral stimulator battery and lead 16bilateral diabetic retinopathy 17IMPRESSION: 1. Evidence for acute diverticulitis of the sigmoid colon with perisigmoid inflammatory changes in perisigmoidal fluid with a tram track sign present. Minimal free fluid is also seen within the pelvis. There is no evidence for perforation or abscess. There is no evidence for free air. 2. Nonobstructing right renal calculi are again seen. 3. Fatty liver and moderate to marked splenomegaly. 4. Additional nonacute findings are delineated above. 18+ osteoporosis 19Impression: No acute cardiopulmonary findings. No change in appearance of the chest. 20Impression: 1. no acute abnormalities to explain diffuse abdominal pain. 2. Cirrhosis and splenomegaly. 3. Diverticulosis without evidence of diverticulitis. 4. Right nonobstructive nephrolithiasis. 5. Additional findings as above. 21Impression There is no hemorrhage, mass effectm or evidence of acute territorial ischemia by CT criteria. 22see scanned operative report 23Impression: Distal radial and ulnar fractures. 24Impression: 1. 2.5cm right ovarian cyst 2. Nonvisualization of the left ovary possibly due to prior surgical resection and/or overlapping bowel. 3. Otherwise negative study for post hysterectomy. 251. No labial fluid collection to suggest an abscess 2. No acute process within the abdomen or pelvis 3. No change in two small enhancing foci which project over the vagina since earlier exams. These likely reflect normal structures or Bartholin cysts and are of doubtful significance 4. Cirrhosis. Stable mild splenomegaly 5. No change in a 3.7 cm cystic right adnexal lesion 261. The kidneys are normal in size and without hydronephrosis 2. The bladder is decompressed and could not be evaluated 3. The liver is enlarged, steatotic, and cirrhotic 4. Splenomegaly 27Low lung volumes with interstitial thickening possibly on a hypoventilatory basis. No evidence of lobar consolidation. 28Hepatic cirrhosis and splenomegaly. No evidence of bowel obstruction. No evidence of free air. Normal appendix. No evidence of acute diverticulitis. Right-sided nephrolithiasis. No ureteral calculi identified. Fat-containing umbilical hernia fat-containing supraumbilical ventral hernia. Air within the bladder, likely iatrogenic. Slowly enlarging 42 mm cystic right adnexal lesion, likely ovarian. This measured 35 mm in October 2013. 29No acute intracranial findings. 30no acute intracranial findings 311. No change in small bilateral adrenal nodules which reflect adenomas. These are benign. 2. Cirrhosis with mild splenomegaly 32Impression: Multiple subcentimeter thyroid nodules as discussed. 33Multiple subcentimeter thyroid nodules . Suggest fup US at 6 & 12 months. 34minimal basilar opacities likely atelectasis or scarring No convincing evidence of acute cardiopulmonary disease 351. No acute cardiopulmonary abnormality. 2. There is no radiographic evidence of acute.distracted left-sided rib fracture on the rib series. 36A) Colon, 20cm polypectomy: hyperplastic polyp B) Colon, ascending, biopsies: 1) Benign colonic mucosa without pathologic change. 2) No acute or chronic colitis identified. 3) Negative for dysplasia and malignancy. C) Colon, ascending, polypectomy: No tissue identified within specimen container. D)Colon, descending, biopsies 1) Fragments of benign colonic mucosa without pathologic change. 2) No acute or chronic colitis identified. 3) Negative for dysplasia and malignancy 37a single non-bleeding colonic angiodysplasic lesion. One 7 mm polyp in the ascending colon. One 5 mm polyp at 20 cc proximal to the anus. Diverticulosis in the sigmoid colon. the descending colon andascending colon are normal. 38Normal esophagus. Small hiatus hernia. Erythematous mucosa in the gastric body and antrum. Biopsied. Normal examined duodenum. Pathology results: A) Stomach, biopsies: 1) Chronic gastritis, mild. 2) No acute activity noted. 3) Immunohistochemical stain for H. pylori negative. 4) No intestinal metaplasia seen. 5) Negative for dysplasia and malignancy 39AP Spine T 0.7 Femur Neck Left T -1.6 Femur Neck Right T -1.8 Femur Total Mean T -1.0 Major Osteoporotic 15.3% Hip 2.0% 40WNL 41Moderate degenerative change as described. No acute bony abnomality. Heel spur. 421. C7 largely obscured on this exam. No acute fracture within visual portions of the cervical spine 2. Mild to moderate multilevel degenerative disc disease and facet arthrosis of the cervical spine. 43No aute intracranial abnormality. 44Pancreas: The pancreatic tail is obscured by overlaying bowel gas. the remaining portions of the pancreas are WNL Liver: Heterogeneous echotexture ith a slightly nodular contour consistent with cirrhosis. there are no hepatic masses. The liver measured 18.5 cm in length. Gallbladder: The gallbladder is surgically absent CBD: 6mm Kidneys: No hydronephrosis Spleen: enlarged measuring 17.4 cm. this is not significantly changed. Aorta: normal in caliber IVC: Patent 45Splenomegaly, unchanged. Cirrhotic liver. Prior cholecystectomy 46Colonic and jejunal diverticulosis. No evidence for diverticulitis. No bowel wall thickening or obstruction. Stable right sided nephrolithiasis. No hydronephrosis. Punctate focus of gas within the bladder. This could be due to recent catheterization. Clinical correlation is recommend. A 2.2 cm cyst within the the right ovary. Recommend followup pelvic ultrasound in 2-3 months to ensure resolution. Prior hysterectomy. There is also mild pelvic floor collapse. Cirrhotic liver with splenomegaly likely due to portal hypertension. 47Low lung volumes and bibasilar atelectasis. There is no acure cardiopulmonary abnormality. 48Osteopenia with no radiographic evidence of fracture in the right forearm. Mild soft tissue swelling is suggested in the distal forearm. 49[facility] 52B/L 531. Multiple nonobstructing renal calculi are seen on the right areas of parenchymal scarring of thesuperior pole right kidney. No ureteral calculi or hydroephrosis. 2. Prior hysterectomy and cholecystectomy. 3. Cirrhotic liver disease with splenomegaly. 4. Colonic diverticulosis without diverticulitis. 5. Small fat filled periumbilical hernia. 6. Small cystic lesion of the right adnexum has slightly decreased in size from comparison study, none measuring 2.7cm 54No evidence of liver masses or fluid within the abdomen. Social History Social History Type Response Tobacco Former smoker, Cigar ettes 1 Smoking Status Former Smoker, quit > 1 yr Sex Female Sex Representation Female (finding) 1Quit 2004 Implantable Device List Procedure Provider Procedure Date Device Type Site Unknown Unknown 04/01/23 Unknown Unknown Device Identifier Serial Number Lot or Batch Number Manufacturing Date Expiration Date Distinct Identification Code MRI Safety Implantable Status Assigning Authority Unknown Unknown Unknown 10/29/25 Unknown Unknown Active Unk nown Patient Care team information Care Team Personnel Name: FAM Anderson Tara Position: Nurse Pract - Family Med Member Role: Primary Care Provider Address: [address] [place] [id number] Name: Miquel Johns Michele C Position: Pharmacist Schedule II Member Role: Pharmacy - Lifetime Address: [address] [address] [place] Care Team Related Persons Name: PAUL JI
--- OUTSIDE RECORDS SUMMARY | 2024-01-28 08:07 | External Medical Summary | Summary of Care ---
Author Name Unknown Organization [facility] Address [address] [facility] [place] [address] Phone [phone] Care Team Providers Care Customs Inspector Name Role Phone Mar Dimas Yessy FAM Primary Care Provider Reason for Visit * Reason Onset Date Comments Diabetes Management 07/22/2023 Non-ce dm TRIAGE 07/22/2023 Encounter Details Date Type Department Care Team (Late st Contact Info) Description 07/22/2023 Telephone Pharmacy Call Center [phone] [place] [phone] Falguni Parsons, [facility] [phone] [place] [phone] Diabetes Management (Non-ce dm ); TRIAGE Allergies [...] as of this encounter (statuses as of 12/29/2023) Medications Medication Sig Dispensed Refills Start Date End Date Status Solifenacin Succinate 10 MG Oral Tablet Take 1 Tablet by mouth in the morning. Active Tresiba FlexTouch 200 UNIT/ML Subcutaneous Solution Pen-injector (Insulin Degludec) See Instructions, Disp# 18 mL, Refills: 5, INJECT 100 UNITS SUBCUTANEOUSLY DAILY., Pharmacy: [facility] 04/28/2020 Active Sertraline HCl 50 MG Oral Tablet (Zoloft) Start: 03/12/22 16:27:00 EDT, See Instructions, Disp# 30 tab, Refills: 11, TAKE 1 TABLET BY MOUTH ONCE DAILY, Pharmacy: [facility] 03/12/2022 Active Omeprazole 20 MG Oral [...] as of this encounter (statuses as of 12/29/2023) Active Problems Problem Noted Date Diagnosed Date [...] as of this encounter (statuses as of 12/29/2023) Resolved Problems Problem Noted Date Diagnosed Date Resolved Date Sepsis 04/21/2022 04/26/2022 documented as of this encounter (statuses as of 12/29/2023) Immunizations Name Administration Dates Next Due Seasonal [...] encounter Miscellaneous Notes * Telephone Encounter - Ted Shin, [facility] - 12/25/2023 12:03 PM EDT [facility] Non-Clinical [place] [facility] THIS NOTE SERVES FOR TRIAGING PURPOSES ONLY AND IS NOT A PATIENT CONTACT. PATIENT MAY BE CONTACTED FOLLOWING MY ASSESSMENT. Re-Attempt Patient was identified to be a candidate for the Non-CE telephonic program based on the following criteria: Pharmacy AND/OR Medical High Cost / A1c < 9.0 / PDC >=80% [facility] provider? No; Is Pertinent Diabetes Info in Care Everywhere? Yes Last A1C: 7.1 (Result Date: 02/21/2023) Diabetes Diagnosis: Type 2 After chart review the following opportunities were identified: Mail Order Invite Action to be taken by player piano technician: Mail order invite Needs Language Line: No Medication Claims Data (To verify during call): Med: OZEMPIC 8 Fill date: 11/11/2023 Day Supply: 28Quantity: 3 || Med: TRESIBA FLEXTOUCH 200 Fill date: 10/13/2023 Day Supply: 36 Quantity: 18 Ted Shin [facility] Clinical Pharmacist 12/25/2023, 12:03 PM * Telephone Encounter - Falguni Parsons [facility] - 07/22/2023 9:50 AM EST [facility] Non-Clinical [place] [facility] THIS NOTE SERVES FOR TRIAGING PURPOSES ONLY AND IS NOT A PATIENT CONTACT. PATIENT MAY BE CONTACTED FOLLOWING MY ASSESSMENT. Patient was identified to be a candidate for the Non-CE telephonic program based on the following criteria: Not high cost / A1c >= 9.0/ PDC >= 80% [facility] provider? No; Pertinent Diabetes Info in Care Everywhere Yes Last A1C: 7.1 (Result Date: 02/27/23) Diabetes Diagnosis: Type 2 After chart review the following opportunities were identified: Mail Order Invite ( Call and invite) and Therapy Optimization (Services?) Action to be taken by player piano technician: Please contact and warm transfer to [facility] if patient is agreeable Needs Language Line: No Falguni Parsons, [facility] Clinical Pharmacist 07/22/2023, 9:50 AM documented in this encounter Plan of Treatment Upcoming Encounters Date Type Department Care Team (Latest Contact Info) Description 02/16/2024 7:56 AM EDT Hospital Encounter [facility], Operating Room [facility] [address] [place] [address] Vince Wright MD [address] [place] [address] 02/16/2024 7:56 AM EDT - 02/16/2024 8:32 AM EDT Surgery OR [facility], Operating Room [facility] [address] [place] [address] Vince Wright MD [address] [place] [address] RIGHT EXTRACAPSULAR CATARACT REMOVAL WITH INTRAOCULAR LENS 03/01/2024 8:10 AM EDT Hospital Encounter [facility], Operating Room [facility] [address] [place] [address] Vince Wright MD [address] [place] [address] 03/01/2024 8:10 AM EDT - 03/01/2024 8:46 AM EDT Surgery OR [facility], Operating Room [facility] [address] [place], [place] [address] Vince Wright MD [address] [place] [address] LEFT EXTRACAPSULAR CATARACT REMOVAL WITH INTRAOCULAR LENS [...] Vaccines (1 of 2) 1999 COVID-19 Vaccine (1 - season) 2023 DXA Scan 04/04/2023 04/04/2021 HbA1c 08/28/2023 02/27/2023, 0109/2022, 04/22/2022 Influenza Vaccine (FLU shot) (#1) 2024 02/25/2023, 04/27/2022, 04/19/2019, Additional history exists GFR 03/09/2024 03/09/2023, 1007/2022, 03/03/2023, Additional history exists Diabetic Eye Exam 11/17/2024 11/18/2023, , 08/18/2023, Additional history exists Colonoscopy 10/10/2027 10/09/2022, 10/09/2022 Colorectal Cancer Screening 10/10/2027 DTaP,Tdap,and Td Vaccines (2 - Td or Tdap) 02/25/2033 02/25/2023 Pneumococcal Vaccine: 65+ Years Completed 04/19/2019, 04/09/2015, 06/04/2012 VITAMIN D LEVEL ONCE IN A LIFETIME-USE SMARTSET# [id number] Completed 04/04/2021 RETIRED - COLONOSCOPY-EVERY 5 YRS [...] Advance Directives occurred with: Family Care Teams Customs Inspector Relationship Specialty Start Date End Date Mar Dimas CRNP [address] [place] [address] PCP - General Nurse Practitioner 06/11/22 10/26/23 documented as of this encounter"
--- OUTSIDE RECORDS SUMMARY | 2024-01-28 08:08 | External Medical Summary | Continuity of Care Document ---
Author Name Unknown Organization [facility] [id number] [place] [id number] Care Team Providers Care Registrar Assistant Name Role Phone Atiyakendrick Nettie Primary Care Physician [phone] Encounter [facility] FINNBR [id number] Date(s): 11/30/23 - 11/30/23 [facility] [address] [facility] [address] [place] [address] [phone] Encounter Diagnosis Urinary incontinence, mixed(Discharge Diagnosis) - 11/30/23 Ventral hernia(Discharge Diagnosis) - 11/30/23 Mixed incontinence(Final) - Discharge Disposition: Home or Self Care Attending Physician: MARILYNN Dudley, Scarlett Girard Allergies, Adverse Reactions, Alerts Substance Criticality Severity Reaction Reaction Severity Status Glucophage 1 GI Upset Diarrhea Active escitalopram Loose stools Acti ve Nickel Active PCN (penicillin) Maculopapul ar rash Hives Active metFORMIN Vomiting Nausea Active OxyCONTIN Vomiting Nausea Active levoFLOXacin rash Maculopapular rash Active 1severe GI symptoms with chronic diarrhea, bloating & pain Assessment and Plan Extracted from: Title:Office Visit Note Author:MARILYNN Dudley, Cony Girard Date:11/30/23 Urinary incontinence, mixed STATUS:Chronic condition exacerbated/progressive/side effects of treatment -She hasextensive past urologic history with multiple procedures including sacral neuromodulator implantation and removal, Botox injections and bulking injections --Presently she is changes up to 8 pads in 24 hours. -Unable to hold her urine with ambulation or position changes -She is emptying after voiding and denies UTI like symptoms. -Is affecting her quality of life,leading to increased depressive symptoms -[facility] [place] but would like to investigate evaluation at a larger facility -Onlyoption available per urology is cystectomy but shev ehemently refuse DATA:Labs reviewed. GOAL:Maintain stability. PLAN:Cont current monitoring. Patient has requested referral to [facility] as she has family nearby For now, no changes in current treatment Reach out with any recurrent UTI symptoms Urine sample with be sent for UA/C&S. Ventral hernia STATUS:Chronic condition exacerbated/progressive/side effects of treatment -Documented by CT in 2022 by [facility] -FOund stable fat containing ventral hernia -Was offered surgery at that time but preferred to monitor sizing -Now hernia is becoming more problematic and uncomfortable -Is ready to pursue additional intervention now. DATA:Labs reviewed. GOAL:Maintain stability. PLAN:Cont current monitoring. Patient requesting referral to local surgeon for management Will send general surgery referral locally as discussed with patient Did review nature of hernia, containing only fat. Time spent on pre-visit plannin min Face to face time spent w/ patient: 21 min Time spent documenting pertinent clinical information into the EMR: 7min Total time: 32 min Immunizations Given and Recorded Vaccine Date Status [...] awake Start Date: 03/06/23 Status: Ordered BD MARIO ALBERTO NEEDLE 32GX5/32" Start: 12/24/21 7:14:00 AM EDT, BD MARIO ALBERTO NEEDLE 32GX5/32", See Instructions, Disp# 100 unknown unit, Refills: 3, USE DAILY WITH VICTOZA., Pharmacy [facility] Start Date: 12/24/21 Status: Ordered BD needle Ultra-Fine Pen Mario Alberto 32G x 4mm Start: 10/25/20 11:02:00 AM EDT, See Instructions, Disp# 100 each, Refills: 5, Use daily with Victoza. E11.9, Pharmacy: [facility] Start Date: 10/25/20 Status: Ordered cefdinir Start: 09/29/23 4:03:00 PM EDT Start Date: 09/29/23 Status: Ordered cefdinir 300 mg oral capsule Start: 09/29/23 4:33:00 PM EDT, 1 cap, PO, q12h, Disp# 20 cap, Pharmacy: [facility] Start Date: 09/29/23 Stop Date: 10/09/23 Status: Ordered cholecalciferol 125 mcg (5000 intl units) oral tablet Start: 06/06/22 10:12:00 AM EST, take 2 tablet by oral route every day Start Date: 06/06/22 Status: Ordered FreeStyle Alpesh 10 day reader Start: 05/13/18 5:05:00 PM EST, See Instructions, Disp# 1 each, Refills: 0, home glucose testing qid & prn DM & on insulin E11.9, Pharmacy: [facility]/pharmacy #[id number] Start Date: 05/13/18 Status: Ordered FreeStyle Alpesh 10 day sensor Start: 05/13/18 5:05:00 PM EST, See Instructions, Disp# 3 each, Refills: 11, home glucose testing qid with DM on insulin E11.9, [id number] Start Date: 05/13/18 Status: Ordered One Touch Ultra 2 Glucose Monitor Start: 08/22/15 8:09:00 AM EDT, See Instructions, Disp# 1 unit, home testing for type 2 DM E11.69, Pharmacy: [facility] Start Date: 08/22/15 Status: Ordered One Touch Ultra Test Strips 100 ct Start: 03/23/23 4:29:00 PM EDT, See Instructions, Disp# 100 each, Refills: 3, home glucose testingtest 3 times daily E11.69, Pharmacy: [facility] Start Date: 03/23/23 Status: Ordered ONE TOUCH ULTRA TEST STRIPS ONE TOUCH ULTRA TEST STRIPS, See Instructions, Disp# 100 strip, Refills: 43, TEST 3 TIMES DAILY,Pharmacy [facility] Start Date: 3/31/22 Status: Ordered One Touch Ultrasoft (28G) Lancets Start: 07/22/22 12:02:00 PM EST, See Instructions, Disp# 1 each, Refills: 5, home testing glucose daily & prn E11.69, Pharmacy: [facility] Start Date: 07/22/22 Status: Ordered Ozempic (2 mg dose) 8 mg/3 mL subQ pen Start: 08/10/23 9:45:00 AM EDT, 2 mg =, subQ, q7days, Disp# 3 mL, Refills: 2, Pharmacy: [facility] Start Date: 08/10/23 Status: Ordered Premarin 0.625 mg/g vaginal cream with applicator Start: 05/07/23 3:27:00 PM EST, See Instructions, Disp# 30 g, Refills: 1, use nightly 1/2 applicator, Pharmacy: [facility] Start Date: 05/07/23 Status: Ordered sertraline 100 mg oral tablet Start: 08/10/23 9:43:00 AM EDT, 1 tab, PO, Daily, Disp# 90 tab, Pharmacy: [facility] Start Date: 08/10/23 Status: Ordered Tresiba FlexTouch 200 units/mL subcutaneous solution Start: 07/15/23 2:48:00 PM EST, 100 unit =, subQ, Daily, Disp# 18 mL, Refills: 6, Pharmacy: [facility] Start Date: 07/15/23 Stop Date: 02/10/24 Status: Ordered Mental Status 11/30/23 Barriers to Learning one year Hearing de ficit Mandatory Health Literacy Documentation Yes Health Literacy Communication Barriers N ever Primary Language Swedish Problem List Condition Confirmation Course Effective Dates [...] irritation Confirmed Active Weight disorder Confirmed Active Diagnosis Diagnosis Type Effective Dates Health Status Cl inical Service Informant Ventral hernia Discharge Diagnosis 11/30/23 Non-Specified Urinary incontinence, mixed Discharge Diagnosis 11/30/23 Non-Specified Procedures Procedure Date Related Diagnosis Body Site [...] Rotatr Cuff 1999 Completed Bladder suspension x2 1985 Com pleted Cholecystectomy 1981 Completed Hysterectomy 1981 [...] swelling is suggested in the distal forearm. [facility] 52B/L 531. Multiple nonobstructing renal calculi are [...] liver masses or fluid within the abdomen. Results Laboratory List Name Date Urine Analysis w/ Reflexed Microscopic. (URINE W/REFLEX MICR) 11/30/23 Most recent to oldest [Reference Range]: 1 Calcium Oxalate Crystal (u) MANY *Unknown* (11/30/23 8:00 AM) Squamous Epithelial Cells (u) FEW *Unknown* (11/30/23 8:00 AM) Mucous (u) FEW *Unknown* (11/30/23 8:00 AM) Bact (u) [NONE-NONE] FEW *Abnormal* (11/30/23 8:00 AM) Bili (u) [NEG] NEGATIVE *Unknown* (11/30/23 8:00 AM) Ketones [NEG mg/dL] NEGATIVE mg/dL (11/30/23 8:00 AM) Leuk Est [NEG] SMALL *Abnormal* (11/30/23 8:00 AM) Nitrite (u) [NEG] NEGATIVE *Unknown* (11/30/23 8:00 AM) Appear (u) SLIGHTLY CLOUDY *Unknown* (11/30/23 8:00 AM) Color (u) YELLOW *Unknown* (11/30/23 8:00 AM) Glu (u) [NEG mg/dL] 50 mg/dL *Abnormal* (11/30/23 8:00 AM) Hgb (u) [NEG] NEGATIVE *Unknown* (11/30/23 8:00 AM) pH (u) [5.0-8.0 unit] 5.0 unit (11/30/23 8:00 AM) Prot (u) [NEG mg/dL] NEGATIVE mg/dL (11/30/23 8:00 AM) RBC (u) [0-4 /HPF] 0-4 /HPF (11/30/23 8:00 AM) Urobili [0.1-1.0 EU/dL] 2.0 EU/dL *HI* (11/30/23 8:00 AM) SG [1.005-1.030] 1.015 (11/30/23 8:00 AM) WBC (u) [0-4 /HPF] 10-19 /HPF (11/30/23 8:00 AM) Orders for Microbiology Reports Name Date Urine Culture (CULTURE, URINE) 11/30/23 Urine Culture (CULTURE, URINE) 11/30/23 Microbiology Reports TEST:Urine.Cx STATUS:Auth (Verified) BODY SITE: SOURCE:Urine COLLECTED DATE/TIME:11/30/23 8:02 AM Status FINAL 12/02/2023 ORGANISM:Escherichia coli Susceptibilty: Escherichia coli Tested Drug Broth DEWAYNE Dilution Broth Interpr etation Trimeth-Sulfamethoxazole <=0.5/9.5 Suscept . Tetracycline <=4 Suscept. Nitrofurantoin <=32 Suscept. Levofloxacin <=0.5 Suscept. Gentamicin <=2 Suscept. Ciprofloxacin <=0.25 Suscept. Cefazolin <=2 Suscept. Ampicillin <=8 Suscept. TEST:Urine.Cx STATUS:Auth (Verified) BODY SITE: SOURCE:Urine COLLECTED DATE/TIME:11/30/23 8:01 AM Status FINAL 11/30/2023 Vital Signs Most recent to oldest [Reference Range]: 1 Patient Weight 92.3 kg (11/30/23 11:28 AM) Heart Rate 72 bpm (11/30/23 11:28 AM) Respiratory Rate 18 br/min (11/30/23 11:28 AM) Blood Pressure 132/70mmHg (11/30/23 11:28 AM) Cuff Pulse Pressure 62 mmHg (11/30/23 11:28 AM) Social History Social History Type Response Tobacco Former smoker, Cigar ettes 1 Smoking Status Former Smoker, quit > 1 yr Sex Female 1Quit 2004 Implantable Device List Procedure Provider Procedure Date Device Type Site Unknown Unknown 04/01/23 Unknown Unknown Device Identifier Serial Number Lot or Batch Number Manufacturing Date Expiration Date Distinct Identification Code MRI Safety Implantable Status Assigning Authority Unknown Unknown Unknown 10/29/25 Unknown Unknown Active Unk nown FCM Outpt Note * MARILYNN Dudley, Scarlett Girard: PERFORM Event Display: FCM Outpt Note Authored Date: [id number] Chief Complaint Continued incont. worsening, f/u hernia. History of Present Illness Patient is a 73 yo female presenting to office for worsening urinary incontinence. Urinary incontinence, refractory: -extensive past urologic history with multiple procedures including sacral neuromodulator implantation and removal, Botox injections and bulking injections -Presently she is changes 4-5 pads in 24 hours. -She is emptying after voiding and denies UTI like symptoms. -Is affecting her quality of life,leading to increased depressive symptoms -[facility] [place] but would like to investigate evaluation at a larger facility -Onlyoption available per urology is cystectomy but shevehemently refuses Ventral hernia: -Documented by CT in 2022 by [facility] -Was offered surgery at that time but preferred to monitor sizing -Now hernia is becoming more problematic and uncomfortable -Is ready to pursue additional intervention now. Review of Systems ROS per HPI Physical Exam Vitals & Measurements HR:72(Monitored) RR:18 BP:132/70 SpO2:95% WT:92.3kg WT:92.300kg(Dosing) PHQ2 Data(Data Documented on:11/30/2023 11:26) Emotional health assessment NEGATIVE Gen Appearance: Well developed, well nourishedNAD. A&O x 3. HEENT: NCAT. EOMI. Neck supple. No thyromegaly palpable. Lymph: No submandibular, posterior or anterior cervical adenopathy. CV: RRR. No murmurs, rubs, or gallops. Lungs: CTAB. No wheezing, rales or rhonchi. Chest rises symmetrically. Abdomen: Scaphoid. No rashes.NABS x 4. Soft. Non-tender. No CVA tenderness bilaterally.No masses palpable. Ext: No LE edema. + 2 posterior tibial pulses. Skin: Naches. Supple. Good turgor. Assessment/Plan Urinary incontinence, mixed STATUS:Chronic condition exacerbated/progressive/side effects of treatment -She hasextensive past urologic history with multiple procedures including sacral neuromodulator implantation and removal, Botox injections and bulking injections --Presently she is changes up to 8pads in 24 hours. -Unable to hold her urine with ambulation or position changes -She is emptying after voiding and denies UTI like symptoms. -Is affecting her quality of life,leading to increased depressive symptoms -[facility] [place] but would like to investigate evaluation at a larger facility -Onlyoption available per urology is cystectomy but shevehemently refuse DATA:Labs reviewed. GOAL:Maintain stability. PLAN:Cont current monitoring. Patient has requested referral to [facility] as she has family nearby For now, no changes in current treatment Reach out with any recurrent UTI symptoms Urine sample with be sent for UA/C&S. Ventral hernia STATUS:Chronic condition exacerbated/progressive/side effects of treatment -Documented by CT in 2022 by [facility] -FOund stable fat containing ventral hernia -Was offered surgery at that time but preferred to monitor sizing -Now hernia is becoming more problematic and uncomfortable -Is ready to pursue additional intervention now. DATA:Labs reviewed. GOAL:Maintain stability. PLAN:Cont current monitoring. Patient requesting referral to local surgeon for management Will send general surgery referral locally as discussed with patient Did review nature of hernia, containing only fat. Time spent on pre-visit plannin min Face to face time spent w/ patient: 21 min Time spent documenting pertinent clinical information into the EMR: 7min Total time: 32 min Problem List/Past Medical History Ongoing Adult-onset obesity Borderline hyperlipidemia Cataract Cervical radiculopathy COPD Diabetes Diverticulosis MDD (major depressive disorder), severe Myopia with presbyopia of both eyes CAVANAUGH (nonalcoholic steatohepatitis) Osteoporosis Renal stones Retinopathy Senile keratosis Senile solar keratosis Urinary incontinence UTI (urinary tract infection) 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 Vitamin D deficiency Vulvar irritation Weight disorder Resolved Adrenal nodule Bilateral lower abdominal discomfort Cirrhosis of liver Cubital tunnel syndrome on left Cytopenia Depression DM (diabetes mellitus), type 2, uncontrolled with complications DM type 2 causing complication Encounter for completion of form with patient Gastritis without bleeding Grinding of teeth H/O urinary incontinence H/O: pneumonia Hallux valgus of right foot Hammertoe Hypothyroidism 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 (ISD) Left shoulder pain Morbid obesity No diabetic retinopathy in both eyes Nocturia more than twice per night Post-operative state Postop check Preop examination Rash Recurrent UTI Trigger middle finger of left hand Urinary frequency Urinary incontinence in female Urinary incontinence with continuous leakage Wound Procedure/Surgical History Surgery| Service Date: 04/01/2023Upper GI (gastrointestinal) endoscopy| Service Date: 10/09/2022olonoscopy| Service Date: 10/09/2022lain X-ray of left shoulder| Service Date: 07/15/2022X-ray of left knee| Service Date: 07/15/2022X-ray of left foot| Service Date: 07/15/2022X-ray of right knee| Service Date: 07/15/2022Skeletal X-ray of pelvis and hip| Service Date: 07/15/2022Surgery| Service Date: 06/25/2022Ultrasound| Service Date: 06/01/2022T of abdomen and pelvis| Service Date: 05/15/2022urgery| Service Date: 03/26/2022urgery| Service Date: 01/23/20 22Cystourethroscopy| Service Date: 2Diabetic retinal eye exam| Service Date: 2CT of abdomen and pelvis| Service Date: 2DEXA of hip and spine| Service Date: 1CT of head| Service Date: 03/18/2021T of abdomen and pelvis| Service Date: 03/18/2021 Chest X-ray| Service Date: 03/18/2021ight wrist open reduction and internal fixation| Service Date: 02/06/2021X-ray Right Wrist| Service Date: 01/22/2021Ultrasound scan of pelvis| Service Date: 08/09/2019Renal u/s| Service Date: 06/01/2019CT of abdomen and pelvis| Service Date: 06/01CT ovary| Service Date: 01/24/2019CT of abdomen and pelvis with contrast| Service Date: 12/27/2018CT of brain without contrast| Service Date: 12/27/2018Chest x-ray| Service Date: 12/27/2018CT of head| Service Date: 10/02/2018CT of abdomen| Service Date: 08/31/2018US EXAM OF HEAD AND NECK| Service Date: 07/20/2018US scan of neck| Service Date: 01/13/2018Chest x-ray|Service Date: 10/20/2017Chest X-ray| Service Date: 06/01/2017Upper GI endoscopy| Service Date: 10/29/2016Colonoscopy| Service Date: 10/29/2016DEXA - Dual energy X-ray photon absorptiometry| Service Date: 06/19/2016Mammogram| Service Date: 06/19/2016X-ray of right foot| Service Date: 09/27/2015Cervical spine X-ray| Service Date: 08/11/2015CT of head| Service Date: 08/10/2015Ultrasound abdominal complete| Service Date: 05/14/2015Panniculectomy| Service Date: 11/21/2014CT of abdomen and pelvis| Service Date: 11/21/2013Forearm X-ray| Service Date: 11/19/2013CXR - Chest X-ray| Service Date: 11/19/2013CT Chest| Service Date: 11/15/2011XR Chest| ServiceDate: 10/31/2011XR Cervical Spine| Service Date: 06/30/2011CTR - Carpal tunnel release, Bilateral| Service Date: 1999Shoulder surgery, Right Rotatr Cuff| Service Date: 1999Left Thumb Surgery| Service Date: 1999Bladder suspension x2| Service Date: 1984Hysterectomy| Service Date: 1981Cholecystectomy| Service Date: 1981Abdomen and pelvis comboUltrasound of abdomen Medications acetaminophen cefdinir cefdinir(cefdinir 300 mg oral capsule), 300 mg= 1 cap, PO, q12h cholecalciferol(cholecalciferol 125 mcg (5000 intl units) oral tablet) conjugated estrogens topical(Premarin 0.625 mg/g vaginal cream with applicator), See Instructions, 1 refills diabetes supplies(One Touch Ultrasoft (28G) Lancets), See Instructions, 5 refills diabetes supplies(One Touch Ultra Test Strips 100 ct), See Instructions, 3 refills diabetic supplies(One Touch Ultra 2 Glucose Monitor), See Instructions diabetic supplies(FreeStyle Alpesh 10 day reader), See Instructions diabetic supplies(FreeStyle Alpesh 10 day sensor), See Instructions, 11 refills insulin degludec(Tresiba FlexTouch 200 units/mL subcutaneous solution), 100 unit, subQ, Daily, 6 refills semaglutide(Ozempic (2 mg dose) 8 mg/3 mL subQ pen), 2 mg, subQ, q7days, 2 refills sertraline(sertraline 100 mg oral tablet), 100 mg= 1 tab, PO, Daily syringe needles(BD needle Ultra-Fine Pen Mario Alberto 32G x 4mm), See Instructions, 5 refills unlisted medication(BD MARIO ALBERTO NEEDLE 32GX5/32"), See Instructions unlisted medication(ONE TOUCH ULTRA TEST STRIPS), See Instructions Allergies GlucophageGI Upset, Diarrhea Nickel OxyCONTINVomiting, Nausea PCN (penicillin)Maculopapular rash, Hives escitalopramLoose stools levoFLOXacinrash, Maculopapular rash metFORMINVomiting, Nausea Social History Smoking Status Former Smoker, quit > 1 yr Alcohol Frequency:1-2 times per year Employment/School Status:Employed Description:[employer] Exercise Duration (average number of minutes):30 Times per week:1-2 times/week Exercise type:exercise bike Home/Environment - Medium Risk Nutrition/Health - Medium Risk Sexual - Low Risk Substance Abuse - Denies Substance Abuse Tobacco Use:Former smoker Type:Cigarettes - Comments: Quit 2004 Family History Diabetes: Father. Melanoma: Mother. Prostate cancer..: Father. Skin cancer: Sister. Health Status Family Member(s) Immunizations Vaccine Date Status influenza virus vaccine, inactivated 06/18/2021 Given influenza virus vaccine, inactivated 04/11/2020 Given pneumococcal 23-valent vaccine 04/19/2019 Given influenza virus vaccine, inactivated 04/19/2019 Given influenza virus vaccine, inactivated 05/13/2018 Given influenza virus vaccine, inactivated 03/20/2017 Given pneumococcal 13-valent vaccine 04/09/2015 Given influenza virus vaccine, inactivated 04/09/2015 Given influenza virus vaccine, inactivated 03/25/2013 Given pneumococcal 23-valent vaccine 06/04/2012 Given tetanus/diphtheria/pertuss, acel (Tdap) 05/05/2012 Given influenza virus vaccine, inactivated 03/02/2012 Given Recommendations Health Maintenance Pending(in the next year) OverDue Medicare Annual Wellness Visit due05/28/17nd every 1year Breast Cancer Screening due06/20/18and every 731day Diabetic Eye Exam due03/08/22and every 731day Due Adult Influenza Vaccine due11/29/23and every 1year Adult COVID-19 Vaccination due11/30/23Unknown Frequency Adult Social Determinants of Health Screening due11/30/23Unknown Frequency Adult Tdap/Td Vaccine due11/30/23Unknown Frequency Falls Plan of Care due11/30/23Unknown Frequency Shingles Vaccine due11/30/23One-time only Due In Future Diabetes Management A1c not due until06/30/24and every day Satisfied(in the past 1 year) Satisfied Body Mass Index on09/29/23.Satisfied by POLLO Adrian, Jana Diabetes Management A1c on06/30/23.Satisfied by Contributor_system, [id number] Diabetes Nephropathy Management on06/30/23.Satisfied by Contributor_system, [email or web address] Diabetic Eye Exam on11/18/23.Satisfied by MEAGAN Samuels, Snehal Lipid Screening on06/30/23.Satisfied by Contributor_system, [id number] PHQ-9 After Positive PHQ-2 on08/10/23.Satisfied by MEAGAN Becerra Paula Electronic Signature on File Electronically Reviewed/Signed by: Scarlett Dudley PA-C Author Signature Dt/Tm:11/30/2023 02:07 PM Department of Family Medicine [facility] Patient Care team information Care Team Personnel Name: FAM Anderson Tara Position: Nurse Pract - Family Med Member Role: Primary Care Provider Address: Address: [address] [place] [address], [place] [address] Name: Miquel Johns Michele C Position: Pharmacist Schedule II Member Role: Pharmacy - Lifetime Address: Address: [address] [address] [place] Care Team Related Persons Name: PAUL JI Address: home No Address Provided
--- OUTSIDE RECORDS SUMMARY | 2024-01-28 08:08 | External Medical Summary | Summary of Care ---
Author Name Unknown Organization [facility] Address [address] [facility] [address] Phone [phone] Care Team Providers Care Instrument Maintenance Supervisor Name Role Phone Mar Dimas Yessy FAM Primary Care Provider Reason for Visit * Reason Onset Date Comments Diabetes Management 07/22/2023 Non-ce dm TRIAGE 07/22/2023 Encounter Details Date Type Department Care Team (Late st Contact Info) Description 07/22/2023 Telephone Pharmacy Call Center [phone] [place] [phone] Falguni Parsons, [facility] [phone] [place] [phone] Diabetes Management (Non-ce dm ); TRIAGE Allergies [...] as of this encounter (statuses as of 12/25/2023) Medications Medication Sig Dispensed Refills Start Date End Date Status Solifenacin Succinate 10 MG Oral Tablet Take 1 Tablet by mouth in the morning. Active Tresiba FlexTouch 200 UNIT/ML Subcutaneous Solution Pen-injector (Insulin Degludec) See Instructions, Disp# 18 mL, Refills: 5, INJECT 100 UNITS SUBCUTANEOUSLY DAILY., Pharmacy: [facility] 04/28/2020 Active Sertraline HCl 50 MG Oral Tablet (Zoloft) Start: 03/12/22 16:27:00 EDT, See Instructions, Disp# 30 tab, Refills: 11, TAKE 1 TABLET BY MOUTH ONCE DAILY, Pharmacy: [facility] 03/12/2022 Active Omeprazole 20 MG Oral [...] as of this encounter (statuses as of 12/25/2023) Active Problems Problem Noted Date Diagnosed Date [...] as of this encounter (statuses as of 12/25/2023) Resolved Problems Problem Noted Date Diagnosed Date Resolved Date Sepsis 04/21/2022 04/26/2022 documented as of this encounter (statuses as of 12/25/2023) Immunizations Name Administration Dates Next Due Seasonal [...] Notes * Telephone Encounter - Ted Shin, [facility] - 12/25/2023 12:03 PM EDT [facility] Non-Clinical [place] Diabetes Initiative THIS NOTE SERVES FOR TRIAGING PURPOSES ONLY AND IS NOT A PATIENT CONTACT. PATIENT MAY BE CONTACTED FOLLOWING MY ASSESSMENT. Re-Attempt Patient was identified to be a candidate for the Non-CE telephonic program based on the following criteria: Pharmacy AND/OR Medical High Cost / A1c < 9.0 / PDC >=80% [email or web address] provider? No; Is Pertinent Diabetes Info in Care Everywhere? Yes Last A1C: 7.1 (Result Date: 02/21/2023) Diabetes Diagnosis: Type 2 After chart review the following opportunities were identified: Mail Order Invite Action to be taken by fuel retrofitting technician: Mail order invite Needs Language Line: No Medication Claims Data (To verify during call): Med: OZEMPIC 8 Fill date: 11/11/2023 Day Supply: 28Quantity: 3 || Med: TRESIBA FLEXTOUCH 200 Fill date: 10/13/2023 Day Supply: 36 Quantity: 18 Ted Shin [facility] Clinical Pharmacist 12/25/2023, 12:03 PM * Telephone Encounter - Falguni Parsons [facility] - 07/22/2023 9:50 AM EST [facility] Non-Clinical [place] Diabetes Initiative THIS NOTE SERVES FOR TRIAGING PURPOSES ONLY AND IS NOT A PATIENT CONTACT. PATIENT MAY BE CONTACTED FOLLOWING MY ASSESSMENT. Patient was identified to be a candidate for the Non-CE telephonic program based on the following criteria: Not high cost / A1c >= 9.0/ PDC >= 80% [email or web address] provider? No; Pertinent Diabetes Info in Care Everywhere Yes Last A1C: 7.1 (Result Date: 02/27/23) Diabetes Diagnosis: Type 2 After chart review the following opportunities were identified: Mail Order Invite ( Call and invite) and Therapy Optimization (Services?) Action to be taken by fuel retrofitting technician: Please contact and warm transfer to [facility] if patient is agreeable Needs Language Line: No Falguni Parsons, [facility] Clinical Pharmacist 07/22/2023, 9:50 AM documented in this encounter Plan of Treatment Upcoming Encounters Date Type Department Care Team (Latest Contact Info) Description 02/16/2024 7:56 AM EDT Hospital Encounter OR [facility], Operating Room [facility] [address] [place] [address] Vince Wright MD [address] [place] [address] 02/16/2024 7:56 AM EDT - 02/16/2024 8:32 AM EDT Surgery OR [facility], Operating Room [facility] [address] [place] [address] Vince Wright MD [address] [place] [address] RIGHT EXTRACAPSULAR CATARACT REMOVAL WITH INTRAOCULAR LENS 03/01/2024 8:10 AM EDT Hospital Encounter OR [facility], Operating Room [facility] [address] [place] [address] Vince Wright MD [address] [place] [address] 03/01/2024 8:10 AM EDT - 03/01/2024 8:46 AM EDT Surgery OR [facility], Operating Room [facility] [address] [place], [place] [address] Vince Wright MD [address] [place] [address] LEFT EXTRACAPSULAR CATARACT REMOVAL WITH INTRAOCULAR LENS [...] D LEVEL ONCE IN A LIFETIME-USE SMARTSET# [id number] Completed 04/04/2021 RETIRED - COLONOSCOPY-EVERY 5 YRS [...] Advance Directives occurred with: Family Care Teams Instrument Maintenance Supervisor Relationship Specialty Start Date End Date Mar Dimas CRNP [address] [place] [address] PCP - General Nurse Practitioner 06/11/22 10/26/23 documented as of this encounter"
[2024-01-28] MEDS: DOXYCYCLINE HYCLATE 100 MG in DEXTROSE 5% MINI-B 100 ML IV SCH (09:51)
[2024-01-28 10:36] LABS: Appearance Urine Clear (Clear); Bacteria Urine Automated None Seen (None Seen); Bilirubin Urine Negative (Negative); Blood Urine Negative (Negative); Cast Urine Automated 0-2 /lpf (0-2); Color Urine Dark Yellow; Epithelial Cell Urine Auto 0-2 /hpf (0-2); Glucose Urine UA Negative (Negative); Ketones Urine Negative (Negative); Leukocyte Esterase Urine 1+ (Negative); Nitrite Urine Negative (Negative); Protein Urine Negative (Negative); RBC Urine Automated 0-2 /hpf (0-2); Specific Gravity Urine 1.014 (1.000-1.030); Urobilinogen Urine Positive (Negative); pH Urine 5.5 (4.5-7.5)
[2024-01-28] MEDS: HYDROmorphone INJ 0.5 MG/0.5 ML SYR IV PRN (13:14)
--- NOTE | 2024-01-28 19:02 | Billing Data ---
Date of Service January 28, 2024 Coding Level of Care Code 96585 SUB INP/OBS CARE MIN
[2024-01-28] MEDS: LANTUS PER UNIT CHARGE SQ SCH (20:17)
--- NOTE | 2024-01-29 07:37 | Discharge Summary ---
Date of Service January 29, 2024 Admission HPI Per Admitting Provider Jing Dela Cruz is a 73yo female with history of DM, HLP, COPD and liver cirrhosis presenting with Lyme disease. Patient's problems began approximately 13 days ago when she was working in her garden. She lost her balance while pulling weeds and tumbled down and embankment. She did have some pain in her left chest wall. Shortly after she noted some redness and itching to her left upper arm. The area of redness has been steadily progressing - round, well circumscribed area of redness. She reports it is very itchy. She has had flu-like symptoms as well with fever, chills, body aches. She has had occasional nausea without vomiting. No diarrhea. Additionally, from her fall, she has had pleuritic chest pain as well as chest wall pain, stiffness and pain in her left neck and upper back. In the ER she is febrile, HD stable ER Course: Tylenol Ceftriaxone Doxycycline Dilaudid Zofran NSS Admission Exam Per Admitting Provider Physical Exam: General: patient resting comfortably, NAD, non-toxic in appearance, AA&O x 4 Skin: warm, dry, intact, erythematous well circumscribed rash on left upper arm, area of bruising in center, tender to palpation, no fluctuance, no drainage HEENT: NC/AT, PERRL, EOMI, anicteric sclera, conjunctiva without injection, external ear normal to inspection and nontender, nares patent, moist mucus membranes, dentition intact, no oropharyngeal lesions, neck supple, trachea midline, no LAD, no thyromegaly, no JVD Heart: +S1/S2, regular, no m/r/g, chest wall pain reproducible with palpation Lungs: equal air entry bilaterally, no rales/rhonchi/wheezes Abd: +BS, soft, NT/ND, no masses/organomegaly/ascites, +abdominal hernia nontender, soft Ext: warm, 2+ pulses in UE/LE bilaterally, no clubbing/cyanosis or edema Neuro: nonfocal, patient AA&O x 4, speech intact, no facial droop, moving all extremities on command with equal strength 5/5 Principal Diagnosis Lyme disease, Anaplasmosis Discharge Exam Constitutional WD/WN, vitals as above Respiratory normal respiratory effort, lungs clear to auscultation Cardiovascular RRR, no murmur, no edema Extremities: normal capillary refill; no calf tenderness and no pedal edema Chest (Breasts) Chest: normal inspection of chest Gastrointestinal (Abdomen) normal bowel sounds, soft, nontender, no hepatosplenomegaly Psychiatric A+Ox3, euthymic affect Discharge Data Allergies Allergy/AdvReac Type Severity Reaction Status Date / Time levofloxacin Allergy Intermediate RASH, Verified 01/27/24 23:05 MACULOPAPULAR RASH nickel Allergy Intermediate HIVES/RASH Verified 01/27/24 23:05 ON SKIN oxycodone [From OxyContin] Allergy Intermediate NAUSEA/VOMI Verified 01/27/24 23:05 TING Penicillins Allergy Intermediate RASH Verified 01/27/24 23:05 morphine AdvReac Severe Headache Verified 01/27/24 23:05 escitalopram [From Lexapro] AdvReac Intermediate Diarrhea Verified 01/27/24 23:05 metformin AdvReac Intermediate CHRONIC Verified 01/27/24 23:05 DIARRHEA, BLOATING, PAIN Consultations 01/27/24 23:24 ED Decision to Admit Stat Ordered Studies 01/28/24 US extremity non-vascular ltd Routine 01/28/24 00:06 US arm [US venous doppler UE LT] Stat Hospital Course (1) Acute Lyme disease: (2) Chest wall pain: (3) Rash: (4) Thrombocytopenia: (5) Leukopenia: (6) Anaplasmosis: Plan 1) Acute Lyme disease/Anaplasmosis 73yo female with 13 days of LUE rash, progressive body aches, fatigue, weakness and fever. - POSITIVE for Lyme with + IgM and IgG as well. - Patient does not recall any tick bites but has reportedly had tick borne illnesses before (Lyme screen negative in August 2023). - Met sepsis criteria (on admission: Tm, 38.1; WBC, 3.35) - Blood cultures, no growth after 24 hrs Leukopenia with lymphopenia, thrombocytopenia as well as hyponatremia and abnormal liver findings - elevation of Tbili and AP likely chronic to some degree given patient's history of liver cirrhosis. Acute worsening in setting of Lyme disease. - WBC, 2.0 <-- 3.4; Hgb, 11.1 <-- 12.7; Plts, 44 <-- 60 - TBili, 2.4 <-- 2.9; (DBili 0.7); AST, 51; ALT, 35; AlkPhos, 131 - Additional tick-borne panel sent from the ER - Anaplasmosis, Babesiosis and Erlichiosis - low WBC and low platelets (although baseline is 80-100) would be consistent with Anaplasmosis - Upon discharge, PCP could consider CBC to monitor improvement in WBC, Plts, Hgb - Upon discharge, patient prescribed doxycycline, 100 mg, PO, BID for 13 more days 2) Rash Likely secondary to tick exposure, erythema migrans rash; less likely cellulitis. Area marked and dated -Monitor daily for progression, -Ice to affected area -Checking Doppler for collection/hematoma, negative for DVT 3) Chest wall pain Reproducible, pleuritic chest wall pain following a tumble down an embankment. Suspect musculoskeletal pain, possible pleurisy developing -Tylenol PRN, -Lidoderm patch, - Dilaudid, 0.5 mg, IV, q8hrs, PRN for pain during hospital stay - discharged patient on oxycodone-acetaminophen (5-325 mg), 1 tablet, PO, q8hrs, PRN pain, 10 tablets in all 4) Diabetes -Continue home Tresiba 100u qPM -Goal blood sugar 110 - 140 5) Urinary incontinence - Grady catheter ordered (Straight cath if pt prefers) - UA: + LE, + WBC (11-20) - urine Cx, growth < 1000 colonies/mL - per pt's Hx sounds like chronic problem, possibly urge incontinence, could consider mirabegron - pt expressed interest in a Purewick cathether during hospital stay, advised to F/U w/ PCP as outpt Total Time Total Time Spent Total Time Spent (In Minutes): see attending attestation Discharge Plan Discharge Items Patient Disposition: Home - Self-Care Reason For Visit: SEPSIS Discharge Diagnosis: Lyme disease, Anaplasmosis Condition on Discharge: Fair Activity: As commented below Activity Comment: Resume previous activity as tolerated, gradual re-escalation of acitivity Non-emergency contact: Primary Care Provider Call non-emergency contact if: you have any medication questions and your temperature is above 101 Follow-up/Referrals: Scarlett Dudley PA-C [Primary Care Provider] - 02/09/24 9:25 am Diet: Carb Consistent or DM2 Addtl Attending Provider Instructions: Fall: Fortunately you do not appear to have suffered any major injuries, at the same time you certainly have a lot of bumps and bruises. This will take a little while to recover from. Unfortunately with your liver disease and low platelet counts related to the liver disease, it is not really safe to take much as far as anti-inflammatories or big/recurring doses of Tylenolto that end we have sent a prescription for oxycodone/acetaminophenyou can take that up to every 8 hours as needed for pain. That will be definitely in a safe range with the acetaminophen; at the same time, obviously the oxycodone can sometimes make people feel groggy/sedated, and can cause constipation. Continue to keep moving to help loosen everything that was stiff from the fall as well Lyme/anaplasmosistickborne illnesses are extremely common in [facility]. The fevers you are having as well as an amplification of the body aches were due to having 2 different tickborne illnesses simultaneously: Lyme disease and anaplasmosis. The red area on your arm, while it sounds like it started initially with a bruise, is now rather clearly what is called erythema migransthe skin changes that are associated with Lyme disease. While it will get better, this will often take several days. - Doxycycline works extremely nicely to get Lyme disease and anaplasmosis betterwe will have you on doxycycline 100 mg twice a day to complete a course of treatmentyour next dose should be at bedtime tonight. For most people doxycycline is extremely well-tolerated, for a small percentage if the pill gets stuck on the way down it can cause a very painful ulcerto that end take it with food, with a full glass of water, and especially with the bedtime dosedo not lay down right after taking it. Similarly, while it is quite rare for people to have sun sensitivitywhen it happens, 15 minutes of sun exposure can be a blistering sunburnso even though you noted that you do not get a whole lot of sun exposure, and even though we are in [facility] would recommend wearing sunblock almost like you are at the beach. - Your lab work looks worsethis is almost certainly associated with the anaplasmosisand while it may take a few weeks for things to get back to your baseline, we would definitely recommend a weekly CBC and CMP (blood c ounts/platelet counts/liver enzymes) to track things back to your normal just to be on the safe side. - If the fevers recur, there is a third tickborne illness reasonably common in the areababesiosiswhich can "imitate" anaplasmosisalthough babesiosis is far less common. Given that your fevers have gotten better, and given that things appear to be improving overall, this is not likelybut at the same time I was like to make people aware, because if they backslide/worsen then changing a course of treatment to cover babesiosis as well can be warranted. (The lab testing specific to anaplasmosis and babesiosis is quite an accuratemaking both of them much more of a clinical diagnosis than something that the labs "prove") scalp itchingit sounds like you have done an awful lot right to help with the scalp itching, and obviously things are still going poorly. It was not clear if you have tried Nizoral (ketoconazole)that would be a reasonable thing to try next. At the same time, typically whenever we have more stubborn skin issues like this, if we have failed all of the initial treatments, a referral to dermatology could be quite helpful. Groin itchingthe next step on this would really be to have someone do a pelvic exam to evaluate the skin in the area and get a good working diagnosis of what is causing the itch, so that treatment can be specific. I agree with you it is extremely unlikely that skin itching in the area would be due to urinary tract infections, given that that really more only causes urinary symptoms, not surrounding skin symptoms. Follow-up at your PCPs office next week to ensure you are continuing to get better, and get the follow-up lab work. As we discussed, continuity and modern healthcare is a bit of a problem, and you would definitely do far better seeing the same person every time. It can be helpful, unfortunately, to be a bit stubborn when you are working with schedulers in order to ensure you are seeing the same person every time. Prescriptions for doxycycline and Percocet have been sent to your pharmacy. Pending Studies at Discharge: No Stand-Alone Forms: [facility] Medications and DC Order Prescriptions: New doxycycline hyclate 100 mg capsule 100 mg PO BID 13 Days Qty: 26 0RF oxycodone-acetaminophen [Endocet] 5-325 mg tablet 1 tab PO Q8H PRN (Reason: pain) Qty: 10 0RF Continued (DME) Depend Underwear For Women XL Misc See Rx Instructions .Route Qty: 68 3RF Rx Instructions: Change brief daily as needed insulin degludec [Tresiba FlexTouch U-200] 200 unit/mL (3 mL) Insulin Pen 100 unit SUBCUT QPM Rx Instructions: PER PT "TAKES EVERY AFTERNOON" cholecalciferol (vitamin D3) [Vitamin D3] 125 mcg (5,000 unit) Tablet 125 mcg PO DAILY Rx Instructions: PER PT "NOT REGULARLY" acetaminophen [Tylenol Extra Strength] 500 mg Tablet 500 mg PO Q4H PRN (Reason: Pain) semaglutide 2 mg/dose (8 mg/3 mL) pen injector 2 mg subcut WK Rx Instructions: TUESDAYS Discharge Orders: Discharge Order (Routine); Ordered 01/29/24 Ordered By: Jose Elias Castro Admission Data Admit Date/Time: 01/28/24 00:06 Attending Provider: Jose Elias Castro Admit Provider: Jessica Bain Primary Care Provider: Scarlett Dudley Other Providers: Jessica Bain Other Interventions: Discharge Summary Assessment (RN) Last Done: 01/29/24 11:27 Supervising Physician Co-Signing Physician Notes I personally examined the patient and verified all yee points of history and exam, discussed case, and agree with decision making with Dr Melchor fairly agitated. was still c/o arm itching although also simultaneously noting that she was feeling better enough and she wanted to leave (more or less odalys). noted that narcotics helped the arm burning. when i tried to discuss that i did think a short course of narcotics was appropriate given her fall/pain, but that narcotics wouldn't really be an appropriate treating for itching, and that long term care social worker narcotics would be a bad choice, she started to argue about why she needed narcotics despite my trying to tell her i was going to Rx percocet but that the reason to take it would be pain. as she continued to raise her voice and talk over me i informed her that i would not tolerate being yelled at and i would return later. left the room. when i revisited later she first (as expected) needed to very loudly and somewhat belligerently express displeasure with our prior interaction but then in a meandering way express displeasure about healthcare in general and yell directly at me about complaints that she has had for years that have not been adequately addressed, despite her never having mentioned them to me before (this coming up in the context of saying the itching has been going on for years - when i, confused since her HPI for the erythema migrans was more 1-2wks, asked for clarification, she very forwardly/loudly let me know that she has had an itchy scalp for years to the point that she will scratch it until it bleeds and that she has groin itching that she has had for years that she thinks gets labeled as UTI symptoms but then when she goes on an antibiotic it will help for a little and then return. she seems to express an ambivalent displeasure with the PA serving as her PCP and a feeling that she listens to her (a disconnect i was not able to put together) as well as a displeasure with fragmented care in general - to which we were both able to lament that between modern health systems and the ever growing physician shortage continuity of care is unfortunately hard to come by. i tried to take a more in depth HPI of of her other complaints but she would mostly jump from one topic to the next without really being able to give that much of a deep HPI - other than that it sounds like she's tried jama derm appropriate OTC remedies for her scalp itching without success. she also related again that she disagreed with us calling her arm lesion a "rash" because she noted that to her it started as a bruise but then when a bruise should start to turn purple and then yellow and then go away, hers got larger, more red, and more itchy (i used this as a chance to try to re-educate about lyme, anaplasma, and what we are seeing and treating currently). i carefully (and mildly successfully) was able to let her know that the tone i am seeing is one that would put people on their heels, and if a person is seeking help from another person, aggressively putting the other person into a defensive posture is generally not a good way to get them to help you. while using an aggressive and disdainful tone towards me, she said that she knows that "you can get more flies with sugar than with vinegar" and when i pointed out that she is currently slinging a lot of vinegar she acknowledged this, interestingly without really changing her tone at all. vitals noted, aggressive and agitated as above. normal gait steady stance absolutely no conversational dyspnea. L arm erythema migrans rash more or less same in distribution (maybe slightly larger in dependant areas, but also with slightly less bright redness) no other notable lesions. breathing unlabored no accessory muscles good effort. neuro showing cn 2-12 grossly intact gross motor intact. Lyme disease/anaplasmosisher rash given how nontender it is is quite inconsistent with cellulitis, and then when viewed from an oblique angle it appears to be a target rash. Further her worsening leukopenia thrombocytopenia and bodyaches seem consistent with anaplasmosis (obviously have to follow for any signs of Babesiabut with Anaplasma being more prevalent here, as well as with her not showing any signs of hemolysisI would favor Anaplasma over Babesia)continue doxycycline. faint improvement in erythema migrans, resolution of fever, and ?mild improvement to clearly no worsening in body aches (HPI really hard to discern) suggest improvement. stable for home on doxycyline. tried to get f/u CBC, CMP but was unable to do so successfully - d/w pt that labs should be followed through to normalization. fall/body pain - suspect some is from the fall itself and difffuse soft tissue injury, some amplified from anaplasmosis. given cirrhosis/low plt conventional use of APAP and nearly any use of NSAIDs concerning. percocet Rx'd for up to TID #10, no refills. scalp itchiness - ?jama derm. can try ketoconazole; f/u PCP, consider derm referral groin itchiness - did not perform exam given lack of acuity, pt agitation, abject lack of rapport, etc - but suggest that a true PE of the area involved would be the best next step in dx/management. medically stable for home otherwise as above Resident Activity Tracking Resident Involvement: Resident Care Provided Care Provided: Adult Hospital Medicine
[2024-01-29 08:58] VITALS: BP 106/57; RESP 18; TEMP 98.8; O2SAT 91
[2024-01-29 11:28] VITALS: PULSE 76
--- NOTE | 2024-01-29 15:40 | Billing Data ---
Date of Service January 29, 2024 Coding Level of Care Code 69559 IN/OBS DISCH 30 MIN/LESS
--- NOTE | 2024-01-29 23:44 | Electrocardiogram Report ---
Test Reason : Blood Pressure : */* mmHG Vent. Rate : 86 BPM Atrial Rate : 86 BPM P-R Int : 140 ms QRS Dur : 78 ms QT Int : 354 ms P-R-T Axes : 35 0 41 degrees QTcB Int : 423 ms Normal sinus rhythm Minimal voltage criteria for LVH, may be normal variant Borderline ECG When compared with ECG of 18-Sep-2023 11:29, Premature atrial complexes are no longer Present Confirmed by Jeremiah Andrew ([id number]) on 01/29/2024 11:43:40 PM Referred By: REFERRED SELF Confirmed By: Jeremiah Andrew
[2024-01-31 22:58] LABS: Babesia microti DNA Not Detected (Not Detected)
--- NOTE | 2024-02-12 06:52 | Coding Query ---
A supporting diagnosis is required for the test/procedure performed on this patient in order for us to be reimbursed by the patient's insurance. Please provide a supporting diagnosis for the following test/procedure listed below next to the test name along with your signature. *If there is no additional diagnosis for this patient that would support the following test/procedure please document that below next to the test/procedure. Test(s)/Procedure(s) that require a supporting diagnosis: Patient with area or redness, swelling and tenderness of the LUE. Ultrasound ordered to assess for soft tissue collection and/or DVT *[id number], UPPER EXTREMITY VENOUS DUPLEX DIAGNOSIS: Provider Signature: Date: Thank you Gianna Mena Health Information Management Once completed, please kindly fax back to [phone] For questions please call [phone] [facility]
== END 2024-01-29 11:52 | disposition home or self-care (01) | DRG 872 ==
LOC: ED 19:23 → SUATTDRO 01-28 00:06 → 3W 01-28 00:06 → INTOOBSV 01-28 00:06 → 3W 01-28 02:07

== ENCOUNTER 2024-06-17 13:16 | Inpatient (IN) ==
[2024-06-17] MEDS ORDERED: MoRPHine SULFATE 4 MG/ML 1 ML CARP\\VIAL IV PRN (14:05)
--- NOTE | 2024-06-17 14:10 | Emergency Department Note ---
Impression & Plan Acute non-ST elevation myocardial infarction (NSTEMI), Fall, Thrombocytopenia, Chest pain, Elevated troponin I level, Contusion of right shoulder, Urinary tract infection ED Provider Note NAME: NEREIDA WEAVER AGE: 74 SEX: F : 1950 ARRIVES VIA: Ambulance INFORMANT: Patient, ED PROVIDER(S): Andrew Ho DO CHIEF COMPLAINT: Pain HPI: The patient is a 74-year-old female who presented to the emergency department for an evaluation of generalized pain. The patient states that she fell out of bed recently. She was seen in our facility last night for similar complaints. She was sent home with pain medication. She states that she is not doing well at home and continues to have severe pain. She has pain over her shoulder and her head. She states she cannot walk because of the pain. She states that she is having muscle aches. She recently had surgery on her abdomen but she denies having any abdominal pain or blood rectal bleeding. ROS: See above HPI for pertinent positives & negatives. A total of 10 systems reviewed and were otherwise negative. PAST MEDICAL HISTORY: See Below PAST SURGICAL HISTORY: See Below FAMILY HISTORY: See Below SOCIAL HISTORY: See Below HOME MEDICATIONS: See Below ALLERGIES: See Below VITALS: See Below PHYSICAL EXAMINATION: GENERAL: Patient is awake alert in no acute distress patient is resting comfortably and showing no signs of anxiety EYES: The conjunctivae are clear. The pupils are round and reactive. EARS, NOSE, MOUTH AND THROAT: The nose is without any evidence of any deformity. NECK: The neck is nontender and supple. RESPIRATORY: Normal respiratory effort is noted there is no evidence of wheezing rhonchi or rales CARDIOVASCULAR: Regular rate and rhythm noted there no murmurs rubs or gallops normal S1 normal S2. GASTROINTESTINAL: The abdomen is soft. Abdomen is nontender. BACK: No midline tenderness or or step-off noted range of motion in flexion extension as well as rotation no signs of muscle spasm noted MUSCULOSKELETAL/EXTREMITIES: There is no evidence of gross deformity full range of motion is noted in the hips and shoulders. There is ecchymosis noted over the right shoulder and the posterior right shoulder. SKIN: Is warm and dry. Trace pedal edema was noted bilaterally. NEUROLOGIC: Patient is awake alert and oriented x3. Strength was symmetric. MEDICAL DECISION MAKING: The patient is a 74-year-old female who presented to the emergency department for an evaluation after a fall. The patient fell overnight as well. When she came in initially all she complained about was headache and she was worried about striking her head. She has a history of thrombocytopenia. The patient returned today because she states she just cannot deal with the pain. She is postop from abdominal surgery. She complained of chest pain as well as back pain and pain all over. Because of her age and comorbidities further laboratory and radiographic studies were obtained. She was found to have an elevated troponin. She does have ST segment abnormalities but this does not appear to be new compared to previous. [facility] The patient was treated with aspirin as well as pain medication. Triage Nursing notes reviewed. Prior medical records reviewed Vital Signs: reviewed and remarkable for no significant abnormalities Differential diagnosis: Infection, dehydration, metabolic abnormality, hypo/hyperglycemia, electrolyte disturbance, anemia, hypoxia, cardiac sources, intracerebral event, toxicologic, neurologic, as well as other pathologies. ER treatment provided: See below Diagnostics interpreted by me: ECG: EKG was obtained in the emergency department. My interpretation is normal sinus rhythm at [address] segment abnormalities are noted. This was compared to a tracing from January 22, 2024. No changes were noted. Cardiac Monitoring: An order was placed for continuous cardiac monitoring. The monitor shows a rate of 90 bpm with sinus rhythm. Laboratory studies: As stated above and show below. Imaging studies: See below. Radiographic imaging was reviewed by myself Consultation(s): I discussed this case with Dr. Spain who is on-call for the [facility]. Past Med/Surg History Problem List Urinary tract infection (Acute) Contusion of right shoulder (Acute) Elevated troponin I level (Acute) Chest pain (Acute) Thrombocytopenia (Acute) Fall (Acute) Acute non-ST elevation myocardial infarction (NSTEMI) (Acute) Generalized body aches (Acute) Thrombocytopenia (Acute) Acute neck pain (Acute) Acute hyperglycemia (Acute) Fall (Acute) Umbilical hernia Encounter for pre-operative examination Recurrent UTI (urinary tract infection) Renal cyst (Chronic) Nephrolithiasis (Chronic) Incontinence (Chronic) Diverticulosis Ventral hernia Leukopenia Rash Weakness (Acute) Gastritis Type 2 diabetes mellitus Obesity Depression with anxiety Urge and stress incontinence Dyslipidemia Chronic liver disease and cirrhosis portal hypertension including ascites and marked splenomegaly. Fibrosis staging F4 Genital HSV Sensorineural hearing loss of both ears Asthma (Acute) Obstructive sleep apnea (Acute) Thrombocytopenia (Acute) Chronic- likely secondary to underlying cirrhosis per records Ovarian mass, right COPD (chronic obstructive pulmonary disease) (Acute) History of hysterectomy (Chronic) Medical History CAD (coronary artery disease) - Incidental finding of "extensive coronary artery calcification" noted on 08/2023 chest and A/P CT - seen by PCP 05/26/24- recommended cardio clearance prior to surgical procedures Anaplasmosis hx 2021, treated Sensorineural hearing loss (SNHL) of both ears Depression with anxiety Asthma denies inhaler use ALEXIA (obstructive sleep apnea) denies, no device COPD (chronic obstructive pulmonary disease) Chronic liver disease portal hypertension including ascites and marked splenomegaly. Fibrosis staging F4 Dyslipidemia Thrombocytopenia Chronic- likely secondary to underlying cirrhosis per records Hx of Lyme disease treated Diabetes Diverticulosis Incontinence Nephrolithiasis currently has stones Renal cyst Recurrent UTI (urinary tract infection) Surgical History H/O umbilical hernia repair (06/08/24) Robotic Assisted incision and Umbilical Hernia Repair with mesh (repaired separately) - Shorty Kim DO, FACS Hx of hysterectomy History of bladder suspension procedure Hx laparoscopic cholecystectomy H/O shoulder surgery Hx of colonoscopy History of bladder repair surgery History of carpal tunnel surgery x2 H/O abdominal surgery panniculectomy x 2 per pt History of laparoscopic cholecystectomy open surgery Family History Father Prostate cancer Diabetes Mother Cancer Other No family history of adverse response to anesthesia No family history of bleeding disorder Denies family history of Ovarian cancer Myocardial infarction Breast cancer Colorectal cancer Social History Smoking Status: Never smoker Tobacco Type: Cigarettes Second Hand Exposure: No; Do You Dip or Chew Tobacco: No; Hx Alcohol Use: Yes Alcohol type: beer Alcohol Intake Frequency Comment: 1-2 per month Hx Substance Use: No Preferred Language: Kuwaiti Communication Ability: Effective Visual Impairment: Limited Hearing Ability: Use of Hearing Aid Hobber Required: No Beliefs That Will Affect Care: None marital status: Current Living Situation: Alone Current Living Situation Comment: brother and son live nearby current occupational status: retired How many Children do You have: 1 Feels Safe at Home: Yes Childhood Exposure to Second-Hand Smoke: No Diet: regular caffeine: No during the past year weight has: remained stable Dental Care, Regularly: Yes Physical Activity Frequency: Does not Exercise Seatbelt Use: always Sunscreen Use: No Do you think of yourself as: straight/heterosexual Gender Identity: Female Assistive Devices: Denture - Lower, Glasses and Hearing Aid - Bilateral Allergies Allergies Allergy/AdvReac Type Severity Reaction Status Date / Time levofloxacin Allergy Intermediate RASH, Verified 06/08/24 09:29 MACULOPAPULAR RASH nickel Allergy Intermediate HIVES/RASH Verified 06/08/24 09:29 ON SKIN oxycodone [From OxyContin] Allergy Intermediate NAUSEA/VOMI Verified 06/08/24 09:29 TING Penicillins Allergy Intermediate RASH Verified 06/08/24 09:29 morphine AdvReac Severe Headache Verified 06/08/24 09:29 escitalopram [From Lexapro] AdvReac Intermediate Diarrhea Verified 06/08/24 09:29 metformin AdvReac Intermediate CHRONIC Verified 06/08/24 09:29 DIARRHEA, BLOATING, PAIN Home Meds Home Medications Medication Instructions Recorded Confirmed insulin degludec 200 unit/mL (3 100 unit subcut QPM 01/22/21 06/17/24 mL) subcutaneous pen (Tresiba FlexTouch U-200 insulin) acetaminophen 500 mg tablet 1,000 mg PO Q4H PRN Pain 09/18/23 06/17/24 (Tylenol Extra Strength) semaglutide 2 mg/dose (8 mg/3 mL) 2 mg subcut WK 03/28/24 06/17/24 subcutaneous pen injector (Ozempic) venlafaxine 37.5 mg 37.5 mg PO QAM 05/30/24 06/17/24 capsule,extended release 24 hr (Effexor XR) Previous Rx's Medication Instructions Recorded diaper,brief,adult,disposable #68 ea 10/29/22 (Depend Underwear For Women XL) methenamine hippurate 1 gram tablet 1 g PO BID #180 tabs 05/18/24 oxycodone 5 mg tablet 5 - 10 mg (1 - 2 x 5 mg) PO 06/08/24 .[id number] PRN pain #15 tabs oxycodone 5 mg tablet 5 mg PO Q8H PRN pain #9 tabs 06/17/24 Results & Data (ED) Vital Signs Vital Signs - 24 hr 06/17/24 13:40 06/17/24 13:51 06/17/24 14:06 Temperature 37.6 C H Temperature Source Oral Pulse Rate 87 82 86 Pulse Rate [Apical] Pulse Rate from SpO2 Sensor 88 Respiratory Rate 20 26 H Respiratory Effort / Characteristics Non-Labored Spontaneous Respiratory Depth Normal Respiratory Pattern Regular Blood Pressure 150/72 H 160/78 H Blood Pressure [Right Arm] Blood Pressure Mean 98 105 Blood Pressure Mean [Right Arm] Blood Pressure Position Lying Pulse Oximetry 96 95 Oxygen Delivery Method Room Air Oxygen Flow Rate Sepsis Recent Fever Within 48 Hours No Sepsis New/Unexplained Change in Mental Status No Sepsis Action Taken by Nursing No Action Required Oxygen Flow Rate - Titration Pulse Oximetry Post Tiitration 06/17/24 14:31 06/17/24 14:33 06/17/24 15:00 Temperature Temperature Source Pulse Rate 83 Pulse Rate [Apical] 81 Pulse Rate from SpO2 Sensor Respiratory Rate 24 18 Respiratory Effort / Characteristics Respiratory Depth Respiratory Pattern Blood Pressure 113/69 Blood Pressure [Right Arm] 111/61 Blood Pressure Mean 95 Blood Pressure Mean [Right Arm] 77 Blood Pressure Position Pulse Oximetry 94 95 90 Oxygen Delivery Method Room Air Room Air Oxygen Flow Rate Sepsis Recent Fever Within 48 Hours Sepsis New/Unexplained Change in Mental Status Sepsis Action Taken by Nursing Oxygen Flow Rate - Titration Pulse Oximetry Post Tiitration 06/17/24 15:00 06/17/24 15:05 06/17/24 15:30 Temperature Temperature Source Pulse Rate 80 78 Pulse Rate [Apical] Pulse Rate from SpO2 Sensor 78 Respiratory Rate 18 17 Respiratory Effort / Characteristics Respiratory Depth Respiratory Pattern Blood Pressure 111/61 112/61 Blood Pressure [Right Arm] Blood Pressure Mean 73 78 Blood Pressure Mean [Right Arm] Blood Pressure Position Pulse Oximetry 97 85 L 97 Oxygen Delivery Method Nasal Cannula Oxygen Flow Rate 0 Sepsis Recent Fever Within 48 Hours Sepsis New/Unexplained Change in Mental Status Sepsis Action Taken by Nursing Oxygen Flow Rate - Titration 2 Pulse Oximetry Post Tiitration 97 06/17/24 16:48 06/17/24 17:03 06/17/24 17:33 Temperature Temperature Source Pulse Rate 78 77 74 Pulse Rate [Apical] Pulse Rate from SpO2 Sensor 77 74 Respiratory Rate 20 17 15 Respiratory Effort / Characteristics Respiratory Depth Respiratory Pattern Blood Pressure 86/46 L 92/40 L 89/42 L Blood Pressure [Right Arm] Blood Pressure Mean 53 57 57 Blood Pressure Mean [Right Arm] Blood Pressure Position Pulse Oximetry 97 96 96 Oxygen Delivery Method Oxygen Flow Rate Sepsis Recent Fever Within 48 Hours Sepsis New/Unexplained Change in Mental Status Sepsis Action Taken by Nursing Oxygen Flow Rate - Titration Pulse Oximetry Post Tiitration 06/17/24 17:50 06/17/24 18:06 06/17/24 18:34 Temperature Temperature Source Pulse Rate 74 73 71 Pulse Rate [Apical] Pulse Rate from SpO2 Sensor 74 Respiratory Rate 16 18 Respiratory Effort / Characteristics Respiratory Depth Respiratory Pattern Blood Pressure 85/44 L 106/83 Blood Pressure [Right Arm] Blood Pressure Mean 57 85 Blood Pressure Mean [Right Arm] Blood Pressure Position Pulse Oximetry 97 95 Oxygen Delivery Method Oxygen Flow Rate Sepsis Recent Fever Within 48 Hours Sepsis New/Unexplained Change in Mental Status Sepsis Action Taken by Nursing Oxygen Flow Rate - Titration Pulse Oximetry Post Tiitration Home Medications Current Medication List: was personally reviewed by me Laboratory Data Attestation: I reviewed the patient's lab results. 06/17/24 13:30 06/17/24 13:30 Lab Results 06/17/24 06/17/24 Range/Units 13:30 15:50 WBC 2.70 L (4.8-10.8) K/ul RBC 3.58 L (4.20-5.40) M/uL Hgb 11.1 L (12.0-16.0) g/dl Hct 32.6 L (37.0-47.0) % MCV 91.1 (80.0-100.0) fL MCH 31.0 (25.0-34.0) pg MCHC 34.0 (32.0-36.0) g/dL RDW Std Deviation 44.9 (36.4-46.3) fL RDW Coeff of Chana 13.5 (11.5-14.5) % Plt Count 31 L (130-400) K/uL MPV 12.4 (9.4-12.4) fL Immature Gran % (Auto) 0.7 % Neut % (Auto) 74.1 % Lymph % (Auto) 11.5 % [place] % (Auto) 13.3 % Eos % (Auto) 0.0 % Baso % (Auto) 0.4 % Neut # (Auto) 2.00 (1.40-6.50) K/uL Lymph # (Auto) 0.31 L (1.20-3.40) K/uL [place] # (Auto) 0.36 (0.11-0.59) K/uL Eos # (Auto) 0.00 (0.00-0.50) K/uL Baso # (Auto) 0.01 (0.00-0.20) K/uL Immature Gran # (Auto) 0.02 (0.01-0.20) K/uL D-Dimer 9190 H* (0-500) ug/L FEU Sodium 134 L (136-145) mmol/L Potassium 3.6 (3.5-5.1) mmol/L Chloride 105 (98-107) mmol/L Carbon Dioxide 23 (21-32) mmol/L Anion Gap 6 (3-11) BUN 11 (6-23) mg/dl Creatinine 0.64 (0.6-1.2) mg/dl Est Cr Clr Drug Dosing 92.1 ml/min eGFR 92.10 BUN/Creatinine Ratio 17.2 (10-20) Glucose 149 H (70-99(Fasting)) mg/dl Calcium 8.7 (8.6-10.3) mg/dl Total Bilirubin 5.0 H (0.2-1.0) mg/dl AST 37 (13-39) U/L ALT 24 (7-52) U/L Alkaline Phosphatase 96 (34-104) U/L Troponin I High Sens 244.1 H* 270.3 H* (0-14) pg/ml Total Protein 6.1 (6.0-8.3) gm/dl Albumin 3.2 L (3.4-5.0) gm/dl Globulin 2.9 (2.5-4.0) gm/dl Albumin/Globulin Ratio 1.1 (0.9-2) Lipase 22 (11-82) U/L Administered Medications Sodium Chloride (Nss) 1,000 mls @ 999 mls/hr IV .Q1H1M ONE Stop: 06/17/24 19:22 Last Admin: 06/17/24 18:39 Dose: 999 mls/hr Documented By: LAVELLE Discontinued Medications Aspirin (Aspirin Chew 324 Mg) 324 mg PO NOW STA Stop: 06/17/24 16:33 Last Admin: 06/17/24 16:47 Dose: 324 mg Documented By: LAVELLE Ceftriaxone Sodium (Rocephin) 2,000 mg in 50 mls @ 100 mls/hr IV NOW STA Stop: 06/17/24 17:03 Last Infusion: 06/17/24 17:22 Dose: Infused Documented By: Admin: 06/17/24 16:47 Dose: 100 mls/hr Documented By: LAVELLE Sodium Chloride (Nss) 1,000 mls @ 999 mls/hr IV .Q1H1M ONE Stop: 06/17/24 18:21 Last Infusion: 06/17/24 18:38 Dose: Infused Documented By: Admin: 06/17/24 17:35 Dose: 999 mls/hr Documented By: LAVELLE Ioversol (Optiray 320 125ml) 119 ml IV ONCE ONE Stop: 06/17/24 15:59 Last Admin: 06/17/24 15:59 Dose: 119 ml Documented By: ILANA Ondansetron HCl (Ondansetron Inj 2 Mg/Ml 2 Ml Vial) 4 mg IV NOW STA Stop: 06/17/24 14:06 Last Admin: 06/17/24 14:44 Dose: 4 mg Documented By: FRANK Oxycodone/Acetaminophen (Oxycodone/Acetaminophen 5mg/325mg Tab) 1 tab PO NOW STA Stop: 06/17/24 14:35 Last Admin: 06/17/24 14:44 Dose: 1 tab Documented By: FRANK Imaging Data Attestation: I personally reviewed and interpreted this imaging study as follows: My Impression: 1 view chest x-ray was obtained in the emergency department. My interpretation is no free air or definite infiltrate, final report below. X-rays of the pelvis and right shoulder were obtained. My interpretation is no definite fracture, final report below. Radiologist's Impression: Chest X-Ray 06/17/24 14:05 XR chest 1V portable CLINICAL HISTORY: fall TECHNIQUE: Single frontal radiograph of the chest was obtained. Comparison: Comparison is made to chest radiograph 01/24/2024 FINDINGS: No lines and tubes are seen. Calcified aortic knob is seen. Lungs are underinflated but clear. No evidence of pleural effusion or pneumothorax. IMPRESSION: No acute chest disease. ACT 112: Negative or not required by law. Electronically signed by: Joseph Carlson M.D. 06/17/2024 2:33 PM Pelvis X-Ray 06/17/24 14:05 XR pelvis 1-2V routine CLINICAL HISTORY: fall TECHNIQUE: A single frontal view of the pelvis was obtained. Comparison: Comparison is made to hip radiograph 07/15/2022 FINDINGS: There is no evidence of an acute fracture. Degenerative changes are seen in the hip joints and lumbar spine. No soft tissue abnormality is seen. IMPRESSION: No evidence of acute osseous injury. ACT 112: Negative or not required by law. Electronically signed by: Joseph Carlson M.D. 06/17/2024 2:50 PM Shoulder X-Ray 06/17/24 14:05 XR shoulder RT min 2V routine HISTORY: 74 years-old Female fall acute right shoulder pain status post fall COMPARISON: Chest radiograph of same day. TECHNIQUE: 3 views of the right shoulder FINDINGS: Moderate glenohumeral and AC joint osteoarthritis. Mild soft tissue swelling superolateral to the shoulder. No acute fracture, dislocation or opaque foreign body identified. IMPRESSION: No acute fracture or dislocation. ACT 112: Negative or not required by law. The above report was generated using voice recognition software. It may contain grammatical, syntax or spelling errors. Electronically signed by: Vikram Ramirez M.D. 06/17/2024 2:[address] 06/17/24 14:08 EXAM: CT Head Without Intravenous Contrast INDICATION: Fall. TECHNIQUE: Axial computed tomography images of the head/brain without intravenous contrast. Sagittal and/or coronal reformats are provided. Sagittal and coronal reformatted images were created and reviewed. This CT exam was performed using one or more of the following dose reduction techniques: automated exposure control, adjustment of the mA and/or kV according to patient size, and/or use of iterative reconstruction technique. COMPARISON: 09/18/2023 FINDINGS: Limitations: None. Brain and extra-axial spaces: There is age appropriate cortical atrophy and chronic ischemic periventricular white matter hypodensity. No acute infarct, hemorrhage or mass noted. Bones/joints: No acute changes. Soft tissues: No significant abnormality noted. Vasculature: No acute abnormality noted. Sinuses: Trace chronic bilateral maxillary sinus thickening. No sinus fluid. Mastoid air cells: No mastoid effusion. Orbits: No significant abnormality noted. IMPRESSION: Cerebral atrophy. No acute changes. ACT 112: Negative or not required by law. Electronically signed by Matilda Hook 06-17-2024 4:27 PM Chest CTA 06/17/24 15:28 CT pulmonary angiogram with IV contrast History: Chest pain COMPARISON: None TECHNIQUE: CT angiography of the chest was performed without IV contrast followed by IV contrast, including 3D post processing CTA image reconstruction. Dose reduction techniques were achieved by using automatic exposure control and/or adjustment of mA and/or kV according to patient size and/or use of iterative reconstruction technique. FINDINGS: Diagnostic quality: Adequate There is no evidence for pulmonary embolism. The heart is not enlarged. Heavy coronary calcifications. There is no pericardial effusion. There are no abnormally enlarged hilar or mediastinal lymph nodes. The central tracheobronchial tree is clear. The lungs are clear. There is no pleural effusion. Mild peripheral reticular changes suggestive of interstitial lung disease. No honeycombing. The pulmonary artery appears enlarged suggesting pulmonary hypertension. Limited visualized upper abdomen. There is elevation of the right hemidiaphragm, which may be seen with eventration or paralysis. The liver is cirrhotic. The spleen is enlarged suggesting portal hypertension. There is mild ascites partially seen. A small area of low density about the periphery of the spleen on axial image 12, measures 2.7 cm in size, was also seen on the CT from August 2023, possibly a cyst or hemangioma. No destructive osseous changes are seen. IMPRESSION: No evidence for pulmonary embolism. Mild interstitial lung disease. Heavy coronary calcifications. Cirrhosis, and evidence of portal hypertension including splenomegaly. Electronically signed by Ted Salter 06-17-2024 4:20 PM Discharge Plan Visit Data Chief Complaint: Abdominal Pain Stated Complaint: AB PAIN ED Provider: Andrew Ho Discharge Problem: Acute non-ST elevation myocardial infarction (NSTEMI), Fall, Thrombocytopenia, Chest pain, Elevated troponin I level, Contusion of right shoulder, Urinary tract infection Patient Disposition: Being Evaluated by Hospitalist Forms Stand Alone Forms: My [facility] Prescriptions Prescriptions: No Action (DME) Depend Underwear For Women XL Misc See Rx Instructions .Route Qty: 68 3RF Rx Instructions: Change brief daily as needed methenamine hippurate 1 gram tablet 1 g PO BID Qty: 180 3RF Ozempic 2 mg/dose (8 mg/3 mL) pen injector 2 mg subcut WK insulin degludec [Tresiba FlexTouch U-200] 200 unit/mL (3 mL) Insulin Pen 100 unit SUBCUT QPM Rx Instructions: PER PT "TAKES EVERY AFTERNOON" acetaminophen [Tylenol Extra Strength] 500 mg Tablet 1,000 mg PO Q4H PRN (Reason: Pain) venlafaxine [Effexor XR] 37.5 mg capsule,extended release 24hr 37.5 mg PO QAM oxycodone 5 mg tablet 5 - 10 mg PO .[id number] MDD no more than 6 tabs in 24hours PRN (Reason: pain) Qty: 15 0RF oxycodone 5 mg tablet 5 mg PO Q8H PRN (Reason: pain) Qty: 9 0RF Referrals Referrals: Scarlett Dudley PA-C [Primary Care Provider] - Discharge Problem: Fall Qualifiers: Encounter type: initial encounter Qualified Code(s): W19.XXXA - Unspecified fall, initial encounter Chest pain Qualifiers: Chest pain type: unspecified Qualified Code(s): R07.9 - Chest pain, unspecified Contusion of right shoulder Qualifiers: Encounter type: initial encounter Qualified Code(s): S40.011A - Contusion of right shoulder, initial encounter Urinary tract infection Qualifiers: Urinary tract infection type: site unspecified Hematuria presence: without hematuria Qualified Code(s): N39.0 - Urinary tract infection, site not specified
[2024-06-17 14:24] LABS: Basophils # (auto) 0.01 K/uL (0.00-0.20); Basophils % (auto) 0.4 %; Hematocrit (blood only) 32.6 % (37.0-47.0); Hemoglobin 11.1 g/dl (12.0-16.0); Immature Granulocytes # (auto) 0.02 K/uL (0.01-0.20); Immature Granulocytes % (auto) 0.7 %; Lymphocytes # (auto) 0.31 K/uL (1.20-3.40); Lymphocytes % (auto) 11.5 %; Mean Corpuscular Volume 91.1 fL (80.0-100.0); Mean Platelet Volume 12.4 fL (9.4-12.4); Monocytes # (auto) 0.36 K/uL (0.11-0.59); Monocytes % (auto) 13.3 %; Neutrophils % (auto) 74.1 %; Platelet Count 31 K/uL (130-400); RDW Coefficient of Variation 13.5 % (11.5-14.5); RDW Standard Deviation 44.9 fL (36.4-46.3); Red Blood Count 3.58 M/uL (4.20-5.40)
[2024-06-17 14:40] LABS: Albumin Globulin Ratio 1.1 (0.9-2); Albumin Level 3.2 gm/dl (3.4-5.0); BUN Creatinine Ratio 17.2 (10-20); Calcium 8.7 mg/dl (8.6-10.3); Creatinine Clr Calc Pharmacy 92.1 ml/min; Globulin 2.9 gm/dl (2.5-4.0); Potassium 3.6 mmol/L (3.5-5.1); Total Protein 6.1 gm/dl (6.0-8.3)
[2024-06-17] MEDS: ONDANSETRON INJ 2 MG/ML 2 ML VIAL IV STA (14:44)
[2024-06-17] MEDS: oxyCODONE/ACETAMINOPHEN 5mg/325mg TAB PO STA (14:44)
--- NOTE | 2024-06-17 15:05 | XRay Report ---
XR shoulder RT min 2V routine HISTORY: 74 years-old Female fall acute right shoulder pain status post fall COMPARISON: Chest radiograph of same day. TECHNIQUE: 3 views of the right shoulder FINDINGS: Moderate glenohumeral and AC joint osteoarthritis. Mild soft tissue swelling superolateral to the harlan ulder. No acute fracture, dislocation or opaque foreign body identified. IMPRESSION: No acute fracture or dislocation. ACT 112: Negative or not required by law. The above report was generated using voice recognition software. It may contain grammatical, syntax o r spelling errors. Electronically signed by: Vikram Ramirez M.D. 06/17/2024 2:29 PM
--- NOTE | 2024-06-17 15:11 | XRay Report ---
XR chest 1V portable CLINICAL HISTORY: fall TECHNIQUE: Single frontal radiograph of the chest was obtained. Comparison: Comparison is made to chest radiograph 01/24/2024 FINDINGS: No lines and tubes are seen. Calcified aortic knob is seen. Lungs are underinflated but clear. No yamini dence of pleural effusion or pneumothorax. IMPRESSION: No acute chest disease. ACT 112: Negative or not required by law. Electronically signed by: Joseph Carlson M.D. 06/17/2024 2:33 PM
[2024-06-17 15:12] LABS: Troponin I High Sensitivity 244.1 pg/ml (0-14)
--- NOTE | 2024-06-17 15:24 | XRay Report ---
XR pelvis 1-2V routine CLINICAL HISTORY: fall TECHNIQUE: A single frontal view of the pelvis was obtained. Comparison: Comparison is made to hip radiograph 07/15/2022 FINDINGS: There is no evidence of an acute fracture. Degenerative changes are seen in the hip joints and lumbar spine. No soft tissue abnormality is seen. IMPRESSION: No evidence of acute osseous injury. ACT 112: Negative or not required by law. Electronically signed by: Joseph Carlson M.D. 06/17/2024 2:50 PM
[2024-06-17] MEDS: OPTIRAY 320 125ml IV ONE (15:59)
[2024-06-17 16:02] LABS: D Dimer 9190 ug/L FEU (0-500)
[2024-06-17] MEDS: cefTRIAXone SODIUM 2,000 MG/50 ML BAG IV STA (16:47)
[2024-06-17] MEDS: ASPIRIN CHEW 324 MG PO STA (16:47)
--- NOTE | 2024-06-17 17:34 | CT Scan Report ---
CT pulmonary angiogram with IV contrast History: Chest pain COMPARISON: None TECHNIQUE: CT angiography of the chest was performed without IV contrast followed by IV contrast, including 3D post processing CTA image reconstruction. Dose reduction techniques were achieved by using automatic exposure control and/or adjustment of mA and/or kV according to patient size and/or use of iterative reconstruction technique. FINDINGS: Diagnostic quality: Adequate There is no evidence for pulmonary embolism. The heart is not enlarged. Heavy coronary calcifications. There is no pericardial effusion. There are no abnormally enlarged hilar or mediastinal lymph nodes. The central tracheobronchial tree is clear. The lungs are clear. There is no pleural effusion. Mild peripheral reticular changes suggestive of interstitial lung disease. No honeycombing. The pulmonary artery appears enlarged suggesting pulmonary hypertension. Limited visualized upper abdomen. There is elevation of the right hemidiaphragm, which may be seen with eventration or paralysis. The liver is cirrhotic. The spleen is enlarged suggesting portal hypertension. There is mild ascites partially seen. A small area of low density about the periphery of the spleen on axial image 12, measures 2.7 cm in size, was also seen on the CT from August 2023, possibly a cyst or hemangioma. No destructive osseous changes are seen. IMPRESSION: No evidence for pulmonary embolism. Mild interstitial lung disease. Heavy coronary calcifications. Cirrhosis, and evidence of portal hypertension including splenomegaly. Electronically signed by Ted Salter 06-17-2024 4:20 PM
[2024-06-17] MEDS: SODIUM CHLORIDE 0.9% 1,000 ML IV ONE ×2 (17:35→18:39)
--- NOTE | 2024-06-17 17:35 | CT Scan Report ---
EXAM: CT Head Without Intravenous Contrast INDICATION: Fall. TECHNIQUE: Axial computed tomography images of the head/brain without intravenous contrast. Sagittal and/or coronal reformats are provided. Sagittal and coronal reformatted images were created and reviewed. This CT exam was performed using one or more of the following dose reduction techniques: automated exposure control, adjustment of the mA and/or kV according to patient size, and/or use of iterative reconstruction technique. COMPARISON: 09/18/2023 FINDINGS: Limitations: None. Brain and extra-axial spaces: There is age appropriate cortical atrophy and chronic ischemic periventricular white matter hypodensity. No acute infarct, hemorrhage or mass noted. Bones/joints: No acute changes. Soft tissues: No significant abnormality noted. Vasculature: No acute abnormality noted. Sinuses: Trace chronic bilateral maxillary sinus thickening. No sinus fluid. Mastoid air cells: No mastoid effusion. Orbits: No significant abnormality noted. IMPRESSION: Cerebral atrophy. No acute changes. ACT 112: Negative or not required by law. Electronically signed by Matilda Hook 06-17-2024 4:27 PM
--- NOTE | 2024-06-17 18:27 | History & Physical Report ---
Date of Service June 17, 2024 Assessment & Plan (1) Urinary tract infection: Plan: In a 74-year-old female with a history of cirrhosis chronic thrombocytopenia, CAD, cirrhosis, type II DM, bladder incontinence with outpatient positive UCx for pansensitive E. coli who presents with increasing weakness and falls on Thursday without focal symptoms. She is borderline febrile on ER assessment. She is started on Rocephin for her positive outpatient urine culture. She also has a elevated troponin with mild uptrend, although no anginal symptoms and no chest pain. She has known heavy coronary calcifications. Due to high cardiac risk and suspected significant type II NSTEMI she was admitted for further cardiac monitoring, UTI treatment, and ischemic evaluation. Additionally patient reports she does have a history of anaplasmosis and tickborne illness several times. She is leukopenic and thrombocytopenic chronically, repeat tickborne testing has been ordered. Weakness, falls, hypotension. ?UTI UA as outpatient infected, UCx outpatient record shows pansensitive E. coli No leukocytosis BioFire negative ? Developing urosepsis. Patient endorses diffuse bodyaches myalgias. BioFire was negative. CRP, CK, ESR pending CTAchest does not show any evidence of PE, mild interstitial lung disease, heavy coronary calcifications are noted. Cirrhosis with evidence of portal hypertension is seen CThead: No acute findings Shoulder x-ray, right: No acute findings X-ray pelvis: No acute findings Chest x-ray: No acute findings EKG: Normal sinus rhythm, nonspecific ST changes without territorial elevation/depressions. Outpatient UA/UC reviewed. Positive for E. coli pansensitive. 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 She does reports she was tested as an outpatient and was recently diagnosed with this - She was given a course of doxycycline for 14 days 03/28/2024. Her DNA testing at that time was negative. She does not currently have a transaminitis however does have chronic thrombocytopenia thought to be due to her liver disease, and leukopenia. Peripheral smear, and repeat testing ordered given fevers CAD, troponin elevation Patient was recommended to follow-up with cardiology after visit 06/07/2024 during her preop evaluation for umbilical hernia repair/Botox bladder injections. [facility] cardiology note 06/06/2024 reviewed. No exertional chest pain, mows grass without anginal symptoms. Does have some shortness of breath with anxiety. EKG at that time with no ischemic changes. High risk by coronary calcifications. MRI does not recommend further cardiac workup at time as she was low risk by NSQIP and had no anginal symptoms. History of ventricular hypertrophy, extensive coronary disease noted on prior CTs 244, repeat 270. Clinically patient denies shortness of breath chest pain/chest pressure. She does have some pain at her hernia/surgical site but this does not go into her chest. She mows her own lawn and denies anginal symptoms preceding and during ER evaluation. Suspect demand ischemia with hypotension, UTI. Given underlying heavy calcifications TTE has been ordered, troponin trended overnight. Will defer heparinization at this time as she is chest pain-free and does not have an exponential rise in her troponin however if she develops persistent/recurrent chest pain or has an exponential rise in overnight troponins then would reconsid er this at that time. Cirrhosis - Compensated. 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 Takes semaglutide on Tuesdays Will start on weight-based insulin glycemic consult for now (2) Acute non-ST elevation myocardial infarction (NSTEMI): (3) Recurrent UTI (urinary tract infection): (4) Type 2 diabetes mellitus: History of Present Illness Primary Care Provider: Scarlett Dudley And is a 74-year-old female with a past medical history of type II DM, COPD, Nazario, MDD who presents with generalized pain and weakness. She was seen for similar yesterday and was discharged home from the ER. She reports that she is having diffuse muscle aches and cannot walk due to her myalgias. In the ER she did have a D-dimer which was markedly elevated at 9190. Troponin elevated at 244 with repeat 270 And is seen at the bedside. She is somewhat tangential requires frequent redirection during history however she reports that she had her hernia repaired and was doing well but on Thursday she felt more weak than normal, and was so weak that she felt that she had to scoot on her butt to the kitchen due to fatigue. She did not have any chest pain chest pressure shortness of breath, but felt very weak. She reports that she chronically has burning with urination and is pending Botox injections for her bladder, and has had this this week. She denies fever although she feels she did have some chills. She had an outpatient UA that was positive for pansensitive E. coli. She reports she has been taking methenamine to suppress UTIs. She reports that she had a fall tryi ng to get out of bed on Thursday and she hit her right face, neck, back, and flank and has had bruising and is very sore since that time. She reports she chronically has some muscle aches prior to this and other than the new bruising and aches where she fell she does not think she has had any new myalgias. 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 She received a 14-day course of doxycycline in March, follow-up PCR anaplasmosis testing at this time was negative. Reports she has also been diagnosed with anaplasmosis last year at [place]. Medical History: Reviewed Medications: Reviewed Surgical History: Reviewed Family history: Reviewed Allergies: Reviewed Social History: Reviewed Code Status: Full Allergies Allergy/AdvReac Type Severity Reaction Status Date / Time levofloxacin Allergy Intermediate RASH, Verified 06/08/24 09:29 MACULOPAPULAR RASH nickel Allergy Intermediate HIVES/RASH Verified 06/08/24 09:29 ON SKIN oxycodone [From OxyContin] Allergy Intermediate NAUSEA/VOMI Verified 06/08/24 09:29 TING Penicillins Allergy Intermediate RASH Verified 06/08/24 09:29 morphine AdvReac Severe Headache Verified 06/08/24 09:29 escitalopram [From Lexapro] AdvReac Intermediate Diarrhea Verified 06/08/24 09:29 metformin AdvReac Intermediate CHRONIC Verified 06/08/24 09:29 DIARRHEA, BLOATING, PAIN Home Medications Medication Instructions Recorded Confirmed Type insulin degludec 200 unit/mL (3 100 unit subcut QPM 01/22/21 06/17/24 History mL) subcutaneous pen (Tresiba FlexTouch U-200 insulin) diaper,brief,adult,disposable #68 ea 10/29/22 06/17/24 Rx (Depend Underwear For Women XL) acetaminophen 500 mg tablet 1,000 mg PO Q4H PRN Pain 09/18/23 06/17/24 History (Tylenol Extra Strength) semaglutide 2 mg/dose (8 mg/3 mL) 2 mg subcut WK 03/28/24 06/17/24 History subcutaneous pen injector (Ozempic) methenamine hippurate 1 gram tablet 1 g PO BID #180 tabs 05/18/24 06/17/24 Rx venlafaxine 37.5 mg 37.5 mg PO QAM 05/30/24 06/17/24 History capsule,extended release 24 hr (Effexor XR) oxycodone 5 mg tablet 5 - 10 mg (1 - 2 x 5 mg) PO 06/08/24 06/17/24 Rx .[id number] PRN pain #15 tabs oxycodone 5 mg tablet 5 mg PO Q8H PRN pain #9 tabs 06/17/24 06/17/24 Rx Past Med/Surg History Problem List Urinary tract infection (Acute) Contusion of right shoulder (Acute) Elevated troponin I level (Acute) Chest pain (Acute) Thrombocytopenia (Acute) Fall (Acute) Acute non-ST elevation myocardial infarction (NSTEMI) (Acute) Generalized body aches (Acute) Thrombocytopenia (Acute) Acute neck pain (Acute) Acute hyperglycemia (Acute) Fall (Acute) Umbilical hernia Encounter for pre-operative examination Recurrent UTI (urinary tract infection) Renal cyst (Chronic) Nephrolithiasis (Chronic) Incontinence (Chronic) Diverticulosis Ventral hernia Leukopenia Rash Weakness (Acute) Gastritis Type 2 diabetes mellitus Obesity Depression with anxiety Urge and stress incontinence Dyslipidemia Chronic liver disease and cirrhosis portal hypertension including ascites and marked splenomegaly. Fibrosis staging F4 Genital HSV Sensorineural hearing loss of both ears Asthma (Acute) Obstructive sleep apnea (Acute) Thrombocytopenia (Acute) Chronic- likely secondary to underlying cirrhosis per records Ovarian mass, right COPD (chronic obstructive pulmonary disease) (Acute) History of hysterectomy (Chronic) Medical History CAD (coronary artery disease) - Incidental finding of "extensive coronary artery calcification" noted on 08/2023 chest and A/P CT - seen by PCP 12/26/24- recommended cardio clearance prior to surgical procedures Anaplasmosis hx 2021, treated Sensorineural hearing loss (SNHL) of both ears Depression with anxiety Asthma denies inhaler use ALEXIA (obstructive sleep apnea) denies, no device COPD (chronic obstructive pulmonary disease) Chronic liver disease portal hypertension including ascites and marked splenomegaly. Fibrosis staging F4 Dyslipidemia Thrombocytopenia Chronic- likely secondary to underlying cirrhosis per records Hx of Lyme disease treated Diabetes Diverticulosis Incontinence Nephrolithiasis currently has stones Renal cyst Recurrent UTI (urinary tract infection) Surgical History H/O umbilical hernia repair (06/08/24) Robotic Assisted incision and Umbilical Hernia Repair with mesh (repaired separately) - Shorty Kim DO, FACS Hx of hysterectomy History of bladder suspension procedure Hx laparoscopic cholecystectomy H/O shoulder surgery Hx of colonoscopy History of bladder repair surgery History of carpal tunnel surgery x2 H/O abdominal surgery panniculectomy x 2 per pt History of laparoscopic cholecystectomy open surgery Family History Father Prostate cancer Diabetes Mother Cancer Other No family history of adverse response to anesthesia No family history of bleeding disorder Denies family history of Ovarian cancer Myocardial infarction Breast cancer Colorectal cancer Social History Smoking Status: Never smoker Tobacco Type: Cigarettes Second Hand Exposure: No; Do You Dip or Chew Tobacco: No; Hx Alcohol Use: Yes Alcohol type: beer Alcohol Intake Frequency Comment: 1-2 per month Hx Substance Use: No Preferred Language: Korean Communication Ability: Effective Visual Impairment: Limited Hearing Ability: Use of Hearing Aid 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: No Beliefs That Will Affect Care: None marital status: Current Living Situation: Alone Current Living Situation Comment: brother and son live nearby current occupational status: retired How many Children do You have: 1 Feels Safe at Home: Yes Childhood Exposure to Second-Hand Smoke: No Diet: regular caffeine: No during the past year weight has: remained stable Dental Care, Regularly: Yes Physical Activity Frequency: Does not Exercise Seatbelt Use: always Sunscreen Use: No Do you think of yourself as: straight/heterosexual Gender Identity: Female Assistive Devices: Denture - Lower, Glasses and Hearing Aid - Bilateral Physical Exam Physical Exam: General: A&Ox3. NAD. Cooperative Skin: Patient with contusions at right cheek, right flank. Also has postsurgical bruising overlying her abdomen post ventral hernia repair. Vision and hearing are grossly intact. No pain on EOM. Pulm: CTAB A&P. -wheezes, -rales, -rhonchi. Symmetrical chest rise. No increased work of breathing. No respiratory distress. Cardiac: RRR, +sm. Radial pulses intact and symmetrical. Abdominal: Postsurgical lap incisions are in place, C/D and well-healing. Mild tenderness to palpation but without rebound/guarding/rigidity Extremities: Program Project Analyst strength, elbow flexion, hip flexion, ankle flexion/plantarflexion 5/5 bilaterally. Sensation soft touch intact without deficits Results & Data Results & Data Vital Signs (Past 12 Hours) Vital Signs Temp Pulse Pulse Resp BP BP Pulse Ox 06/17/24 17:50 74 06/17/24 17:33 74 15 89/42 L 96 06/17/24 17:03 77 17 92/40 L 96 06/17/24 16:48 78 20 86/46 L 97 06/17/24 15:30 78 17 112/61 97 06/17/24 15:05 85 L 06/17/24 15:00 80 18 111/61 97 06/17/24 15:00 81 18 111/61 90 06/17/24 14:33 83 24 113/69 95 06/17/24 14:31 94 06/17/24 14:06 86 26 H 160/78 H 95 06/17/24 13:51 82 06/17/24 13:40 37.6 C H 87 20 150/72 H 96 O2 Del Method O2 Flow Rate 06/17/24 17:50 06/17/24 17:33 06/17/24 17:03 06/17/24 16:48 06/17/24 15:30 06/17/24 15:05 Nasal Cannula 0 06/17/24 15:00 06/17/24 15:00 Room Air 06/17/24 14:33 06/17/24 14:31 Room Air 06/17/24 14:06 06/17/24 13:51 06/17/24 13:40 Room Air PG Care Time/CCT Total # of Minutes Spent Total Time Spent with Patient: Total time spent is greater than 50% in coordination of care (as documented) at patient's floor/unit and/or counseling patient: Coding Level of Care Code 26864 INT INP/OBS CARE MIN Diagnoses Urinary tract infection N39.0 Hematuria presence: without hematuria Urinary tract infection type: site unspecified Acute non-ST elevation myocardial infarction (NSTEMI) I21.4 Recurrent UTI (urinary tract infection) N39.0 Type 2 diabetes mellitus E11.9 (1) Urinary tract infection Hematuria presence: without hematuria Urinary tract infection type: site unspecified Qualified Code(s): N39.0 - Urinary tract infection, site not specified
[2024-06-17] MEDS ORDERED: GLUCOSE 40% GEL 15 GM TUBE PO PRN (19:14)
[2024-06-17] MEDS ORDERED: PHARMACY GLYCEMIC MGMT CONSULT PRN (19:14)
[2024-06-17] MEDS ORDERED: GLUCOSE 10 TAB/TUBE PO PRN (19:14)
[2024-06-17] MEDS ORDERED: DEXTROSE 50% 50 ML SYRINGE IV PRN (19:14)
[2024-06-17] MEDS ORDERED: CARBOHYDRATES FOR HYPOGLYCEMIA PO PRN (19:14)
[2024-06-17] MEDS ORDERED: GLUCAGON FOR INJ 1 MG VIAL SQ PRN (19:14)
[2024-06-17 20:38] LABS: Lyme Screen Rflx Confirmation Positive (Negative)
[2024-06-17] MEDS ORDERED: oxyCODONE HCL IR 5 MG TAB (IMMEDIATE RELEASE) PO PRN (20:53)
[2024-06-17] MEDS: INSULIN ASPART PER UNIT CHARGE SC SCH (21:04)
[2024-06-17] MEDS: LANTUS PER UNIT CHARGE SQ SCH (21:11)
[2024-06-17 21:48] LABS: C Reactive Protein 1.97 mg/dl (0-0.5)
[2024-06-17 21:58] LABS: Lyme Ab IgG 2nd Tier Confirm Positive (Negative); Lyme Ab IgM 2nd Tier Confirm Negative (Negative)
[2024-06-17] MEDS: oxyCODONE/ACETAMINOPHEN 5mg/325mg TAB PO PRN (22:14)
--- NOTE | 2024-06-17 22:14 | Electrocardiogram Report ---
Test Reason : Blood Pressure : */* mmHG Vent. Rate : 84 BPM Atrial Rate : 84 BPM P-R Int : 148 ms QRS Dur : 80 ms QT Int : 368 ms P-R-T Axes : 42 -2 38 degrees QTcB Int : 434 ms Normal sinus rhythm Nonspecific ST abnormality Abnormal ECG When compared with ECG of 27-Jan-2024 19:35, No significant change was found Confirmed by Jeremiah Andrew ([id number]) on 06/17/2024 10:13:56 PM Referred By: Confirmed By: Jeremiah Andrew
[2024-06-17 22:45] LABS: Appearance Urine Clear (Clear); Bacteria Urine Automated 4+ (None Seen); Bilirubin Urine 1+ (Negative); Blood Urine Negative (Negative); Cast Urine Automated 0-2 /lpf (0-2); Color Urine Dark Yellow; Epithelial Cell Urine Auto 0-2 /hpf (0-2); Glucose Urine UA Trace (Negative); Ketones Urine Trace (Negative); Leukocyte Esterase Urine Trace (Negative); Nitrite Urine Positive (Negative); Protein Urine Trace (Negative); RBC Urine Automated 0-2 /hpf (0-2); Specific Gravity Urine > 1.045 (1.000-1.030); Urobilinogen Urine Negative (Negative); pH Urine 5.5 (4.5-7.5)
[2024-06-18] MEDS ORDERED: VANCOMYCIN HCL 1,500 MG in SODIUM CHLORIDE 0.9% 500 ML IV SCH
[2024-06-18 02:58] LABS: BUN Creatinine Ratio 17.2 (10-20); C Reactive Protein 3.16 mg/dl (0-0.5); Calcium 8.1 mg/dl (8.6-10.3); Creatinine Clr Calc Pharmacy 91.7 ml/min; Potassium 3.7 mmol/L (3.5-5.1)
[2024-06-18 03:20] LABS: Hematocrit (blood only) 29.9 % (37.0-47.0); Hemoglobin 10.1 g/dl (12.0-16.0); Mean Corpuscular Hemoglobin 31.4 pg (25.0-34.0); Mean Corpuscular Hgb Conc 33.8 g/dL (32.0-36.0); Mean Corpuscular Volume 92.9 fL (80.0-100.0); RBC Morphology Unremarkable; RDW Coefficient of Variation 13.7 % (11.5-14.5); RDW Standard Deviation 46.2 fL (36.4-46.3); Red Blood Count 3.22 M/uL (4.20-5.40); White Blood Count 1.49 K/ul (4.8-10.8)
[2024-06-18 03:23] LABS: Basophils # (auto) 0.01 K/uL (0.00-0.20); Basophils % (auto) 0.7 %; Eosinophils # (auto) 0.01 K/uL (0.00-0.50); Eosinophils % (auto) 0.7 %; Immature Granulocytes # (auto) 0.01 K/uL (0.01-0.20); Immature Granulocytes % (auto) 0.7 %; Lymphocytes # (auto) 0.33 K/uL (1.20-3.40); Lymphocytes % (auto) 22.1 %; Mean Platelet Volume 12.2 fL (9.4-12.4); Monocytes # (auto) 0.22 K/uL (0.11-0.59); Monocytes % (auto) 14.8 %; Neutrophils # (auto) 0.91 K/uL (1.40-6.50); Platelet Count 28 K/uL (130-400)
[2024-06-18] MEDS: HYDROmorphone HCL 2 MG TAB PO PRN (05:42)
[2024-06-18] MEDS: VENLAFAXINE HCL XR 37.5 MG CAPXR PO SCH (07:58)
[2024-06-18] MEDS: ACETAMINOPHEN 325 MG TAB PO PRN (07:58)
[2024-06-18] MEDS ORDERED: SODIUM CHLORIDE 0.9% 50 ML IV PRN (08:31)
[2024-06-18] MEDS ORDERED: SODIUM CHLORIDE 0.9% 100 ML IV PRN (08:31)
[2024-06-18 08:42] LABS: Platelet Count 33 K/uL (130-400)
--- NOTE | 2024-06-18 08:55 | XCELERA ---
[id number]
[2024-06-18] MEDS ORDERED: ENOXAPARIN INJ 40 MG/0.4 ML SYR SQ SCH (09:00)
[2024-06-18 09:35] LABS: Fibrinogen 213 mg/dl (184-400); INR 1.2 (0.9-1.1); Partial Thromboplastin Ratio 1.2; Partial Thromboplastin Time 31 Seconds (21-31); Prothrombin Time 13.2 Seconds (9.0-12.0)
--- NOTE | 2024-06-18 10:33 | CT Scan Report ---
EXAM: CT Abdomen and Pelvis Without Intravenous Contrast INDICATION: Sepsis. UTI. TECHNIQUE: Axial computed tomography images of the abdomen and pelvis without intravenous contrast. Sagittal and coronal reformatted images were created and reviewed. This CT exam was performed using one or more of the following dose reduction techniques: automated exposure control, adjustment of the mA and/or kV according to patient size, and/or use of iterative reconstruction technique. COMPARISON: 09/18/2023 FINDINGS: Limitations: None. Lung bases and pleural space: Atelectasis in the right lung base. Stable atelectasis in the lung bases. New trace right pleural effusion. Heart: Mild cardiomegaly. Dense coronary calcification. No pericardial effusion. Mediastinum: No abnormality noted. ABDOMEN: Liver: Stable cirrhotic liver. No ductal dilatation. Gallbladder and bile ducts: Cholecystectomy. No ductal dilation or stone noted. Pancreas: No pancreatic mass, calcification, inflammation or ductal dilation noted. Spleen: Stable splenomegaly and cyst. Adrenals: No significant abnormality noted. Kidneys and ureters: Simple left renal cyst/s. No simple cyst follow-up necessary. Right kidney appears normal. No renal stone, hydronephrosis or perinephric fluid. Mild cortical scarring of each kidney. No stones or hydronephrosis. Stomach and bowel: Scattered stool in the colon with left colonic diverticulosis. No diverticulitis. There is a small posterior large duodenal diverticulum. PELVIS: Appendix: Well seen and appears normal. Bladder: Urinary bladder is filled with contrast (the patient had CT angiogram yesterday). No filling defect noted. Reproductive: No abnormalities noted. ABDOMEN and PELVIS: Intraperitoneal space: Small amounts of ascitic fluid noted in the abdomen and pelvis. No organized collection or free air. Bones/joints: Degenerative changes noted throughout the spine. No acute osseous abnormality seen. Soft tissues: There is mild generalized subcutaneous and mesenteric edema. Vasculature: There is diffuse atherosclerotic calcification in the aorta. No aneurysm. There are small umbilical varices. Lymph nodes: No pathologically enlarged lymph nodes. IMPRESSION: 1. Cirrhotic liver with portal venous hypertension and marked splenomegaly stable. 2. Small volume ascites. There is generalized edematous change in the subcutaneous and mesenteric fat. No localizing inflammatory process noted. ACT 112: Negative or not required by law. Electronically signed by Matilda Hook 06-18-2024 10:32 AM
[2024-06-18] MEDS: DOXYCYCLINE HYCLATE 100 MG CAP PO SCH (10:47)
--- NOTE | 2024-06-18 11:34 | Hospitalist Progress Note ---
Date of Service June 18, 2024 Assessment & Plan (1) Urinary tract infection: Plan: fever, suspicious u/a - concerning for UTI IV rocephin follow blood/urine cx's (2) Pancytopenia: Plan: likely 2nd to cirrhosis low-normal B12 could contribute tick-borne illness could contribute viral process also possible replace low B12 check anaplasmosis & Babesia DNA tests doxy empirically for tick-borne disease coverage repeat CBC with diff in am patient is neutropenic - neutropenic precautions (3) Elevated troponin I level: Plan: 2nd myocardial demand ischemia in setting of #1 above no evidence of ACS (4) COPD (chronic obstructive pulmonary disease): Plan: no flare at this time (5) Diabetes: Plan: check a1c in am DM diet novolog SSI (6) Left wrist pain: Plan: check x-rays of hand & wrist - r/o fracture in setting of falls (7) Fatigue: Plan: multifactorial causes -- UTI, cirrhosis, recent surgery, borderline high ammonia levels, etc. treat UTI place on lactulose 20gm daily (8) Hx of Lyme disease: Plan: multiple Lyme tests have been + over the years current Lyme test shows negative IgM but positive IgG the positive screening test could be due to old infection and not necessarily active infection [id number] await Western blot is on rocephin (and doxy) - both will cover Lyme (9) Thrombocytopenia: Plan: chronic, with platelets 50-60 as her baseline acute worsening likely due to illness and suppression in the setting of illness no evidence of DIC (INR, PTT normal; fibrinogen wnl; etc) repeat platelets this afternoon were >30 only Tx if platelets are 20 or less CBC am (10) Cirrhosis: Plan: 2nd MASH ? ammonia level still wnl but borderline high - place on lactulose compensated on exam Plan DVT proph - chemical means contraindicated due to low platelets will need PT/OT pt's sister updated by phone Admission and Anticipated Discharge Date Admission Date: June 17, 2024 Subjective patient c/o left hand and wrist pain following a fall at home also with mild right shoulder pain she is very tired & fatigued hurts "everywhere" appetite had been poor at home, now improved today [place] alone near [place]; "[place]" she has had tick bites - nothing recent she was mildly confused, stating she just recently had "rotator cuff surgery" (had umbilical hernia repair with Dr Kim on 06/08/24 in actuality) Review of Systems Review of Systems: gen - fever this am, tired/fatigued cv - no chest pain pulm - no dyspnea GI - no abd pain Physical Exam Physical Exam: gen - mildly confused, tired-appearing - but talkative, NAD skin - ecchymoses over right shoulder and right neck region; no jaundice; no petechial rash neck - no JVD mouth - MMM heart - RRR, s1 s2 lungs - CTA b/l abd - soft NT ND BS+; multiple incisions abdominal wall clean, well-healed musculo - right shoulder without pain with passive ROM; left wrist mildly swollen but nontender; OA changes b/l hands all fingers ext - no edema, pulses 2+ b/l neuro - no asterixis Results & Data Results & Data Vital Signs (Past 12 Hours) Vital Signs Temp Pulse Pulse Resp BP Pulse Ox O2 Del Method 06/18/24 10:31 37.1 C 71 18 113/58 L 91 Room Air 06/18/24 09:00 Room Air 06/18/24 07:51 38.1 C H 80 18 111/62 90 Room Air 06/18/24 04:00 Room Air 06/18/24 04:00 82 06/18/24 03:26 36.7 C 72 18 113/61 94 Room Air Laboratory Results Laboratory Results - last 24 hr 06/18/24 06/18/24 06/18/24 02:24 07:33 08:08 WBC 1.49 L RBC 3.22 L Hgb 10.1 L Hct 29.9 L MCV 92.9 MCH 31.4 MCHC 33.8 RDW Std Deviation 46.2 RDW Coeff of Chana 13.7 Plt Count 28 L* 33 L MPV 12.2 Immature Gran % (Auto) 0.7 Neut % (Auto) 61.0 Lymph % (Auto) 22.1 [place] % (Auto) 14.8 Eos % (Auto) 0.7 Baso % (Auto) 0.7 Neut # (Auto) 0.91 L* Lymph # (Auto) 0.33 L [place] # (Auto) 0.22 Eos # (Auto) 0.01 Baso # (Auto) 0.01 Immature Gran # (Auto) 0.01 RBC Morphology Unremarkable PT INR APTT PTT Ratio Fibrinogen VBG pH VBG pCO2 VBG pO2 VBG HCO3 VBG O2 Saturation VBG Base Excess Sodium 134 L Potassium 3.7 Chloride 109 H Carbon Dioxide 22 Anion Gap 3 BUN 11 Creatinine 0.64 Est Cr Clr Drug Dosing 91.7 eGFR 92.10 BUN/Creatinine Ratio 17.2 Glucose 121 H POC Glucose 135 H Calcium 8.1 L Total Bilirubin Direct Bilirubin AST ALT Alkaline Phosphatase Ammonia Troponin I High Sens 103.3 H* D C-Reactive Protein 3.16 H Total Protein Albumin Vitamin B12 Folate ALEXANDREA Screen Pending A. phagocytophilum DNA Pending Babesia microti DNA PCR Pending EBV Capsid Ag IgG Ab EBV Capsid Ag IgM Ab EBV EA Restrict+Diffuse EBV Nuclear Antigen Ab EBV Antibody Interp Monoscreen Negative 06/18/24 06/18/24 06/18/24 08:42 08:50 10:43 WBC RBC Hgb Hct MCV MCH MCHC RDW Std Deviation RDW Coeff of Chana Plt Count MPV Immature Gran % (Auto) Neut % (Auto) Lymph % (Auto) [place] % (Auto) Eos % (Auto) Baso % (Auto) Neut # (Auto) Lymph # (Auto) [place] # (Auto) Eos # (Auto) Baso # (Auto) Immature Gran # (Auto) RBC Morphology PT 13.2 H INR 1.2 H APTT 31 PTT Ratio 1.2 Fibrinogen 213 VBG pH VBG pCO2 VBG pO2 VBG HCO3 VBG O2 Saturation VBG Base Excess Sodium Potassium Chloride Carbon Dioxide Anion Gap BUN Creatinine Est Cr Clr Drug Dosing eGFR BUN/Creatinine Ratio Glucose POC Glucose 164 H Calcium Total Bilirubin Direct Bilirubin AST ALT Alkaline Phosphatase Ammonia Troponin I High Sens C-Reactive Protein Total Protein Albumin Vitamin B12 Folate ALEXANDREA Screen A. phagocytophilum DNA Babesia microti DNA PCR EBV Capsid Ag IgG Ab Pending EBV Capsid Ag IgM Ab Pending EBV EA Restrict+Diffuse Pending EBV Nuclear Antigen Ab Pending EBV Antibody Interp Pending Monoscreen 06/18/24 06/18/24 06/18/24 15:13 16:05 20:14 WBC RBC Hgb Hct MCV MCH MCHC RDW Std Deviation RDW Coeff of Chana Plt Count MPV Immature Gran % (Auto) Neut % (Auto) Lymph % (Auto) [place] % (Auto) Eos % (Auto) Baso % (Auto) Neut # (Auto) Lymph # (Auto) [place] # (Auto) Eos # (Auto) Baso # (Auto) Immature Gran # (Auto) RBC Morphology PT INR APTT PTT Ratio Fibrinogen VBG pH 7.35 L VBG pCO2 42 VBG pO2 43 VBG HCO3 23 VBG O2 Saturation 71.4 VBG Base Excess -2.4 Sodium Potassium Chloride Carbon Dioxide Anion Gap BUN Creatinine Est Cr Clr Drug Dosing eGFR BUN/Creatinine Ratio Glucose POC Glucose 178 H 178 H Calcium Total Bilirubin 2.6 H Direct Bilirubin 0.5 H AST 40 H ALT 24 Alkaline Phosphatase 92 Ammonia 68.0 Troponin I High Sens C-Reactive Protein Total Protein 5.6 L Albumin 2.8 L Vitamin B12 301 Folate 11.66 ALEXANDREA Screen A. phagocytophilum DNA Babesia microti DNA PCR EBV Capsid Ag IgG Ab EBV Capsid Ag IgM Ab EBV EA Restrict+Diffuse EBV Nuclear Antigen Ab EBV Antibody Interp Monoscreen PG Care Time/CCT Total # of Minutes Spent Total Time Spent with Patient: Total time spent is greater than 50% in coordination of care (as documented) at patient's floor/unit and/or counseling patient: Coding Level of Care Code 40777 SUB INP/OBS CARE 3/50MIN Diagnoses Urinary tract infection N39.0 Hematuria presence: without hematuria Urinary tract infection type: site unspecified Pancytopenia D61.818 Elevated troponin I level R79.89 COPD (chronic obstructive pulmonary disease) J44.9 COPD type: unspecified COPD Diabetes E11.9 Left wrist pain M25.532 Fatigue R53.83 Hx of Lyme disease Z86.19 Thrombocytopenia D69.6 Cirrhosis K74.60 (1) Urinary tract infection Hematuria presence: without hematuria Urinary tract infection type: site unspecified Qualified Code(s): N39.0 - Urinary tract infection, site not specified (4) COPD (chronic obstructive pulmonary disease) COPD type: unspecified COPD Qualified Code(s): J44.9 - Chronic obstructive pulmonary disease, unspecified
--- NOTE | 2024-06-18 14:19 | XRay Report ---
EXAM: Radiographs of the Left Hand 2 Views INDICATION: Pain. TECHNIQUE: Frontal and lateral views of the left hand. COMPARISON: No relevant prior studies available. FINDINGS: Bones/joints: The bones are demineralized. There has been partial amputation of the second finger with well-defined margins of the amputated portion of the second middle phalanx. There is chronic appearing flattening of the ulnar surface of the distal head of the third and fifth metacarpals possibly related to prior trauma. There is no acute fracture. No periosteal reaction or erosion. There is diffuse mild spurring of the interphalangeal and metacarpal phalangeal joints. There is mild spurring and narrowing of the first carpometacarpal joint. Soft tissues: No abnormality noted. No radiopaque foreign body noted. IMPRESSION: Osteoporosis and diffuse primary osteoarthritis. ACT 112: Negative or not required by law. Electronically signed by Matilda Hook 06-18-2024 2:19 PM
--- NOTE | 2024-06-18 14:20 | XRay Report ---
EXAM: Radiographs of the Left Wrist 2 Views INDICATION: Pain. TECHNIQUE: Frontal and lateral views of the left wrist. COMPARISON: No relevant prior studies available. FINDINGS: Bones/joints: There is mild spurring and narrowing of the first carpometacarpal joint. No erosion or fracture. Trabecular pattern and cortical surfaces of the scaphoid are intact. There is slight chronic appearing flattening of the ulnar side of the third and fifth metacarpal heads. Soft tissues: Mild diffuse soft tissue swelling. No soft tissue gas or radiopaque foreign body noted. IMPRESSION: Mild diffuse soft tissue swelling. No acute osseous abnormality. ACT 112: Negative or not required by law. Electronically signed by Matilda Hook 06-18-2024 2:19 PM
[2024-06-18 15:26] LABS: Base Excess VBG -2.4 mEq/L; HCO3 VBG 23 mmol/L; Oxygen Saturation VBG 71.4 %; PCO2 VBG 42 mmHg (38-50); PO2 VBG 43 mmHg; pH VBG 7.35 (7.36-7.41)
--- NOTE | 2024-06-18 15:27 | Pharmacy Report ---
Pharmacy Glycemic Short Note 2 - Date of Service June 18, 2024 - Glycemic Short BSG Results (Last 24 hours): 06/17/24 06/18/24 06/18/24 20:08 02:24 07:33 Glucose 121 H POC Glucose 103 H 135 H 06/18/24 10:43 Glucose POC Glucose 164 H OUTPATIENT ANTIDIABETIC REGIMEN: * Semaglutide 2mg SC weekly on Tuesdays * Insulin degludec (Tresiba U-200) 100 units SQ every afternoon -patient reports she does not take this consistently and scales this based on what her blood sugar is. * A1c 7.4% 04/29/23 - updated A1c ordered. ASSESSMENT: * 74 yo F, admitted w/ UTI, on IV Ceftriaxone. Type 2 DM, euglycemic on Lantus 5 BID + NovoLog - will continue these parameters and adjust as needed. PLAN FOR INPATIENT GLYCEMIC CONTROL: * Hold outpatient diabetes medications * Basal insulin * Lantus 5 units SQ BID * Bolus insulin * NovoLog per scale ACHS or Q6hrs while NPO * Goal Range: Low 110 mg/dL - High 180 mg/dL * Correction Factor: 45 mg/dL/unit * Nutritional / Prandial insulin per carb ratio of 1 unit per 15 grams CHO consumed
[2024-06-18] MEDS: cefTRIAXone SODIUM 2,000 MG/50 ML BAG IV SCH (15:41)
[2024-06-18] MEDS: ONDANSETRON INJ 2 MG/ML 2 ML VIAL IV PRN (15:45)
[2024-06-18 15:46] LABS: Albumin Level 2.8 gm/dl (3.4-5.0); Bilirubin Direct 0.5 mg/dl (0-0.2); Bilirubin,Total 2.6 mg/dl (0.2-1.0); Total Protein 5.6 gm/dl (6.0-8.3)
[2024-06-18] MEDS: LACTULOSE SYRUP 20 GM/30 ML UDC PO SCH (17:01)
[2024-06-18 19:44] LABS: Folate (Folic Acid),Ser orPlas 11.66 ng/ml (>5.38)
[2024-06-19 07:46] LABS: Hematocrit (blood only) 30.5 % (37.0-47.0); Hemoglobin 10.5 g/dl (12.0-16.0); Mean Corpuscular Hemoglobin 31.4 pg (25.0-34.0); Mean Corpuscular Hgb Conc 34.4 g/dL (32.0-36.0); Mean Corpuscular Volume 91.3 fL (80.0-100.0); Mean Platelet Volume 12.2 fL (9.4-12.4); Platelet Count 35 K/uL (130-400); RDW Coefficient of Variation 13.9 % (11.5-14.5); RDW Standard Deviation 46.5 fL (36.4-46.3); Red Blood Count 3.34 M/uL (4.20-5.40); White Blood Count 1.85 K/ul (4.8-10.8)
[2024-06-19 07:50] LABS: BUN Creatinine Ratio 23.5 (10-20); Calcium 8.4 mg/dl (8.6-10.3); Creatinine Clr Calc Pharmacy 114.9 ml/min; Potassium 3.8 mmol/L (3.5-5.1)
[2024-06-19] MEDS: CYANOCOBALAMIN (B-12) 500 MCG TABLET PO SCH (08:28)
[2024-06-19 09:01] LABS: Estimated Average Glucose 154 mg/dl
[2024-06-19 09:07] LABS: Basophils # (auto) 0.02 K/uL (0.00-0.20); Basophils % (auto) 1.1 %; Eosinophils # (auto) 0.04 K/uL (0.00-0.50); Eosinophils % (auto) 2.2 %; Immature Granulocytes # (auto) 0.01 K/uL (0.01-0.20); Immature Granulocytes % (auto) 0.6 %; Lymphocytes # (auto) 0.51 K/uL (1.20-3.40); Lymphocytes % (auto) 28.2 %; Monocytes # (auto) 0.23 K/uL (0.11-0.59); Monocytes % (auto) 12.7 %; Neutrophils % (auto) 55.2 %
--- NOTE | 2024-06-19 12:48 | Hospitalist Progress Note ---
Date of Service June 19, 2024 Assessment & Plan (1) Urinary tract infection: Plan: admission u/a was concerning for UTI however, urine cx grew contaminants cont IV rocephin for now blood cx's are negative since patient has had fever, UTI symptoms, and has had frequent UTIs will continue Rx for 7 days in total (2) Pancytopenia: Plan: likely 2nd to cirrhosis low-normal B12 could contribute tick-borne illness could contribute viral process also possible replace low B12 with 1000mcg B12 daily anaplasmosis & Babesia DNA tests pending doxy empirically for tick-borne disease coverage repeat CBC with diff slightly improved today patient is neutropenic although ANC modestly better today - cont neutropenic precautions (3) Elevated troponin I level: Plan: 2nd myocardial demand ischemia in setting of #1 above no evidence of ACS peak HS trop 270 (4) COPD (chronic obstructive pulmonary disease): Plan: no flare at this time recent VBG w/o hypercapnia (5) Diabetes: Plan: a1c 7% DM diet novolog SSI - adjust carb coverage BSGs ac/hs (6) Left wrist pain: Plan: checked x-rays of hand & wrist - no fractures swelling improved today (7) Fatigue: Plan: multifactorial causes -- UTI, cirrhosis, recent surgery, borderline high ammonia levels, poor sleep, etc. treat UTI placed on lactulose 20gm daily (8) Hx of Lyme disease: Plan: multiple Lyme tests have been + over the years current Lyme test shows negative IgM but positive IgG the positive screening test could be due to old infection and not necessarily active infection [id number] await Western blot is on rocephin (and doxy) - both will cover Lyme doxy will cover other tick-borne illnesses (9) Thrombocytopenia: Plan: chronic, with platelets 50-60 as her baseline acute worsening likely due to illness and suppression in the setting of illness no evidence of DIC (INR, PTT normal; fibrinogen wnl; etc) repeat platelets today 35 only Tx if platelets are 20 or less CBC am suspect 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 ammonia level still wnl but borderline high - place on lactulose (no asterixis or severe lethargy) compensated on exam (11) Vaginitis: Plan: lotrimin vaginal inserts HS nystatin powder TID send fungal culture from vagina Plan DVT proph - chemical means contraindicated due to low platelets Back pain - likely due to recent falls; no fractures on CT chest/abd/pelvis K-pad Dilaudid 2mg prn PT/OT evals requested pt's sister updated by phone 06/19/24 Admission and Anticipated Discharge Date Admission Date: June 17, 2024 Subjective patient c/o back pain - k-pad provided for such she complains of vaginal/vulvar itching - present for weeks/months states she uses nystatin powder for this also on estrogen cream couple times a week she complains "why am I always so tired" she confirms that this is a chronic issue wakes up every 2 hours because of having to void she is supposed to have Botox injection for her bladder issues with Dr Delcid this week - she is disappointed she may not get it because of her hospitalization Review of Systems Review of Systems: gen - fatigue, weak; appetite fair-good cv - no chest pain pulm - no dyspnea GI - no abd pain or N/V Physical Exam Physical Exam: gen - confusion improved, NAD, looks better today skin - ecchymoses over right shoulder and right neck region; no jaundice; no petechial rash neck - no JVD mouth - MMM heart - RRR, s1 s2, no murmur lungs - CTA b/l abd - soft NT ND BS+; abd binder in place - I did not examine her surgical sites today musculo - left wrist swelling improved ext - no edema, pulses 2+ b/l psych - a/o x 3 - this portion of the visit was chaperoned by nursing staff - atrophic vaginal mucosa; there is mild white discharge present; no cellulitis; groin - no rash Results & Data Results & Data Vital Signs (Past 12 Hours) Vital Signs Temp Pulse Pulse Resp BP Pulse Ox O2 Del Method 06/19/24 11:35 36.7 C 60 18 110/69 93 Room Air 06/19/24 08:15 Room Air 06/19/24 07:52 36.9 C 68 18 118/74 95 Room Air 06/19/24 07:00 63 06/19/24 03:26 36.9 C 72 20 104/54 L 94 Room Air Laboratory Results Laboratory Results - last 24 hr 06/18/24 06/18/24 06/19/24 15:13 20:14 07:04 WBC RBC Hgb Hct MCV MCH MCHC RDW Std Deviation RDW Coeff of Chana Plt Count MPV Immature Gran % (Auto) Neut % (Auto) Lymph % (Auto) [place] % (Auto) Eos % (Auto) Baso % (Auto) Neut # (Auto) Lymph # (Auto) [place] # (Auto) Eos # (Auto) Baso # (Auto) Immature Gran # (Auto) Sodium Potassium Chloride Carbon Dioxide Anion Gap BUN Creatinine Est Cr Clr Drug Dosing eGFR BUN/Creatinine Ratio Glucose POC Glucose 178 H 118 H Estimat Average Glucose Hemoglobin A1c Calcium Vitamin B12 301 Folate 11.66 06/19/24 06/19/24 06/19/24 07:14 11:17 16:05 WBC 1.85 L RBC 3.34 L Hgb 10.5 L Hct 30.5 L MCV 91.3 MCH 31.4 MCHC 34.4 RDW Std Deviation 46.5 H RDW Coeff of Chana 13.9 Plt Count 35 L MPV 12.2 Immature Gran % (Auto) 0.6 Neut % (Auto) 55.2 Lymph % (Auto) 28.2 [place] % (Auto) 12.7 Eos % (Auto) 2.2 Baso % (Auto) 1.1 Neut # (Auto) 1.00 L Lymph # (Auto) 0.51 L [place] # (Auto) 0.23 Eos # (Auto) 0.04 Baso # (Auto) 0.02 Immature Gran # (Auto) 0.01 Sodium 135 L Potassium 3.8 Chloride 109 H Carbon Dioxide 23 Anion Gap 3 BUN 12 Creatinine 0.51 L Est Cr Clr Drug Dosing 114.9 eGFR 97.28 BUN/Creatinine Ratio 23.5 H Glucose 116 H POC Glucose 180 H 224 H Estimat Average Glucose 154 Hemoglobin A1c 7.0 H Calcium 8.4 L PG Care Time/CCT Total # of Minutes Spent Total Time Spent with Patient: Total time spent is greater than 50% in coordination of care (as documented) at patient's floor/unit and/or counseling patient: Coding Level of Care Code 91018 SUB INP/OBS CARE 3/50MIN Diagnoses Urinary tract infection N39.0 Hematuria presence: without hematuria Urinary tract infection type: site unspecified Pancytopenia D61.818 Elevated troponin I level R79.89 COPD (chronic obstructive pulmonary disease) J44.9 COPD type: unspecified COPD Diabetes E11.9 Left wrist pain M25.532 Fatigue R53.83 Hx of Lyme disease Z86.19 Thrombocytopenia D69.6 Cirrhosis K74.60 Vaginitis N76.0 (1) Urinary tract infection Hematuria presence: without hematuria Urinary tract infection type: site unspecified Qualified Code(s): N39.0 - Urinary tract infection, site not specified (4) COPD (chronic obstructive pulmonary disease) COPD type: unspecified COPD Qualified Code(s): J44.9 - Chronic obstructive pulmonary disease, unspecified
[2024-06-19] MEDS: NYSTATIN POWDER 15GM BTL EXT SCH (14:29)
[2024-06-19] MEDS: CLOTRIMAZOLE VAGINAL CR 7 APPLN/45 GM TUBE PV SCH (20:47)
[2024-06-20 07:04] LABS: Basophils # (auto) 0.01 K/uL (0.00-0.20); Basophils % (auto) 0.5 %; Eosinophils # (auto) 0.05 K/uL (0.00-0.50); Eosinophils % (auto) 2.7 %; Hematocrit (blood only) 30.6 % (37.0-47.0); Hemoglobin 10.2 g/dl (12.0-16.0); Immature Granulocytes # (auto) 0.01 K/uL (0.01-0.20); Immature Granulocytes % (auto) 0.5 %; Lymphocytes # (auto) 0.57 K/uL (1.20-3.40); Lymphocytes % (auto) 31.3 %; Mean Corpuscular Hemoglobin 30.5 pg (25.0-34.0); Mean Corpuscular Hgb Conc 33.3 g/dL (32.0-36.0); Mean Corpuscular Volume 91.6 fL (80.0-100.0); Mean Platelet Volume 12.2 fL (9.4-12.4); Monocytes # (auto) 0.18 K/uL (0.11-0.59); Monocytes % (auto) 9.9 %; Neutrophils % (auto) 55.1 %; Platelet Count 38 K/uL (130-400); RDW Standard Deviation 47.1 fL (36.4-46.3); Red Blood Count 3.34 M/uL (4.20-5.40); White Blood Count 1.82 K/ul (4.8-10.8)
[2024-06-20 07:22] LABS: Albumin Level 2.7 gm/dl (3.4-5.0); BUN Creatinine Ratio 20.6 (10-20); Bilirubin Direct 0.3 mg/dl (0-0.2); Bilirubin,Total 1.6 mg/dl (0.2-1.0); Calcium 8.5 mg/dl (8.6-10.3); Potassium 4.1 mmol/L (3.5-5.1); Total Protein 5.3 gm/dl (6.0-8.3)
[2024-06-20 14:52] LABS: Anti Nuclear Antibody Screen NEGATIVE (NEGATIVE)
--- NOTE | 2024-06-20 15:18 | XRay Report ---
XR shoulder LT min 2V routine CLINICAL HISTORY: recent fall, pain, eval Fx COMPARISON: Left shoulder radiographs July 15, 2022. FINDINGS: Alignment of the left shoulder is anatomic. There is no acute fracture. Severe degenerativ e changes within the left shoulder are again noted. IMPRESSION: 1. No fracture or dislocation within the left shoulder. 2. Severe degenerative changes within the left shoulder. ACT 112: Negative or not required by law. Electronically signed by: Spenser Daniels M.D. 06/20/2024 3:16 PM
--- NOTE | 2024-06-20 18:24 | Hospitalist Progress Note ---
Date of Service June 20, 2024 Assessment & Plan (1) Urinary tract infection: Plan: admission u/a was concerning for UTI, and she had had fever/UTI symptoms at time of admission no fever since 06/18/24 (T 37.9) patient has h/o recurrent UTI despite the above urine cx grew contaminants day #4 of IV rocephin today will stop convert to PO keflex and give 500mg BID for 3 more days empirically (despite the neg urine cx) blood cx's are negative (2) Pancytopenia: Plan: likely 2nd to cirrhosis low-normal B12 could contribute tick-borne illness could contribute viral process also possible replace low B12 with 1000mcg B12 daily anaplasmosis & Babesia DNA tests pending doxy empirically for tick-borne disease coverage - day #3 of such sent EBV titers patient is neutropenic -- ANC 1000 today should continue to improve daily CBC w/ diff while here (3) Elevated troponin I level: Plan: 2nd myocardial demand ischemia in setting of #1 above no evidence of ACS peak HS trop 270 (4) COPD (chronic obstructive pulmonary disease): Plan: no flare at this time recent VBG w/o hypercapnia (5) Diabetes: Plan: a1c 7% DM diet novolog SSI BSGs ac/hs (6) Left wrist pain: Plan: checked x-rays of hand & wrist - no fractures swelling resolved (7) Fatigue: Plan: multifactorial causes -- UTI, cirrhosis, recent surgery, borderline high ammonia levels, poor sleep, etc. treat UTI placed on lactulose 20gm daily (8) Hx of Lyme disease: Plan: multiple Lyme tests have been + over the years current Lyme test shows negative IgM but positive IgG the positive screening test could be due to old infection and not necessarily active infection [id number] await Western blot cont doxycyline - day #3 of such (9) Thrombocytopenia: Plan: chronic, with platelets 50-60 as her baseline acute worsening likely due to illness and suppression in the setting of illness no evidence of DIC (INR, PTT normal; fibrinogen wnl; etc) repeat platelets today 38 only Tx if platelets are 20 or less CBC am suspect 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 ammonia level still wnl but borderline high - placed on lactulose to be on safe side (no asterixis or severe lethargy, however) compensated on exam (11) Vaginitis: Plan: lotrimin vaginal inserts HS nystatin powder TID during the day to vulvar area sent fungal culture from vagina - pending (12) Left shoulder pain: Plan: x-rays obtained - advanced OA seen but no fracture is dislocation pain meds prn Plan DVT proph - chemical means contraindicated due to low platelets Back pain - likely due to recent falls; no fractures on CT chest/abd/pelvis K-pad Dilaudid 2mg prn PT/OT evals completed - cleared for home pt's sister updated by phone 06/19/24 if pt's labs on 06/21 are acceptable and she is feeling well can d/c home of note - patient was to have a botox injection by Dr Cali Delcid for her chronic urinary incontinence this week Dr Delcid made aware of her hospitalization via [place] Text Admission and Anticipated Discharge Date Admission Date: June 17, 2024 Subjective c/o left shoulder pain points to lateral aspect of shoulder as well as scapular region on left hurts to move the left shoulder this is the first time she mentioned the left shoulder over the last few days overall feels better today more energy does not feel confused eating 100% of meals ambulating wearing abd binder from recent umbilical hernia surgery still some low back pain at times Review of Systems Review of Systems: gen - no fevers or chills cv - no chest pain pulm - no dyspnea or TAO GI - no abd pain Physical Exam Physical Exam: gen - confusion resolved, NAD, sitting in chair, looks good today skin - ecchymoses over right shoulder and right neck region - evolving; ecchymoses left wrist/hand - mild; no jaundice neck - no JVD mouth - MMM heart - RRR, s1 s2, no murmur lungs - CTA b/l abd - soft NT ND BS+; abd binder in place - I took it off briefly - surgical sites clean musculo - left shoulder - no gross abnormality; tender with passive abduction, external rotation; crepitus ext - no edema, pulses 2+ b/l psych - a/o x 3 Results & Data Results & Data Vital Signs (Past 12 Hours) Vital Signs Temp Pulse Pulse Resp BP Pulse Ox O2 Del Method 06/20/24 16:30 37.2 C 65 19 106/61 96 Room Air 06/20/24 11:02 37.1 C 61 19 102/58 L 94 Room Air 06/20/24 08:00 61 06/20/24 08:00 Room Air 06/20/24 07:32 36.8 C 62 19 102/51 L 92 Room Air Laboratory Results Laboratory Results - last 24 hr 06/18/24 06/19/24 06/20/24 08:08 20:20 06:24 WBC 1.82 L RBC 3.34 L Hgb 10.2 L Hct 30.6 L MCV 91.6 MCH 30.5 MCHC 33.3 RDW Std Deviation 47.1 H RDW Coeff of Chana 14.0 Plt Count 38 L MPV 12.2 Immature Gran % (Auto) 0.5 Neut % (Auto) 55.1 Lymph % (Auto) 31.3 Glynn % (Auto) 9.9 Eos % (Auto) 2.7 Baso % (Auto) 0.5 Neut # (Auto) 1.00 L Lymph # (Auto) 0.57 L Glynn # (Auto) 0.18 Eos # (Auto) 0.05 Baso # (Auto) 0.01 Immature Gran # (Auto) 0.01 Sodium 136 Potassium 4.1 Chloride 108 H Carbon Dioxide 26 Anion Gap 2 L BUN 13 Creatinine 0.63 Est Cr Clr Drug Dosing 93.0 eGFR 92.45 BUN/Creatinine Ratio 20.6 H Glucose 103 H POC Glucose 183 H Calcium 8.5 L Total Bilirubin 1.6 H Direct Bilirubin 0.3 H AST 34 ALT 20 Alkaline Phosphatase 82 Total Protein 5.3 L Albumin 2.7 L ALEXANDREA Screen NEGATIVE 06/20/24 06/20/24 06/20/24 07:30 11:01 16:28 WBC RBC Hgb Hct MCV MCH MCHC RDW Std Deviation RDW Coeff of Chana Plt Count MPV Immature Gran % (Auto) Neut % (Auto) Lymph % (Auto) Glynn % (Auto) Eos % (Auto) Baso % (Auto) Neut # (Auto) Lymph # (Auto) Glynn # (Auto) Eos # (Auto) Baso # (Auto) Immature Gran # (Auto) Sodium Potassium Chloride Carbon Dioxide Anion Gap BUN Creatinine Est Cr Clr Drug Dosing eGFR BUN/Creatinine Ratio Glucose POC Glucose 105 H 190 H 129 H Calcium Total Bilirubin Direct Bilirubin AST ALT Alkaline Phosphatase Total Protein Albumin ALEXANDREA Screen Diagnostic Findings Microbiology 06/18/24 08:42 Blood Aerobic Blood Culture - Preliminary No growth in Aerobic bottle after 48 hours. 06/18/24 08:42 Blood Anaerobic Blood Culture - Preliminary No growth in Anaerobic bottle after 48 hours. 06/18/24 08:42 Blood Aerobic Blood Culture - Preliminary No growth in Aerobic bottle after 48 hours. 06/18/24 08:42 Blood Anaerobic Blood Culture - Preliminary No growth in Anaerobic bottle after 48 hours. 06/19/24 14:00 Vaginal Fungal Smear - Final 06/17/24 22:30 Urine,Clean Catch Urine Culture - Final Three types of organisms present, all moderate counts. Repeat collection recommended. No further identifications or sensitivities to follow. PG Care Time/CCT Total # of Minutes Spent Total Time Spent with Patient: Total time spent is greater than 50% in coordination of care (as documented) at patient's floor/unit and/or counseling patient: Coding Level of Care Code 15064 SUB INP/OBS CARE 3/50MIN Diagnoses Urinary tract infection N39.0 Hematuria presence: without hematuria Urinary tract infection type: site unspecified Pancytopenia D61.818 Elevated troponin I level R79.89 COPD (chronic obstructive pulmonary disease) J44.9 COPD type: unspecified COPD Diabetes E11.9 Left wrist pain M25.532 Fatigue R53.83 Hx of Lyme disease Z86.19 Thrombocytopenia D69.6 Cirrhosis K74.60 Vaginitis N76.0 Left shoulder pain M25.512 (1) Urinary tract infection Hematuria presence: without hematuria Urinary tract infection type: site unspecified Qualified Code(s): N39.0 - Urinary tract infection, site not specified (4) COPD (chronic obstructive pulmonary disease) COPD type: unspecified COPD Qualified Code(s): J44.9 - Chronic obstructive pulmonary disease, unspecified
[2024-06-21 06:37] LABS: Basophils # (auto) 0.02 K/uL (0.00-0.20); Basophils % (auto) 0.9 %; Eosinophils # (auto) 0.07 K/uL (0.00-0.50); Eosinophils % (auto) 3.3 %; Hematocrit (blood only) 29.1 % (37.0-47.0); Immature Granulocytes # (auto) 0.01 K/uL (0.01-0.20); Immature Granulocytes % (auto) 0.5 %; Lymphocytes # (auto) 0.66 K/uL (1.20-3.40); Mean Corpuscular Hemoglobin 31.5 pg (25.0-34.0); Mean Corpuscular Hgb Conc 34.4 g/dL (32.0-36.0); Mean Corpuscular Volume 91.8 fL (80.0-100.0); Mean Platelet Volume 12.1 fL (9.4-12.4); Monocytes # (auto) 0.21 K/uL (0.11-0.59); Monocytes % (auto) 9.9 %; Neutrophils # (auto) 1.16 K/uL (1.40-6.50); Neutrophils % (auto) 54.4 %; Platelet Count 42 K/uL (130-400); RDW Coefficient of Variation 13.6 % (11.5-14.5); Red Blood Count 3.17 M/uL (4.20-5.40); White Blood Count 2.13 K/ul (4.8-10.8)
[2024-06-21] MEDS: cephALEXin 500 MG CAP PO SCH (08:46)
--- NOTE | 2024-06-21 11:18 | Discharge Summary ---
Date of Service June 21, 2024 Admission HPI Per Admitting Provider And is a 74-year-old female with a past medical history of type II DM, COPD, Nazario, MDD who presents with generalized pain and weakness. She was seen for similar yesterday and was discharged home from the ER. She reports that she is having diffuse muscle aches and cannot walk due to her myalgias. In the ER she did have a D-dimer which was markedly elevated at 9190. Troponin elevated at 244 with repeat 270 And is seen at the bedside. She is somewhat tangential requires frequent redirection during history however she reports that she had her hernia repaired and was doing well but on Thursday she felt more weak than normal, and was so weak that she felt that she had to scoot on her butt to the kitchen due to fatigue. She did not have any chest pain chest pressure shortness of breath, but felt very weak. She reports that she chronically has burning with urination and is pending Botox injections for her bladder, and has had this this week. She denies fever although she feels she did have some chills. She had an outpatient UA that was positive for pansensitive E. coli. She reports she has been taking methenamine to suppress UTIs. She reports that she had a fall trying to get out of bed on Thursday and she hit her right face, neck, back, and flank and has had bruising and is very sore since that time. She reports she chronically has some muscle aches prior to this and other than the new b ruising and aches where she fell she does not think she has had any new myalgias. 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 She received a 14-day course of doxycycline in March, follow-up PCR anaplasmosis testing at this time was negative. Reports she has also been diagnosed with anaplasmosis last year at [facility]. Medical History: Reviewed Medications: Reviewed Surgical History: Reviewed Family history: Reviewed Allergies: Reviewed Social History: Reviewed Code Status: Full Admission Exam Per Admitting Provider General: A&Ox3. NAD. Cooperative Skin: Patient with contusions at right cheek, right flank. Also has postsurgical bruising overlying her abdomen post ventral hernia repair. Vision and hearing are grossly intact. No pain on EOM. Pulm: CTAB A&P. -wheezes, -rales, -rhonchi. Symmetrical chest rise. No increased work of breathing. No respiratory distress. Cardiac: RRR, +sm. Radial pulses intact and symmetrical. Abdominal: Postsurgical lap incisions are in place, C/D and well-healing. Mild tenderness to palpation but without rebound/guarding/rigidity Extremities: [employer] Testing strength, elbow flexion, hip flexion, ankle flexion/plantarflexion 5/5 bilaterally. Sensation soft touch intact without deficits Principal Diagnosis Urinary tract infection Pancytopenia Demand ischemia Fatigue Discharge Exam General: Awake, conversant Heart: S1, S2/regular rate and rhythm, no murmur rubs or gallops Lungs: Clear to auscultation bilaterally. Normal effort Abdomen: Soft/nontender/nondistended. No hepatosplenomegaly Extremities: No clubbing/cyanosis. No edema Behavior: Appropriate, cooperative Discharge Data Allergies Allergy/AdvReac Type Severity Reaction Status Date / Time levofloxacin Allergy Intermediate RASH, Verified 06/08/24 09:29 MACULOPAPULAR RASH nickel Allergy Intermediate HIVES/RASH Verified 06/08/24 09:29 ON SKIN oxycodone [From OxyContin] Allergy Intermediate NAUSEA/VOMI Verified 06/08/24 09:29 TING Penicillins Allergy Intermediate RASH Verified 06/08/24 09:29 morphine AdvReac Severe Headache Verified 06/08/24 09:29 escitalopram [From Lexapro] AdvReac Intermediate Diarrhea Verified 06/08/24 09:29 metformin AdvReac Intermediate CHRONIC Verified 06/08/24 09:29 DIARRHEA, BLOATING, PAIN Consultations 06/17/24 18:07 ED Decision to Admit Stat Ordered Studies Chest X-Ray 06/17/24 14:05 XR chest 1V portable CLINICAL HISTORY: fall TECHNIQUE: Single frontal radiograph of the chest was obtained. Comparison: Comparison is made to chest radiograph 01/24/2024 FINDINGS: No lines and tubes are seen. Calcified aortic knob is seen. Lungs are underinflated but clear. No evidence of pleural effusion or pneumothorax. IMPRESSION: No acute chest disease. ACT 112: Negative or not required by law. Electronically signed by: Joseph Carlson M.D. 06/17/2024 2:33 PM Pelvis X-Ray 06/17/24 14:05 XR pelvis 1-2V routine CLINICAL HISTORY: fall TECHNIQUE: A single frontal view of the pelvis was obtained. Comparison: Comparison is made to hip radiograph 07/15/2022 FINDINGS: There is no evidence of an acute fracture. Degenerative changes are seen in the hip joints and lumbar spine. No soft tissue abnormality is seen. IMPRESSION: No evidence of acute osseous injury. ACT 112: Negative or not required by law. Electronically signed by: Joseph Carlson M.D. 06/17/2024 2:50 PM Shoulder X-Ray 06/17/24 14:05 XR shoulder RT min 2V routine HISTORY: 74 years-old Female fall acute right shoulder pain status post fall COMPARISON: Chest radiograph of same day. TECHNIQUE: 3 views of the right shoulder FINDINGS: Moderate glenohumeral and AC joint osteoarthritis. Mild soft tissue swelling superolateral to the shoulder. No acute fracture, dislocation or opaque foreign body identified. IMPRESSION: No acute fracture or dislocation. ACT 112: Negative or not required by law. The above report was generated using voice recognition software. It may contain grammatical, syntax or spelling errors. Electronically signed by: Vikram Ramirez M.D. 06/17/2024 2:[address] 06/17/24 14:08 EXAM: CT Head Without Intravenous Contrast INDICATION: Fall. TECHNIQUE: Axial computed tomography images of the head/brain without intravenous contrast. Sagittal and/or coronal reformats are provided. Sagittal and coronal reformatted images were created and reviewed. This CT exam was performed using one or more of the following dose reduction techniques: automated exposure control, adjustment of the mA and/or kV according to patient size, and/or use of iterative reconstruction technique. COMPARISON: 09/18/2023 FINDINGS: Limitations: None. Brain and extra-axial spaces: There is age appropriate cortical atrophy and chronic ischemic periventricular white matter hypodensity. No acute infarct, hemorrhage or mass noted. Bones/joints: No acute changes. Soft tissues: No significant abnormality noted. Vasculature: No acute abnormality noted. Sinuses: Trace chronic bilateral maxillary sinus thickening. No sinus fluid. Mastoid air cells: No mastoid effusion. Orbits: No significant abnormality noted. IMPRESSION: Cerebral atrophy. No acute changes. ACT 112: Negative or not required by law. Electronically signed by Matilda Hook 06-17-2024 4:27 PM Chest CTA 06/17/24 15:28 CT pulmonary angiogram with IV contrast History: Chest pain COMPARISON: None TECHNIQUE: CT angiography of the chest was performed without IV contrast followed by IV contrast, including 3D post processing CTA image reconstruction. Dose reduction techniques were achieved by using automatic exposure control and/or adjustment of mA and/or kV according to patient size and/or use of iterative reconstruction technique. FINDINGS: Diagnostic quality: Adequate There is no evidence for pulmonary embolism. The heart is not enlarged. Heavy coronary calcifications. There is no pericardial effusion. There are no abnormally enlarged hilar or mediastinal lymph nodes. The central tracheobronchial tree is clear. The lungs are clear. There is no pleural effusion. Mild peripheral reticular changes suggestive of interstitial lung disease. No honeycombing. The pulmonary artery appears enlarged suggesting pulmonary hypertension. Limited visualized upper abdomen. There is elevation of the right hemidiaphragm, which may be seen with eventration or paralysis. The liver is cirrhotic. The spleen is enlarged suggesting portal hypertension. There is mild ascites partially seen. A small area of low density about the periphery of the spleen on axial image 12, measures 2.7 cm in size, was also seen on the CT from August 2023, possibly a cyst or hemangioma. No destructive osseous changes are seen. IMPRESSION: No evidence for pulmonary embolism. Mild interstitial lung disease. Heavy coronary calcifications. Cirrhosis, and evidence of portal hypertension including splenomegaly. Electronically signed by Ted Salter 06-17-2024 4:20 PM Abdomen/Pelvis CT 06/18/24 09:53 EXAM: CT Abdomen and Pelvis Without Intravenous Contrast INDICATION: Sepsis. UTI. TECHNIQUE: Axial computed tomography images of the abdomen and pelvis without intravenous contrast. Sagittal and coronal reformatted images were created and reviewed. This CT exam was performed using one or more of the following dose reduction techniques: automated exposure control, adjustment of the mA and/or kV according to patient size, and/or use of iterative reconstruction technique. COMPARISON: 09/18/2023 FINDINGS: Limitations: None. Lung bases and pleural space: Atelectasis in the right lung base. Stable atelectasis in the lung bases. New trace right pleural effusion. Heart: Mild cardiomegaly. Dense coronary calcification. No pericardial effusion. Mediastinum: No abnormality noted. ABDOMEN: Liver: Stable cirrhotic liver. No ductal dilatation. Gallbladder and bile ducts: Cholecystectomy. No ductal dilation or stone noted. Pancreas: No pancreatic mass, calcification, inflammation or ductal dilation noted. Spleen: Stable splenomegaly and cyst. Adrenals: No significant abnormality noted. Kidneys and ureters: Simple left renal cyst/s. No simple cyst follow-up necessary. Right kidney appears normal. No renal stone, hydronephrosis or perinephric fluid. Mild cortical scarring of each kidney. No stones or hydronephrosis. Stomach and bowel: Scattered stool in the colon with left colonic diverticulosis. No diverticulitis. There is a small posterior large duodenal diverticulum. PELVIS: Appendix: Well seen and appears normal. Bladder: Urinary bladder is filled with contrast (the patient had CT angiogram yesterday). No filling defect noted. Reproductive: No abnormalities noted. ABDOMEN and PELVIS: Intraperitoneal space: Small amounts of ascitic fluid noted in the abdomen and pelvis. No organized collection or free air. Bones/joints: Degenerative changes noted throughout the spine. No acute osseous abnormality seen. Soft tissues: There is mild generalized subcutaneous and mesenteric edema. Vasculature: There is diffuse atherosclerotic calcification in the aorta. No aneurysm. There are small umbilical varices. Lymph nodes: No pathologically enlarged lymph nodes. IMPRESSION: 1. Cirrhotic liver with portal venous hypertension and marked splenomegaly stable. 2. Small volume ascites. There is generalized edematous change in the subcutaneous and mesenteric fat. No localizing inflammatory process noted. ACT 112: Negative or not required by law. Electronically signed by Matilda Hook 06-18-2024 10:32 AM Hand X-Ray 06/18/24 11:33 EXAM: Radiographs of the Left Hand 2 Views INDICATION: Pain. TECHNIQUE: Frontal and lateral views of the left hand. COMPARISON: No relevant prior studies available. FINDINGS: Bones/joints: The bones are demineralized. There has been partial amputation of the second finger with well-defined margins of the amputated portion of the second middle phalanx. There is chronic appearing flattening of the ulnar surface of the distal head of the third and fifth metacarpals possibly related to prior trauma. There is no acute fracture. No periosteal reaction or erosion. There is diffuse mild spurring of the interphalangeal and metacarpal phalangeal joints. There is mild spurring and narrowing of the first carpometacarpal joint. Soft tissues: No abnormality noted. No radiopaque foreign body noted. IMPRESSION: Osteoporosis and diffuse primary osteoarthritis. ACT 112: Negative or not required by law. Electronically signed by Matilda Hook 06-18-2024 2:19 PM Wrist X-Ray 06/18/24 11:33 EXAM: Radiographs of the Left Wrist 2 Views INDICATION: Pain. TECHNIQUE: Frontal and lateral views of the left wrist. COMPARISON: No relevant prior studies available. FINDINGS: Bones/joints: There is mild spurring and narrowing of the first carpometacarpal joint. No erosion or fracture. Trabecular pattern and cortical surfaces of the scaphoid are intact. There is slight chronic appearing flattening of the ulnar side of the third and fifth metacarpal heads. Soft tissues: Mild diffuse soft tissue swelling. No soft tissue gas or radiopaque foreign body noted. IMPRESSION: Mild diffuse soft tissue swelling. No acute osseous abnormality. ACT 112: Negative or not required by law. Electronically signed by Matilda Hook 06-18-2024 2:19 PM Shoulder X-Ray 06/20/24 13:55 XR shoulder LT min 2V routine CLINICAL HISTORY: recent fall, pain, eval Fx COMPARISON: Left shoulder radiographs July 15, 2022. FINDINGS: Alignment of the left shoulder is anatomic. There is no acute fracture. Severe degenerative changes within the left shoulder are again noted. IMPRESSION: 1. No fracture or dislocation within the left shoulder. 2. Severe degenerative changes within the left shoulder. ACT 112: Negative or not required by law. Electronically signed by: Spenser Daniels M.D. 06/20/2024 3:16 PM 06/17/24 14:08 CT head/brain wo con Stat 06/17/24 15:28 CT angio chest PE protocol Stat 06/18/24 09:53 CT stones [CT abd pelvis wo con] Urgent Hospital Course (1) Urinary tract infection: admission u/a was concerning for UTI, and she had had fever/UTI symptoms at time of admission no fever since 06/18/24 (T 37.9) patient has h/o recurrent UTI despite the above urine cx grew contaminants day #4 of IV rocephin today will stop convert to PO keflex and give 500mg BID for 3 more days empirically (despite the neg urine cx) blood cx's are negative (2) Pancytopenia: likely 2nd to cirrhosis low-normal B12 could contribute tick-borne illness could contribute viral process also possible replace low B12 with 1000mcg B12 daily anaplasmosis & Babesia DNA tests pending doxy empirically for tick-borne disease coverage - day #4 of such sent EBV titers patient is neutropenic -- ANC > 1000 today should continue to improve (3) Elevated troponin I level: 2nd myocardial demand ischemia in setting of #1 above no evidence of ACS peak HS trop 270 (4) COPD (chronic obstructive pulmonary disease): no flare at this time recent VBG w/o hypercapnia (5) Diabetes: a1c 7% DM diet novolog SSI BSGs ac/hs (6) Left wrist pain: checked x-rays of hand & wrist - no fractures swelling resolved (7) Fatigue: multifactorial causes -- UTI, cirrhosis, recent surgery, borderline high ammonia levels, poor sleep, etc. treat UTI placed on lactulose 20gm daily (8) Hx of Lyme disease: multiple Lyme tests have been + over the years current Lyme test shows negative IgM but positive IgG the positive screening test could be due to old infection and not necessarily active infection [id number] await Western blot cont doxycyline - day #4 of such (9) Thrombocytopenia: chronic, with platelets 50-60 as her baseline acute worsening likely due to illness and suppression in the setting of illness no evidence of DIC (INR, PTT normal; fibrinogen wnl; etc) repeat platelets today 38 only Tx if platelets are 20 or less CBC am suspect hypersplenism from cirrhosis is main culprit for low platelets low-normal B12 level could contribute - replacing (10) 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 ammonia level still wnl but borderline high - placed on lactulose to be on safe side (no asterixis or severe lethargy, however) compensated on exam (11) Vaginitis: lotrimin vaginal inserts HS nystatin powder TID during the day to vulvar area sent fungal culture from vagina - pending (12) Left shoulder pain: x-rays obtained - advanced OA seen but no fracture is dislocation pain meds prn Plan DVT proph - chemical means contraindicated due to low platelets Back pain - likely due to recent falls; no fractures on CT chest/abd/pelvis K-pad Dilaudid 2mg prn PT/OT evals completed - cleared for home pt's sister updated by phone 06/19/24 Patient will be discharged to home today of note - patient was to have a botox injection by Dr Cali Delcid for her chronic urinary incontinence this week Dr Delcid made aware of her hospitalization via [place] Text Total Time Total Time Spent Total Time Spent (In Minutes): 35 Discharge Plan Discharge Items Patient Disposition: Home - Self-Care Reason For Visit: UTI, WAEKNESS/FALL, TROP Discharge Diagnosis: Urinary tract infection Pancytopenia Demand ischemia Fatigue Activity: Resume your previous activity Non-emergency contact: Primary Care Provider Call non-emergency contact if: you have any medication questions and your symptoms worsen Follow-up/Referrals: Scarlett Dudley PA-C [Primary Care Provider] - 06/28/24 4:20 pm (Follow up Primary Care visit scheduled on 06/28/24 with Scarlett Dudley at [facility] location - check in at 4:05, appt time 4:20) Diet: Carb Consistent or DM2 and Heart Healthy Addtl Attending Provider Instructions: Advised to follow-up with PCP in 1 week Advised to continue antibiotic for 3 days to complete the course Pending Studies at Discharge: No Stand-Alone Forms: [facility] Super Vitamin D Medications and DC Order Prescriptions: New cephalexin 500 mg Capsule 500 mg PO BID 3 Days Qty: 6 0RF doxycycline hyclate 100 mg Capsule 100 mg PO BID 3 Days Qty: 6 0RF Continued (DME) Depend Underwear For Women XL Misc See Rx Instructions .Route Qty: 68 3RF Rx Instructions: Change brief daily as needed methenamine hippurate 1 gram tablet 1 g PO BID Qty: 180 3RF Ozempic 2 mg/dose (8 mg/3 mL) pen injector 2 mg subcut WK insulin degludec [Tresiba FlexTouch U-200] 200 unit/mL (3 mL) Insulin Pen 100 unit SUBCUT QPM Rx Instructions: PER PT "TAKES EVERY AFTERNOON" acetaminophen [Tylenol Extra Strength] 500 mg Tablet 1,000 mg PO Q4H PRN (Reason: Pain) venlafaxine [Effexor XR] 37.5 mg capsule,extended release 24hr 37.5 mg PO QAM oxycodone 5 mg tablet 5 - 10 mg PO .[id number] MDD no more than 6 tabs in 24hours PRN (Reason: pain) Qty: 15 0RF oxycodone 5 mg tablet 5 mg PO Q8H PRN (Reason: pain) Qty: 9 0RF Discharge Orders: Discharge Order (Routine); Ordered 06/21/24 Ordered By: Edgardo Zavaleta/Other Patient Handouts: Managing Type 2 Diabetes Admission Data Admit Date/Time: 06/17/24 19:12 Attending Provider: Edgardo Solitario Admit Provider: Renard Osei Primary Care Provider: Scarlett Dudley Other Providers: Renard Osei Other Interventions: Discharge Summary Assessment (RN) Last Done: 06/21/24 11:19
[2024-06-21 15:33] LABS: EBV Nuclear Ag Antibody >600.00 U/mL; EBV Virus Capsid Ag IgG Ab >750.00 U/mL; Epstein Barr Virus Early Ag Ab >150.00 U/mL
[2024-06-21 16:10] VITALS: BP 99/57; PULSE 67; RESP 19; TEMP 97.7; O2SAT 94
[2024-06-22 15:32] LABS: Babesia microti DNA Not Detected (Not Detected)
== END 2024-06-21 18:39 | disposition home or self-care (01) | DRG 690 ==
LOC: ED 13:16 → SUATTDRO 19:12 → 2S 19:12 → 2E 06-18 03:47

== ENCOUNTER 2024-08-09 06:36 | Inpatient (IN) ==
--- NOTE | 2024-08-09 07:08 | Emergency Department Note ---
Impression & Plan Acute UTI, SIRS (systemic inflammatory response syndrome), Thrombocytopenia, Pancytopenia, Chronic liver disease and cirrhosis, Generalized weakness, Hypomagnesemia ED Provider Note NAME: NEREIDA WEAVER AGE: 74 SEX: F : 1950 ARRIVES VIA: Ambulance INFORMANT: Patient ED PROVIDER(S): Steve Iverson MD CHIEF COMPLAINT: Fever, bodyaches PLAN: Disposition: Admit MEDICAL DECISION MAKING: The patient is a 74-year-old woman with a past medical history of CAD, urinary incontinence, type 2 diabetes, gastritis, chronic liver disease and cirrhosis, ALEXIA, COPD, depression anxiety who presents to the emergency department via EMS for evaluation of feverishness, CHAUDHARI, body aches, cough, congestion. She reports feeling generalized weakness and reports "she cannot move her body". She reports she has a history of recurrent urinary infections. She reports she has intermittent burning with urination but not at this time. She denies any vomiting but reports intermittent nausea. She denies diarrhea. The patient is a poor historian. The duration of her symptoms is difficult to ascertain as the patient reports that she has fevers every day, all the time. On evaluation the patient is fatigued appearing but no distress, febrile to 38.7 and vital signs otherwise stable. She appears clinically dry. She exhibits boggy nasal turbinates. She exhibits generalized weakness with symmetric strength in all extremities and no focal neurologic deficits. EKG without overt acute ischemia. CXR negative for acute cardiopulmonary process per my personal preliminary review/interpretation. WBC within normal limits. H/H within normal limits. Platelets 33K, similar to prior values in the setting of cirrhosis. INR 1.2, similar to prior. Chemistry without metabolic acidosis. Magnesium 1.6 with IV repletion initiated. Total bilirubin 3.1, similar to prior with direct bilirubin 0.5, nonspecific in the setting of cirrhosis with AST, ALT and alk phos within normal limits. CPK within normal limits. High-sensitivity troponin 3.3, within normal limits. Lipase is mildly above normal at 93, nonspecific. Procalcitonin is not elevated. Lactate within normal limits. UA is consistent with infection with 4+ bacteria. Blood cultures were obtained. Empiric treatment initiated with IV ceftriaxone. CT of the head and CT of the abdomen/pelvis were ordered and pending. Patient does agree with plan for admission for further management. Case was discussed with JACOB SanchezG hospitalist, who will evaluate the patient for admission. CT of the head subsequently negative for acute abnormalities. CT on pelvis demonstrates evidence of cystitis. Patient is known cirrhotic liver is seen with evidence of portal hypertension. Interval development of nonocclusive thrombus at the confluence of the splenic and inferior mesenteric veins is described with patent main left and right portal veins. Further management per admitting team. Triage Nursing notes reviewed and agree them. Prior/external medical records reviewed Vital Signs: reviewed Differential diagnosis: Viral syndrome, otitis, pharyngitis, pneumonia, influenza, meningitis, urinary tract infection, sepsis, bacteremia, as well as other pathologies. ER treatment provided: See below. Diagnostics interpreted by me: ECG: Normal sinus rhythm, 92 bpm, no ectopy, no overt ST ovation or depression, QTc 437, QRS 82. Cardiac Monitoring: An order for continuous cardiac monitoring was placed and demonstrated Normal sinus rhythm, 92 bpm, no ectopy. Laboratory studies: See below Imaging studies: See below Consultations: Case was discussed with Dr. Pitts, [facility] hospitalist, who will evaluate the patient for admission. HPI: The patient is a 74-year-old woman with a past medical history of CAD, urinary incontinence, type 2 diabetes, gastritis, chronic liver disease and cirrhosis, ALEXIA, COPD, depression anxiety who presents to the emergency department via EMS for evaluation of feverishness, CHAUDHARI, body aches, cough, congestion. She reports feeling generalized weakness and reports "she cannot move her body". She reports she has a history of recurrent urinary infections. She reports she has intermittent burning with urination but not at this time. She denies any vomiting but reports intermittent nausea. She denies diarrhea. The patient is a poor historian. The duration of her symptoms is difficult to ascertain as the patient reports that she has fevers every day, all the time. ROS: See above HPI for pertinent positives & negatives. A total of 10 systems reviewed and were otherwise negative. VITALS:See Below PHYSICAL EXAMINATION: GENERAL: Awake, alert, fatigued-appearing, in no distress, BMI 29.0. HENT: Normocephalic, atraumatic. Oropharynx with dry mucous membranes and otherwise unremarkable. EYES: Normal conjunctiva. Sclera non-icteric. EOMI. No nystamgus. PEARRL. NECK: Supple. No nuchal rigidity. FROM. No JVD. RESPIRATORY: Clear to auscultation. CARDIAC: Regular rate, normal rhythm. Extremities warm and well perfused. Pulses equal. ABDOMEN: Soft, non-distended. No tenderness to palpation. No rebound or guarding. No masses. MUSCULOSKELETAL: Chest examination reveals no tenderness. The back is symmetrical on inspection without obvious abnormality. There is no CVA tenderness to palpation. No joint edema. LOWER EXTREMITIES: Calves are equal size bilaterally and non-tender. No edema. No discoloration. NEURO: Cranial nerves II-XII grossly intact. Exhibits generalized weakness with symmetric strength in all extremities and no focal neurologic deficits. SKIN: No rash or jaundice noted. Steve Iverson MD Past Med/Surg History Problem List Hypomagnesemia (Acute) Generalized weakness (Acute) SIRS (systemic inflammatory response syndrome) (Acute) Acute UTI (Acute) Left shoulder pain Cirrhosis Hx of Lyme disease treated Fatigue Left wrist pain Diabetes Pancytopenia (Acute) Contusion of right shoulder (Acute) Elevated troponin I level (Acute) Chest pain (Acute) Thrombocytopenia (Acute) Fall (Acute) Acute non-ST elevation myocardial infarction (NSTEMI) (Acute) Umbilical hernia Recurrent UTI (urinary tract infection) Renal cyst (Chronic) Nephrolithiasis (Chronic) Incontinence (Chronic) Diverticulosis Ventral hernia Leukopenia Rash Weakness (Acute) Gastritis Type 2 diabetes mellitus Obesity Depression with anxiety Urge and stress incontinence Dyslipidemia Chronic liver disease and cirrhosis (Acute) portal hypertension including ascites and marked splenomegaly. Fibrosis staging F4 Genital HSV Sensorineural hearing loss of both ears Asthma (Acute) Obstructive sleep apnea (Acute) Thrombocytopenia (Acute) Chronic- likely secondary to underlying cirrhosis per records Ovarian mass, right COPD (chronic obstructive pulmonary disease) (Acute) History of hysterectomy (Chronic) Medical History CAD (coronary artery disease) - Incidental finding of "extensive coronary artery calcification" noted on 08/2023 chest and A/P CT - seen by PCP 05/26/24- recommended cardio clearance prior to surgical procedures Anaplasmosis hx 2021, treated Sensorineural hearing loss (SNHL) of both ears Depression with anxiety Asthma denies inhaler use ALEXIA (obstructive sleep apnea) denies, no device COPD (chronic obstructive pulmonary disease) Chronic liver disease portal hypertension including ascites and marked splenomegaly. Fibrosis staging F4 Dyslipidemia Thrombocytopenia Chronic- likely secondary to underlying cirrhosis per records Diverticulosis Incontinence Nephrolithiasis currently has stones Renal cyst Recurrent UTI (urinary tract infection) Surgical History H/O umbilical hernia repair (06/08/24) Robotic Assisted incision and Umbilical Hernia Repair with mesh (repaired separately) - Shorty Kim, DO, FACS Hx of hysterectomy History of bladder suspension procedure Hx laparoscopic cholecystectomy H/O shoulder surgery Hx of colonoscopy History of bladder repair surgery History of carpal tunnel surgery x2 H/O abdominal surgery panniculectomy x 2 per pt History of laparoscopic cholecystectomy open surgery Family History Father Prostate cancer Diabetes Mother Cancer Other No family history of adverse response to anesthesia No family history of bleeding disorder Denies family history of Ovarian cancer Myocardial infarction Breast cancer Colorectal cancer Social History Smoking Status: Never smoker Tobacco Type: Cigarettes Second Hand Exposure: No; Do You Dip or Chew Tobacco: No; Hx Alcohol Use: No Hx Substance Use: No Preferred Language: Romansh Communication Ability: Effective Visual Impairment: Limited Hearing Ability: Use of Hearing Aid 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 Beliefs That Will Affect Care: None marital status: Current Living Situation: Alone Current Living Situation Comment: Brother lives nearby current occupational status: retired How many Children do You have: 1 Feels Safe at Home: Yes Childhood Exposure to Second-Hand Smoke: No Diet: regular caffeine: No during the past year weight has: remained stable Dental Care, Regularly: Yes Physical Activity Frequency: Does not Exercise Seatbelt Use: always Sunscreen Use: No Do you think of yourself as: straight/heterosexual Gender Identity: Female Assistive Devices: Cane and Walker Allergies Allergies Allergy/AdvReac Type Severity Reaction Status Date / Time levofloxacin Allergy Intermediate RASH, Verified 08/09/24 08:46 MACULOPAPULAR RASH nickel Allergy Intermediate HIVES/RASH Verified 08/09/24 08:46 ON SKIN Penicillins Allergy Intermediate RASH Verified 08/09/24 08:46 morphine AdvReac Severe Headache Verified 08/09/24 08:46 escitalopram [From Lexapro] AdvReac Intermediate Diarrhea Verified 08/09/24 08:46 metformin AdvReac Intermediate CHRONIC Verified 08/09/24 08:46 DIARRHEA, BLOATING, PAIN oxycodone [From OxyContin] AdvReac Intermediate NAUSEA/VOMI Verified 08/09/24 12:13 TING Home Meds Home Medications Medication Instructions Recorded Confirmed insulin degludec 200 unit/mL (3 0 unit subcut QPM 01/22/21 08/09/24 mL) subcutaneous pen (Tresiba FlexTouch U-200 insulin) semaglutide 2 mg/dose (8 mg/3 mL) 2 mg subcut WK 03/28/24 08/09/24 subcutaneous pen injector (Ozempic) ibuprofen 100 mg chewable tablet 200 mg PO Q6H PRN Pain 08/09/24 08/09/24 perfluorohexyloctane (PF) 100 % 1 drp OPB DAILY 08/09/24 08/09/24 eye drops (Miebo (PF)) Previous Rx's Medication Instructions Recorded diaper,brief,adult,disposable #[id number] ea 10/29/22 (Depend Underwear For Women XL) Results & Data (ED) Vital Signs Vital Signs - 24 hr 08/09/24 06:43 08/09/24 07:31 08/09/24 08:12 Temperature 38.7 C H Temperature Source Oral Pulse Rate 87 90 Pulse Rate [Right Finger] Pulse Rate from SpO2 Sensor Pulse Rhythm [Right Finger] Pulse Strength Normal Pulse Strength [Right Finger] Respiratory Rate 18 Respiratory Effort / Characteristics Non-Labored Spontaneous Respiratory Depth Normal Respiratory Pattern Regular Blood Pressure 119/65 Blood Pressure [Right Arm] Blood Pressure Mean 83 Blood Pressure Mean [Right Arm] Blood Pressure Position Sitting Blood Pressure Position [Right Arm] Pulse Oximetry 96 96 Oxygen Delivery Method Room Air Room Air Sepsis Recent Fever Within 48 Hours Yes Sepsis New/Unexplained Change in Mental Status No Sepsis Action Taken by Nursing No Action Required 08/09/24 08:24 08/09/24 10:01 08/09/24 10:24 Temperature 38.6 C H Temperature Source Oral Pulse Rate 80 Pulse Rate [Right Finger] 91 H Pulse Rate from SpO2 Sensor 82 Pulse Rhythm [Right Finger] Regular Pulse Strength Pulse Strength [Right Finger] Normal Respiratory Rate 18 18 Respiratory Effort / Characteristics Non-Labored Spontaneous Respiratory Depth Normal Respiratory Pattern Blood Pressure 122/76 Blood Pressure [Right Arm] 118/59 L Blood Pressure Mean 93 Blood Pressure Mean [Right Arm] 78 Blood Pressure Position Blood Pressure Position [Right Arm] Lying Pulse Oximetry 93 95 Oxygen Delivery Method Room Air Sepsis Recent Fever Within 48 Hours Sepsis New/Unexplained Change in Mental Status Sepsis Action Taken by Nursing 08/09/24 10:30 08/09/24 10:34 08/09/24 11:09 Temperature Temperature Source Pulse Rate 82 Pulse Rate [Right Finger] 86 Pulse Rate from SpO2 Sensor 82 Pulse Rhythm [Right Finger] Regular Pulse Strength Pulse Strength [Right Finger] Normal Respiratory Rate 16 19 Respiratory Effort / Characteristics Non-Labored Spontaneous Respiratory Depth Normal Respiratory Pattern Regular Blood Pressure 153/93 H Blood Pressure [Right Arm] 153/93 H Blood Pressure Mean 109 Blood Pressure Mean [Right Arm] 113 Blood Pressure Position Blood Pressure Position [Right Arm] Lying Pulse Oximetry 94 95 Oxygen Delivery Method Room Air Sepsis Recent Fever Within 48 Hours Sepsis New/Unexplained Change in Mental Status Sepsis Action Taken by Nursing 08/09/24 11:30 08/09/24 11:32 Temperature 37.2 C Temperature Source Oral Pulse Rate 79 Pulse Rate [Right Finger] 76 Pulse Rate from SpO2 Sensor 80 Pulse Rhythm [Right Finger] Pulse Strength Pulse Strength [Right Finger] Respiratory Rate 22 25 H Respiratory Effort / Characteristics Non-Labored Spontaneous Respiratory Depth Normal Respiratory Pattern Regular Blood Pressure 126/78 Blood Pressure [Right Arm] 126/78 Blood Pressure Mean 94 Blood Pressure Mean [Right Arm] 94 Blood Pressure Position Blood Pressure Position [Right Arm] Lying Pulse Oximetry 95 94 Oxygen Delivery Method Room Air Sepsis Recent Fever Within 48 Hours Sepsis New/Unexplained Change in Mental Status Sepsis Action Taken by Nursing Laboratory Data Attestation: I reviewed the patient's lab results. 08/09/24 06:43 08/09/24 06:43 Lab Results 08/09/24 08/09/24 08/09/24 Range/Units 06:43 08:22 09:39 WBC 4.82 (4.8-10.8) K/ul RBC 4.12 L (4.20-5.40) M/uL Hgb 12.4 (12.0-16.0) g/dl Hct 37.0 (37.0-47.0) % MCV 89.8 (80.0-100.0) fL MCH 30.1 (25.0-34.0) pg MCHC 33.5 (32.0-36.0) g/dL RDW Std Deviation 44.0 (36.4-46.3) fL RDW Coeff of Chana 13.4 (11.5-14.5) % Plt Count 33 L (130-400) K/uL MPV 12.3 (9.4-12.4) fL Immature Gran % (Auto) 0.4 % Neut % (Auto) 76.5 % Lymph % (Auto) 12.2 % [place] % (Auto) 9.3 % Eos % (Auto) 1.0 % Baso % (Auto) 0.6 % Neut # (Auto) 3.68 (1.40-6.50) K/uL Lymph # (Auto) 0.59 L (1.20-3.40) K/uL [place] # (Auto) 0.45 (0.11-0.59) K/uL Eos # (Auto) 0.05 (0.00-0.50) K/uL Baso # (Auto) 0.03 (0.00-0.20) K/uL Immature Gran # (Auto) 0.02 (0.01-0.20) K/uL PT 12.4 H (9.0-12.0) Seconds INR 1.2 H (0.9-1.1) Sodium 136 (136-145) mmol/L Potassium 4.1 (3.5-5.1) mmol/L Chloride 108 H (98-107) mmol/L Carbon Dioxide 25 (21-32) mmol/L Anion Gap 3 (3-11) BUN 13 (6-23) mg/dl Creatinine 0.69 (0.6-1.2) mg/dl Est Cr Clr Drug Dosing 81.2 ml/min eGFR 90.45 BUN/Creatinine Ratio 18.8 (10-20) Glucose 176 H (70-99(Fasting)) mg/dl Lactate (0.4-2.0) mmol/L Calcium 9.4 (8.6-10.3) mg/dl Phosphorus 2.2 L (2.5-4.9) mg/dl Magnesium 1.6 L (1.7-2.4) mg/dl Total Bilirubin 3.1 H (0.2-1.0) mg/dl Direct Bilirubin 0.5 H (0-0.2) mg/dl AST 27 (13-39) U/L ALT 20 (7-52) U/L Alkaline Phosphatase 93 (34-104) U/L Total Creatine Kinase 35 (26-192) U/L Troponin I High Sens 3.3 (0-14) pg/ml Total Protein 6.9 (6.0-8.3) gm/dl Albumin 3.5 (3.4-5.0) gm/dl Globulin 3.4 (2.5-4.0) gm/dl Albumin/Globulin Ratio 1.0 (0.9-2) Lipase 93 H (11-82) U/L Procalcitonin 0.07 (0-0.5) ng/ml Urine Color Yellow Urine Appearance Cloudy A (Clear) Urine pH 5.5 (4.5-7.5) Ur Specific [place] 1.020 (1.000-1.030) Urine Protein Negative (Negative) Urine Glucose (UA) Negative (Negative) Urine Ketones Negative (Negative) Urine Blood 1+ H (Negative) Urine Nitrite Negative (Negative) Urine Bilirubin Negative (Negative) Urine Urobilinogen Negative (Negative) Ur Leukocyte Esterase 1+ H (Negative) Urine WBC (Auto) 21-50 H (0-5) /hpf Urine RBC (Auto) 0-2 (0-2) /hpf U Hyaline Cast (Auto) 0-2 (0-2) /lpf U Epithel Cells (Auto) 0-2 (0-2) /hpf Urine Bacteria (Auto) 4+ H (None Seen) 08/09/24 Range/Units 09:44 WBC (4.8-10.8) K/ul RBC (4.20-5.40) M/uL Hgb (12.0-16.0) g/dl Hct (37.0-47.0) % MCV (80.0-100.0) fL MCH (25.0-34.0) pg MCHC (32.0-36.0) g/dL RDW Std Deviation (36.4-46.3) fL RDW Coeff of Chana (11.5-14.5) % Plt Count (130-400) K/uL MPV (9.4-12.4) fL Immature Gran % (Auto) % Neut % (Auto) % Lymph % (Auto) % [place] % (Auto) % Eos % (Auto) % Baso % (Auto) % Neut # (Auto) (1.40-6.50) K/uL Lymph # (Auto) (1.20-3.40) K/uL [place] # (Auto) (0.11-0.59) K/uL Eos # (Auto) (0.00-0.50) K/uL Baso # (Auto) (0.00-0.20) K/uL Immature Gran # (Auto) (0.01-0.20) K/uL PT (9.0-12.0) Seconds INR (0.9-1.1) Sodium (136-145) mmol/L Potassium (3.5-5.1) mmol/L Chloride (98-107) mmol/L Carbon Dioxide (21-32) mmol/L Anion Gap (3-11) BUN (6-23) mg/dl Creatinine (0.6-1.2) mg/dl Est Cr Clr Drug Dosing ml/min eGFR BUN/Creatinine Ratio (10-20) Glucose (70-99(Fasting)) mg/dl Lactate 1.1 (0.4-2.0) mmol/L Calcium (8.6-10.3) mg/dl Phosphorus (2.5-4.9) mg/dl Magnesium (1.7-2.4) mg/dl Total Bilirubin (0.2-1.0) mg/dl Direct Bilirubin (0-0.2) mg/dl AST (13-39) U/L ALT (7-52) U/L Alkaline Phosphatase (34-104) U/L Total Creatine Kinase (26-192) U/L Troponin I High Sens (0-14) pg/ml Total Protein (6.0-8.3) gm/dl Albumin (3.4-5.0) gm/dl Globulin (2.5-4.0) gm/dl Albumin/Globulin Ratio (0.9-2) Lipase (11-82) U/L Procalcitonin (0-0.5) ng/ml Urine Color Urine Appearance (Clear) Urine pH (4.5-7.5) Ur Specific [place] (1.000-1.030) Urine Protein (Negative) Urine Glucose (UA) (Negative) Urine Ketones (Negative) Urine Blood (Negative) Urine Nitrite (Negative) Urine Bilirubin (Negative) Urine Urobilinogen (Negative) Ur Leukocyte Esterase (Negative) Urine WBC (Auto) (0-5) /hpf Urine RBC (Auto) (0-2) /hpf U Hyaline Cast (Auto) (0-2) /lpf U Epithel Cells (Auto) (0-2) /hpf Urine Bacteria (Auto) (None Seen) Administered Medications Hydromorphone HCl (Hydromorphone Hcl 2 Mg Tab) 2 mg PO Q6H PRN PRN Reason: Pain Stop: 08/23/24 16:11 Last Admin: 08/09/24 20:56 Dose: 2 mg Documented By: KSCelso Ibuprofen (Ibuprofen 200 Mg Tab) 400 mg PO Q6H PRN PRN Reason: Pain or Fever Stop: 09/08/24 12:10 Last Admin: 08/09/24 13:42 Dose: 400 mg Documented By: ROBY Insulin Aspart (Insulin Aspart Per Unit Charge) 0 units SC ACHS KALA Stop: 09/08/24 16:29 Last Admin: 08/09/24 20:40 Dose: Not Given Documented By: KSC Co-signed By: KENZIE Admin: 08/09/24 17:57 Dose: Not Given Documented By: MAY Insulin Glargine (Lantus Per Unit Charge) 5 units SQ BID KALA Stop: 09/08/24 20:59 Last Admin: 08/09/24 20:40 Dose: Not Given Documented By: SOUTH Ondansetron HCl (Ondansetron Inj 2 Mg/Ml 2 Ml Vial) 4 mg IV Q6H PRN PRN Reason: Nausea And Vomiting Stop: 09/08/24 20:47 Last Admin: 08/09/24 20:56 Dose: 4 mg Documented By: KSCelso Discontinued Medications Sodium Chloride (Nss) 500 mls @ 999 mls/hr IV .Q31M ONE Stop: 08/09/24 07:37 Last Infusion: 08/09/24 08:25 Dose: Infused Documented By: [facility] [place] Admin: 08/09/24 07:24 Dose: 999 mls/hr Documented By: MARIANN Acetaminophen (Ofirmev) 1,000 mg in 100 mls @ 400 mls/hr IV NOW STA Stop: 08/09/24 07:21 Last Infusion: 08/09/24 08:25 Dose: Infused Documented By: Admin: 08/09/24 07:24 Dose: 400 mls/hr Documented By: MARIANN Magnesium Sulfate/Dextrose (Magnesium Sulfate / D5w) 1 gm in 100 mls @ 100 mls/hr IV NOW STA Stop: 08/09/24 10:30 Last Infusion: 08/09/24 13:39 Dose: Infused Documented By: Admin: 08/09/24 11:29 Dose: 100 mls/hr Documented By: ROBY Ceftriaxone Sodium (Rocephin) 2,000 mg in 50 mls @ 100 mls/hr IV NOW STA Stop: 08/09/24 10:00 Last Infusion: 08/09/24 11:27 Dose: Infused Documented By: Admin: 08/09/24 10:26 Dose: 100 mls/hr Documented By: MARIANN Magnesium Sulfate/Dextrose (Magnesium Sulfate / D5w) 1 gm in 100 mls @ 50 mls/hr IV ONE ONE Stop: 08/09/24 18:14 Last Infusion: 08/09/24 19:32 Dose: Infused Documented By: Admin: 08/09/24 17:22 Dose: 50 mls/hr Documented By: MAY Ioversol (Optiray 320 100ml) 119 ml IV ONCE ONE Stop: 08/09/24 10:40 Last Admin: 08/09/24 10:40 Dose: 119 ml Documented By: MARAL Potassium Phosphate (Pot Phosphate Monobasic W/ Sod Tab) 1 tab PO QID KALA Stop: 08/09/24 21:01 Last Admin: 08/09/24 20:56 Dose: 1 tab Documented By: Admin: 08/09/24 17:31 Dose: 1 tab Documented By: MAY Imaging Data Radiologist's Impression: Head CT 08/09/24 10:24 CT OF THE HEAD WITHOUT CONTRAST CLINICAL HISTORY: Headache. Fever. COMPARISON STUDY: Head CT June 17, 2024. CT DOSE: 2234.62 mGy.cm TECHNIQUE: Helical axial images of the head were obtained without IV contrast. Automated exposure control was utilized for the study. A dose lowering technique was utilized adhering to the principles of ALARA. FINDINGS: No acute intracranial hemorrhage, midline shift or mass effect is present. Mild white matter hypodensities are unchanged and favor small vessel disease. The ventricular system is unremarkable. The basal cisterns are patent. No extra-axial collections are present. There are no findings to suggest acute dural sinus thrombosis or acute territorial infarct. No significant calvarial abnormalities are present. There is minimal sinus mucosal thickening. IMPRESSION: No acute intracranial findings. ACT 112: Negative or not required by law. Electronically signed by: Spenser Daniels M.D. 08/09/2024 10:53 AM Abdomen/Pelvis CT 08/09/24 10:36 CT OF THE ABDOMEN AND PELVIS WITH CONTRAST CLINICAL HISTORY: Urinary tract infection, fever and generalized pain. COMPARISON STUDY: CT of the abdomen and pelvis June 18, 2024. TECHNIQUE: Following IV administration of 94 mL of Optiray, axial images of the abdomen and pelvis were obtained from the lung bases to the proximal femurs. Images were reviewed in the axial, sagittal, and coronal planes. IV contrast was administered without complication. Automated exposure control was utilized for the study. A dose lowering technique was utilized adhering to the principles of ALARA. FINDINGS: Visualized portions of the lung bases are unremarkable. Subpleural right lower lobe and right middle lobe opacity represents atelectasis. Elevation of the right hemidiaphragm is unchanged. The heart is mildly enlarged. There is extensive coronary artery calcification. No pneumatosis, free air or portal venous gas is present. The liver is cirrhotic. Abdominal varices are again noted. Splenomegaly is unchanged. Hypodense splenic lesions are benign. No hepatic lesions are identified on venous phase exam. There is nonocclusive thrombus at the confluence of the inferior mesenteric and splenic veins. The main, right and left portal veins are patent. There is no evidence for a bowel obstruction. Extensive sigmoid diverticulosis is present. No evidence for acute diverticulitis. There is no ascites. Cystic 3.5 cm right adnexal lesion is unchanged since CT of September 17, 2013. No acute fractures are identified. Trace gas within the bladder is noted. There is mild bladder wall thickening. IMPRESSION: 1. Mild bladder wall thickening. This may be chronic although could be correlated urinalysis. Trace gas within the bladder, likely related to recent instrumentation. 2. Cirrhotic liver. Manifestations of portal hypertension including splenomegaly and varices formation. 3. Interval development of nonocclusive thrombus at the confluence of the splenic and inferior mesenteric veins. Patent main, left and right portal veins. 4. No ascites. 5. No bowel obstruction. Colonic diverticulosis. No evidence for acute diverticulitis. ACT 112: Negative or not required by law. Electronically signed by: Spenser Daniels M.D. 08/09/2024 11:09 AM Cervical Spine MRI 08/09/24 11:30 MRI OF THE CERVICAL SPINE WITHOUT CONTRAST CLINICAL HISTORY: Bilateral arm pain. COMPARISON: Cervical spine CT June 17, 2024. TECHNIQUE: Utilizing a 1.5 Lisandra magnet and dedicated coil, multiplanar, multiecho imaging of the cervical spine was performed without IV contrast. FINDINGS: Alignment of the cervical spine is anatomic. Vertebral body heights are maintained. There is no marrow edema or marrow replacement. Cervical cord signal and caliber are normal. There is no intracanalicular mass or fluid collection. Paravertebral soft tissues are unremarkable. There is a small central disc protrusion at the T2-T3 level. This results in mild central canal narrowing. Exam is mildly compromised by motion artifact but is diagnostic. There is mild to moderate multilevel facet arthrosis without significant degenerative disc disease within the cervical spine. C2-C3: The central canal and neural foramen are patent. C3-C4: The central canal and neural foramen are patent. C4-C5: The central canal and neural foramen are patent. C5-C6: The central canal and neural foramen are patent. C6-C7: The central canal and neural foramen are patent. C7-T1: The central canal and neural foramen are patent. IMPRESSION: 1. No acute process within the cervical spine by MRI. 2. Normal cervical cord signal and caliber. No disc herniations within the cervical spine. Patent central canal and neural foramen. 3. Mild to moderate multilevel facet arthrosis. ACT 112: Negative or not required by law. Electronically signed by: Spenser Daniels M.D. 08/09/2024 2:43 PM Discharge Plan Visit Data Chief Complaint: Illness Stated Complaint: illness ED Provider: Steve Iverson Discharge Problem: Acute UTI, SIRS (systemic inflammatory response syndrome), Thrombocytopenia, Pancytopenia, Chronic liver disease and cirrhosis, Generalized weakness, Hypomagnesemia Patient Disposition: Admitted As Inpatient Discharge Instructions Interventions: ED Discharge Assessment Last Done: 08/09/24 15:35
[2024-08-09] MEDS: SODIUM CHLORIDE 0.9% 500 ML IV ONE (07:24)
[2024-08-09] MEDS: ACETAMINOPHEN 1,000 MG/100 ML VIAL IV STA (07:24)
[2024-08-09 07:33] LABS: Basophils # (auto) 0.03 K/uL (0.00-0.20); Basophils % (auto) 0.6 %; Eosinophils # (auto) 0.05 K/uL (0.00-0.50); Hemoglobin 12.4 g/dl (12.0-16.0); Immature Granulocytes # (auto) 0.02 K/uL (0.01-0.20); Immature Granulocytes % (auto) 0.4 %; Lymphocytes # (auto) 0.59 K/uL (1.20-3.40); Lymphocytes % (auto) 12.2 %; Mean Corpuscular Hemoglobin 30.1 pg (25.0-34.0); Mean Corpuscular Hgb Conc 33.5 g/dL (32.0-36.0); Mean Corpuscular Volume 89.8 fL (80.0-100.0); Mean Platelet Volume 12.3 fL (9.4-12.4); Monocytes # (auto) 0.45 K/uL (0.11-0.59); Monocytes % (auto) 9.3 %; Neutrophils # (auto) 3.68 K/uL (1.40-6.50); Neutrophils % (auto) 76.5 %; Platelet Count 33 K/uL (130-400); RDW Coefficient of Variation 13.4 % (11.5-14.5); Red Blood Count 4.12 M/uL (4.20-5.40); White Blood Count 4.82 K/ul (4.8-10.8)
[2024-08-09 07:43] LABS: Albumin Level 3.5 gm/dl (3.4-5.0); BUN Creatinine Ratio 18.8 (10-20); Bilirubin,Total 3.1 mg/dl (0.2-1.0); Calcium 9.4 mg/dl (8.6-10.3); Creatinine Clr Calc Pharmacy 81.2 ml/min; Globulin 3.4 gm/dl (2.5-4.0); Magnesium 1.6 mg/dl (1.7-2.4); Phosphorus 2.2 mg/dl (2.5-4.9); Potassium 4.1 mmol/L (3.5-5.1); Total Protein 6.9 gm/dl (6.0-8.3)
[2024-08-09 07:48] LABS: INR 1.2 (0.9-1.1); Prothrombin Time 12.4 Seconds (9.0-12.0)
[2024-08-09 07:49] LABS: Troponin I High Sensitivity 3.3 pg/ml (0-14)
--- NOTE | 2024-08-09 08:10 | XRay Report ---
EXAM: XR chest 1V portable CLINICAL HISTORY: Chest pain, nonspecific TECHNIQUE: Radiograph of chest was acquired. COMPARISON: 06/17/2024 13:08:34 CAR TRIMMER FINDINGS: The lungs are clear and well-expanded with no pulmonary infiltrate or pleural effusion. The cardiomediastinal silhouette is within normal limits. Eventeration of right hemidiaphragm. No acute osseous abnormality. IMPRESSION: 1. Eventeration of right hemidiaphragm. No new finding. Electronically signed by Maynor Salazar 08-09-2024 08:10 AM
[2024-08-09 08:36] LABS: Adenovirus PCR Not Detected (NotDetected); Bordetella parapertussis PCR Not Detected (NotDetected); Bordetella pertussis PCR Not Detected (NotDetected); Chlamydia pneumoniae PCR Not Detected (NotDetected); Coronavirus 229E PCR Not Detected (NotDetected); Coronavirus CoV-2 (COVID19)PCR Not Detected (NotDetected); Coronavirus HKU1 PCR Not Detected (NotDetected); Coronavirus NL63 PCR Not Detected (NotDetected); Coronavirus OC43PCR Not Detected (NotDetected); Human Metapneumovirus PCR Not Detected (NotDetected); Influenza A PCR Not Detected (NotDetected); Influenza B PCR Not Detected (NotDetected); Mycoplasma pneumoniae PCR Not Detected (NotDetected); Parainfluenza Virus 1 PCR Not Detected (NotDetected); Parainfluenza Virus 2 PCR Not Detected (NotDetected); Parainfluenza Virus 3 PCR Not Detected (NotDetected); Parainfluenza Virus 4 PCR Not Detected (NotDetected); Respiratory Syncytial VirusPCR Not Detected (NotDetected); Rhinovirus/Enterovirus PCR Not Detected (NotDetected)
[2024-08-09 08:53] LABS: Appearance Urine Cloudy (Clear); Bacteria Urine Automated 4+ (None Seen); Bilirubin Urine Negative (Negative); Blood Urine 1+ (Negative); Cast Urine Automated 0-2 /lpf (0-2); Color Urine Yellow; Epithelial Cell Urine Auto 0-2 /hpf (0-2); Glucose Urine UA Negative (Negative); Ketones Urine Negative (Negative); Leukocyte Esterase Urine 1+ (Negative); Nitrite Urine Negative (Negative); Protein Urine Negative (Negative); RBC Urine Automated 0-2 /hpf (0-2); Urobilinogen Urine Negative (Negative); WBC Urine Automated 21-50 /hpf (0-5); pH Urine 5.5 (4.5-7.5)
[2024-08-09] MEDS: cefTRIAXone SODIUM 2,000 MG/50 ML BAG IV STA (10:26)
[2024-08-09] MEDS: OPTIRAY 320 100ml IV ONE (10:40)
--- NOTE | 2024-08-09 10:53 | History & Physical Report ---
Date of Service August 09, 2024 Assessment & Plan (1) Urinary tract infection: (2) Thrombocytopenia: (3) Cirrhosis: (4) Type 2 diabetes mellitus: Plan Jing is a 74F with a PMHx of type II DM, COPD, CAD, cirrhosis with thrombocytopenia, chronic incontinence (s/p botox injections) and MDD who presents to the ER with weakness and worsening incontinence along with fever. Initial evaluation showing UA concerning for UTI. Biofire & CXR without acute findings. Admitted for PT/OT consults, IV abx and further workup. #Urinary Tract Infection/Weakness/sepsis Follows with urology, due for another botox injections but has been unable to get this because of recurrent UTIs UA concerning for UTI, UC pending. With fever and tachycardia Ceftriaxone started in ED based on prior sensitivities, this is continued Blood Cultures pending CT head, CT A/P pending PT/OT AM CBC and BMP #Bilateral Arm Pain Mag replaced IV, recheck in AM CK WNL Check c-spine MRI Pain control: tylenol and diluadid (based on allergies/cirrhosis ) #MDD Reports she stopped taking her Effexor, unable to give me an exact timeline but given 90 supply in March Reports "wanting to drive her car [place] bridge" and other statements, not wanting to live with her incontinence U liaison consulted q15 minute checks #Cirrhosis/thrombocytopenia Chronic. Plts 33 on admission which is near baseline. Avoid chemical DVT ppx. Extensive workup last admission including doxycycline for tick born coverage #DMT2 Home regiment: semaglutide and insulin (takes inconsistently) - HELD A1c 7.0 06/2024 Continue Lantus 5u BID + SSI (CF 45, CR 15) based on prior glycemic consult Dispo: Admit to med/surg DVT ppx: SCDs, chemical deferred with low platelets CODE STATUS: Full Code History of Present Illness Chief Complaint: urinary incontience, fevers Primary Care Provider: Scarlett Luis Enrique Ch is a 74F with a PMHx of type II DM, COPD, CAD, cirrhosis with thrombocytopenia, chronic incontinence (s/p botox injections) and MDD who presents to the ER with weakness and worsening incontinence along with a fever. Reports that she was having stabbing pain in her arms, this is a common symptom for her when she has a UTI. Also reports that she is having headaches, which is also common for her during acute illness. Last night peed in bed all night, unable to get out of bed. Lives alone, no assistive devices. Her main complaint at the time of admission is the pain in her arms. This seems to be a chronic problem, but feels like she cannot lift them. However itches her face multiple times during the encounter. Reports when she finishes her course of antibiotics she feels better "for about 2.5 seconds" and then it comes back. Is due for another botox injection, but reports that her straight cath keeps coming back positive for infection and her procedures are getting delayed. She has had multiple bladder operations in the past. Recent course of Macrobid 07/22 for 7 days, also reports had to have some pills that were sent to a pharmacy in [place] that she took for 3 days. Stopped taking her Effexor, did not see benefit. Takes this on a off. Denies ETOH or smoking. Would like to be a full code, her sisters can make decisions if she is unable to do so. ED course: NSS 500ml 1000mg IV tylenol Mag 1gm Ceftriaxone 2g IV Allergies Allergy/AdvReac Type Severity Reaction Status Date / Time levofloxacin Allergy Intermediate RASH, Verified 08/09/24 08:46 MACULOPAPULAR RASH nickel Allergy Intermediate HIVES/RASH Verified 08/09/24 08:46 ON SKIN Penicillins Allergy Intermediate RASH Verified 08/09/24 08:46 morphine AdvReac Severe Headache Verified 08/09/24 08:46 escitalopram [From Lexapro] AdvReac Intermediate Diarrhea Verified 08/09/24 08:46 metformin AdvReac Intermediate CHRONIC Verified 08/09/24 08:46 DIARRHEA, BLOATING, PAIN oxycodone [From OxyContin] AdvReac Intermediate NAUSEA/VOMI Verified 08/09/24 12:13 TING Home Medications Medication Instructions Recorded Confirmed Type insulin degludec 200 unit/mL (3 0 unit subcut QPM 01/22/21 08/09/24 History mL) subcutaneous pen (Tresiba FlexTouch U-200 insulin) diaper,brief,adult,disposable #68 ea 10/29/22 08/09/24 Rx (Depend Underwear For Women XL) semaglutide 2 mg/dose (8 mg/3 mL) 2 mg subcut WK 03/28/24 08/09/24 History subcutaneous pen injector (Ozempic) ibuprofen 100 mg chewable tablet 200 mg PO Q6H PRN Pain 08/09/24 08/09/24 History perfluorohexyloctane (PF) 100 % 1 drp OPB DAILY 08/09/24 08/09/24 History eye drops (Miebo (PF)) Past Med/Surg History Problem List (Updated 07/08/24 @ 00:05 by Allen Guerrero) Left shoulder pain Cirrhosis Hx of Lyme disease treated Fatigue Left wrist pain Diabetes Pancytopenia Contusion of right shoulder (Acute) Elevated troponin I level (Acute) Chest pain (Acute) Thrombocytopenia (Acute) Fall (Acute) Acute non-ST elevation myocardial infarction (NSTEMI) (Acute) Umbilical hernia Recurrent UTI (urinary tract infection) Renal cyst (Chronic) Nephrolithiasis (Chronic) Incontinence (Chronic) Diverticulosis Ventral hernia Leukopenia Rash Weakness (Acute) Gastritis Type 2 diabetes mellitus Obesity Depression with anxiety Urge and stress incontinence Dyslipidemia Chronic liver disease and cirrhosis portal hypertension including ascites and marked splenomegaly. Fibrosis staging F4 Genital HSV Sensorineural hearing loss of both ears Asthma (Acute) Obstructive sleep apnea (Acute) Thrombocytopenia (Acute) Chronic- likely secondary to underlying cirrhosis per records Ovarian mass, right COPD (chronic obstructive pulmonary disease) (Acute) History of hysterectomy (Chronic) Medical History CAD (coronary artery disease) - Incidental finding of "extensive coronary artery calcification" noted on 08/2023 chest and A/P CT - seen by PCP 05/26/24- recommended cardio clearance prior to surgical procedures Anaplasmosis hx 2021, treated Sensorineural hearing loss (SNHL) of both ears Depression with anxiety Asthma denies inhaler use ALEXIA (obstructive sleep apnea) denies, no device COPD (chronic obstructive pulmonary disease) Chronic liver disease portal hypertension including ascites and marked splenomegaly. Fibrosis staging F4 Dyslipidemia Thrombocytopenia Chronic- likely secondary to underlying cirrhosis per records Hx of Lyme disease treated Diabetes Diverticulosis Incontinence Nephrolithiasis currently has stones Renal cyst Recurrent UTI (urinary tract infection) Surgical History H/O umbilical hernia repair (06/08/24) Robotic Assisted incision and Umbilical Hernia Repair with mesh (repaired separately) - Shorty Kim DO, FACS Hx of hysterectomy History of bladder suspension procedure Hx laparoscopic cholecystectomy H/O shoulder surgery Hx of colonoscopy History of bladder repair surgery History of carpal tunnel surgery x2 H/O abdominal surgery panniculectomy x 2 per pt History of laparoscopic cholecystectomy 1979' open surgery Family History Father Prostate cancer Diabetes Mother Cancer Other No family history of adverse response to anesthesia No family history of bleeding disorder Denies family history of Ovarian cancer Myocardial infarction Breast cancer Colorectal cancer Social History Smoking Status: Never smoker Tobacco Type: Cigarettes Second Hand Exposure: No; Do You Dip or Chew Tobacco: No; Hx Alcohol Use: Yes Alcohol type: beer Alcohol Intake Frequency Comment: 1-2 per month Hx Substance Use: No Preferred Language: Portuguese Communication Ability: Effective Visual Impairment: Limited Hearing Ability: Use of Hearing Aid Marketing Engineer Required: No Beliefs That Will Affect Care: None marital status: Current Living Situation: Alone Current Living Situation Comment: Brother lives nearby current occupational status: retired How many Children do You have: 1 Feels Safe at Home: Yes Childhood Exposure to Second-Hand Smoke: No Diet: regular caffeine: No during the past year weight has: remained stable Dental Care, Regularly: Yes Physical Activity Frequency: Does not Exercise Seatbelt Use: always Sunscreen Use: No Do you think of yourself as: straight/heterosexual Gender Identity: Female Assistive Devices: Cane and Walker Review of Systems Review of Systems: All systems reviewed & are unremarkable except as noted in Subjective Physical Exam Physical Exam: General: NAD, VS as above, ill appearing Resp: normal respiratory effort, lungs clear to auscultation CV: RRR, no murmur, Abd: normal bowel sounds, generalized tenderness, soft Extremities: Moves all extremities, no edema. Neuro: A&O x3, reports frustration with illness process, denies active plan of self harm Skin: intact, no lesions noted Results & Data Results & Data Vital Signs (Past 12 Hours) Vital Signs Temp Pulse Pulse Resp BP BP Pulse Ox 08/09/24 10:34 86 16 153/93 H 94 08/09/24 08:24 101.5 F H 91 H 18 118/59 L 93 08/09/24 08:12 90 08/09/24 07:31 96 03/11/25 06:43 101.7 F H 87 18 119/65 96 O2 Del Method 08/09/24 10:34 Room Air 08/09/24 08:24 Room Air 08/09/24 08:12 08/09/24 07:31 Room Air 08/09/24 06:43 Room Air Laboratory Results CBC, coagulation, chemistry, LFTs, lipase and Pro-Addison reviewed UA reviewed BioFire reviewed Diagnostic Findings chest x-ray reviewed Supervising Physician Co-Signing Physician Notes PA Supervision Note: I personally saw and examined the patient. I verified all yee points and agree with JOSE Up with the following exceptions and/or additions: S-patient here with a fever and worsening urinary symptoms. Has chronic neck and upper extremity pains and weakness which she feels are worse lately with her fever. O- Vitals reviewed Gen: AAOx3, NAD, smells strongly of urine HEENT: Anicteric sclerae, EOMI CV: RRR no mgr nl S1S2 Pulm: CTAB no wcr Abd: +BS soft NT ND no masses Ext: No edema Skin: No rashes, warm/dry Neuro: 4/5 strength in extremities throughout CBC, CMP, UA reviewed CT abdomen/pelvis and CT head reviewed A/[id number]old female here with UTI and sepsis, with recurrent UTIs and urinary incontinence. Continue treatment with ceftriaxone and follow cultures, add ibuprofen and Tylenol as needed for fevers CT abdomen/pelvis without stones or hydronephrosis or pyelonephritis. However, does have inferior mesenteric vein and splenic vein nonocclusive thrombus, likely related to her portal hypertension Given that her platelets are in the 30s chronically, it is not likely safe to anticoagulate her but will consult GI for further opinion Arm pain sounds like cervical radiculopathy-MRI cervical spine added and she will need follow-up on this with PCP as this seems to be a long-term problem. PG Care Time/CCT Total # of Minutes Spent Total Time Spent with Patient: Total time spent is greater than 50% in coordination of care (as documented) at patient's floor/unit and/or counseling patient: Coding Level of Care Code 50341 INT INP/OBS CARE MIN Diagnoses Urinary tract infection N39.0 Hematuria presence: without hematuria Urinary tract infection type: site unspecified Thrombocytopenia D69.6 Cirrhosis K74.60 Type 2 diabetes mellitus E11.9 (1) Urinary tract infection Hematuria presence: without hematuria Urinary tract infection type: site unspecified Qualified Code(s): N39.0 - Urinary tract infection, site not specified
--- NOTE | 2024-08-09 10:55 | CT Scan Report ---
CT OF THE HEAD WITHOUT CONTRAST CLINICAL HISTORY: Headache. Fever. COMPARISON STUDY: Head CT June 17, 2024. CT DOSE: 2234.62 mGy.cm TECHNIQUE: Helical axial images of the head were obtained without IV contrast. Automated exposure con trol was utilized for the study. A dose lowering technique was utilized adhering to the principles o f ALARA. FINDINGS: No acute intracranial hemorrhage, midline shift or mass effect is present. Mild white matte r hypodensities are unchanged and favor small vessel disease. The ventricular system is unremarkable. The basal cisterns are patent. No extra-axial collections are present. There are no findings to sugg est acute dural sinus thrombosis or acute territorial infarct. No significant calvarial abnormalities are present. There is minimal sinus mucosal thickening. IMPRESSION: No acute intracranial findings. ACT 112: Negative or not required by law. Electronically signed by: Spenser Daniels M.D. 08/09/2024 10:53 AM
--- NOTE | 2024-08-09 11:11 | CT Scan Report ---
CT OF THE ABDOMEN AND PELVIS WITH CONTRAST CLINICAL HISTORY: Urinary tract infection, fever and generalized pain. COMPARISON STUDY: CT of the abdomen and pelvis June 18, 2024. TECHNIQUE: Following IV administration of 94 mL of Optiray, axial images of the abdomen and pelvis we re obtained from the lung bases to the proximal femurs. Images were reviewed in the axial, sagittal, and coronal planes. IV contrast was administered without complication. Automated exposure control wa s utilized for the study. A dose lowering technique was utilized adhering to the principles of ALARA . FINDINGS: Visualized portions of the lung bases are unremarkable. Subpleural right lower lobe and rig ht middle lobe opacity represents atelectasis. Elevation of the right hemidiaphragm is unchanged. The heart is mildly enlarged. There is extensive coronary artery calcification. No pneumatosis, free air or portal venous gas is present. The liver is cirrhotic. Abdominal varices are again noted. Splenome david is unchanged. Hypodense splenic lesions are benign. No hepatic lesions are identified on venous phase exam. There is nonocclusive thrombus at the confluence of the inferior mesenteric and splenic v eins. The main, right and left portal veins are patent. There is no evidence for a bowel obstruction. Extensive sigmoid diverticulosis is present. No evidence for acute diverticulitis. There is no ascit es. Cystic 3.5 cm right adnexal lesion is unchanged since CT of September 17, 2013. No acute fractures ar e identified. Trace gas within the bladder is noted. There is mild bladder wall thickening. IMPRESSION: 1. Mild bladder wall thickening. This may be chronic although could be correlated urinalysis. Trace g as within the bladder, likely related to recent instrumentation. 2. Cirrhotic liver. Manifestations of portal hypertension including splenomegaly and varices formatio n. 3. Interval development of nonocclusive thrombus at the confluence of the splenic and inferior mesent jina veins. Patent main, left and right portal veins. 4. No ascites. 5. No bowel obstruction. Colonic diverticulosis. No evidence for acute diverticulitis. ACT 112: Negative or not required by law. Electronically signed by: Spenser Daniels M.D. 08/09/2024 11:09 AM
[2024-08-09 11:25] LABS: Bilirubin Direct 0.5 mg/dl (0-0.2)
[2024-08-09] MEDS: MAGNESIUM SULFATE / D5W 1 GM/100 ML BAG IV STA (11:29)
[2024-08-09] MEDS: IBUPROFEN 200 MG TAB PO PRN (13:42)
--- NOTE | 2024-08-09 14:46 | Magnetic Resonance Report ---
MRI OF THE CERVICAL SPINE WITHOUT CONTRAST CLINICAL HISTORY: Bilateral arm pain. COMPARISON: Cervical spine CT June 17, 2024. TECHNIQUE: Utilizing a 1.5 Lisandra magnet and dedicated coil, multiplanar, multiecho imaging of the ce rvical spine was performed without IV contrast. FINDINGS: Alignment of the cervical spine is anatomic. Vertebral body heights are maintained. There is no marro w edema or marrow replacement. Cervical cord signal and caliber are normal. There is no intracanalicu lar mass or fluid collection. Paravertebral soft tissues are unremarkable. There is a small central d isc protrusion at the T2-T3 level. This results in mild central canal narrowing. Exam is mildly compr omised by motion artifact but is diagnostic. There is mild to moderate multilevel facet arthrosis wit hout significant degenerative disc disease within the cervical spine. C2-C3: The central canal and neural foramen are patent. C3-C4: The central canal and neural foramen are patent. C4-C5: The central canal and neural foramen are patent. C5-C6: The central canal and neural foramen are patent. C6-C7: The central canal and neural foramen are patent. C7-T1: The central canal and neural foramen are patent. IMPRESSION: 1. No acute process within the cervical spine by MRI. 2. Normal cervical cord signal and caliber. No disc herniations within the cervical spine. Patent aden tral canal and neural foramen. 3. Mild to moderate multilevel facet arthrosis. ACT 112: Negative or not required by law. Electronically signed by: Spenser Daniels M.D. 08/09/2024 2:43 PM
[2024-08-09] MEDS ORDERED: DEXTROSE 50% 50 ML SYRINGE IV PRN (16:12)
[2024-08-09] MEDS ORDERED: GLUCOSE 10 TAB/TUBE PO PRN (16:12)
[2024-08-09] MEDS ORDERED: CARBOHYDRATES FOR HYPOGLYCEMIA PO PRN (16:12)
[2024-08-09] MEDS ORDERED: GLUCAGON FOR INJ 1 MG VIAL SQ PRN (16:12)
[2024-08-09] MEDS ORDERED: GLUCOSE 40% GEL 15 GM TUBE PO PRN (16:12)
--- NOTE | 2024-08-09 16:18 | Gastrointestinal Consultation ---
Date of Consultation August 09, 2024 Assessment & Plan (1) Cirrhosis: 74F with a PMHx of type II DM, COPD, CAD, cirrhosis with thrombocytopenia, chronic incontinence (s/p botox injections) and MDD who presents to the ER with weakness and worsening incontinence along with a fever. Reports that she was hav ing stabbing pain in her arms, this is a common symptom for her when she has a UTI. 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 her decompensations include grade 1 varices with moderate portal hypertensive gastropathy. She has had no bleeding, no findings of HCC and no ascites at this point. CT today found to have a partially occlusive thrombus at the confluence of the IMV and splenic vein. She does not have any current symptoms of mesenteric ischemia or significant portal hypertension in the sense that she is bleeding. Having said that, a clot at the confluence has the risk for progression and I do not know how fresh this is (she is a very poor historian and it is hard to relate if she has had any pain that could account for clot formation). My suspicion is this is from sluggish flow from portal hypertension that she has developed from her chronic cirrhosis. Treatment for this is anticoagulation according to the new AASLD guidelines but she is at high risk given her varices and moderate portal hypertensive gastropathy for GI bleeding. I would suggest we get a hematology consult to see if she is a candidate for anticoagulation and we consider an EGD. She needs her varices screened anyway as it has been over a year. N.p.o. after midnight and I will speak with Dr. Pitts. Also, she is consistently complaining about her arm pain and her chronic UTIs and urinary incontinence. She was supposed to get a Botox injection after her cystitis improved and she has never been able to do this. Can we get urology to come by and see her (2) Thrombocytopenia: History of Present Illness Reason for Consultation: Nonocclusive clot in IMV / splenic vein. Attending Physician: Krystal Pitts MD History of Present Illness 74F with a PMHx of type II DM, COPD, CAD, cirrhosis with thrombocytopenia, chr onic incontinence (s/p botox injections) and MDD who presents to the ER with weakness and worsening incontinence along with a fever. Reports that she was having stabbing pain in her arms, this is a common symptom for her when she has a UTI. Also reports that she is having headaches, which is also common for her during acute illness. Last night peed in bed all night, unable to get out of bed. Lives alone, no assistive devices. Her liver history indicates that she has cirrhosis likely from CAVANAUGH / MASH. She is not a drinker or illicit drug use. She underwent an evaluation with an EGD and colonoscopy by [facility] in 2022. The EGD showed grade 1 varices with moderate portal hypertensive gastropathy and colonoscopy showed 3 polyps with diverticulosis. She denies any bleeding since this period in time. She has no confusion but does confabulate a bit. She has had no jaundice. Her platelets have been in the 30s to 50s which is close to her baseline. In workup of her chronic UTIs a CT scan was done here. CT: Cirrhotic liver. Manifestations of portal hypertension including splenomegaly and varices formation. Interval development of nonocclusive thrombus at the confluence of the splenic and inferior mesenteric veins. Patent main, left and right portal veins. She has chronic abdominal pain but denies any pain with eating or drinking food Allergies Allergy/AdvReac Type Severity Reaction Status Date / Time levofloxacin Allergy Intermediate RASH, Verified 08/09/24 08:46 MACULOPAPULAR RASH nickel Allergy Intermediate HIVES/RASH Verified 08/09/24 08:46 ON SKIN Penicillins Allergy Intermediate RASH Verified 08/09/24 08:46 morphine AdvReac Severe Headache Verified 08/09/24 08:46 escitalopram [From Lexapro] AdvReac Intermediate Diarrhea Verified 08/09/24 08:46 metformin AdvReac Intermediate CHRONIC Verified 08/09/24 08:46 DIARRHEA, BLOATING, PAIN oxycodone [From OxyContin] AdvReac Intermediate NAUSEA/VOMI Verified 08/09/24 12:13 TING Home Medications Medication Instructions Recorded Confirmed Type insulin degludec 200 unit/mL (3 0 unit subcut QPM 01/22/21 08/09/24 History mL) subcutaneous pen (Tresiba FlexTouch U-200 insulin) diaper,brief,adult,disposable #68 ea 10/29/22 08/09/24 Rx (Depend Underwear For Women XL) semaglutide 2 mg/dose (8 mg/3 mL) 2 mg subcut WK 03/28/24 08/09/24 History subcutaneous pen injector (Ozempic) ibuprofen 100 mg chewable tablet 200 mg PO Q6H PRN Pain 08/09/24 08/09/24 History perfluorohexyloctane (PF) 100 % 1 drp OPB DAILY 08/09/24 08/09/24 History eye drops (Miebo (PF)) Patient History Medical History CAD (coronary artery disease) - Incidental finding of "extensive coronary artery calcification" noted on 08/2023 chest and A/P CT - seen by PCP 05/26/24- recommended cardio clearance prior to surgical procedures Anaplasmosis hx 2021, treated Sensorineural hearing loss (SNHL) of both ears Depression with anxiety Asthma denies inhaler use ALEXIA (obstructive sleep apnea) denies, no device COPD (chronic obstructive pulmonary disease) Chronic liver disease portal hypertension including ascites and marked splenomegaly. Fibrosis staging F4 Dyslipidemia Thrombocytopenia Chronic- likely secondary to underlying cirrhosis per records Hx of Lyme disease treated Diabetes Diverticulosis Incontinence Nephrolithiasis currently has stones Renal cyst Recurrent UTI (urinary tract infection) Surgical History H/O umbilical hernia repair (06/08/24) Robotic Assisted incision and Umbilical Hernia Repair with mesh (repaired separately) - Shorty Kim, , FACS Hx of hysterectomy History of bladder suspension procedure Hx laparoscopic cholecystectomy H/O shoulder surgery Hx of colonoscopy History of bladder repair surgery History of carpal tunnel surgery x2 H/O abdominal surgery panniculectomy x 2 per pt History of laparoscopic cholecystectomy open surgery Family History Father Prostate cancer Diabetes Mother Cancer Other No family history of adverse response to anesthesia No family history of bleeding disorder Denies family history of Ovarian cancer Myocardial infarction Breast cancer Colorectal cancer Social History Smoking Status: Never smoker Tobacco Type: Cigarettes Second Hand Exposure: No; Do You Dip or Chew Tobacco: No; Hx Alcohol Use: Yes Alcohol type: beer Alcohol Intake Frequency Comment: 1-2 per month Hx Substance Use: No Preferred Language: Thai Communication Ability: Effective Visual Impairment: Limited Hearing Ability: Use of Hearing Aid Transportation Worker Required: No Beliefs That Will Affect Care: None marital status: Current Living Situation: Alone Current Living Situation Comment: Brother lives nearby current occupational status: retired How many Children do You have: 1 Feels Safe at Home: Yes Childhood Exposure to Second-Hand Smoke: No Diet: regular caffeine: No during the past year weight has: remained stable Dental Care, Regularly: Yes Physical Activity Frequency: Does not Exercise Seatbelt Use: always Sunscreen Use: No Do you think of yourself as: straight/heterosexual Gender Identity: Female Assistive Devices: Cane and Walker Results & Data Vital Signs (Past 12 Hours) Vital Signs Temp Pulse Pulse Resp BP BP Pulse Ox 08/09/24 15:16 38.6 C H 90 22 121/63 93 08/09/24 13:30 37.9 C H 90 22 135/72 98 08/09/24 12:00 77 25 H 124/67 94 08/09/24 11:32 37.2 C 76 25 H 126/78 94 08/09/24 11:30 79 22 126/78 95 08/09/24 11:09 82 19 95 08/09/24 10:34 86 16 153/93 H 94 08/09/24 10:30 153/93 H 08/09/24 10:24 80 18 95 08/09/24 10:01 122/76 08/09/24 08:24 38.6 C H 91 H 18 118/59 L 93 08/09/24 08:12 90 08/09/24 07:31 96 08/09/24 06:43 38.7 C H 87 18 119/65 96 O2 Del Method 08/09/24 15:16 Room Air 08/09/24 13:30 Room Air 08/09/24 12:00 08/09/24 11:32 Room Air 08/09/24 11:30 08/09/24 11:09 08/09/24 10:34 Room Air 08/09/24 10:30 08/09/24 10:24 08/09/24 10:01 08/09/24 08:24 Room Air 08/09/24 08:12 08/09/24 07:31 Room Air 08/09/24 06:43 Room Air PG Care Time/CCT Total # of Minutes Spent Total Time Spent with Patient: Total time spent is greater than 50% in coordination of care (as documented) at patient's floor/unit and/or counseling patient: Coding Level of Care Code 99429 INT INP/OBS CARE MIN Diagnoses Cirrhosis K74.60 Thrombocytopenia D69.6
[2024-08-09] MEDS: MAGNESIUM SULFATE / D5W 1 GM/100 ML BAG IV ONE (17:22)
[2024-08-09] MEDS: POT PHOSPHATE MONOBASIC W/ SOD TAB PO SCH (17:31)
[2024-08-09] MEDS: INSULIN ASPART PER UNIT CHARGE SC SCH (17:57)
[2024-08-09] MEDS: LANTUS PER UNIT CHARGE SQ SCH (20:40)
[2024-08-09] MEDS: HYDROmorphone HCL 2 MG TAB PO PRN (20:56)
[2024-08-09] MEDS: ONDANSETRON INJ 2 MG/ML 2 ML VIAL IV PRN (20:56)
--- NOTE | 2024-08-10 06:17 | Electrocardiogram Report ---
Test Reason : Blood Pressure : */* mmHG Vent. Rate : 92 BPM Atrial Rate : 92 BPM P-R Int : 148 ms QRS Dur : 82 ms QT Int : 354 ms P-R-T Axes : 39 -20 60 degrees QTcB Int : 437 ms Normal sinus rhythm When compared with ECG of 17-Jun-2024 13:29, No significant change was found Confirmed by Jeremiah Andrew ([id number]) on 08/10/2024 6:17:05 AM Referred By: REFERRED SELF Confirmed By: Jeremiah Andrew
--- NOTE | 2024-08-10 07:43 | Oncology Consultation ---
Date of Consultation August 10, 2024 Assessment & Plan (1) Thrombocytopenia: Reviewed the patient's chart, she has chronic thrombocytopenia going back many years. Her thrombocytopenia is most likely related to her underlying cirrhosis and splenomegaly. At this point my recommendation is going to be supportive from a thrombocytopenia standpoint. I would just recommend monitoring her closely and transfusing her if her platelet count is less than 10,000 or if she is actively bleeding. If she is consistently thrombocytopenic with signs and symptoms of bleeding then it may be worthwhile to utilize a medication such as avatrombopag on an outpatient basis given her underlying liver disease. Plan Thank you for this interesting hematological consult. Hematology will continue to follow the patient make appropriate recommendations. History of Present Illness Reason for Consultation: Thrombocytopenia in the setting of cirrhotic liver Attending Physician: Renard Osei MD History of Present Illness the patient is a very pleasant 74-year-old woman who has chronic thrombocy topenia. She also has a history of COPD, coronary artery disease, type 2 diabetes. She had a recent CT of the abdomen which revealed splenomegaly. She was admitted to [facility] with fever. She is also having headaches. Hematology has been consulted to assist in management of this patient who has chronic thrombocytopenia associated with cirrhosis. I reviewed her CBC going back to 2018 and she is consistently thrombocytopenic with a platelet count less than 60,000/mcL. At this point she is not bleeding. Allergies Allergy/AdvReac Type Severity Reaction Status Date / Time levofloxacin Allergy Intermediate RASH, Verified 08/10/24 09:19 MACULOPAPULAR RASH nickel Allergy Intermediate HIVES/RASH Verified 08/10/24 09:19 ON SKIN Penicillins Allergy Intermediate RASH Verified 08/10/24 09:19 morphine AdvReac Severe Headache Verified 08/10/24 09:19 escitalopram [From Lexapro] AdvReac Intermediate Diarrhea Verified 08/10/24 09:19 metformin AdvReac Intermediate CHRONIC Verified 08/10/24 09:19 DIARRHEA, BLOATING, PAIN oxycodone [From OxyContin] AdvReac Intermediate NAUSEA/VOMI Verified 08/10/24 09:19 TING Home Medications Medication Instructions Recorded Confirmed Type insulin degludec 200 unit/mL (3 0 unit subcut QPM 01/22/21 08/09/24 History mL) subcutaneous pen (Tresiba FlexTouch U-200 insulin) diaper,brief,adult,disposable #68 ea 10/29/22 08/09/24 Rx (Depend Underwear For Women XL) semaglutide 2 mg/dose (8 mg/3 mL) 2 mg subcut WK 03/28/24 08/09/24 History subcutaneous pen injector (Ozempic) ibuprofen 100 mg chewable tablet 200 mg PO Q6H PRN Pain 08/09/24 08/09/24 History perfluorohexyloctane (PF) 100 % 1 drp OPB DAILY 08/09/24 08/09/24 History eye drops (Miebo (PF)) Patient History Medical History CAD (coronary artery disease) - Incidental finding of "extensive coronary artery calcification" noted on 08/2023 chest and A/P CT - seen by PCP 05/26/24- recommended cardio clearance prior to surgical procedures Anaplasmosis hx 2021, treated Sensorineural hearing loss (SNHL) of both ears Depression with anxiety Asthma denies inhaler use ALEXIA (obstructive sleep apnea) denies, no device COPD (chronic obstructive pulmonary disease) Chronic liver disease portal hypertension including ascites and marked splenomegaly. Fibrosis staging F4 Dyslipidemia Thrombocytopenia Chronic- likely secondary to underlying cirrhosis per records Diverticulosis Incontinence Nephrolithiasis currently has stones Renal cyst Recurrent UTI (urinary tract infection) Surgical History H/O umbilical hernia repair (06/08/24) Robotic Assisted incision and Umbilical Hernia Repair with mesh (repaired separately) - Shorty Kim, DO, FACS Hx of hysterectomy History of bladder suspension procedure Hx laparoscopic cholecystectomy H/O shoulder surgery Hx of colonoscopy History of bladder repair surgery History of carpal tunnel surgery x2 H/O abdominal surgery panniculectomy x 2 per pt History of laparoscopic cholecystectomy open surgery Family History Father Prostate cancer Diabetes Mother Cancer Other No family history of adverse response to anesthesia No family history of bleeding disorder Denies family history of Ovarian cancer Myocardial infarction Breast cancer Colorectal cancer Social History Smoking Status: Never smoker Tobacco Type: Cigarettes Second Hand Exposure: No; Do You Dip or Chew Tobacco: No; Hx Alcohol Use: No Hx Substance Use: No Preferred Language: Occitan Communication Ability: Effective Visual Impairment: Limited Hearing Ability: Use of Hearing Aid 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 Prospecting 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 Required: No Beliefs That Will Affect Care: None marital status: Current Living Situation: Alone Current Living Situation Comment: Brother lives nearby current occupational status: retired How many Children do You have: 1 Feels Safe at Home: Yes Childhood Exposure to Second-Hand Smoke: No Diet: regular caffeine: No during the past year weight has: remained stable Dental Care, Regularly: Yes Physical Activity Frequency: Does not Exercise Seatbelt Use: always Sunscreen Use: No Do you think of yourself as: straight/heterosexual Gender Identity: Female Assistive Devices: Cane and Walker Review of Systems Review of Systems: All systems reviewed & are unremarkable except as noted in HPI & below Constitutional: as per Subjective / HPI Eyes: as per Subjective / HPI Ear, Nose, Mouth, Throat: as per Subjective / HPI Respiratory: as per Subjective / HPI Cardiovascular: as per Subjective / HPI Gastrointestinal: as per Subjective / HPI Genitourinary: as per Subjective / HPI Musculoskeletal: as per Subjective / HPI Integumentary: as per Subjective / HPI Neurologic: as per Subjective / HPI Psychiatric: as per Subjective / HPI Endocrine: as per Subjective / HPI Physical Exam Constitutional: WD/WN, vitals as above Eyes: PERRL, conjunctivae normal, anicteric sclerae ENMT: external ear and nose normal, oropharynx normal Neck: trachea midline, no thyromegaly Respiratory: normal respiratory effort, lungs clear to auscultation Cardiovascular: RRR, no murmur, no edema Gastrointestinal (Abdomen): normal bowel sounds, soft, nontender, no hepatosplenomegaly Musculoskeletal: no cyanosis or clubbing, extremities motor strength 5/5 Skin: no rashes, warm and dry Neurologic: patellar DTR's 2+ bilat, sensation intact Results & Data Vital Signs (Past 12 Hours) Vital Signs Temp Pulse Resp BP Pulse Ox O2 Del Method O2 Flow Rate 08/09/24 23:20 94 Nasal Cannula 2 08/09/24 23:15 36.5 C 95 H 16 152/78 H 88 L Room Air 08/09/24 21:11 Room Air 08/09/24 19:52 37.5 C 79 18 138/64 96 Room Air
[2024-08-10] MEDS: ACETAMINOPHEN 500 MG TAB PO PRN (08:08)
[2024-08-10 08:26] LABS: Calcium 8.8 mg/dl (8.6-10.3); Hematocrit (blood only) 35.7 % (37.0-47.0); Magnesium 1.8 mg/dl (1.7-2.4); Mean Corpuscular Hemoglobin 30.6 pg (25.0-34.0); Mean Corpuscular Hgb Conc 33.6 g/dL (32.0-36.0); Mean Corpuscular Volume 91.1 fL (80.0-100.0); Potassium 4.1 mmol/L (3.5-5.1); RDW Coefficient of Variation 13.8 % (11.5-14.5); RDW Standard Deviation 46.1 fL (36.4-46.3); Red Blood Count 3.92 M/uL (4.20-5.40); White Blood Count 3.95 K/ul (4.8-10.8)
--- NOTE | 2024-08-10 08:53 | Anesthesiology Consultation ---
Date of Service August 10, 2024 Assessment & Plan (1) Encounter for pre-operative examination: Chart Review Chart Review: Acceptable Risk for Surgery History Surgery Operation Date: 08/10/24 17:00 Proposed Procedures p Esophagogastroduodenoscopy Dariel Vieira MD Height/Weight Height: 5 ft 8 in Weight: 86.6 kg Allergies Allergy/AdvReac Type Severity Reaction Status Date / Time levofloxacin Allergy Intermediate RASH, Verified 08/09/24 08:46 MACULOPAPULAR RASH nickel Allergy Intermediate HIVES/RASH Verified 08/09/24 08:46 ON SKIN Penicillins Allergy Intermediate RASH Verified 08/09/24 08:46 morphine AdvReac Severe Headache Verified 08/09/24 08:46 escitalopram [From Lexapro] AdvReac Intermediate Diarrhea Verified 08/09/24 08:46 metformin AdvReac Intermediate CHRONIC Verified 08/09/24 08:46 DIARRHEA, BLOATING, PAIN oxycodone [From OxyContin] AdvReac Intermediate NAUSEA/VOMI Verified 08/09/24 12:13 TING Medications Home Medications Medication Instructions Recorded Confirmed Last Taken insulin degludec 200 unit/mL (3 0 unit subcut QPM 01/22/21 08/09/24 08/08/24 20:00 mL) subcutaneous pen (Tresiba FlexTouch U-200 insulin) diaper,brief,adult,disposable #68 ea 10/29/22 08/09/24 Unknown (Depend Underwear For Women XL) semaglutide 2 mg/dose (8 mg/3 mL) 2 mg subcut WK 03/28/24 08/09/24 08/02/24 subcutaneous pen injector (Ozempic) ibuprofen 100 mg chewable tablet 200 mg PO Q6H PRN Pain 08/09/24 08/09/24 Unknown perfluorohexyloctane (PF) 100 % 1 drp OPB DAILY 08/09/24 08/09/24 Unknown eye drops (Miebo (PF)) Active Medications Generic Name Dose Route Start Last Admin Trade Name Freq PRN Reason Stop Dose Admin Acetaminophen 1,000 mg 08/09/24 16:12 08/10/24 08:08 Acetaminophen 500 Mg Tab PO 09/08/24 16:11 1,000 mg Q8H PRN Administration Pain or Fever Hydromorphone HCl 2 mg 08/09/24 16:12 08/09/24 20:56 Hydromorphone Hcl 2 Mg Tab PO 08/23/24 16:11 2 mg Q6H PRN Administration Pain Ibuprofen 400 mg 08/09/24 12:11 08/09/24 13:42 Ibuprofen 200 Mg Tab PO 09/08/24 12:10 400 mg Q6H PRN Administration Pain or Fever Insulin Aspart 0 units 08/09/24 16:30 08/10/24 08:19 Insulin Aspart Per Unit Charge SC 09/08/24 16:29 Not Given ACHS KALA Insulin Glargine 5 units 08/09/24 21:00 08/10/24 08:19 Lantus Per Unit Charge SQ 09/08/24 20:59 Not Given BID KALA Ondansetron HCl 4 mg 08/09/24 20:48 08/09/24 20:56 Ondansetron Inj 2 Mg/Ml 2 Ml Vial IV 09/08/24 20:47 4 mg Q6H PRN Administration Nausea And Vomiting Past Medical History Medical History CAD (coronary artery disease) - Incidental finding of "extensive coronary artery calcification" noted on 08/2023 chest and A/P CT - seen by PCP 05/26/24- recommended cardio clearance prior to surgical procedures Anaplasmosis hx 2021, treated Sensorineural hearing loss (SNHL) of both ears Depression with anxiety Asthma denies inhaler use ALEXIA (obstructive sleep apnea) denies, no device COPD (chronic obstructive pulmonary disease) Chronic liver disease portal hypertension including ascites and marked splenomegaly. Fibrosis staging F4 Dyslipidemia Thrombocytopenia Chronic- likely secondary to underlying cirrhosis per records Diverticulosis Incontinence Nephrolithiasis currently has stones Renal cyst Recurrent UTI (urinary tract infection) Past Family History Family History Father Prostate cancer Diabetes Mother Cancer Other No family history of adverse response to anesthesia No family history of bleeding disorder Denies family history of Ovarian cancer Myocardial infarction Breast cancer Colorectal cancer Past Surgical History Surgical History H/O umbilical hernia repair (06/08/24) Robotic Assisted incision and Umbilical Hernia Repair with mesh (repaired separately) - Shorty Kim, DO, FACS Hx of hysterectomy History of bladder suspension procedure Hx laparoscopic cholecystectomy H/O shoulder surgery Hx of colonoscopy History of bladder repair surgery History of carpal tunnel surgery x2 H/O abdominal surgery panniculectomy x 2 per pt History of laparoscopic cholecystectomy 1979' open surgery Social History Smoking Status: Never smoker Do You Dip or Chew Tobacco: No Hx Alcohol Use: No Alcohol type: beer alcohol intake frequency: a few times a month Hx Substance Use: No substance use type: does not use Physical Exam Vital Signs Last Vital Signs Temp 38.7 C H 08/10/24 08:16 Pulse 91 H 08/10/24 08:16 Resp 16 08/10/24 08:16 BP 115/67 08/10/24 08:16 Pulse Ox 94 08/10/24 08:16 O2 Del Method Room Air 08/10/24 08:16 O2 Flow Rate 2 08/09/24 23:20 Testing Laboratory Results 08/10/24 07:20 08/10/24 07:20 PT 12.4 Seconds (9.0-12.0) H 08/09/24 06:43 INR 1.2 (0.9-1.1) H 08/09/24 06:43 Urine Color Yellow 08/09/24 08:22 Urine Appearance Cloudy (Clear) A 08/09/24 08:22 Urine pH 5.5 (4.5-7.5) 08/09/24 08:22 Ur Specific [place] 1.020 (1.000-1.030) 08/09/24 08:22 Urine Protein Negative (Negative) 08/09/24 08:22 Urine Glucose (UA) Negative (Negative) 08/09/24 08:22 Urine Ketones Negative (Negative) 08/09/24 08:22 Urine Nitrite Negative (Negative) 08/09/24 08:22 Ur Leukocyte Esterase 1+ (Negative) H 08/09/24 08:22 Urine WBC (Auto) 21-50 /hpf (0-5) H 08/09/24 08:22 Urine RBC (Auto) 0-2 /hpf (0-2) 08/09/24 08:22 U Hyaline Cast (Auto) 0-2 /lpf (0-2) 08/09/24 08:22 U Epithel Cells (Auto) 0-2 /hpf (0-2) 08/09/24 08:22 Urine Bacteria (Auto) 4+ (None Seen) H 08/09/24 08:22 08/09/24 08:22 Urine Culture - Preliminary Urine,Clean Catch Klebsiella variicola 08/10/24 07:59 POC Glucose 144 H Electrocardiogram Date: 08/09/24 Findings: + NSR @ (92) Chest X-Ray Date: 08/09/24 Findings: + NAD Echocardiogram Date: 06/18/24 LV Function: normal Valvular Disease: + no significant valvular disease mild pulm htn
--- NOTE | 2024-08-10 09:11 | History & Physical Bridge Note ---
Date of Service August 10, 2024 History & Physical Bridge Note I have examined the patient, reviewed the History & Physical and in the interval since the performance of the History & Physical I have noted the following changes of clinical significance: no changes noted. Patient has a platelet count in the 30s which has been chronic. She presented with a new partial thrombosis near the IMV splenic vein confluence. I spoke with Dr. Pitts and we will proceed with an EGD today to evaluate her varices and portal gastropathy. Ideally our goal is to try to anticoagulate her for this new clot however this will have to be based on the EGD findings. I explained this to the patient and she agrees to proceed. Plan for EGD today patient is NPO.
[2024-08-10] MEDS ORDERED: traMADol HCL 50 MG TABLET PO PRN (09:23)
[2024-08-10 09:48] LABS: Mean Platelet Volume 12.5 fL (9.4-12.4); Platelet Count 28 K/uL (130-400)
--- NOTE | 2024-08-10 10:34 | GI REPORT ---
[facility] Patient: NEREIDA WEAVER : 1950 Sex at : Female Age: 74 Years Procedure: Upper GI endoscopy Date: 08/10/2024 Attending Physician: Codey Vieira MD Referring MD: Referred Self Indications: - Cirrhosis rule out esophageal varices - Screening procedure Medications: - Monitored Anesthesia Care Complications: - No immediate complications. Estimated Blood Loss: - Estimated blood loss: None. - Estimated blood loss was minimal. Procedure: - Prior to the procedure, a History and Physical was performed, and patient medications and allergies were reviewed. The patient's tolerance of previous anesthesia was also reviewed. The risks and benefits of the procedure and the sedation options and risks were discussed with the patient. All questions were answered, and informed consent was obtained. Prior Anticoagulants: The patient has taken no anticoagulant or antiplatelet agents. ASA Grade Assessment: III - A patient with severe systemic disease. After reviewing the risks and benefits, the patient was deemed in satisfactory condition to undergo the procedure. - The EGD scope was introduced through the mouth and advanced to the third part of the duodenum. - The upper GI endoscopy was accomplished without difficulty. - The patient tolerated the procedure well. Findings: - Grade I varices were found in the lower third of the esophagus. Grade 1-2 varices predominantly flattened with insufflation. No active bleeding and no red vera sign - Mild portal hypertensive gastropathy was found in the entire examined stomach. - Patchy moderate inflammation characterized by erythema was found in the gastric body. Biopsies were taken with a cold forceps for Helicobacter pylori testing. - Old blood flecks noted in stomach, this appears to be from gastritis - One superficial duodenal ulcer was found in the duodenal bulb. The lesion was 3 mm in largest dimension. Impression: - Grade I esophageal varices. - Grade 1-2 varices predominantly flattened with insufflation. No active bleeding and no red vera sign - Portal hypertensive gastropathy. - Acute gastritis, characterized by erythema. Biopsied. - Old blood flecks noted in stomach, this appears to be from gastritis - Duodenal ulcer. Recommendation: - Discharge patient to home (ambulatory). - Resume previous diet. - Continue present medications. - Await pathology results. - Return to primary care physician as previously scheduled. - Patient has a contact number available for emergencies. The signs and symptoms of potential delayed complications were discussed with the patient. Return to normal activities tomorrow. Written discharge instructions were provided to the patient. - Her portal hypertension and varices seem to be under control. She appears to have an ulcer and gastritis from NSAIDs and biopsies taken to rule out H. pylori. I would start her on PPI at least once daily. I do not see an absolute contraindication to trying 2B3A but will speak with hematology about possibility Procedure Code(s): - 34028, Esophagogastroduodenoscopy, flexible, transoral; with biopsy, single or multiple Diagnosis Code(s): - K74.60, Unspecified cirrhosis of liver - Z13.810, Encounter for screening for upper gastrointestinal disorder - K76.6, Portal hypertension - K31.89, Other diseases of stomach and duodenum - K29.00, Acute gastritis without bleeding - K26.9, Duodenal ulcer, unspecified as acute or chronic, without hemorrhage or perforation - I85.10, Secondary esophageal varices without bleeding CPT(R) - 2023 copyright [employer]. All Rights Reserved. The CPT codes, CCI edits and ICD codes generated are intended as suggestions and were generated based on input data. These codes are preliminary and upon anthropology professor review may be revised to meet current compliance and payer requirements. The provider is responsible for the final determination of appropriate codes, and modifiers. Codey Vieira MD This document has been electronically signed. Note Initiated:08/10/2024 Note Completed:08/10/2024 10:32 AM \\[email or web address]\[email or web address]\[id number]
--- NOTE | 2024-08-10 10:44 | Anesthesiology Progress Note ---
Date of Service August 10, 2024 Anesthesia Post Procedure Vital Signs Vital Signs: Temp Pulse Pulse Resp BP BP Pulse Ox 08/10/24 10:31 75 16 106/50 L 93 08/10/24 10:16 77 16 102/56 L 93 08/10/24 10:01 72 20 88/49 L 94 08/10/24 09:19 37.2 C 91 H 16 122/61 92 08/10/24 08:16 38.7 C H 91 H 16 115/67 94 08/09/24 23:20 94 08/09/24 23:15 36.5 C 95 H 16 152/78 H 88 L 08/09/24 21:11 08/09/24 19:52 37.5 C 79 18 138/64 96 08/09/24 15:50 08/09/24 15:50 37.2 C 80 18 101/56 L 93 08/09/24 15:50 37.2 C 80 18 101/56 L 93 08/09/24 15:16 38.6 C H 90 22 121/63 93 08/09/24 13:30 37.9 C H 90 22 135/72 98 08/09/24 12:00 77 25 H 124/67 94 08/09/24 11:32 37.2 C 76 25 H 126/78 94 08/09/24 11:30 79 22 126/78 95 08/09/24 11:09 82 19 95 O2 Del Method O2 Flow Rate 08/10/24 10:31 Room Air 08/10/24 10:16 Room Air 08/10/24 10:01 Room Air 08/10/24 09:19 Room Air 08/10/24 08:16 Room Air 08/09/24 23:20 Nasal Cannula 2 08/09/24 23:15 Room Air 08/09/24 21:11 Room Air 08/09/24 19:52 Room Air 08/09/24 15:50 Room Air 08/09/24 15:50 Room Air 08/09/24 15:50 Room Air 08/09/24 15:16 Room Air 08/09/24 13:30 Room Air 08/09/24 12:00 08/09/24 11:32 Room Air 08/09/24 11:30 08/09/24 11:09 Pain Intensity Bilateral Arm: Pain Intensity: 7 Transfer of Care Handoff Completed per policy Notes Mental Status: alert / awake / arousable Patient Amnestic to Procedure: Yes Nausea / Vomiting: adequately controlled Pain: adequately controlled Airway Patency, RR, SpO2: stable & adequate BP & HR: stable & adequate Hydration State: stable & adequate Anesthetic Complications: no major complications apparent
[2024-08-10 10:51] LABS: Basophils # (auto) 0.02 K/uL (0.00-0.20); Basophils % (auto) 0.5 %; Eosinophils # (auto) 0.02 K/uL (0.00-0.50); Eosinophils % (auto) 0.5 %; Immature Granulocytes # (auto) 0.01 K/uL (0.01-0.20); Immature Granulocytes % (auto) 0.3 %; Lymphocytes # (auto) 0.64 K/uL (1.20-3.40); Lymphocytes % (auto) 16.2 %; Monocytes # (auto) 0.45 K/uL (0.11-0.59); Monocytes % (auto) 11.4 %; Neutrophils # (auto) 2.81 K/uL (1.40-6.50); Neutrophils % (auto) 71.1 %
[2024-08-10] MEDS: SODIUM CHLORIDE 0.9% 500 ML IV SCH (11:06)
[2024-08-10] MEDS: LIDOCAINE 2% 2 ML VIAL/AMP(20MG/ML) INFIL ONE (11:06)
[2024-08-10] MEDS: PROPOFOL IV EMULSION 10 MG/ML 20 ML VIAL IV ONE (11:06)
[2024-08-10] MEDS: cefTRIAXone SODIUM 2,000 MG/50 ML BAG IV SCH (11:40)
--- NOTE | 2024-08-10 14:43 | Hospitalist Progress Note ---
Date of Service August 10, 2024 Assessment & Plan (1) Urinary tract infection: (2) Thrombocytopenia: (3) Cirrhosis: (4) Type 2 diabetes mellitus: Plan Jing is a 74F with a PMHx of type II DM, COPD, CAD, cirrhosis with thrombocytopenia, chronic incontinence (s/p botox injections) and MDD who presents to the ER with weakness and worsening incontinence along with fever. Initial evaluation showing UA concerning for UTI, fever and tachycardia. Biofire & CXR without acute findings. Admitted for PT/OT consults, IV abx and further workup. #Urinary Tract Infection/Weakness/sepsis CT head without acute findings. Ammonia level WNL. Follows with urology, due for another botox injections but has been unable to get this because of recurrent UTIs UA concerning for UTI, UC klebsiella variicola, sensitivities pending. Continue ceftriaxone Blood Cultures - negative at 48 hours PT/OT - recommend home, consider home PT #Bilateral Arm Pain Mag replaced IV, recheck in AM CK WNL. C-spine without acute process or significant stenosis Pain control: Tylenol and diluadid (based on allergies/cirrhosis ) PT reports this has improved #Cirrhosis/thrombocytopenia /Splenic thrombus Chronic. Plts 33 on admission which is near baseline. CT A/P: cirrhotic liver, manifestions of portal HTN, development of nonocclusive thrombus at the confluence of splenic and inferior mesenteric veins GI consulted - s/p EGD 08/10 showing Grade 1-2 varices, portal hypertensive gastropathy, acute gastritis, duodenal ulcer - Biopsies pending for h.pylori - start PPI at least once daily - no absolute contraindication to 2B3A inhibitors but defer to hematology Hematology consulted - regarding possible Anticoagulation. Spoke to Dr. Palacio 08/10 - would not recommend anticoagulation with Platelets <50. Discussed 2B3A inhibitors and states those would only be used for arterial clots. AM CBC #MDD Reports she stopped taking her Effexor, unable to give me an exact timeline but given 90 supply in March Passive suicidal statements - mostly related to not wanting to live with her incontinence BHU liaison consulted q15 minute checks Is open to trying medication - unclear all the patient has tried in the past - lexapro, zoloft and effexor on prior list. Will defer to PCP for management as this will take weeks to see improvment #DMT2 Home regiment: semaglutide and insulin (takes inconsistently) - HELD A1c 7.0 06/2024 Continue Lantus 5u BID + SSI (CF 45, CR 15) based on prior glycemic consult Dispo: continued inpatient stay, awaiting urine culture and heme consult DVT ppx: SCDs Admission and Anticipated Discharge Date Admission Date: August 09, 2024 Subjective Patient seen lying in bed post EGD. Stating that she frequently feels bloated. She is very happy that she was able to walk to the bathroom today without having any incontience. She also states this is the first time in a long time that her arms do not hurt Again wanting to talk about her botox options- however, she is aware that she cannot have this done until she is off antibioitcs Tolerating diet Had not seen heme onc at the time of my eval Denies thoughts of self harm today, states sometimes she just cant take the pain anymore. Would be open to medication for her mental health. Review of Systems Review of Systems: All systems reviewed & are unremarkable except as noted in Subjective Physical Exam Physical Exam: General: NAD, VS as above, appears better than yesterday Resp: normal respiratory effort, lungs clear to auscultation CV: RRR, no murmur, Abd: normal bowel sounds, mild suprapubic tenderness, soft Extremities: Moves all extremities, no edema. Neuro: A&O x3, reports frustration with illness process - not making passive suicidal thoughts like yesterday Skin: intact, no lesions noted Results & Data Results & Data Vital Signs (Past 12 Hours) Vital Signs Temp Pulse Resp BP Pulse Ox O2 Del Method 08/10/24 10:59 102/53 L 08/10/24 10:31 75 16 106/50 L 93 Room Air 08/10/24 10:16 77 16 102/56 L 93 Room Air 08/10/24 10:01 72 20 88/49 L 94 Room Air 08/10/24 09:19 99.0 F 91 H 16 122/61 92 Room Air 08/10/24 08:16 101.7 F H 91 H 16 115/67 94 Room Air Laboratory Results cbc, chemistry, mag, ammonia reviewed Diagnostic Findings EGD reviewed C spine MRI reviewed PG Care Time/CCT Total # of Minutes Spent Total Time Spent with Patient: Total time spent is greater than 50% in coordination of care (as documented) at patient's floor/unit and/or counseling patient: Coding Level of Care Code 70924 SUB INP/OBS CARE MIN Diagnoses Urinary tract infection N39.0 Hematuria presence: without hematuria Urinary tract infection type: site unspecified Thrombocytopenia D69.6 Cirrhosis K74.60 Type 2 diabetes mellitus E11.9 (1) Urinary tract infection Hematuria presence: without hematuria Urinary tract infection type: site unspecified Qualified Code(s): N39.0 - Urinary tract infection, site not specified
[2024-08-10] MEDS: PANTOprazole 40 MG TAB PO SCH (15:27)
[2024-08-10] MEDS: traMADol HCL 50 MG TABLET PO PRN (18:22)
[2024-08-10 21:42] VITALS: TEMP 99.1
[2024-08-11 08:11] VITALS: PULSE 70; RESP 18; O2SAT 95
[2024-08-11 08:59] LABS: Hematocrit (blood only) 34.9 % (37.0-47.0); Mean Corpuscular Hemoglobin 30.5 pg (25.0-34.0); Mean Corpuscular Hgb Conc 34.4 g/dL (32.0-36.0); Mean Corpuscular Volume 88.8 fL (80.0-100.0); Mean Platelet Volume 12.8 fL (9.4-12.4); Platelet Count 31 K/uL (130-400); RDW Standard Deviation 45.1 fL (36.4-46.3); Red Blood Count 3.93 M/uL (4.20-5.40); White Blood Count 2.73 K/ul (4.8-10.8)
--- NOTE | 2024-08-11 09:14 | Gastroenterology Progress Note ---
Date of Service August 11, 2024 Assessment & Plan (1) Cirrhosis: Plan: 74 year old female with history of T2DM, COPD, CAD, cirrhosis with thrombocytopenia, chronic incontinence, recurrent urinary infections, depression and others below who was admitted through the ED 08/09/24 w/ weakness, urinary incontinence and fevers. GI was asked to evaluate for her cirrhosis and imaging as this revealed a partially occlusive thrombus at the confluence of the IMV and splenic vein. Inpatient EGD revealed grade 1 varices, mild portal hypertensive gastropathy, gastritis, duodenal ulcer. Hematology was consulted to discuss role of 2B3A. Follow EGD pathology when available No NSAIDs PPI 40 mg twice daily for a month then once daily thereafter Appreciate hematology recommendations Recommend urology consultation Needs OP follow up arranged with her [facility] GI liver care team Recall GI as needed I spent a total of 40 minutes on the date of service in review of patient's record, and previously obtained information in person and appropriate medical visit, discussion and education of plan, with patient and/or caregiver, placing orders for tests/referral/procedures as medically necessary and documentation of pertinent clinical information in patient's medical records for their visit today. Admission and Anticipated Discharge Date Admission Date: August 09, 2024 Supervising Physician Co-Signing Physician Notes I personally saw and examined the patient. I have reviewed the chart and agree with the documentation provided by the [employer]ACHINE including discussion about the assessment, treatment and plan. Briefly, grade 1 varices with mild portal hypertensive gastropathy. Gastritis and a small duodenal ulcer noted. This was clean-based. She should be on PPI twice daily for a few days and then once daily for 3 months. The main issue partially occlusive IMV splenic vein confluence thrombus. Her platelets will never come up above 50, we would just have to watch her. She should get a follow-up with [facility] GI in 2 to 3 months to get a rescan. Can we send off an alpha-fetoprotein before she goes home. Her main issue and she called us into the room 2 times is her hematuria, fevers, chronic cystitis, urinary incontinence. Can we get urology to see her while she is in the hospital thank you. GI will sign off, please call us back with any questions. Subjective Pt was seen and evaluated, chart reviewed. She voices frustration this AM to me regarding the events of her admission. She endorses concerns regarding her hematuria and recurrent fevers. I advised her that she will need to discuss this with her hospitalist care team. I reviewed her CT, indication for EGD and purpose for hematology consultation with her. She verbalized understanding. CTAP 2024: Mild bladder wall thickening. This may be chronic although could be correlated urinalysis. Trace gas within the bladder, likely related to recent instrumentation. Cirrhotic liver. Manifestations of portal hypertension including splenomegaly and varices formation.Interval development of non occlusive thrombus at the confluence of the splenic and inferior mesenteric veins. Patent main, left and right portal veins. No ascites. No bowel obstruction. Colonic diverticulosis. No evidence for acute diverticulitis. EGD 2024: Grade I esophageal varices. Grade 1-2 varices predominantly flattened with insufflation. No active bleeding and no red vera sign Portal hypertensive gastropathy. Acute gastritis, characterized by erythema. Biopsied. Old blood flecks noted in stomach, this appears to be from gastritis Duodenal ulcer. Review of Systems Review of Systems: All other findings negative except as noted in HPI. Physical Exam Constitutional: WD/WN, vitals as above Respiratory: normal respiratory effort Cardiovascular: Rate/Rhythm: regular rate and regular rhythm Gastrointestinal (Abdomen): normal bowel sounds, soft, nontender, no hepatosplenomegaly Skin: no rashes, warm and dry Results & Data Results & Data Vital Signs (Past 12 Hours) Vital Signs Temp Pulse Resp BP BP Pulse Ox O2 Del Method 08/11/24 08:09 99.1 F 70 18 113/76 95 Room Air 08/10/24 21:41 99.1 F 77 16 119/70 93 Room Air 08/10/24 21:35 Room Air Laboratory Results 08/11/24 08/11/24 08/10/24 Range/Units 07:59 07:51 20:13 WBC 2.73 L (4.8-10.8) K/ul RBC 3.93 L (4.20-5.40) M/uL Hgb 12.0 (12.0-16.0) g/dl Hct 34.9 L (37.0-47.0) % MCV 88.8 (80.0-100.0) fL MCH 30.5 (25.0-34.0) pg MCHC 34.4 (32.0-36.0) g/dL RDW Std Deviation 45.1 (36.4-46.3) fL RDW Coeff of Chana 14.0 (11.5-14.5) % Plt Count 31 L (130-400) K/uL MPV 12.8 H (9.4-12.4) fL Immature Gran % (Auto) % Neut % (Auto) % Lymph % (Auto) % [place] % (Auto) % Eos % (Auto) % Baso % (Auto) % Neut # (Auto) (1.40-6.50) K/uL Lymph # (Auto) (1.20-3.40) K/uL [place] # (Auto) (0.11-0.59) K/uL Eos # (Auto) (0.00-0.50) K/uL Baso # (Auto) (0.00-0.20) K/uL Immature Gran # (Auto) (0.01-0.20) K/uL POC Glucose 138 H 251 H (70-99) mg/dl Ammonia (18-72) umol/L 08/10/24 08/10/24 08/10/24 Range/Units 16:29 12:49 11:33 WBC (4.8-10.8) K/ul RBC (4.20-5.40) M/uL Hgb (12.0-16.0) g/dl Hct (37.0-47.0) % MCV (80.0-100.0) fL MCH (25.0-34.0) pg MCHC (32.0-36.0) g/dL RDW Std Deviation (36.4-46.3) fL RDW Coeff of Chana (11.5-14.5) % Plt Count (130-400) K/uL MPV (9.4-12.4) fL Immature Gran % (Auto) % Neut % (Auto) % Lymph % (Auto) % [place] % (Auto) % Eos % (Auto) % Baso % (Auto) % Neut # (Auto) (1.40-6.50) K/uL Lymph # (Auto) (1.20-3.40) K/uL [place] # (Auto) (0.11-0.59) K/uL Eos # (Auto) (0.00-0.50) K/uL Baso # (Auto) (0.00-0.20) K/uL Immature Gran # (Auto) (0.01-0.20) K/uL POC Glucose 167 H 141 H (70-99) mg/dl Ammonia 62.0 (18-72) umol/L 08/10/24 Range/Units 07:20 WBC (4.8-10.8) K/ul RBC (4.20-5.40) M/uL Hgb (12.0-16.0) g/dl Hct (37.0-47.0) % MCV (80.0-100.0) fL MCH (25.0-34.0) pg MCHC (32.0-36.0) g/dL RDW Std Deviation (36.4-46.3) fL RDW Coeff of Chana (11.5-14.5) % Plt Count 28 L* (130-400) K/uL MPV 12.5 H (9.4-12.4) fL Immature Gran % (Auto) 0.3 % Neut % (Auto) 71.1 % Lymph % (Auto) 16.2 % [place] % (Auto) 11.4 % Eos % (Auto) 0.5 % Baso % (Auto) 0.5 % Neut # (Auto) 2.81 (1.40-6.50) K/uL Lymph # (Auto) 0.64 L (1.20-3.40) K/uL [place] # (Auto) 0.45 (0.11-0.59) K/uL Eos # (Auto) 0.02 (0.00-0.50) K/uL Baso # (Auto) 0.02 (0.00-0.20) K/uL Immature Gran # (Auto) 0.01 (0.01-0.20) K/uL POC Glucose (70-99) mg/dl Ammonia (18-72) umol/L PG Care Time/CCT Total # of Minutes Spent Total Time Spent with Patient: Total time spent is greater than 50% in coordination of care (as documented) at patient's floor/unit and/or counseling patient: Coding Level of Care Code 02427 SUB INP/OBS CARE 2/35MIN Diagnoses Cirrhosis K74.60
[2024-08-11] MEDS: SODIUM CHLORIDE 0.9% 500 ML IV ONE (13:56)
--- NOTE | 2024-08-11 14:24 | Discharge Summary ---
Discharge Summary Date of Service August 11, 2024 Principal Dx & Hospital Course #1 = Principal Diagnosis (1) Urinary tract infection: (2) Thrombocytopenia: (3) Cirrhosis: (4) Type 2 diabetes mellitus: Plan #Urinary Tract Infection/Weakness/sepsis Jing is a 74F with a PMHx of type II DM, COPD, CAD, cirrhosis with thrombocytopenia, chronic incontinence (s/p botox injections) and MDD who presents to the ER with weakness and worsening incontinence along with fever. Initial evaluation showing UA concerning for UTI, fever and tachycardia. Biofire & CXR without acute findings. CT head without acute findings. Ammonia level WNL. Her UA was concerning for UTI, UC showed pansensitive Klebsiella Variicolla. She recieved ceftriaxone and discharged on course of cefdinir. Blood cultures negative at 48 hours at discharge. Day of discharge, I spent over an hour in patient room explaining to her the workup she has had done, the results that she has had and what the next steps are going to be. She had concerns for hematuria - she was able to void while I was in the room, and had pictures of her urine from earlier in the day on her phone. All of these urine samples were dark and concentrated but none of them contained blood. I explained to her this was likely from dehydration - she has only been agreeable to drink diet coke. I encouraged her to increase her PO intake. She was agreeable to IV fluid bolus before discharge. I explained to her the different between a urinalysis and urine culture and timing to get those results. She expressed great frustration with having urinary incontinence. I explain in great detail that her incontinence is multifactorial - this is a structural problem, muscle problem and is worsened by her current urinary tract infection. I attempted to explain how the multiple surgeries she has had in the past were working to try to help that. I asked her if she had ever done pelvic floor physical therapy to which she responded "my son is over 50 years old". I told her this can be done at any age, and can help with her muscle tone, but did not think this would completely resolve her problems. Pelvic floor exercises handout provided with discharge packet. She is also frustrated with the urology office and inability to get her botox. She is aware she cannot have this done when she is in the hospital and while she has a UTI. The urology team has been notified of her inpatient stay, will attempt to get in for botox next week so this can be done seamlessly without needed another urine culture. I encouraged her to be compliant with her antibiotics and to call urology if she does not hear from them by Thursday. Expressed frustration about not being able to trust medical provider, as she like providers that she knows personally and knows about their morals and values. Also frustration about being estranged from her only son. Condolence provided. #Bilateral Arm Pain Mag replaced IV. CK WNL. C-spine without acute process or significant stenosis PT reports this has improved - suspect related to chills and possible rigors from UTI. #Cirrhosis/thrombocytopenia /Splenic thrombus Chronic. Plts 33 on admission which is near baseline. CT A/P: cirrhotic liver, manifestations of portal HTN, development of nonocclusive thrombus at the confluence of splenic and inferior mesenteric veins GI consulted - s/p EGD 08/10 showing Grade 1-2 varices, portal hypertensive gastropathy, acute gastritis, duodenal ulcer. Recommend PPI BID x 30 days and then once a day life long. She has been referred to [facility]. Biopsies pending for h.pylori Hematology consulted - regarding possible Anticoagulation. Spoke to Dr. Palacio 08/10 - would not recommend anticoagulation with Platelets <50. Discussed 2B3A inhibitors and states those would only be used for arterial clots. Pts platelets will likely never get above 50 and will need routine monitoring with GI. She expressed frustration with not understanding the results of her testing and not being able to follow up with Dr. Giraldo outpatient. By the end of the discussion she seemed to have a better understanding of these manifestation of her cirrohsis. She was not please with the care she received from Dr. Palacio, reassured she did not have to follow up with him at this time. #MDD Reports she stopped taking her Effexor, unable to give me an exact timeline but given 90 supply in March Passive suicidal statements - mostly related to not wanting to live with her incontinence was evaluated by the [facility] liason and deemed safe to go home. Her mental status/outlook improved as her incontience improved. Is open to trying medication - unclear all the patient has tried in the past - lexapro, zoloft and effexor on prior list. Will defer to PCP for management as this will take weeks to see improvement #DMT2 Home regiment: semaglutide and insulin (takes inconsistently) - can resume on discharge, but BSG controlled with far less insulin inpatient. A1c 7.0 06/2024 Dispo:discharge to home today with urology follow up and hepatology referral Notes For Next Care Provider consider new mental health med for stability needs urology follow up Medication Changes From Visit cefidinir x 7 days BID PPI Admission HPI Per Admitting Provider Jing is a 74F with a PMHx of type II DM, COPD, CAD, cirrhosis with thrombocytopenia, chronic incontinence (s/p botox injections) and MDD who presents to the ER with weakness and worsening incontinence along with a fever. Reports that she was having stabbing pain in her arms, this is a common symptom for her when she has a UTI. Also reports that she is having headaches, which is also common for her during acute illness. Last night peed in bed all night, unable to get out of bed. Lives alone, no assistive devices. Her main complaint at the time of admission is the pain in her arms. This seems to be a chronic problem, but feels like she cannot lift them. However itches her face multiple times during the encounter. Reports when she finishes her course of antibiotics she feels better "for about 2.5 seconds" and then it comes back. Is due for another botox injection, but reports that her straight cath keeps coming back positive for infection and her procedures are getting delayed. She has had multiple bladder operations in the past. Recent course of Macrobid 07/22 for 7 days, also reports had to have some pills that were sent to a pharmacy in [place] that she took for 3 days. Stopped taking her Effexor, did not see benefit. Takes this on a off. Denies ETOH or smoking. Would like to be a full code, her sisters can make decisions if she is unable to do so. ED course: NSS 500ml 1000mg IV tylenol Mag 1gm Ceftriaxone 2g IV Discharge Exam General: NAD, VS as above, appears well, ambulates independently in the room Resp: normal respiratory effort, not conversationally dyspenic even when getting worked up CV: well perfused Extremities: Moves all extremities, no edema. Neuro: A&O x3, reports frustration with illness process - not making passive suicidal thoughts like yesterday Discharge Plan Discharge Items Patient Disposition: Home - Self-Care Reason For Visit: UTI, WEAKNESS Discharge Diagnosis: UTI, urinary incontience Activity: Resume your previous activity Weightbearing: Full weightbearing Non-emergency contact: Primary Care Provider and Urologist Call non-emergency contact if: you have any medication questions, your symptoms worsen and your temperature is above 101 Follow-up/Referrals: Scarlett Dudley PA-C [Primary Care Provider] - 08/18/24 10:25 am (follow up within one week ) Amarilys Womack PA-C [Physician Filling Layer Up] - (f/u for botox; office will call you with a hospital follow up visit.) No Martinez, [Physician] - (liver follow up in 1-2 months ) Diet: Carb Consistent or DM2 Addtl Attending Provider Instructions: Ms. Dela Cruz, You were hospitalized after having fevers and chills at home, unfortunately found to have another UTI. We did a CT scan of your abdomen and pelvis to make sure that the infection had not spread to your kidneys, and thankfully it had not. The scan did show a blood clot in the veins in your intestine/stomach area. You were evaluated by the GI team who preformed an EGD, showing gastritic, a small ulcer and grade 1 esophageal varices. The GI team has recommended protonix 40mg twice a day for one months and then once a day after that. They also recommend that you follow up with the [facility] liver care team, a referral has been placed for this. For Dr. Martinez, they should contact you with an appointment, but if you do not hear from them, the number is above. You were seen by hematology (the blood doctor) - who did not recommend any anticoagulation for the clot because your platelets are so low. The clot will require continued monitoring with the GI team. Regarding your urinary incontinence, I know how frustrating this has been for you. Recommendations regarding this: * Please take the antibiotics as prescribed and take the full course, the first dose is AM of 08/12 * I spoke with urology and they understand your circumstances, they should be calling you with an appointment. If you do not hear from them by Thursday please call * Make sure you are wiping front to back, use unscented soaps. Any scented products can cause irritation and infections * Try not to sit in soiled clothing as this also increases the risk for infection * Bladder irritants (like caffeine, iced tea, processed sugar) also lead to bladder irriation, that can cause infection. Drinking water will help * I have attached information about pelvic floor exercises - I do not expect that these are going to cure your issues, but over time they can make improvements. * If you are having issues talking to a provider in the urology office, I would recommend you make an appointment to see them again rather than trying to get a call back. Please see your PCP within a week after discharge - I understand the frustrations you have with the healthcare system in general and your chronic issues. I think talking to your PCP about medications for your mental health would be beneficial to increase your quality of life. Activity: You can do normal everyday activities as your body allows. Take rest breaks if you feel tired. Do not overexert. Stop activity if you have pain, shortness of breath or feel dizzy. Follow-up appointments: Make an appointment with your primary care physician within one week of discharge. A copy of this summary will be sent to them. Every time you see your primary care physician, or any other doctor, bring your medication list, and a list of questions. CONTACT YOUR PRIMARY CARE PROVIDER if you experience any of the following: Shortness of breath or difficulty breathing Fevers or chills Feeling tired with normal activity or experiencing dizziness or fainting Difficulty following your treatment plan, or difficulty taking medications CALL 911 OR GO TO THE EMERGENCY DEPARTMENT if you experience any of the following: Severe abdominal pain or nausea/vomiting Severe chest pain, or chest pain that radiates (moves) to your jaw or arm Sudden, severe shortness of breath or difficulty breathing Thank you for allowing us to participate in your care. Pending Studies at Discharge: Yes (alpha fetoprotien ) Stand-Alone Forms: My [employer], Smoking Cessation Medications and DC Order Prescriptions: New pantoprazole 40 mg Tablet,Delayed Release (Dr/Ec) 40 mg PO BID 30 Days Qty: 60 0RF cefdinir 300 mg capsule 300 mg PO BID 7 Days Qty: 14 0RF Continued (DME) Depend Underwear For Women XL Misc See Rx Instructions .Route Qty: 68 3RF Rx Instructions: Change brief daily as needed Ozempic 2 mg/dose (8 mg/3 mL) pen injector 2 mg subcut WK Rx Instructions: Tuesdays insulin degludec [Tresiba FlexTouch U-200] 200 unit/mL (3 mL) Insulin Pen 0 unit SUBCUT QPM Rx Instructions: 08/09/24 - Pt states that she self-regulates and wouldn't give me a direct unit or a range. Original Directions: 100 units every evening. ibuprofen 100 mg Tablet,Chewable 200 mg PO Q6H PRN (Reason: Pain) Miebo (PF) 100 % drops 1 drp OPB DAILY Discharge Orders: Discharge Order (Routine); Ordered 08/11/24 Ordered By: Danette Zavaleta/Other Patient Handouts: Pelvic Floor Muscle Exercises, ED Urinary Incontinence Female Admission Data Admit Date/Time: 08/09/24 11:47 Attending Provider: Renard Osei Admit Provider: Krystal Pitts Primary Care Provider: Scarlett Dudley Other Providers: Krystal Pitts; Codey Vieira; Luis Alberto Palacio Other Interventions: Discharge Summary Assessment (RN) Last Done: 08/11/24 14:49 Hospital Stay Data Consultations 08/09/24 10:25 ED Decision to Admit Stat 08/09/24 11:30 Consult Behavioral Health Liaison Routine 08/09/24 15:05 Consult Gastroenterology Routine 08/09/24 18:37 Consult Oncology Routine Procedures Performed Operation Date: 08/10/24 17:00 Actual Procedures p EGD Biopsy Cytology - Codey Vieira MD Diagnostic Imagining Performed Chest X-Ray 08/09/24 07:07 EXAM: XR chest 1V portable CLINICAL HISTORY: Chest pain, nonspecific TECHNIQUE: Radiograph of chest was acquired. 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 The cardiomediastinal silhouette is within normal limits. Eventeration of right hemidiaphragm. No acute osseous abnormality. IMPRESSION: 1. Eventeration of right hemidiaphragm. No new finding. Electronically signed by Maynor Salazar 08-09-2024 08:[address] 08/09/24 10:24 CT OF THE HEAD WITHOUT CONTRAST CLINICAL HISTORY: Headache. Fever. COMPARISON STUDY: Head CT June 17, 2024. CT DOSE: 2234.62 mGy.cm TECHNIQUE: Helical axial images of the head were obtained without IV contrast. Automated exposure control was utilized for the study. A dose lowering technique was utilized adhering to the principles of ALARA. FINDINGS: No acute intracranial hemorrhage, midline shift or mass effect is present. Mild white matter hypodensities are unchanged and favor small vessel disease. The ventricular system is unremarkable. The basal cisterns are patent. No extra-axial collections are present. There are no findings to suggest acute dural sinus thrombosis or acute territorial infarct. No significant calvarial abnormalities are present. There is minimal sinus mucosal thickening. IMPRESSION: No acute intracranial findings. ACT 112: Negative or not required by law. Electronically signed by: Spenser Daniels M.D. 08/09/2024 10:53 AM Abdomen/Pelvis CT 08/09/24 10:36 CT OF THE ABDOMEN AND PELVIS WITH CONTRAST CLINICAL HISTORY: Urinary tract infection, fever and generalized pain. COMPARISON STUDY: CT of the abdomen and pelvis June 18, 2024. TECHNIQUE: Following IV administration of 94 mL of Optiray, axial images of the abdomen and pelvis were obtained from the lung bases to the proximal femurs. I mages were reviewed in the axial, sagittal, and coronal planes. IV contrast was administered without complication. Automated exposure control was utilized for the study. A dose lowering technique was utilized adhering to the principles of ALARA. FINDINGS: Visualized portions of the lung bases are unremarkable. Subpleural right lower lobe and right middle lobe opacity represents atelectasis. Elevation of the right hemidiaphragm is unchanged. The heart is mildly enlarged. There is extensive coronary artery calcification. No pneumatosis, free air or portal venous gas is present. The liver is cirrhotic. Abdominal varices are again noted. Splenomegaly is unchanged. Hypodense splenic lesions are benign. No hepatic lesions are identified on venous phase exam. There is nonocclusive thrombus at the confluence of the inferior mesenteric and splenic veins. The main, right and left portal veins are patent. There is no evidence for a bowel obstruction. Extensive sigmoid diverticulosis is present. No evidence for acute diverticulitis. There is no ascites. Cystic 3.5 cm right adnexal lesion is unchanged since CT of September 17, 2013. No acute fractures are identified. Trace gas within the bladder is noted. There is mild bladder wall thickening. IMPRESSION: 1. Mild bladder wall thickening. This may be chronic although could be correlated urinalysis. Trace gas within the bladder, likely related to recent instrumentation. 2. Cirrhotic liver. Manifestations of portal hypertension including splenomegaly and varices formation. 3. Interval development of nonocclusive thrombus at the confluence of the splenic and inferior mesenteric veins. Patent main, left and right portal veins. 4. No ascites. 5. No bowel obstruction. Colonic diverticulosis. No evidence for acute divertic ulitis. ACT 112: Negative or not required by law. Electronically signed by: Spenser Daniels M.D. 08/09/2024 11:09 AM Cervical Spine MRI 08/09/24 11:30 MRI OF THE CERVICAL SPINE WITHOUT CONTRAST CLINICAL HISTORY: Bilateral arm pain. COMPARISON: Cervical spine CT June 17, 2024. TECHNIQUE: Utilizing a 1.5 Lisandra magnet and dedicated coil, multiplanar, multiecho imaging of the cervical spine was performed without IV contrast. FINDINGS: Alignment of the cervical spine is anatomic. Vertebral body heights are maintained. There is no marrow edema or marrow replacement. Cervical cord signal and caliber are normal. There is no intracanalicular mass or fluid collection. Paravertebral soft tissues are unremarkable. There is a small central disc pr otrusion at the T2-T3 level. This results in mild central canal narrowing. Exam is mildly compromised by motion artifact but is diagnostic. There is mild to moderate multilevel facet arthrosis without significant degenerative disc disease within the cervical spine. C2-C3: The central canal and neural foramen are patent. C3-C4: The central canal and neural foramen are patent. C4-C5: The central canal and neural foramen are patent. C5-C6: The central canal and neural foramen are patent. C6-C7: The central canal and neural foramen are patent. C7-T1: The central canal and neural foramen are patent. IMPRESSION: 1. No acute process within the cervical spine by MRI. 2. Normal cervical cord signal and caliber. No disc herniations within the cervical spine. Patent central canal and neural foramen. 3. Mild to moderate multilevel facet arthrosis. ACT 112: Negative or not required by law. Electronically signed by: Spenser Daniels M.D. 08/09/2024 2:43 PM Pending Results Patient Have Any Pending Studies at Discharge: Yes (alpha fetoprotien ) Discharge Instructions Given to Patient (Per Discharging Provider) Ms. Dela Cruz, You were hospitalized after having fevers and chills at home, unfortunately found to have another UTI. We did a CT scan of your abdomen and pelvis to make sure that the infection had not spread to your kidneys, and thankfully it had not. The scan did show a blood clot in the veins in your intestine/stomach area. You were evaluated by the GI team who preformed an EGD, showing gastritic, a small ulcer and grade 1 esophageal varices. The GI team has recommended protonix 40mg twice a day for one months and then once a day after that. They also recommend that you follow up with the [facility] liver care team, a referral has been placed for this. For Dr. Martinez, they should contact you with an appointment, but if you do not hear from them, the number is above. You were seen by hematology (the blood doctor) - who did not recommend any anticoagulation for the clot because your platelets are so low. The clot will require continued monitoring with the GI team. Regarding your urinary incontinence, I know how frustrating this has been for you. Recommendations regarding this: * Please take the antibiotics as prescribed and take the full course, the first dose is AM of 08/12 * I spoke with urology and they understand your circumstances, they should be calling you with an appointment. If you do not hear from them by Thursday please call * Make sure you are wiping front to back, use unscented soaps. Any scented products can cause irritation and infections * Try not to sit in soiled clothing as this also increases the risk for infection * Bladder irritants (like caffeine, iced tea, processed sugar) also lead to bladder irriation, that can cause infection. Drinking water will help * I have attached information about pelvic floor exercises - I do not expect that these are going to cure your issues, but over time they can make improvements. * If you are having issues talking to a provider in the urology office, I would recommend you make an appointment to see them again rather than trying to get a call back. Please see your PCP within a week after discharge - I understand the frustrations you have with the healthcare system in general and your chronic issues. I think talking to your PCP about medications for your mental health would be beneficial to increase your quality of life. Activity: You can do normal everyday activities as your body allows. Take rest breaks if you feel tired. Do not overexert. Stop activity if you have pain, shortness of breath or feel dizzy. Follow-up appointments: Make an appointment with your primary care physician within one week of discharge. A copy of this summary will be sent to them. Every time you see your primary care physician, or any other doctor, bring your medication list, and a list of questions. CONTACT YOUR PRIMARY CARE PROVIDER if you experience any of the following: Shortness of breath or difficulty breathing Fevers or chills Feeling tired with normal activity or experiencing dizziness or fainting Difficulty following your treatment plan, or difficulty taking medications CALL 911 OR GO TO THE EMERGENCY DEPARTMENT if you experience any of the following: Severe abdominal pain or nausea/vomiting Severe chest pain, or chest pain that radiates (moves) to your jaw or arm Sudden, severe shortness of breath or difficulty breathing Thank you for allowing us to participate in your care. Total Time Total Time Spent Total Time Spent (In Minutes): Time spent day of discharge 75 minutes including direct patient care, medication reconciliation, documentation, review of labs and images, and coordination of care. Coding Level of Care Code 02108 INP/OBS DISCH >30 MIN Diagnoses Urinary tract infection N39.0 Hematuria presence: without hematuria Urinary tract infection type: site unspecified Thrombocytopenia D69.6 Cirrhosis K74.60 Type 2 diabetes mellitus E11.9
[2024-08-11 14:43] VITALS: BP 119/70
[2024-08-11] MEDS ORDERED: PANTOprazole 40 MG TAB PO SCH (21:00)
== END 2024-08-11 15:01 | disposition home or self-care (01) | DRG 871 ==
LOC: ED 06:36 → SUATTDRO 11:47 → 3N 11:47